=== PATIENT | female | born 1960 | race Caucasian/White ===

== ENCOUNTER 2020-10-07 08:57 | Inpatient (IN) | payer MEDICARE, MEDICAID, SELFPAY ==
[2020-10-07 09:15] VITALS: BP 133/86; PULSE 90; RESP 19; TEMP 36.2; O2SAT 96
[2020-10-07 09:20] VITALS: BP 133/84; PULSE 90; RESP 18; TEMP 36.2; O2SAT 96; BMI 28.3
--- NOTE | 2020-10-07 09:36 | XR_ITS ---
EXAMINATION: CT BRAIN WITHOUT CONTRAST. CHEST. CLINICAL INFORMATION: Hit head, and headache with dizziness. COMPARISON: None TECHNIQUE: 5 mm thin axial and reformatted 2 mm thin sagittal and coronal images of brain were obtained. DLP 675. Chest 2 views. FINDINGS: BRAIN: There is no acute intra-axial, extra-axial bleed, masses, collection or midline shift. There is no acute infarction in evolution. The lara to white matter differentiation is maintained. The lateral ventricles are symmetrical in size and configuration without enlargement. There is no abnormality in the posterior fossa. Bone windows reveal no calvarial abnormality. There is no scalp soft tissue abnormality. Bilateral paranasal sinuses and mastoid air cells are well-aerated. CHEST: The lungs are well-expanded and clear. The heart size and pulmonary vascularity is normal. There is mild dextroscoliosis mid dorsal spine. No lytic process. XR/XR chest 2V IMPRESSION: No acute intracranial process seen. Unremarkable chest exam.
--- NOTE | 2020-10-07 09:36 | ECG_ITS ---
Test Reason : MEDICAL CLEARANCE Blood Pressure : / mmHG Vent. Rate : 066 BPM Atrial Rate : 066 BPM P-R Int : 158 ms QRS Dur : 094 ms QT Int : 426 ms P-R-T Axes : 043 007 019 degrees QTc Int : 446 ms Normal sinus rhythm RSR' or QR pattern in V1 suggests right ventricular conduction delay Borderline ECG When compared with ECG of 16-JUN-2019 19:24, No significant change was found Referred By: Gail Graf Electronically Signed By:TONI CHAPARRO
--- NOTE | 2020-10-07 09:49 | ED.PSYCH ---
HPI - Psych General Chief Complaint: Psychiatric Symptoms Stated Complaint: CRISIS Time Seen by Provider: 10/07/20 09:07 Source: patient Mode of arrival: ambulatory Limitations: no limitations History of Present Illness HPI Narrative: 60-year-old female previously healthy here with suicidal thoughts with no plan. Patient told me that she recently relapsed on cocaine and has been using this for the last few weeks. She tells me she smokes daily. Unknown amount. No additional substance use. No alcohol use. She tells me this is made her feel very depressed so she is hiding it from her family. She denies any HI hallucinations. She does tell me that this morning approximately 4 hours prior to arrival she noticed some left-sided chest discomfort with dizziness and nausea. The pain radiates down her left arm. No shortness of breath, cough, fevers, chills, diaphoresis. She also tells me she fell several times this week and she may have hit her head once. But she does not remember the details. No neck or back pain. MD complaint: suicidal ideation Onset (ago): day(s) Duration: intermittent History of same: Yes Relieving factors: none Exacerbating factors: none Context: recent drug abuse Associated psychiatric symptoms: none Treatments prior to arrival: none If self harm: admits thoughts of self harm Related Data Home Medications Medication Instructions Recorded Confirmed clonazepam 1 tab PO TID 10/07/20 10/07/20 gabapentin 300 mg PO TID 10/07/20 10/07/20 lurasidone [Latuda] 1 tab PO DAILY 10/07/20 10/07/20 mirtazapine 1 tab PO BEDTIME 10/07/20 10/07/20 oxcarbazepine 1 tab PO BID 10/07/20 10/07/20 trazodone 1 - 2 tab PO BEDTIME 10/07/20 10/07/20 Allergies Allergy/AdvReac Type Severity Reaction Status Date / Time sulfamethoxazole Allergy Unknown ANAPHYLAXIS Unverified 06/06/20 15:14 [From BACTRIM] trimethoprim [From BACTRIM] Allergy Unknown ANAPHYLAXIS Unverified 06/06/20 15:14 Review of Systems Review of Systems: Yes all other systems are reviewed and are negative Constitutional: Constitutional: Reports no additional constitutional complaints, Denies body ache(s), Denies chills, Denies fever(s), Reports headache(s) and Denies weakness Eyes: Eyes: Reports no additional eye complaints and Denies change in vision ENT: Reports system reviewed and no additional complaints, except as documented, Denies dizziness, Reports headache(s), Denies nasal congestion, Denies nasal discharge and Denies neck pain Cardiovascular: Cardiovascular: Reports no additional cardiovascular complaints, Reports chest pain, Denies leg edema and Denies dyspnea Respiratory: Respiratory: Reports no additional respiratory complaints, Denies cough and Denies dyspnea Gastrointestinal: Gastrointestinal: Reports no additional gastrointestinal complaints, Denies abdominal pain, Denies diarrhea, Denies nausea and Denies vomiting Genitourinary: Genitourinary: Reports no additional female genitourinary complaints and Denies urinary incontinence Musculoskeletal: Musculoskeletal: Reports no additional musculoskeletal complaints, Denies back pain, Denies arthralgias, Denies joint swelling, Denies neck pain, Denies numbness and Denies tingling Integumentary/Breasts: Skin/Breast: Reports system reviewed and no additional complaints, except as docu and Denies rash Neurologic: Reports system reviewed and no additional complaints, except as documented, Denies Abnormal speech present, Denies dizziness, Reports headache(s), Denies numbness, Denies tingling and Denies weakness Psychiatric: Psychiatric: Denies anxiety, Reports depression, Denies visual hallucinations, Denies hallucinations, Denies homicidal ideation and Reports suicidal ideation [facility] Past Medical History Attestation statement: The following information was validated with the patient. Source: old records reviewed and nursing notes reviewed Social History Social History Alcohol intake: former Smoking Status: Current every day smoker Smoked in Last 30 Days: No Use of substances other than those prescribed or required for medical reasons: Yes Substance Use Type: Crack/Cocaine and Marijuana Substance Use Frequency: Daily Last Used Substance: Hours (ago) Advance Directives: No Advance Directives Information Provided: No Physical Exam Vital Signs: Vital Signs: Last Vital Signs Temp 97.1 F 10/07/20 09:20 Pulse 90 10/07/20 09:20 Resp 18 10/07/20 09:20 BP 133/84 10/07/20 09:20 Pulse Ox 96 10/07/20 09:20 Body Mass Index 28.3 Const: General: cooperative, healthy appearing, comfortable and no acute distress Orientation/consciousness: patient oriented x3 Limitations: no limitations HENMT: Head: Yes normal to inspection Ears: hearing grossly normal bilaterally General nose exam: Normal external nose present Face and sinus: Yes normal facial exam Mouth: Normal oral and palatal mucosa present Throat: Yes posterior oropharynx normal Eyes: General: appearance normal, both eyes and all related structures Pupils: Equal, round and reactive pupils present Neck: Neck: Yes normal visual inspection Chest: Chest palpation & inspection: normal inspection of the chest Resp: Effort & Inspection: normal respiratory effort Auscultation: clear to auscultation bilaterally Cardio: Rate: regular rate Rhythm: regular rhythm Peripheral pulses: Peripheral pulses 2+ throughout GI: Inspection: Yes normal to inspection Palpation (GI): Soft to palpation and nontender Auscultation: normal bowel sounds Back/Spine/Pelvis: Thoracic/Lumbar Spine: thoracic and lumbar spine normal to inspection Skin: General skin exam: no rashes or lesions noted Neuro: General: patient oriented x3, no focal motor deficits and normal sensation to monofilament Cranial nerves: Yes Equal, round and reactive pupils present Cognition (Neuro): normal cognition Speech: No Abnormal speech present Gait exam (Neuro): Normal gait present Motor exam (neuro): 5/5 motor strength present throughout Extrem: General: Yes normal to inspection Course Course Course Narrative: 60-year-old female here with complaints of SI with no plan and no additional complaints. She does not she had some chest discomfort for the last 5-6 hours with associated dizziness and nausea and left arm pain. She does also have frequent falls in the last few weeks and may have hit her head. Normal neurological exam. Will need CT head, chest x-ray, EKG, labs, drug screen. Once medically cleared will need a crisis evaluation. 1300-imaging unremarkable. Labs unremarkable. Will plan for repeat troponin. No concern for acute ingestion or trauma. Will plan for BHN evaluation 1415-Repeat troponin negative. BHN pending. 1505-Seen by crisis. Plan for voluntary bed search. MDM - Psych Restraints Face to Face Assessment: Face to Face Assessment: Current Situation: After assessment of the patient, a review of the pertinent medical record and a discussion with nursing staff, I feel the patient requires a restrain intervention. Reaction To: [] Medical Condition: [] Behavioral State: [] Continued Need: [] Medical Records Attestation: I reviewed the patient's medical records. Lab Data Attestation: I reviewed the patient's lab results. Result diagrams: 10/07/20 10:01 10/07/20 10:01 Labs: Lab Results 10/07/20 10/07/20 10/07/20 Range/Units 10:00 10:01 10:01 WBC 9.6 (4.8-10.8) X10*3/uL RBC 4.10 L (4.20-5.50) X10*6/uL Hgb 13.0 (12.0-16.0) g/dl Hct 38.6 (37-47) % MCV 94.1 (80-98) fL MCH 31.7 (27.0-33.0) pg MCHC 33.7 (31.0-35.0) g/dl RDW 11.9 (11.0-16.0) % Plt Count 310 (160-400) X10*3/uL MPV 9.4 (9.4-12.3) fL Immature Gran % (Auto) 0.3 (0.0-0.4) % Neut % (Auto) 67.3 (45-73) % Lymph % (Auto) 25.4 (20-40) % Creek % (Auto) 6.3 (2-11) % Eos % (Auto) 0.4 (0-4) % Baso % (Auto) 0.3 (0-2) % Lymph # (Auto) 2.5 (1.2-4.9) X10*3/uL Creek # (Auto) 0.6 (0.1-1.2) X10*3/uL Eos # (Auto) 0.0 (0.0-0.4) X10*3/uL Baso # (Auto) 0.0 (0.0-0.2) X10*3/uL Abs Immat Gran (auto) 0.03 (0.00-0.03) X10*3/uL Absolute Neuts (auto) 6.5 (2.0-8.3) X10*3/uL Absolute Nucleated RBC 0.000 (0.0-0.012) X10*3/uL Nucleated RBC % (auto) 0.0 (0.0-0.2) /100WBC PT 13.4 H (10.8-13.0) SEC INR 1.1 (0.9-1.1) Sodium (135-145) mmol/L Potassium (3.3-5.1) mmol/l Chloride (96-108) mmol/L Carbon Dioxide (22-29) mmol/L Anion Gap (12-20) BUN (9-16) mg/dL Creatinine (0.5-1.4) mg/dL Estim Creat Clear Calc Estimated GFR Random Glucose (60-115) mg/dL Calcium (8.4-10.2) mg/dL Magnesium (1.6-2.6) mg/dL Total Bilirubin (0.0-1.0) mg/dL Direct Bilirubin (0.0-0.5) mg/dL AST (5-31) U/L ALT (0-31) U/L Alkaline Phosphatase (39-117) U/L Troponin I High Sens (<3.5-17.0) ng/L Total Protein (6.5-8.0) g/dL Albumin (3.5-5.0) g/dL Urine Opiates Screen Not Detected (Not Detect) Ur Barbiturates Screen Not Detected (Not Detect) Ur Phencyclidine Scrn Not Detected (Not Detect) Ur Amphetamines Screen Not Detected (Not Detect) U Benzodiazepines Scrn Not Detected (Not Detect) Urine Cocaine Screen POSITIVE H (Not Detect) U Marijuana (THC) Screen Not Detected (Not Detect) COVID-19 (JENNIFER) (Negative) COVID-19 Clin Com 10/07/20 10/07/20 10/07/20 Range/Units 10:01 10:01 13:31 WBC (4.8-10.8) X10*3/uL RBC (4.20-5.50) X10*6/uL Hgb (12.0-16.0) g/dl Hct (37-47) % MCV (80-98) fL MCH (27.0-33.0) pg MCHC (31.0-35.0) g/dl RDW (11.0-16.0) % Plt Count (160-400) X10*3/uL MPV (9.4-12.3) fL Immature Gran % (Auto) (0.0-0.4) % Neut % (Auto) (45-73) % Lymph % (Auto) (20-40) % Creek % (Auto) (2-11) % Eos % (Auto) (0-4) % Baso % (Auto) (0-2) % Lymph # (Auto) (1.2-4.9) X10*3/uL Creek # (Auto) (0.1-1.2) X10*3/uL Eos # (Auto) (0.0-0.4) X10*3/uL Baso # (Auto) (0.0-0.2) X10*3/uL Abs Immat Gran (auto) (0.00-0.03) X10*3/uL Absolute Neuts (auto) (2.0-8.3) X10*3/uL Absolute Nucleated RBC (0.0-0.012) X10*3/uL Nucleated RBC % (auto) (0.0-0.2) /100WBC PT (10.8-13.0) SEC INR (0.9-1.1) Sodium 140 (135-145) mmol/L Potassium 4.1 (3.3-5.1) mmol/l Chloride 105 (96-108) mmol/L Carbon Dioxide 25 (22-29) mmol/L Anion Gap 14 (12-20) BUN 16 (9-16) mg/dL Creatinine 1.09 (0.5-1.4) mg/dL Estim Creat Clear Calc 55.7 Estimated GFR 52 Random Glucose 90 (60-115) mg/dL Calcium 10.3 H (8.4-10.2) mg/dL Magnesium 2.2 (1.6-2.6) mg/dL Total Bilirubin 0.5 (0.0-1.0) mg/dL Direct Bilirubin 0.2 (0.0-0.5) mg/dL AST 15 (5-31) U/L ALT 11 (0-31) U/L Alkaline Phosphatase 88 (39-117) U/L Troponin I High Sens < 3.5 < 3.5 (<3.5-17.0) ng/L Total Protein 7.2 (6.5-8.0) g/dL Albumin 4.6 (3.5-5.0) g/dL Urine Opiates Screen (Not Detect) Ur Barbiturates Screen (Not Detect) Ur Phencyclidine Scrn (Not Detect) Ur Amphetamines Screen (Not Detect) U Benzodiazepines Scrn (Not Detect) Urine Cocaine Screen (Not Detect) U Marijuana (THC) Screen (Not Detect) COVID-19 (JENNIFER) (Negative) COVID-19 Clin Com 10/07/20 Range/Units 15:30 WBC (4.8-10.8) X10*3/uL RBC (4.20-5.50) X10*6/uL Hgb (12.0-16.0) g/dl Hct (37-47) % MCV (80-98) fL MCH (27.0-33.0) pg MCHC (31.0-35.0) g/dl RDW (11.0-16.0) % Plt Count (160-400) X10*3/uL MPV (9.4-12.3) fL Immature Gran % (Auto) (0.0-0.4) % Neut % (Auto) (45-73) % Lymph % (Auto) (20-40) % Creek % (Auto) (2-11) % Eos % (Auto) (0-4) % Baso % (Auto) (0-2) % Lymph # (Auto) (1.2-4.9) X10*3/uL Creek # (Auto) (0.1-1.2) X10*3/uL Eos # (Auto) (0.0-0.4) X10*3/uL Baso # (Auto) (0.0-0.2) X10*3/uL Abs Immat Gran (auto) (0.00-0.03) X10*3/uL Absolute Neuts (auto) (2.0-8.3) X10*3/uL Absolute Nucleated RBC (0.0-0.012) X10*3/uL Nucleated RBC % (auto) (0.0-0.2) /100WBC PT (10.8-13.0) SEC INR (0.9-1.1) Sodium (135-145) mmol/L Potassium (3.3-5.1) mmol/l Chloride (96-108) mmol/L Carbon Dioxide (22-29) mmol/L Anion Gap (12-20) BUN (9-16) mg/dL Creatinine (0.5-1.4) mg/dL Estim Creat Clear Calc Estimated GFR Random Glucose (60-115) mg/dL Calcium (8.4-10.2) mg/dL Magnesium (1.6-2.6) mg/dL Total Bilirubin (0.0-1.0) mg/dL Direct Bilirubin (0.0-0.5) mg/dL AST (5-31) U/L ALT (0-31) U/L Alkaline Phosphatase (39-117) U/L Troponin I High Sens (<3.5-17.0) ng/L Total Protein (6.5-8.0) g/dL Albumin (3.5-5.0) g/dL Urine Opiates Screen (Not Detect) Ur Barbiturates Screen (Not Detect) Ur Phencyclidine Scrn (Not Detect) Ur Amphetamines Screen (Not Detect) U Benzodiazepines Scrn (Not Detect) Urine Cocaine Screen (Not Detect) U Marijuana (THC) Screen (Not Detect) COVID-19 (JENNIFER) Negative (Negative) COVID-19 Clin Com See Note Imaging Data CT scan - head: Attestation: I personally reviewed and interpreted this imaging study as follows: Radiologist's impression: FINDINGS: BRAIN: There is no acute intra-axial, extra-axial bleed, masses, collection or midline shift. There is no acute infarction in evolution. The lara to white matter differentiation is maintained. The lateral ventricles are symmetrical in size and configuration without enlargement. There is no abnormality in the posterior fossa. Bone windows reveal no calvarial abnormality. There is no scalp soft tissue abnormality. Bilateral paranasal sinuses and mastoid air cells are well-aerated. Chest x-ray: Attestation: I personally reviewed and interpreted this imaging study as follows: Radiologist's impression: CHEST: The lungs are well-expanded and clear. The heart size and pulmonary vascularity is normal. There is mild dextroscoliosis mid dorsal spine. No lytic process. ECG Data Attestation: I personally reviewed and interpreted this ECG as follows: ECG interpretation date: 10/07/20 ECG interpretation time: 10:09 Interpretation: Normal sinus rhythm with a rate of 65, normal NH, normal QRS, normal QT Discharge Plan Discharge Clinical Impression: Suicidal ideation, Cocaine use Prescriptions: No Action clonazepam 1 mg tablet 1 tab PO TID RF: 0 oxcarbazepine 300 mg tablet 1 tab PO BID RF: 0 trazodone 100 mg tablet 1 - 2 tab PO BEDTIME RF: 0 gabapentin 300 mg capsule 300 mg PO TID RF: 0 mirtazapine 7.5 mg tablet 1 tab PO BEDTIME RF: 0 Latuda 40 mg tablet 1 tab PO DAILY RF: 0
--- NOTE | 2020-10-07 09:50 | PC.NURSE ---
Pt reporting that she is dizzy and it feels like her face is tingling. PT previously stated that she hit her head twice yesterday, is now saying she does not remember. Provider notified.
--- NOTE | 2020-10-07 09:56 | CT_ITS ---
EXAMINATION: CT BRAIN WITHOUT CONTRAST. CHEST. CLINICAL INFORMATION: Hit head, and headache with dizziness. COMPARISON: None TECHNIQUE: 5 mm thin axial and reformatted 2 mm thin sagittal and coronal images of brain were obtained. DLP 675. Chest 2 views. FINDINGS: BRAIN: There is no acute intra-axial, extra-axial bleed, masses, collection or midline shift. There is no acute infarction in evolution. The lara to white matter differentiation is maintained. The lateral ventricles are symmetrical in size and configuration without enlargement. There is no abnormality in the posterior fossa. Bone windows reveal no calvarial abnormality. There is no scalp soft tissue abnormality. Bilateral paranasal sinuses and mastoid air cells are well-aerated. CHEST: The lungs are well-expanded and clear. The heart size and pulmonary vascularity is normal. There is mild dextroscoliosis mid dorsal spine. No lytic process. CT/CT head/brain wo con IMPRESSION: No acute intracranial process seen. Unremarkable chest exam.
[2020-10-07 10:47] LABS: MANUAL DIFF FLAG NO
[2020-10-07 10:52] LABS: Basophils Percent Auto 0.3 % (0-2); Eosinophils Percent Auto 0.4 % (0-4); Hematocrit 38.6 % (37-47); Imm Gran Abs Auto 0.03 X10*3/uL (0.00-0.03); Imm Gran Pct Auto 0.3 % (0.0-0.4); Lymphocytes Absolute Auto 2.5 X10*3/uL (1.2-4.9); Lymphocytes Percent Auto 25.4 % (20-40); Mean Corpuscular HGB Conc 33.7 g/dl (31.0-35.0); Mean Corpuscular Hemoglobin 31.7 pg (27.0-33.0); Mean Corpuscular Volume 94.1 fL (80-98); Mean Platelet Volume 9.4 fL (9.4-12.3); Monocytes Absolute Auto 0.6 X10*3/uL (0.1-1.2); Monocytes Percent Auto 6.3 % (2-11); Neutrophils Absolute Auto 6.5 X10*3/uL (2.0-8.3); Neutrophils Percent Auto 67.3 % (45-73); Platelet Count 310 X10*3/uL (160-400); Red Cell Distribution Width 11.9 % (11.0-16.0); White Blood Count 9.6 X10*3/uL (4.8-10.8)
[2020-10-07 10:55] LABS: INTERNATIONAL NORM RATIO 1.1 (0.9-1.1); Prothrombin Time 13.4 SEC (10.8-13.0)
[2020-10-07 11:20] LABS: Alanine Aminotransferase 11 U/L (0-31); Albumin Level 4.6 g/dL (3.5-5.0); Alkaline Phosphatase 88 U/L (39-117); Anion Gap 14 (12-20); Aspartate Amino Transferase 15 U/L (5-31); Bilirubin Direct 0.2 mg/dL (0.0-0.5); Bilirubin Total 0.5 mg/dL (0.0-1.0); Blood Urea Nitrogen 16 mg/dL (9-16); Calcium 10.3 mg/dL (8.4-10.2); Carbon Dioxide 25 mmol/L (22-29); Chloride 105 mmol/L (96-108); Creatinine Clr Calc Pharmacy 55.7; Estimated Glomerular Filt Rate 52; Glucose Random 90 mg/dL (60-115); Magnesium 2.2 mg/dL (1.6-2.6); Potassium 4.1 mmol/l (3.3-5.1); Sodium 140 mmol/L (135-145); Total Protein 7.2 g/dL (6.5-8.0)
[2020-10-07 11:22] LABS: Amphetamine Screen Urine Not Detected (Not Detect); Barbiturates, Urine Not Detected (Not Detect); Benzodiazepines Screen Urine Not Detected (Not Detect); Cannabinoid Screen Urine Not Detected (Not Detect); Cocaine Screen Urine POSITIVE (Not Detect); Opiate Screen Urine Not Detected (Not Detect); Phencyclidine Screen Urine Not Detected (Not Detect)
[2020-10-07 11:27] LABS: Troponin-I High Sensitivity < 3.5 ng/L (<3.5-17.0)
--- NOTE | 2020-10-07 12:30 | PC.NURSE ---
[facility] faxed and called, confirmed with Karlene
[2020-10-07 14:18] LABS: Troponin-I High Sensitivity < 3.5 ng/L (<3.5-17.0)
--- NOTE | 2020-10-07 14:30 | PC.NURSE ---
BHN at bedside for eval.
[2020-10-07] MEDS: Ibuprofen 400 MG TABLET PO (15:59)
[2020-10-07 16:03] LABS: COVID-19 Test Negative (Negative); IDNOW Serial# 9DD0AD1C
[2020-10-07] MEDS: Gabapentin 300 MG CAPSULE PO ×2 (16:52→20:38)
[2020-10-07] MEDS: clonazePAM 1 MG TABLET PO ×2 (16:52→20:38)
[2020-10-07] MEDS: Lurasidone HCl 40 MG TABLET PO (18:41)
--- NOTE | 2020-10-07 19:11 | PC.NURSE ---
Report received. PT is sleeping in his room. Breathing is even and unlabored. PT is inpatient bed search.
[2020-10-07 20:34] VITALS: BP 116/67; PULSE 68; RESP 20; TEMP 36.8; O2SAT 95
[2020-10-07] MEDS: OXcarbazepine 300 MG TABLET PO (20:38)
[2020-10-07] MEDS: traZODone HCL 100 MG TABLET PO (20:38)
[2020-10-07] MEDS: Mirtazapine 7.5 MG TABLET PO (20:38)
[2020-10-07 23:54] VITALS: BP 102/54; PULSE 61; RESP 16; TEMP 36.6; O2SAT 92
--- NOTE | 2020-10-08 07:02 | PC.NURSE ---
Report received. Pt currently eating breakfast, calm and cooperative, denies complaints. Pt is inpatient bedsearch.
[2020-10-08 07:38] VITALS: BP 122/77; PULSE 72; RESP 14; TEMP 36.2; O2SAT 96
[2020-10-08] MEDS: clonazePAM 1 MG TABLET PO ×3 (09:33→20:53)
[2020-10-08] MEDS: OXcarbazepine 300 MG TABLET PO ×2 (09:33→20:53)
[2020-10-08] MEDS: Lurasidone HCl 40 MG TABLET PO (09:33)
[2020-10-08] MEDS: Gabapentin 300 MG CAPSULE PO ×3 (09:33→20:53)
[2020-10-08 16:03] VITALS: BP 109/52; PULSE 76; RESP 16; TEMP 36.8; O2SAT 96
--- NOTE | 2020-10-08 19:08 | PC.NURSE ---
Report received. PT out of bed to use the bathroom. Calm and cooperative. PT is inpatient bed search.
--- NOTE | 2020-10-08 19:44 | PC.NURSE ---
PT came to the nurse's station and stated that she believes she needs drug rehabilitation treatment in addition to inpatient psych treatment. PT stated that she has dealt with drug addiction for a long time and that is the root of her SI. PT asked if she could speak with [facility] again to find out about additional resources.
[2020-10-08] MEDS: traZODone HCL 100 MG TABLET PO (20:53)
[2020-10-08] MEDS: Mirtazapine 7.5 MG TABLET PO (20:53)
[2020-10-08 20:56] VITALS: BP 130/76; PULSE 74; RESP 16; TEMP 36.7; O2SAT 96
[2020-10-09] MEDS: LORazepam 1 MG TABLET PO (01:23)
[2020-10-09 06:00] VITALS: BP 97/60; PULSE 78; RESP 18; TEMP 35.9; O2SAT 98
--- NOTE | 2020-10-09 07:09 | PC.NURSE ---
report taken from dianelys younger pt here for si attempt, is voluntary. pt expressing desire for eats bed, per previous shift rnmarck to reeval pt today and assess need for that level of care. pt using telephone to speak w mother this morning, appears calm and cooperative.
[2020-10-09 09:03] VITALS: BP 116/61; PULSE 65; TEMP 36.6; O2SAT 97
[2020-10-09] MEDS: OXcarbazepine 300 MG TABLET PO ×2 (09:04→20:59)
[2020-10-09] MEDS: Gabapentin 300 MG CAPSULE PO ×3 (09:04→20:58)
[2020-10-09] MEDS: clonazePAM 1 MG TABLET PO ×3 (09:04→20:59)
--- NOTE | 2020-10-09 09:08 | PC.NURSE ---
pt given morning meds, schedule switched for latuda per pt request.
--- NOTE | 2020-10-09 13:12 | PC.NURSE ---
bhn speaking w pt at bedside.
--- NOTE | 2020-10-09 15:13 | PC.NURSE ---
Report received. Pt watching TV in common area at current. Calm and cooperative at this time.
--- NOTE | 2020-10-09 16:51 | PC.NURSE ---
Nurse to nurse given to RAYMOND Lzaaro on M5
--- NOTE | 2020-10-09 17:01 | PC.NURSE ---
Pt watching TV in common room at current. Calm and cooperative. No complaints at this time. Awaiting transfer to .
[2020-10-09] MEDS: Lurasidone HCl 40 MG TABLET PO (17:43)
[2020-10-09 17:45] VITALS: BP 119/77; PULSE 72; RESP 18; TEMP 36.1; O2SAT 98
[2020-10-09 18:00] VITALS: BP 130/74; PULSE 71; TEMP 36.3
[2020-10-09] MEDS: Mirtazapine 7.5 MG TABLET PO (20:58)
[2020-10-09] MEDS: traZODone HCL 100 MG TABLET PO (21:03)
--- NOTE | 2020-10-09 21:17 | PC.ADMIT ---
Pt arrived on the unit at 1840. Pt reported that she had been here 6 years ago and will not come back because we do not have private rooms or too many men are on unit. Pt reports she lives by herself in [place] and her 83 year old Mother lives down the street. Pt is a 60 year old Occitan speaking caucasion female who self presented to [facility] ED and reported depression, relapse on cocaine with suicidal ideation, would not disclose her plan. During the assessment Pt reports her mood as, not good and depressed with a congruent affect. Pt reports sleep and appetite disturbances. Pt continued to endorse SI but would not disclose a plan. Pt denies HI/AH/VH. Precipitant is reported that she promised her children she would not use drugs as the primary cause of her distress. Pt has history of [facility] admissions. Pt has current providers through [facility]. Pt reported how unhappy she was on the unit and was given the option of a 3-day notice, she said not I need to much help . Pt shown unit and room. Pt denies SI at current time and denies HI. Pt reports no AH/VH.
--- NOTE | 2020-10-09 21:49 | PC.NURSE ---
Pt scored on [place] Suicide scale but, patient is on a behavioral health unit and bi
[2020-10-10 06:00] VITALS: BP 124/65; PULSE 65; RESP 16; TEMP 36.4; O2SAT 96
[2020-10-10 08:49] LABS: Estimated Average Glucose 91 mg/dL; Hemoglobin A1c % 4.8 %
[2020-10-10] MEDS: clonazePAM 1 MG TABLET PO ×3 (08:59→20:07)
[2020-10-10] MEDS: Gabapentin 300 MG CAPSULE PO ×3 (09:00→20:07)
[2020-10-10] MEDS: OXcarbazepine 300 MG TABLET PO ×2 (09:00→20:07)
[2020-10-10 09:04] LABS: Cholesterol 222 mg/dL; HDL Cholesterol 64 mg/dL; LDL Cholesterol Calculated 142 mg/dl; Triglycerides 84 mg/dL
[2020-10-10 09:28] LABS: Free T4 (Free Thyroxine) 1.05 ng/dL (0.71-1.85); Thyroid Stimulating Hormone 0.77 uIU/mL (0.32-4.0)
[2020-10-10 10:31] LABS: Folate > 20.0 ng/mL (> or = 4.0); Vitamin B12 335 pg/mL (200-900)
[2020-10-10] MEDS: Lurasidone HCl 20 MG TABLET 60 MG PO (17:06)
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
[2020-10-10 18:00] VITALS: BP 135/83; PULSE 72; TEMP 36.6
[2020-10-10] MEDS: Mirtazapine 7.5 MG TABLET PO (20:06)
[2020-10-10] MEDS: traZODone HCL 100 MG TABLET PO (20:07)
[2020-10-11 05:45] VITALS: BP 117/68; PULSE 63; RESP 16; TEMP 36.6; O2SAT 95
[2020-10-11 05:50] VITALS: BP 92/55; PULSE 73; RESP 14; TEMP 36.4; O2SAT 97
[2020-10-11] MEDS: clonazePAM 1 MG TABLET PO ×3 (08:47→20:05)
[2020-10-11] MEDS: OXcarbazepine 300 MG TABLET PO ×2 (08:47→20:06)
[2020-10-11] MEDS: Gabapentin 300 MG CAPSULE PO ×3 (08:47→20:06)
--- NOTE | 2020-10-11 15:25 | HO.PSYCHPN ---
Subjective Subjective Date of Service: 10/11/20 Reason For Visit: SI/ Cocaine use Subjective Notes: Conditional Voluntary Interim History: Pt continues to endorse depressed mood, anhedonia, poor sleep, shame/guilt related to ongoing substance use. She also continues to report intermittent suicidal ideation without a plan. She states no one believes me that I'm suicidal because they listed cocaine abuse in the treatment plan. Pt informed all active diagnosis including in treatment, including bipolar depression and substance use. Pt has been visible in the unit. She attends some groups Medication Compliance: Yes Side effects from medications: Yes Attending Groups: Yes Review of Systems Review of Systems Yes all other systems are reviewed and are negative Constitutional: Reports no additional constitutional complaints, Denies body ache(s), Denies chills, Denies fever(s), Reports headache(s) and Denies weakness Eyes: Reports no additional eye complaints and Denies change in vision Reports system reviewed and no additional complaints, except as documented, Denies dizziness, Reports headache(s), Denies nasal congestion, Denies nasal discharge and Denies neck pain Cardiovascular: Reports no additional cardiovascular complaints, Reports chest pain, Denies leg edema and Denies dyspnea Respiratory: Reports no additional respiratory complaints, Denies cough and Denies dyspnea Gastrointestinal: Reports no additional gastrointestinal complaints, Denies abdominal pain, Denies diarrhea, Denies nausea and Denies vomiting Musculoskeletal: Reports no additional musculoskeletal complaints, Denies back pain, Denies arthralgias, Denies joint swelling, Denies neck pain, Denies numbness and Denies tingling Skin/Breast: Reports system reviewed and no additional complaints, except as docu and Denies rash Reports system reviewed and no additional complaints, except as documented, Denies Abnormal speech present, Denies dizziness, Reports headache(s), Denies numbness, Denies tingling and Denies weakness Psychiatric: Denies anxiety, Reports depression, Denies visual hallucinations, Denies hallucinations, Denies homicidal ideation and Reports suicidal ideation Mental Status Exam Mental Status Exam Narrative: Appearance: casually groomed, thin woman, fair hygiene, in NAD Behavior: calm, cooperative Psychomotor: no agitation or retardation noted. No tremors. Speech: clear, normal rate/rhythm, volume, spontaneous TP: linear TC: no signs of psychosis, hopeless/helpless, guilt/shame Mood: depressed Affect: blunted, congruent with reported mood AH/VH: none Delusions: none Insight/judgment: poor x 2. memory/cog: alert, oriented x 3. grossly intact to conversational testing. Diagnostics Vital Signs (24Hr): Vital Signs - 24 hr 10/10/20 18:00 10/11/20 05:45 10/11/20 05:50 Temperature 97.8 F 97.9 F 97.6 F Pulse Rate 72 63 73 Respiratory Rate 16 14 Blood Pressure 135/83 117/68 92/55 L Pulse Oximetry 95 97 Body Mass Index 28.3 Labs Results: 10/07/20 10:01 10/07/20 10:01 Labs: Laboratory Results - last 48 hr 10/10/20 10/10/20 10/10/20 08:00 08:00 08:00 Estimat Average Glucose 91 Hemoglobin A1c % 4.8 Triglycerides 84 Cholesterol 222 LDL Cholesterol, Calc 142 HDL Cholesterol 64 Vitamin B12 335 Folate > 20.0 TSH 0.77 Free T4 1.05 Imaging Radiology Impressions: ITS Impressions Chest X-Ray 10/07/20 09:36 IMPRESSION: No acute intracranial process seen. Unremarkable chest exam. Head CT 10/07/20 09:56 IMPRESSION: No acute intracranial process seen. Unremarkable chest exam. Medications Medications Current Medications Generic Name Dose Route Start Last Admin Trade Name Freq PRN Reason Stop Dose Admin Acetaminophen 650 mg 10/09/20 17:22 Acetaminophen 325 Mg Tablet PO Q6H PRN Headache/Pain Mild Scale (1-3) Al Hydroxide/Mg Hydroxide 30 ml 10/09/20 17:22 Magnesium Hydrox/Alum Hydrox 30 Ml Oral.Susp PO Q6H PRN Heartburn/Nausea Clonazepam 1 mg 10/10/20 15:00 10/11/20 14:05 Clonazepam 1 Mg Tablet PO 1 mg TID [facility] Administration Gabapentin 300 mg 10/07/20 16:30 10/11/20 14:05 Gabapentin 300 Mg Capsule PO 300 mg TID [facility] Administration Hydroxyzine HCl 50 mg 10/09/20 17:38 Hydroxyzine Hcl 50 Mg Tablet PO Q4H PRN anxiety, sleep, allergic reaction Lurasidone HCl 60 mg 10/10/20 17:30 10/10/20 17:06 Lurasidone Hcl 20 Mg Tablet PO 60 mg DAILY@1730 [facility] Administration Mirtazapine 7.5 mg 10/07/20 21:00 10/10/20 20:06 Mirtazapine 7.5 Mg Tablet PO 7.5 mg BEDTIME [facility] Administration Oxcarbazepine 300 mg 10/07/20 21:00 10/11/20 08:47 Oxcarbazepine 300 Mg Tablet PO 300 mg BID [facility] Administration Trazodone HCl 100 - 200 mg 10/07/20 21:00 10/10/20 20:07 Trazodone Hcl 100 Mg Tablet PO 200 mg BEDTIME [facility] Administration Allergies Allergies Allergy/AdvReac Type Severity Reaction Status Date / Time sulfamethoxazole Allergy Unknown ANAPHYLAXIS Verified 10/09/20 15:21 [From BACTRIM] trimethoprim [From BACTRIM] Allergy Unknown ANAPHYLAXIS Verified 10/09/20 15:21 Assessment & Plan Assessment & Plan (1) Bipolar 1 disorder, depressed, severe: Status: Acute Code(s): F31.4 - Bipolar disorder, current episode depressed, severe, without psychotic features Assessment and Plan: 1. discussed risks/benefits of high dose clonazepam, risk of misuse/abuse. Pt understands dose will be continues but pt has to follow up with OP providers. 2. continue Latuda to 60mg po dinner time. 3. Continue Gabapentin 4. Continue trileptal 300mg po BID (2) Cocaine use: Status: Acute Code(s): F14.90 - Cocaine use, unspecified, uncomplicated Greater than 50% of the session was spent on counseling and/or coordination of care
[2020-10-11 18:00] VITALS: BP 125/70; PULSE 71; TEMP 36.1
[2020-10-11] MEDS: Lurasidone HCl 20 MG TABLET 60 MG PO (20:05)
[2020-10-11] MEDS: Mirtazapine 15 MG TABLET PO (20:06)
[2020-10-11] MEDS: traZODone HCL 100 MG TABLET PO (20:07)
[2020-10-12 06:10] VITALS: BP 100/63; PULSE 60; RESP 16; TEMP 36.1; O2SAT 97
[2020-10-12] MEDS: OXcarbazepine 300 MG TABLET PO ×2 (08:30→20:51)
[2020-10-12] MEDS: clonazePAM 1 MG TABLET PO ×3 (08:30→20:51)
[2020-10-12] MEDS: Gabapentin 300 MG CAPSULE PO ×3 (08:30→20:49)
--- NOTE | 2020-10-12 14:32 | P.PNPSI_ITS ---
Subjective Subjective Date of Service: 10/12/20 Reason For Visit: SI/ Cocaine use Interim History: Pt reports nausea and suicidal thoughts this morning. Nausea possibly due to latuda. She continues to endorse depressed mood, anhedonia, poor sleep, shame/guilt related to ongoing substance use. She also continues to report intermittent suicidal ideation without a plan. She states no one b elieves me that I'm suicidal because they listed cocaine abuse in the treatment plan. Pt informed all active diagnosis including in treatment, including bipolar depression and substance use. Pt has been visible in the unit. She attends some groups Review of Systems Review of Systems Yes all other systems are reviewed and are negative Constitutional: Reports no additional constitutional complaints, Denies body ache(s), Denies chills, Denies fever(s), Reports headache(s) and Denies weakness Eyes: Reports no additional eye complaints and Denies change in vision Reports system reviewed and no additional complaints, except as documented, Denies dizziness, Reports headache(s), Denies nasal congestion, Denies nasal discharge and Denies neck pain Cardiovascular: Reports no additional cardiovascular complaints, Reports chest pain, Denies leg edema and Denies dyspnea Respiratory: Reports no additional respiratory complaints, Denies cough and Denies dyspnea Gastrointestinal: Reports no additional gastrointestinal complaints, Denies abd ominal pain, Denies diarrhea, Denies nausea and Denies vomiting Musculoskeletal: Reports no additional musculoskeletal complaints, Denies back pain, Denies arthralgias, Denies joint swelling, Denies neck pain, Denies numbness and Denies tingling Skin/Breast: Reports system reviewed and no additional complaints, except as docu and Denies rash Reports system reviewed and no additional complaints, except as documented, Denies Abnormal speech present, Denies dizziness, Reports headache(s), Denies numbness, Denies tingling and Denies weakness Psychiatric: Denies anxiety, Reports depression, Denies visual hallucinations, Denies hallucinations, Denies homicidal ideation and Reports suicidal ideation Mental Status Exam Mental Status Exam Narrative: Appearance: casually groomed, thin woman, fair hygiene, in NAD Behavior: calm, cooperative Psychomotor: no agitation or retardation noted. No tremors. Speech: clear, normal rate/rhythm, volume, spontaneous TP: linear TC: no signs of psychosis, hopeless/helpless, guilt/shame Mood: depressed Affect: blunted, congruent with reported mood AH/VH: none Delusions: none Insight/judgment: poor x 2. memory/cog: alert, oriented x 3. grossly intact to conversational testing. Diagnostics Vital Signs (24Hr): Vital Signs - 24 hr 10/11/20 18:00 10/12/20 06:10 Temperature 96.9 F 96.9 F Pulse Rate 71 60 Respiratory Rate 16 Blood Pressure 125/70 100/63 Pulse Oximetry 97 Body Mass Index 28.3 Labs Results: 10/07/20 10:01 10/07/20 10:01 Imaging Radiology Impressions: ITS Impressions Chest X-Ray 10/07/20 09:36 IMPRESSION: No acute intracranial process seen. Unremarkable chest exam. Head CT 10/07/20 09:56 IMPRESSION: No acute intracranial process seen. Unremarkable chest exam. Medications Medications Current Medications Generic Name Dose Route Start Last Admin Trade Name Freq PRN Reason Stop Dose Admin Acetaminophen 650 mg 10/09/20 17:22 Acetaminophen 325 Mg Tablet PO Q6H PRN Headache/Pain Mild Scale (1-3) Al Hydroxide/Mg Hydroxide 30 ml 10/09/20 17:22 Magnesium Hydrox/Alum Hydrox 30 Ml Oral.Susp PO Q6H PRN Heartburn/Nausea Clonazepam 1 mg 10/10/20 15:00 10/12/20 14:09 Clonazepam 1 Mg Tablet PO 1 mg TID [facility] Administration Gabapentin 300 mg 10/07/20 16:30 10/12/20 14:09 Gabapentin 300 Mg Capsule PO 300 mg TID [facility] Administration Hydroxyzine HCl 50 mg 10/09/20 17:38 Hydroxyzine Hcl 50 Mg Tablet PO Q4H PRN anxiety, sleep, allergic reaction Lurasidone HCl 60 mg 10/11/20 21:00 10/11/20 20:05 Lurasidone Hcl 20 Mg Tablet PO 60 mg BEDTIME [facility] Administration Mirtazapine 15 mg 10/11/20 21:00 10/11/20 20:06 Mirtazapine 15 Mg Tablet PO 15 mg BEDTIME [facility] Administration Oxcarbazepine 300 mg 10/07/20 21:00 10/12/20 08:30 Oxcarbazepine 300 Mg Tablet PO 300 mg BID [facility] Administration Trazodone HCl 100 - 200 mg 10/07/20 21:00 10/11/20 20:07 Trazodone Hcl 100 Mg Tablet PO 100 mg BEDTIME [facility] Administration Allergies Allergies Allergy/AdvReac Type Severity Reaction Status Date / Time sulfamethoxazole Allergy Unknown ANAPHYLAXIS Verified 10/09/20 15:21 [From BACTRIM] trimethoprim [From BACTRIM] Allergy Unknown ANAPHYLAXIS Verified 10/09/20 15:21 Assessment & Plan Assessment & Plan (1) Bipolar 1 disorder, depressed, severe: Status: Acute Code(s): F31.4 - Bipolar disorder, current episode depressed, severe, without psychotic features Assessment and Plan: 1. discussed risks/benefits of high dose clonazepam, risk of misuse/abuse. Pt understands dose will be continues but pt has to follow up with OP providers. 2. continue Latuda to 60mg po dinner time. 3. Continue Gabapentin 4. Continue trileptal 300mg po BID (2) Cocaine use: Status: Acute Code(s): F14.90 - Cocaine use, unspecified, uncomplicated Greater than 50% of the session was spent on counseling and/or coordination of care
[2020-10-12 17:07] VITALS: BP 124/72; PULSE 77; TEMP 36.2
[2020-10-12] MEDS: Mirtazapine 15 MG TABLET PO (20:49)
[2020-10-12] MEDS: Lurasidone HCl 20 MG TABLET 60 MG PO (20:50)
[2020-10-12] MEDS: traZODone HCL 100 MG TABLET PO (20:50)
[2020-10-13 06:10] VITALS: BP 101/54; PULSE 64; RESP 18; TEMP 36.7; O2SAT 99
[2020-10-13] MEDS: clonazePAM 1 MG TABLET PO ×3 (08:56→20:03)
[2020-10-13] MEDS: OXcarbazepine 300 MG TABLET PO ×2 (08:56→20:06)
[2020-10-13] MEDS: Gabapentin 300 MG CAPSULE PO ×3 (08:56→20:04)
--- NOTE | 2020-10-13 14:12 | HO.PSYCHPN ---
Subjective Subjective Date of Service: 10/13/20 Reason For Visit: SI/ Cocaine use Interim History: Pt reports less nausea, less SI. She continues to endorse depressed mood, anhedonia, poor sleep, shame/guilt related to ongoing substance use. She also continues to report intermittent suicidal ideation without a plan. She states no one believes me that I'm suicidal because they listed cocaine abuse in the treatment plan. Pt informed all active diagnosis including in treatment, including bipolar depression and substance use. Pt has been visible in the unit. She attends some groups. Pt interested in naltrexon for cocaine cravings. Review of Systems Review of Systems Yes all other systems are reviewed and are negative Constitutional: Reports no additional constitutional complaints, Denies body ache(s), Denies chills, Denies fever(s), Reports headache(s) and Denies weakness Eyes: Reports no additional eye complaints and Denies change in vision Reports system reviewed and no additional complaints, except as documented, Denies dizziness, Reports headache(s), Denies nasal congestion, Denies nasal discharge and Denies neck pain Cardiovascular: Reports no additional cardiovascular complaints, Reports chest pain, Denies leg edema and Denies dyspnea Respiratory: Reports no additional respiratory complaints, Denies cough and Denies dyspnea Gastrointestinal: Reports no additional gastrointestinal complaints, Denies abdominal pain, Denies diarrhea, Denies nausea and Denies vomiting Musculoskeletal: Reports no additional musculoskeletal complaints, Denies back pain, Denies arthralgias, Denies joint swelling, Denies neck pain, Denies numbness and Denies tingling Skin/Breast: Reports system reviewed and no additional complaints, except as docu and Denies rash Reports system reviewed and no additional complaints, except as documented, Denies Abnormal speech present, Denies dizziness, Reports headache(s), Denies numbness, Denies tingling and Denies weakness Psychiatric: Denies anxiety, Reports depression, Denies visual hallucinations, Denies hallucinations, Denies homicidal ideation and Reports suicidal ideation Mental Status Exam Mental Status Exam Narrative: Appearance: casually groomed, thin woman, fair hygiene, in NAD Behavior: calm, cooperative Psychomotor: no agitation or retardation noted. No tremors. Speech: clear, normal rate/rhythm, volume, spontaneous TP: linear TC: no signs of psychosis, hopeless/helpless, guilt/shame Mood: depressed Affect: blunted, congruent with reported mood AH/VH: none Delusions: none Insight/judgment: poor x 2. memory/cog: alert, oriented x 3. grossly intact to conversational testing. Diagnostics Vital Signs (24Hr): Vital Signs - 24 hr 10/12/20 17:07 10/13/20 06:10 Temperature 97.1 F 98.1 F Pulse Rate 77 64 Respiratory Rate 18 Blood Pressure 124/72 101/54 L Pulse Oximetry 99 Body Mass Index 28.3 Labs Results: 10/07/20 10:01 10/07/20 10:01 Imaging Radiology Impressions: ITS Impressions Chest X-Ray 10/07/20 09:36 IMPRESSION: No acute intracranial process seen. Unremarkable chest exam. Head CT 10/07/20 09:56 IMPRESSION: No acute intracranial process seen. Unremarkable chest exam. Medications Medications Current Medications Generic Name Dose Route Start Last Admin Trade Name Freq PRN Reason Stop Dose Admin Acetaminophen 650 mg 10/09/20 17:22 Acetaminophen 325 Mg Tablet PO Q6H PRN Headache/Pain Mild Scale (1-3) Al Hydroxide/Mg Hydroxide 30 ml 10/09/20 17:22 Magnesium Hydrox/Alum Hydrox 30 Ml Oral.Susp PO Q6H PRN Heartburn/Nausea Clonazepam 1 mg 10/10/20 15:00 10/13/20 14:07 Clonazepam 1 Mg Tablet PO 1 mg TID [facility]ARD Administration Gabapentin 300 mg 10/07/20 16:30 10/13/20 14:07 Gabapentin 300 Mg Capsule PO 300 mg TID [facility] Administration Hydroxyzine HCl 50 mg 10/09/20 17:38 Hydroxyzine Hcl 50 Mg Tablet PO Q4H PRN anxiety, sleep, allergic reaction Lurasidone HCl 60 mg 10/11/20 21:00 10/12/20 20:50 Lurasidone Hcl 20 Mg Tablet PO 60 mg BEDTIME [facility] Administration Mirtazapine 15 mg 10/11/20 21:00 10/12/20 20:49 Mirtazapine 15 Mg Tablet PO 15 mg BEDTIME [facility] Administration Oxcarbazepine 300 mg 10/07/20 21:00 10/13/20 08:56 Oxcarbazepine 300 Mg Tablet PO 300 mg BID R[facility]ARD Administration Trazodone HCl 100 - 200 mg 10/07/20 21:00 10/12/20 20:50 Trazodone Hcl 100 Mg Tablet PO 200 mg BEDTIME [facility] Administration Allergies Allergies Allergy/AdvReac Type Severity Reaction Status Date / Time sulfamethoxazole Allergy Unknown ANAPHYLAXIS Verified 10/09/20 15:21 [From BACTRIM] trimethoprim [From BACTRIM] Allergy Unknown ANAPHYLAXIS Verified 10/09/20 15:21 Assessment & Plan Assessment & Plan (1) Bipolar 1 disorder, depressed, severe: Status: Acute Code(s): F31.4 - Bipolar disorder, current episode depressed, severe, without psychotic features Assessment and Plan: 1. discussed risks/benefits of high dose clonazepam, risk of misuse/abuse. Pt understands dose will be continues but pt has to follow up with OP providers. 2. continue Latuda to 60mg po dinner time. 3. Continue Gabapentin 4. Continue trileptal 300mg po BID (2) Cocaine use: Status: Acute Code(s): F14.90 - Cocaine use, unspecified, uncomplicated Greater than 50% of the session was spent on counseling and/or coordination of care
--- NOTE | 2020-10-13 14:52 | PC.NURSE ---
pt placed on 5 minute checks locked br as she reported being upset that she is not able to get the vivitrol shot today. stated she will be suicidal if she cant get it. currently talking with staff how to process this. she is engaging about how she is feeling.
[2020-10-13 19:20] VITALS: BP 131/72; PULSE 80; TEMP 36.5
[2020-10-13] MEDS: Famotidine 20 MG TABLET PO (20:04)
[2020-10-13] MEDS: Naltrexone HCl 50 MG TABLET PO (20:05)
[2020-10-13] MEDS: Mirtazapine 15 MG TABLET PO (20:06)
[2020-10-13] MEDS: traZODone HCL 100 MG TABLET PO (20:06)
[2020-10-13] MEDS: Lurasidone HCl 20 MG TABLET 60 MG PO (20:07)
[2020-10-14 05:30] VITALS: BP 122/55; PULSE 55; RESP 18; TEMP 36.2; O2SAT 97
[2020-10-14] MEDS: OXcarbazepine 300 MG TABLET PO ×2 (08:49→21:11)
[2020-10-14] MEDS: Famotidine 20 MG TABLET PO ×2 (08:49→21:11)
[2020-10-14] MEDS: clonazePAM 1 MG TABLET PO ×3 (08:50→21:10)
[2020-10-14] MEDS: Gabapentin 300 MG CAPSULE PO ×3 (08:50→21:12)
[2020-10-14 12:08] LABS: Calcium, Ionized 5.9 mg/dL (4.8-5.6)
--- NOTE | 2020-10-14 14:39 | HO.PSYCHPN ---
Subjective Subjective Date of Service: 10/14/20 Reason For Visit: SI/ Cocaine use Interim History: Pt reports feeling less depressed. However, she continues to report anxious mood, intermittent suicidal ideation without a plan. She reports sleep is fair. She declined referrals for substance use treatment programs. She has been visible in the unit. Her affect appears much brighter than reported mood. No behavioral concerns. Review of Systems Review of Systems Yes all other systems are reviewed and are negative Constitutional: Reports no additional constitutional complaints, Denies body ache(s), Denies chills, Denies fever(s), Reports headache(s) and Denies weakness Eyes: Reports no additional eye complaints and Denies change in vision Reports system reviewed and no additional complaints, except as documented, Denies dizziness, Reports headache(s), Denies nasal congestion, Denies nasal discharge and Denies neck pain Cardiovascular: Reports no additional cardiovascular complaints, Reports chest pain, Denies leg edema and Denies dyspnea Respiratory: Reports no additional respiratory complaints, Denies cough and Denies dyspnea Gastrointestinal: Reports no additional gastrointestinal complaints, Denies abdominal pain, Denies diarrhea, Denies nausea and Denies vomiting Musculoskeletal: Reports no additional musculoskeletal complaints, Denies back pain, Denies arthralgias, Denies joint swelling, Denies neck pain, Denies numbness and Denies tingling Skin/Breast: Reports system reviewed and no additional complaints, except as docu and Denies rash Reports system reviewed and no additional complaints, except as documented, Denies Abnormal speech present, Denies dizziness, Reports headache(s), Denies numbness, Denies tingling and Denies weakness Psychiatric: Denies anxiety, Reports depression, Denies visual hallucinations, Denies hallucinations, Denies homicidal ideation and Reports suicidal ideation Mental Status Exam Mental Status Exam Narrative: Appearance: casually groomed, thin woman, fair hygiene, in NAD Behavior: calm, cooperative Psychomotor: no agitation or retardation noted. No tremors. Speech: clear, normal rate/rhythm, volume, spontaneous TP: linear TC: no signs of psychosis, hopeless/helpless, guilt/shame Mood: depressed Affect: blunted, congruent with reported mood AH/VH: none Delusions: none Insight/judgment: poor x 2. memory/cog: alert, oriented x 3. grossly intact to conversational testing. Diagnostics Vital Signs (24Hr): Vital Signs - 24 hr 10/13/20 19:20 10/14/20 05:30 Temperature 97.7 F 97.1 F Pulse Rate 80 55 Respiratory Rate 18 Blood Pressure 131/72 122/55 L Pulse Oximetry 97 Body Mass Index 28.3 Labs Results: 10/07/20 10:01 10/07/20 10:01 Labs: Laboratory Results - last 48 hr 10/10/20 08:00 Ionized Calcium 5.9 H Imaging Radiology Impressions: ITS Impressions Chest X-Ray 10/07/20 09:36 IMPRESSION: No acute intracranial process seen. Unremarkable chest exam. Head CT 10/07/20 09:56 IMPRESSION: No acute intracranial process seen. Unremarkable chest exam. Medications Medications Current Medications Generic Name Dose Route Start Last Admin Trade Name Freq PRN Reason Stop Dose Admin Acetaminophen 650 mg 10/09/20 17:22 Acetaminophen 325 Mg Tablet PO Q6H PRN Headache/Pain Mild Scale (1-3) Al Hydroxide/Mg Hydroxide 30 ml 10/09/20 17:22 Magnesium Hydrox/Alum Hydrox 30 Ml Oral.Susp PO Q6H PRN Heartburn/Nausea Clonazepam 1 mg 10/10/20 15:00 10/14/20 14:17 Clonazepam 1 Mg Tablet PO 1 mg TID RICHARD Administration Famotidine 20 mg 10/13/20 21:00 10/14/20 08:49 Famotidine 20 Mg Tablet PO 20 mg BID RICHARD Administration Gabapentin 300 mg 10/07/20 16:30 10/14/20 14:17 Gabapentin 300 Mg Capsule PO 300 mg TID RICHARD Administration Hydroxyzine HCl 50 mg 10/09/20 17:38 Hydroxyzine Hcl 50 Mg Tablet PO Q4H PRN anxiety, sleep, allergic reaction Lurasidone HCl 60 mg 10/11/20 21:00 10/13/20 20:07 Lurasidone Hcl 20 Mg Tablet PO 60 mg BEDTIME RICHARD Administration Mirtazapine 15 mg 10/11/20 21:00 10/13/20 20:06 Mirtazapine 15 Mg Tablet PO 15 mg BEDTIME RICHARD Administration Naltrexone HCl 50 mg 10/13/20 21:00 10/13/20 20:05 Naltrexone Hcl 50 Mg Tablet PO 50 mg BEDTIME RICHARD Administration Oxcarbazepine 300 mg 10/07/20 21:00 10/14/20 08:49 Oxcarbazepine 300 Mg Tablet PO 300 mg BID RICHARD Administration Trazodone HCl 100 - 200 mg 10/07/20 21:00 10/13/20 20:06 Trazodone Hcl 100 Mg Tablet PO 200 mg BEDTIME RICHARD Administration Allergies Allergies Allergy/AdvReac Type Severity Reaction Status Date / Time sulfamethoxazole Allergy Unknown ANAPHYLAXIS Verified 10/09/20 15:21 [From BACTRIM] trimethoprim [From BACTRIM] Allergy Unknown ANAPHYLAXIS Verified 10/09/20 15:21 Assessment & Plan Assessment & Plan (1) Bipolar 1 disorder, depressed, severe: Status: Acute Code(s): F31.4 - Bipolar disorder, current episode depressed, severe, without psychotic features Assessment and Plan: 1. discussed risks/benefits of high dose clonazepam, risk of misuse/abuse. Pt understands dose will be continues but pt has to follow up with OP providers. 2. continue Latuda to 60mg po dinner time. 3. Continue Gabapentin 4. Continue trileptal 300mg po BID (2) Cocaine use: Status: Acute Code(s): F14.90 - Cocaine use, unspecified, uncomplicated Greater than 50% of the session was spent on counseling and/or coordination of care
[2020-10-14] MEDS: Mirtazapine 15 MG TABLET PO (21:11)
[2020-10-14] MEDS: Naltrexone HCl 50 MG TABLET PO (21:11)
[2020-10-14] MEDS: Lurasidone HCl 20 MG TABLET 60 MG PO (21:12)
[2020-10-14] MEDS: traZODone HCL 100 MG TABLET PO (21:13)
[2020-10-14 21:20] VITALS: BP 131/82; PULSE 67; TEMP 36.2
[2020-10-15 06:00] VITALS: BP 130/62; PULSE 61; RESP 18; TEMP 36.5; O2SAT 96
[2020-10-15] MEDS: Gabapentin 300 MG CAPSULE PO ×3 (08:43→20:52)
[2020-10-15] MEDS: OXcarbazepine 300 MG TABLET PO ×2 (08:43→20:53)
[2020-10-15] MEDS: Famotidine 20 MG TABLET PO (08:44)
[2020-10-15] MEDS: clonazePAM 1 MG TABLET PO ×3 (08:44→20:52)
--- NOTE | 2020-10-15 16:40 | HO.PSYCHPN ---
Subjective Subjective Date of Service: 10/17/20 Reason For Visit: SI/ Cocaine use Interim History: Pt continues to reports feeling less depressed. However, she continues to report anxious mood, intermittent suicidal ideation without a plan. She reports sleep is fair. She declined referrals for substance use treatment programs. She has been visible in the unit. Her affect appears much brighter than reported mood. No behavioral concerns. Review of Systems Review of Systems Yes all other systems are reviewed and are negative Constitutional: Reports no additional constitutional complaints, Denies body ache(s), Denies chills, Denies fever(s), Reports headache(s) and Denies weakness Eyes: Reports no additional eye complaints and Denies change in vision Reports system reviewed and no additional complaints, except as documented, Denies dizziness, Reports headache(s), Denies nasal congestion, Denies nasal discharge and Denies neck pain Cardiovascular: Reports no additional cardiovascular complaints, Reports chest pain, Denies leg edema and Denies dyspnea Respiratory: Reports no additional respiratory complaints, Denies cough and Denies dyspnea Gastrointestinal: Reports no additional gastrointestinal complaints, Denies abdominal pain, Denies diarrhea, Denies nausea and Denies vomiting Musculoskeletal: Reports no additional musculoskeletal complaints, Denies back pain, Denies arthralgias, Denies joint swelling, Denies neck pain, Denies numbness and Denies tingling Skin/Breast: Reports system reviewed and no additional complaints, except as docu and Denies rash Reports system reviewed and no additional complaints, except as documented, Denies Abnormal speech present, Denies dizziness, Reports headache(s), Denies numbness, Denies tingling and Denies weakness Psychiatric: Denies anxiety, Reports depression, Denies visual hallucinations, Denies hallucinations, Denies homicidal ideation and Reports suicidal ideation Mental Status Exam Mental Status Exam Narrative: Appearance: casually groomed, thin woman, fair hygiene, in NAD Behavior: calm, cooperative Psychomotor: no agitation or retardation noted. No tremors. Speech: clear, normal rate/rhythm, volume, spontaneous TP: linear TC: no signs of psychosis, hopeless/helpless, guilt/shame Mood: depressed Affect: blunted, congruent with reported mood AH/VH: none Delusions: none Insight/judgment: poor x 2. memory/cog: alert, oriented x 3. grossly intact to conversational testing. Diagnostics Vital Signs (24Hr): Vital Signs - 24 hr 10/14/20 21:20 10/15/20 06:00 Temperature 97.2 F 97.7 F Pulse Rate 67 61 Respiratory Rate 18 Blood Pressure 131/82 130/62 Pulse Oximetry 96 Body Mass Index 28.3 Labs Results: 10/07/20 10:01 10/07/20 10:01 Labs: Laboratory Results - last 48 hr 10/10/20 08:00 Ionized Calcium 5.9 H Imaging Radiology Impressions: ITS Impressions Chest X-Ray 10/07/20 09:36 IMPRESSION: No acute intracranial process seen. Unremarkable chest exam. Head CT 10/07/20 09:56 IMPRESSION: No acute intracranial process seen. Unremarkable chest exam. Medications Medications Current Medications Generic Name Dose Route Start Last Admin Trade Name Freq PRN Reason Stop Dose Admin Acetaminophen 650 mg 10/09/20 17:22 Acetaminophen 325 Mg Tablet PO Q6H PRN Headache/Pain Mild Scale (1-3) Al Hydroxide/Mg Hydroxide 30 ml 10/09/20 17:22 Magnesium Hydrox/Alum Hydrox 30 Ml Oral.Susp PO Q6H PRN Heartburn/Nausea Clonazepam 1 mg 10/10/20 15:00 10/15/20 14:29 Clonazepam 1 Mg Tablet PO 1 mg TID RICHARD Administration Famotidine 20 mg 10/13/20 21:00 10/15/20 08:44 Famotidine 20 Mg Tablet PO 20 mg BID RICHARD Administration Gabapentin 300 mg 10/07/20 16:30 10/15/20 14:29 Gabapentin 300 Mg Capsule PO 300 mg TID RICHARD Administration Hydroxyzine HCl 50 mg 10/09/20 17:38 Hydroxyzine Hcl 50 Mg Tablet PO Q4H PRN anxiety, sleep, allergic reaction Lurasidone HCl 60 mg 10/11/20 21:00 10/14/20 21:12 Lurasidone Hcl 20 Mg Tablet PO 60 mg BEDTIME RICHARD Administration Mirtazapine 15 mg 10/11/20 21:00 10/14/20 21:11 Mirtazapine 15 Mg Tablet PO 15 mg BEDTIME RICHARD Administration Multivitamins/Vitamin C 1 tab 10/16/20 09:00 Multivitamin Tablet PO DAILY RICHARD Naltrexone HCl 50 mg 10/13/20 21:00 10/14/20 21:11 Naltrexone Hcl 50 Mg Tablet PO 50 mg BEDTIME RICHARD Administration Ondansetron HCl 4 mg 10/15/20 16:38 Ondansetron Odt 4 Mg Tab.Rapdis TRANSLINGU Q6H PRN nausea/vomiting Oxcarbazepine 300 mg 10/07/20 21:00 10/15/20 08:43 Oxcarbazepine 300 Mg Tablet PO 300 mg BID RICHARD Administration Trazodone HCl 100 - 200 mg 10/07/20 21:00 10/14/20 21:13 Trazodone Hcl 100 Mg Tablet PO 200 mg BEDTIME RICHARD Administration Allergies Allergies Allergy/AdvReac Type Severity Reaction Status Date / Time sulfamethoxazole Allergy Unknown ANAPHYLAXIS Verified 10/09/20 15:21 [From BACTRIM] trimethoprim [From BACTRIM] Allergy Unknown ANAPHYLAXIS Verified 10/09/20 15:21 Assessment & Plan Assessment & Plan (1) Bipolar 1 disorder, depressed, severe: Status: Acute Code(s): F31.4 - Bipolar disorder, current episode depressed, severe, without psychotic features Assessment and Plan: 1. discussed risks/benefits of high dose clonazepam, risk of misuse/abuse. Pt understands dose will be continues but pt has to follow up with OP providers. 2. continue Latuda to 60mg po dinner time. 3. Continue Gabapentin 4. Continue trileptal 300mg po BID (2) Cocaine use: Status: Acute Code(s): F14.90 - Cocaine use, unspecified, uncomplicated Greater than 50% of the session was spent on counseling and/or coordination of care
[2020-10-15 18:00] VITALS: BP 124/88; PULSE 73; TEMP 36.8
[2020-10-15] MEDS: Mirtazapine 15 MG TABLET PO (20:52)
[2020-10-15] MEDS: Lurasidone HCl 20 MG TABLET 60 MG PO (20:52)
[2020-10-15] MEDS: traZODone HCL 100 MG TABLET PO (20:52)
[2020-10-15] MEDS: Naltrexone HCl 50 MG TABLET PO (20:53)
[2020-10-16 06:20] VITALS: BP 100/56; PULSE 62; RESP 16; TEMP 36.6; O2SAT 96
[2020-10-16] MEDS: Multivitamin TABLET 1 TAB PO (08:55)
[2020-10-16] MEDS: clonazePAM 1 MG TABLET PO ×3 (08:55→20:58)
[2020-10-16] MEDS: Gabapentin 300 MG CAPSULE PO ×3 (08:55→20:59)
[2020-10-16] MEDS: OXcarbazepine 300 MG TABLET PO ×2 (08:55→20:58)
[2020-10-16 18:00] VITALS: BP 109/56; PULSE 74; TEMP 36.5
[2020-10-16] MEDS: traZODone HCL 100 MG TABLET PO (20:58)
[2020-10-16] MEDS: Lurasidone HCl 20 MG TABLET 60 MG PO (20:58)
[2020-10-16] MEDS: Naltrexone HCl 50 MG TABLET PO (20:59)
[2020-10-16] MEDS: Mirtazapine 15 MG TABLET PO (20:59)
[2020-10-17 06:25] VITALS: BP 102/57; PULSE 55; RESP 16; TEMP 36.5; O2SAT 96
[2020-10-17] MEDS: clonazePAM 1 MG TABLET PO ×3 (08:50→19:57)
[2020-10-17] MEDS: OXcarbazepine 300 MG TABLET PO ×2 (08:50→19:58)
[2020-10-17] MEDS: Multivitamin TABLET 1 TAB PO (08:50)
[2020-10-17] MEDS: Gabapentin 300 MG CAPSULE PO ×3 (08:50→19:58)
--- NOTE | 2020-10-17 10:08 | P.PNPSI_ITS ---
Subjective Subjective Date of Service: 10/16/20 Reason For Visit: SI/ Cocaine use Subjective Notes: Conditional Voluntary Interim History: Pt reports feeling less anxious. She reports suicidal ideation but denies any plan or intent. She reports feeling anxious about returning home and relapsing. She states she hopes her son can stay with her. She reports some nausea in morning, taking zofran- reported pepcid not helpful. She has been visible in the unit, social with selected peers. She attends groups, her affect appears much brighter than reported mood. Medication Compliance: Yes Side effects from medications: No Attending Groups: Yes Review of Systems Review of Systems Yes all other systems are reviewed and are negative Constitutional: Reports no additional constitutional complaints, Denies body ache(s), Denies chills, Denies fever(s), Reports headache(s) and Denies weakness Eyes: Reports no additional eye complaints and Denies change in vision Reports system reviewed and no additional complaints, except as documented, Denies dizziness, Reports headache(s), Denies nasal congestion, Denies nasal discharge and Denies neck pain Cardiovascular: Reports no additional cardiovascular complaints, Reports chest pain, Denies leg edema and Denies dyspnea Respiratory: Reports no additional respiratory complaints, Denies cough and Denies dyspnea Gastrointestinal: Reports no additional gastrointestinal complaints, Denies ab dominal pain, Denies diarrhea, Denies nausea and Denies vomiting Musculoskeletal: Reports no additional musculoskeletal complaints, Denies back pain, Denies arthralgias, Denies joint swelling, Denies neck pain, Denies numbness and Denies tingling Skin/Breast: Reports system reviewed and no additional complaints, except as docu and Denies rash Reports system reviewed and no additional complaints, except as documented, Denies Abnormal speech present, Denies dizziness, Reports headache(s), Denies numbness, Denies tingling and Denies weakness Psychiatric: Denies anxiety, Reports depression, Denies visual hallucinations, Denies hallucinations, Denies homicidal ideation and Reports suicidal ideation Mental Status Exam Mental Status Exam Narrative: Appearance: casually groomed, thin woman, fair hygiene, in NAD Behavior: calm, cooperative Psychomotor: no agitation or retardation noted. No tremors. Speech: clear, normal rate/rhythm, volume, spontaneous TP: linear TC: no signs of psychosis, hopeless/helpless, guilt/shame Mood: depressed Affect: blunted, congruent with reported mood AH/VH: none Delusions: none Insight/judgment: poor x 2. memory/cog: alert, oriented x 3. grossly intact to conversational testing. Diagnostics Vital Signs (24Hr): Vital Signs - 24 hr 10/16/20 18:00 10/17/20 06:25 Temperature 97.7 F 97.7 F Pulse Rate 74 55 Respiratory Rate 16 Blood Pressure 109/56 L 102/57 L Pulse Oximetry 96 Body Mass Index 28.3 Labs Results: 10/07/20 10:01 10/07/20 10:01 Imaging Radiology Impressions: ITS Impressions Chest X-Ray 10/07/20 09:36 IMPRESSION: No acute intracranial process seen. Unremarkable chest exam. Head CT 10/07/20 09:56 IMPRESSION: No acute intracranial process seen. Unremarkable chest exam. Medications Medications Current Medications Generic Name Dose Route Start Last Admin Trade Name Freq PRN Reason Stop Dose Admin Acetaminophen 650 mg 10/09/20 17:22 Acetaminophen 325 Mg Tablet PO Q6H PRN Headache/Pain Mild Scale (1-3) Al Hydroxide/Mg Hydroxide 30 ml 10/09/20 17:22 Magnesium Hydrox/Alum Hydrox 30 Ml Oral.Susp PO Q6H PRN Heartburn/Nausea Clonazepam 1 mg 10/10/20 15:00 10/17/20 08:50 Clonazepam 1 Mg Tablet PO 1 mg TID RICHARD Administration Gabapentin 300 mg 10/07/20 16:30 10/17/20 08:50 Gabapentin 300 Mg Capsule PO 300 mg TID RICHARD Administration Hydroxyzine HCl 50 mg 10/09/20 17:38 Hydroxyzine Hcl 50 Mg Tablet PO Q4H PRN anxiety, sleep, allergic reaction Lurasidone HCl 60 mg 10/11/20 21:00 10/16/20 20:58 Lurasidone Hcl 20 Mg Tablet PO 60 mg BEDTIME RICHARD Administration Mirtazapine 15 mg 10/11/20 21:00 10/16/20 20:59 Mirtazapine 15 Mg Tablet PO 15 mg BEDTIME RICHARD Administration Multivitamins/Vitamin C 1 tab 10/16/20 09:00 10/17/20 08:50 Multivitamin Tablet PO 1 tab DAILY RICHARD Administration Naltrexone HCl 50 mg 10/13/20 21:00 10/16/20 20:59 Naltrexone Hcl 50 Mg Tablet PO 50 mg BEDTIME RICHARD Administration Ondansetron HCl 4 mg 10/15/20 16:38 10/16/20 09:21 Ondansetron Odt 4 Mg Tab.Rapdis TRANSLINGU 4 mg Q6H PRN Administration nausea/vomiting Oxcarbazepine 300 mg 10/07/20 21:00 10/17/20 08:50 Oxcarbazepine 300 Mg Tablet PO 300 mg BID RICHARD Administration Trazodone HCl 100 - 200 mg 10/07/20 21:00 10/16/20 20:58 Trazodone Hcl 100 Mg Tablet PO 200 mg BEDTIME RICHARD Administration Allergies Allergies Allergy/AdvReac Type Severity Reaction Status Date / Time sulfamethoxazole Allergy Unknown ANAPHYLAXIS Verified 10/09/20 15:21 [From BACTRIM] trimethoprim [From BACTRIM] Allergy Unknown ANAPHYLAXIS Verified 10/09/20 15:21 Assessment & Plan Assessment & Plan (1) Bipolar 1 disorder, depressed, severe: Status: Acute Code(s): F31.4 - Bipolar disorder, current episode depressed, severe, without psychotic features Assessment and Plan: 1. discussed risks/benefits of high dose clonazepam, risk of misuse/abuse. Pt understands dose will be continues but pt has to follow up with OP providers. 2. continue Latuda to 60mg po dinner time. 3. Continue Gabapentin 4. Continue trileptal 300mg po BID (2) Cocaine use: Status: Acute Code(s): F14.90 - Cocaine use, unspecified, uncomplicated Greater than 50% of the session was spent on counseling and/or coordination of care
--- NOTE | 2020-10-17 16:08 | HO.PSYCHPN ---
Subjective Subjective Date of Service: 10/17/20 Reason For Visit: SI/ Cocaine use Interim History: Pt reports looking forward for discharge tomorrow. She reports less symptoms of depression, less anxious mood. She is hopeful vivitrol will help cocaine cravings. She denies SI/HI. She reports some nausea in the morning, most likely secondary to latuda and or naltrexone. She has been visible in the unit. She attends assigned groups. No behavioral concern. Review of Systems Review of Systems Yes all other systems are reviewed and are negative Constitutional: Reports no additional constitutional complaints, Denies body ache(s), Denies chills, Denies fever(s), Reports headache(s) and Denies weakness Eyes: Reports no additional eye complaints and Denies change in vision Reports system reviewed and no additional complaints, except as documented, Denies dizziness, Reports headache(s), Denies nasal congestion, Denies nasal discharge and Denies neck pain Cardiovascular: Reports no additional cardiovascular complaints, Reports chest pain, Denies leg edema and Denies dyspnea Respiratory: Reports no additional respiratory complaints, Denies cough and Denies dyspnea Gastrointestinal: Reports no additional gastrointestinal complaints, Denies abdominal pain, Denies diarrhea, Denies nausea and Denies vomiting Musculoskeletal: Reports no additional musculoskeletal complaints, Denies back pain, Denies arthralgias, Denies joint swelling, Denies neck pain, Denies numbness and Denies tingling Skin/Breast: Reports system reviewed and no additional complaints, except as docu and Denies rash Reports system reviewed and no additional complaints, except as documented, Denies Abnormal speech present, Denies dizziness, Reports headache(s), Denies numbness, Denies tingling and Denies weakness Psychiatric: Denies anxiety, Reports depression, Denies visual hallucinations, Denies hallucinations, Denies homicidal ideation and Reports suicidal ideation Mental Status Exam Mental Status Exam Narrative: Appearance: casually groomed, thin woman, fair hygiene, in NAD Behavior: calm, cooperative Psychomotor: no agitation or retardation noted. No tremors. Speech: clear, normal rate/rhythm, volume, spontaneous TP: linear TC: no signs of psychosis, hopeless/helpless, guilt/shame Mood: depressed Affect: blunted, congruent with reported mood AH/VH: none Delusions: none Insight/judgment: poor x 2. memory/cog: alert, oriented x 3. grossly intact to conversational testing. Diagnostics Vital Signs (24Hr): Vital Signs - 24 hr 10/16/20 18:00 10/17/20 06:25 Temperature 97.7 F 97.7 F Pulse Rate 74 55 Respiratory Rate 16 Blood Pressure 109/56 L 102/57 L Pulse Oximetry 96 Body Mass Index 28.3 Labs Results: 10/07/20 10:01 10/07/20 10:01 Imaging Radiology Impressions: ITS Impressions Chest X-Ray 10/07/20 09:36 IMPRESSION: No acute intracranial process seen. Unremarkable chest exam. Head CT 10/07/20 09:56 IMPRESSION: No acute intracranial process seen. Unremarkable chest exam. Medications Medications Current Medications Generic Name Dose Route Start Last Admin Trade Name Freq PRN Reason Stop Dose Admin Acetaminophen 650 mg 10/09/20 17:22 Acetaminophen 325 Mg Tablet PO Q6H PRN Headache/Pain Mild Scale (1-3) Al Hydroxide/Mg Hydroxide 30 ml 10/09/20 17:22 Magnesium Hydrox/Alum Hydrox 30 Ml Oral.Susp PO Q6H PRN Heartburn/Nausea Clonazepam 1 mg 10/10/20 15:00 10/17/20 14:35 Clonazepam 1 Mg Tablet PO 1 mg TID RICHARD Administration Gabapentin 300 mg 10/07/20 16:30 10/17/20 14:35 Gabapentin 300 Mg Capsule PO 300 mg TID RICHARD Administration Hydroxyzine HCl 50 mg 10/09/20 17:38 Hydroxyzine Hcl 50 Mg Tablet PO Q4H PRN anxiety, sleep, allergic reaction Lurasidone HCl 60 mg 10/11/20 21:00 10/16/20 20:58 Lurasidone Hcl 20 Mg Tablet PO 60 mg BEDTIME RICHARD Administration Mirtazapine 15 mg 10/11/20 21:00 10/16/20 20:59 Mirtazapine 15 Mg Tablet PO 15 mg BEDTIME RICHARD Administration Multivitamins/Vitamin C 1 tab 10/16/20 09:00 10/17/20 08:50 Multivitamin Tablet PO 1 tab DAILY RICHARD Administration Naltrexone HCl 50 mg 10/13/20 21:00 10/16/20 20:59 Naltrexone Hcl 50 Mg Tablet PO 50 mg BEDTIME RICHARD Administration Ondansetron HCl 4 mg 10/15/20 16:38 10/17/20 12:27 Ondansetron Odt 4 Mg Tab.Rapdis TRANSLINGU 4 mg Q6H PRN Administration nausea/vomiting Oxcarbazepine 300 mg 10/07/20 21:00 10/17/20 08:50 Oxcarbazepine 300 Mg Tablet PO 300 mg BID RICHARD Administration Trazodone HCl 100 - 200 mg 10/07/20 21:00 10/16/20 20:58 Trazodone Hcl 100 Mg Tablet PO 200 mg BEDTIME RICHARD Administration Allergies Allergies Allergy/AdvReac Type Severity Reaction Status Date / Time sulfamethoxazole Allergy Unknown ANAPHYLAXIS Verified 10/09/20 15:21 [From BACTRIM] trimethoprim [From BACTRIM] Allergy Unknown ANAPHYLAXIS Verified 10/09/20 15:21 Assessment & Plan Assessment & Plan (1) Bipolar 1 disorder, depressed, severe: Status: Acute Code(s): F31.4 - Bipolar disorder, current episode depressed, severe, without psychotic features Assessment and Plan: 1. discussed risks/benefits of high dose clonazepam, risk of misuse/abuse. Pt understands dose will be continues but pt has to follow up with OP providers. 2. continue Latuda to 60mg po dinner time. 3. Continue Gabapentin 4. Continue trileptal 300mg po BID (2) Cocaine use: Status: Acute Code(s): F14.90 - Cocaine use, unspecified, uncomplicated Greater than 50% of the session was spent on counseling and/or coordination of care
[2020-10-17 16:20] VITALS: BP 103/67; PULSE 77; TEMP 36.3
[2020-10-17] MEDS: Lurasidone HCl 20 MG TABLET 60 MG PO (19:57)
[2020-10-17] MEDS: traZODone HCL 100 MG TABLET PO (19:58)
[2020-10-17] MEDS: Naltrexone HCl 50 MG TABLET PO (19:58)
[2020-10-17] MEDS: Mirtazapine 15 MG TABLET PO (19:59)
[2020-10-18] MEDS: hydrOXYzine HCL 50 MG TABLET PO (04:42)
[2020-10-18 06:05] VITALS: BP 117/66; PULSE 72; RESP 18; TEMP 36.5; O2SAT 96
[2020-10-18] MEDS: OXcarbazepine 300 MG TABLET PO (08:56)
[2020-10-18] MEDS: Multivitamin TABLET 1 TAB PO (08:56)
[2020-10-18] MEDS: Gabapentin 300 MG CAPSULE PO (08:56)
[2020-10-18] MEDS: clonazePAM 1 MG TABLET PO (08:56)
--- NOTE | 2020-10-18 11:40 | P.DS_ITS ---
DS: Providers Provider Date of Service: 10/28/20 Date of admission: 10/09/20 17:22 Primary care physician: Maday Physician Attending physician on admission: Karen Lamb Discharging clinician: Karen Lamb DS: Diagnosis Discharge Diagnosis (1) Bipolar 1 disorder, depressed, severe: Status: Acute (2) Cocaine use: Status: Acute DS: Medications Discharge Medications Home Medications: Home Medications Medication Instructions Recorded Confirmed clonazepam 1 tab PO TID 10/07/20 10/07/20 gabapentin 300 mg PO TID 10/07/20 10/07/20 oxcarbazepine 300 mg PO BID 10/07/20 10/09/20 trazodone 1 - 2 tab PO BEDTIME 10/07/20 10/07/20 Previous Rx's Medication Instructions Recorded naltrexone microspheres [Vivitrol] 380 mg IM Q28D 30 Days #1 ea 10/15/20 naltrexone microspheres [Vivitrol] 380 mg IM QMONTH 30 Days #1 ea 10/15/20 lurasidone [Latuda] 60 mg PO BEDTIME 30 Days #90 tab 10/18/20 mirtazapine 15 mg PO BEDTIME 30 Days #30 tab 10/18/20 multivitamin with folic acid 1 tab PO DAILY 30 Days #30 tab 10/18/20 [Tab-A-Elias] naltrexone 50 mg PO BEDTIME 30 Days #30 tab 10/18/20 ondansetron 4 mg TRANSLINGUAL Q6H PRN 10 Days 10/18/20 #20 tab Discharge Plan Discharge Patient Disposition: Home, Self-Care Referrals: Diana Chapman MD ([facility]) [Other] - 10/21/20 1:15 pm (Intake for Vivitrol ) PCP: Ariela Serrano CNP ([facility]) [Other] - 01/17/21 10:00 am Therapist: Demetrice Holguin ([facility]) [Other] - 10/24/20 12:00 pm [facility] [Other] (Walk in if needed.) Discharge Medications: New naltrexone 50 mg Tablet 50 mg PO BEDTIME 30 Days Qty: 30 RF: 0 mirtazapine 15 mg Tablet 15 mg PO BEDTIME 30 Days Qty: 30 RF: 0 ondansetron 4 mg Tablet,Disintegrating 4 mg translingual Q6H PRN (Reason: nausea/vomiting) 10 Days Qty: 20 RF: 0 Latuda 20 mg Tablet 60 mg PO BEDTIME 30 Days Qty: 90 RF: 0 multivitamin with folic acid [Tab-A-Elias] 400 mcg Tablet 1 tab PO DAILY 30 Days Qty: 30 RF: 0 Continued clonazepam 1 mg tablet 1 tab PO TID RF: 0 oxcarbazepine 300 mg tablet 300 mg PO BID RF: 0 trazodone 100 mg tablet 1 - 2 tab PO BEDTIME RF: 0 gabapentin 300 mg capsule 300 mg PO TID RF: 0 Discontinued mirtazapine 7.5 mg tablet 7.5 mg PO BEDTIME RF: 0 Latuda 40 mg tablet 40 mg PO DAILY RF: 0 No Action Vivitrol 380 mg suspension,extended rel recon 380 mg IM Q4W Qty: 1 RF: 5 Discharge Orders: Discharge Order (Routine); Ordered 10/18/20 Ordered By: Karen Lamb Diet: regular diet Activity on Discharge: As tolerated Stand Alone Forms: Patient Portal Discharge page, Community Support Visit Report Forms: Patient Portal Discharge page Care Plan Goals: 1. Follow with referrals 2. Take medications as prescribed. Health Concerns: 1. Follow up with PCP Plan of Treatment: 1. Follow with referrals 2. Take medications as prescribed. Discharge Date/Time: 10/18/20 13:31 Mental Status Exam Mental Status Exam Narrative: Appearance: casually groomed, thin woman, fair hygiene, in NAD Behavior: calm, cooperative Psychomotor: no agitation or retardation noted. No tremors. Speech: clear, normal rate/rhythm, volume, spontaneous TP: linear TC: no signs of psychosis, hopeless/helpless, guilt/shame Mood: better Affect: brighter, non labile AH/VH: none Delusions: none Insight/judgment: poor x 2. memory/cog: alert, oriented x 3. grossly intact to conversational testing. Data Data Completed and Pending Completed studies during hospitalization [Text1]: 10/10/20 08:00 Ionized Calcium 5.9 H Imaging Diagnostic Imaging Impressions Chest X-Ray 10/07/20 09:36 IMPRESSION: No acute intracranial process seen. Unremarkable chest exam. Head CT 10/07/20 09:56 IMPRESSION: No acute intracranial process seen. Unremarkable chest exam. DS: Summary Hospital Course Hospital Course: Ms. Bedoya is a 60 year-old woman with hx of Bipolar Disorder and Cocaine use who self-presented to [facility] ED reporting suicidal ideation without a plan in context of relapsing on cocaine recently. Ms. Bedoya has hx of at least 4 previous inpatient admission, most recent one back in 05/2020 due to suicidal ideation. Ms. Bedoya reports recurrent suicidal thoughts. She denies any actual attempt but states last May she had plan to jump out of moving car but a friend stopped her. Most recently, Ms. Bedoya reports that she has been increasingly more hopeless/helpless, feeling of guilt/shame related to ongoing cocaine use despite intents to stop on her own. She also reports using cannabis, which she reports her daughter is very upset of. On the unit, Ms. Bedoya presents with blunted affects, tearful at times when talking her grandchildren. She continues to endorse depressed mood, anhedonia, low energy, intermittent suicidal ideation but denies any plan or intent to hurt herself. She does admit she needs help with substance use but same time continues to think she may be able to do it on her own. She denies hx of VH/AH. She does report symptoms consistent with feroz including increased energy, pressured speech, flight of ideas, decreased need for sleep, often during end of Spring and Summer. She reports fair sleep having nightmares at time of something terrible having to her oldest grandson. She endorses anxious mood during the day. Of note, patient has been on clonazepam 1mg po TID for at least one year. 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 Pt not in agreement to lower dose or taper off. Pt also understands that she has to follow up wit OP providers to continue this medication as she will not be given rx on discharge, pt states she has enough at home and pending refills. Past Psychiatric History: Inpatient admissions: 05/2020: [facility] 10/01/2015 & 02/1995: M5 1986: [facility] OP psych providers: [employer] Suicide attempts: none, 05/2020 plan to jump out of car Past medication trials: seroquel (recently discontinued due to weight gain), latuda, trileptal, gabapetin, remeron, clonazepam HOSPITAL COURSE: On the unit, Ms. Bedoya presented with blunted affect. She reported depressed mood, feeling of guilt/shame related to ongoing cocaine and cannabis use. She reports suicidal ideation without a plan. She reported fair sleep/appetite. After discussing risks, benefits and alternative treatment options, pt agreed to increase Latuda from 40mg po daily to 60mg po daily. She did experience some nausea with increase dose of latuda, but reported that it was tolerable. She was continued on all other medications including trileptal 300mg po BID. We discussed risks of misuse of controlled substance prescribed by her OP provider including clonazepam, which is at a high dose of 3mg po daily. Her affect gradually brighten. She was seen socializing with peers and attending groups. She denied suicidal ideation although continued to report depressed mood. Her affect did appear much brighter than reported mood, especially as she was being observed socializing with peers. Pt asked to be started on naltrexone for cocaine use, which was explained to her that it is usually not used for this. However, she reported anecdotal cases and wanted to try it for herself. She was started on oral naltrexone which she tolerated. In terms of her substance use, pt declined referrals to [facility], residential programming. She return home with her son who agreed to stay with pt at home. Son denied any safety concerns at time of discharge. There were no incidences of disruptive behaviors nor use of restraints. Time spent discussing smoking cessation with patient: 3 to 10 minutes Status at Discharge Cognitive/behavioral status at discharge: Pt affect appears much brighter. She is future oriented in that she is looking forward to see her children. She denies SI/HI. she has limited insight into substance use and is declining all referrals for further treatment. Functional status at discharge: independent ambulation Overall status at discharge: patient is back to baseline Time Spent with Patient Time attestation: Total time spent providing and/or coordinating discharge services: Time spent: Less than 30 minutes
== END 2020-10-18 13:31 | disposition home or self-care (01) | DRG 885 ==
LOC: HO.ED 10-09 17:25 → HO.PM5 10-09 17:47
PROVIDERS: Nurse Practitioner Family; Admitting Provider Social Worker; Emergency Provider Emergency Medicine; Visit Provider Social Worker
DX: F31.4 Bipolar disorder, current episode depressed, severe, without psychotic features (principal); R45.851 Suicidal ideations; Z20.822 Contact with and (suspected) exposure to COVID-19; F14.90 Cocaine use, unspecified, uncomplicated; Z88.2 Allergy status to sulfonamides; Z79.899 Other long term (current) drug therapy
CPT/HCPCS: 36415; 70450; 71046; 80048; 80061; 80076; 80307; 82330; 82607; 82746; 83036; 83735; 84439; 84443; 84484; 85025; 85610; 87635; 93005; 99222; 99232; 99285

== ENCOUNTER → 2020-10-23 14:18 | Outpatient (BNVA) | payer MEDICARE, MEDICAID, SELFPAY | PROVIDERS: Visit Provider Internal Medicine | DX: F11.10 Opioid abuse, uncomplicated (principal) | CPT/HCPCS: 80305; 96372; 99202 ==

== ENCOUNTER 2020-10-24 21:14 | Inpatient (IN) | payer MEDICARE, MEDICAID, SELFPAY ==
--- NOTE | 2020-10-24 | ECG_ITS ---
Test Reason : CHEST DISC Blood Pressure : / mmHG Vent. Rate : 070 BPM Atrial Rate : 070 BPM P-R Int : 156 ms QRS Dur : 096 ms QT Int : 414 ms P-R-T Axes : 045 001 006 degrees QTc Int : 447 ms Normal sinus rhythm RSR' or QR pattern in V1 suggests right ventricular conduction delay Borderline ECG When compared with ECG of 07-OCT-2020 10:07, No significant change was found Referred By: Generic ED Physician Electronically Signed By:TONI CHAPARRO
--- NOTE | ~2020-10-24 | XR_ITS ---
EXAMINATION: CHEST 1 VIEW CLINICAL INFORMATION: Leukocytosis. COMPARISON: 10/07/2020. TECHNIQUE: An AP view of the chest is provided. FINDINGS: The cardiac silhouette is stable. The mediastinal and hilar contours are unremarkable. There are neither pleural effusions nor pneumothoraces. There are no consolidations. The osseous structures are stable. XR/XR chest 1V IMPRESSION: No evidence for acute disease.
--- NOTE | ~2020-10-24 | CT_ITS ---
EXAMINATION: CT HEAD WITHOUT CONTRAST CLINICAL INFORMATION: Headache. COMPARISON: None TECHNIQUE: Contiguous axial imaging was performed from the skull base to vertex without intravenous administration of contrast. This CT examination was performed using dose optimization techniques as appropriate, variously including the following: *Automated exposure control *Adjustment of mA and/or kV according to patient size (this includes techniques or standardized protocols for targeted exams where dose is matched to indication/reason for exam; i.e. extremities or head) *Use of iterative reconstruction technique DLP: 646 mGy-cm FINDINGS: There is no evidence of acute intracranial hemorrhage or territorial infarction. No abnormal mass effect or midline shift is seen. Fernandez to white matter differentiation is well preserved. No extra-axial fluid collections are identified. The ventricles are normal in size. There is no abnormal attenuation within the brain parenchyma. Bone windows reveal no calvarial abnormality. There is a right frontal scalp hematoma axial image 27/4. The paranasal sinuses and mastoid air cells are well aerated. . CT/CT head/brain wo con IMPRESSION: No acute intracranial process seen. There is a right frontal scalp hematoma without calvarial fracture.
[2020-10-24 21:37] VITALS: BP 130/72; BP 153/88; PULSE 88; PULSE 90; RESP 18; TEMP 36.7; O2SAT 95; O2SAT 96; BMI 28.3
--- NOTE | 2020-10-25 01:51 | ED.PSYCH ---
HPI - Psych General Chief Complaint: Extremity Problem Stated Complaint: drug used nausea Time Seen by Provider: 10/25/20 01:39 Source: patient Mode of arrival: ambulatory Limitations: no limitations History of Present Illness HPI Narrative: Patient comes to emergency room complaining of feeling suicidal. Patient states she was discharged on October 18 from . Patient states she went home, thinks that she is not doing well alone. Patient started becoming depressed and states that she is suicidal. Patient has no plan. Initially when patient came to the emergency room, in triage she stated that she had a plethora of complaints, however when I spoke to the patient, patient denied any of those symptoms except bilateral like cramping. Her main concern is the depression and a suicidal ideation. Patient does not want to be left alone. Patient admits to using cocaine, denies using other drugs or alcohol. Patient states that she is very depressed that she used cocaine again. Patient was started on Vivitrol, states it is not working with the cravings. Patient denies suicidal or homicidal ideation MD complaint: suicidal ideation Related Data Home Medications Medication Instructions Recorded Confirmed clonazepam 1 tab PO TID 10/07/20 10/23/20 gabapentin 300 mg PO TID 10/07/20 10/23/20 oxcarbazepine 300 mg PO BID 10/07/20 10/23/20 trazodone 1 - 2 tab PO BEDTIME 10/07/20 10/23/20 Previous Rx's Medication Instructions Recorded lurasidone [Latuda] 60 mg PO BEDTIME 30 Days #90 tab 10/18/20 mirtazapine 15 mg PO BEDTIME 30 Days #30 tab 10/18/20 multivitamin with folic acid 1 tab PO DAILY 30 Days #30 tab 10/18/20 [Tab-A-Elias] naltrexone 50 mg PO BEDTIME 30 Days #30 tab 10/18/20 ondansetron 4 mg TRANSLINGUAL Q6H PRN 10 Days 10/18/20 #20 tab naltrexone microspheres 380 mg 380 mg IM Q4W #1 ea 10/23/20 intramuscular suspension,extended release Allergies Allergy/AdvReac Type Severity Reaction Status Date / Time sulfamethoxazole Allergy Unknown ANAPHYLAXIS Verified 10/24/20 21:43 [From BACTRIM] trimethoprim [From BACTRIM] Allergy Unknown ANAPHYLAXIS Verified 10/24/20 21:43 Review of Systems Review of Systems: Constitutional : No Weight loss, No Fever, No Chills, No Night Sweats, No Fatigue, No Malaise ENT/Mouth : No Hearing loss, No Ear Pain, No Nasal Congestion, No Sinus Pain, No Hoarseness, No sore throat, No Rhinorrhea, No Swallowing Difficulty Eyes: No Eye Pain, No Swelling, No Redness, No Foreign Body, No Discharge, No Vision Changes Cardiovascular : No Chest Pain, No SOB, No Dyspnea on Exertion, No Orthopnea, No Edema, No Palpitations Respiratory : No Cough, No Sputum, No Wheezing, No Smoke Exposure, No Dyspnea Gastrointestinal : No Nausea, No Vomiting, No Diarrhea, No Constipation, No abdominal Pain, No Hematochezia, No Melena Genitourinary : no irregular bleeding, No Dysuria, No Urinary Frequency, No Hematuria, No Urinary Incontinence, No Urgency, No Flank Pain, No Urinary Flow Changes, No Hesitancy Musculoskeletal : No joint pain, No Myalgias, No Joint Swelling, complaining of bilateral leg cramping occasional. Not at this time. Skin : No Skin Lesions, No rash Neuro : No Weakness, No Numbness, No Paresthesias, No Loss of Consciousness, No Dizziness, No Headache Psych : complaining depression, anxiety No SI/HI/AH/VH, No Social Issues, Heme/Lymph: No Bruising, No Bleeding,No Lymphadenopathy Endocrine : No Polyuria, No Polydipsia, No Temperature Intolerance [facility] Past Medical History Medical History Opioid abuse Social History Social History Household Members: None Housing: Apartment Alcohol intake: former Smoking Status: Never smoker Second Hand Smoke Exposure: No Substance Use Type: Marijuana Advance Directives: No Advance Directives Information Provided: No service: No Sexual orientation: Straight/Heterosexual Physical Exam Vital Signs: Vital Signs: Last Vital Signs Temp 98.0 F 10/24/20 21:37 Pulse 88 10/24/20 21:37 Resp 18 10/24/20 21:37 BP 130/72 10/24/20 21:37 Pulse Ox 95 10/24/20 21:37 Body Mass Index 28.3 Appearance: Alert. Oriented X3. No acute distress. Eyes: Pupils equal, round and reactive to light. ENT: Pharynx normal. Neck: Normal inspection. Neck supple. No lymph nodes noted. No crepitus CVS: Normal heart rate and rhythm. Pulses normal. Normal S1 and S2 Respiratory: No respiratory distress. Breath sounds normal. No Wheezing. No rales Abdomen: Soft and nontender. No rigidity. No distention. good BS x4 Skin: Skin warm and dry. Patient has of 3 mm flap in the right middle finger. Accidental injury today Extremities: No lower extremity edema. No lower extremity edema. No Lacerations. No Rash Neuro: Oriented X 3. No motor deficit. No sensory deficit. Moving all extermities. No slurred speech. Course Course Course Narrative: On physical exam, it was noted that the patient has a small cut in the right middle finger. Patient states that she was trying to open a container of cookies, she was trying to use a knife to open it, accidentally slipped and cut her finger. Patient denies suicidal or homicidal ideation Patient's white blood cell count likely secondary to reactive leukocytosis. Patient has no UTI, no pulmonary pathology, no URI or abdominal symptoms. Patient is medically cleared to be seen by [facility] Discharge Plan Discharge Clinical Impression: Cocaine use, Bipolar 1 disorder, depressed, severe Prescriptions: No Action Vivitrol 380 mg suspension,extended rel recon 380 mg IM Q4W Qty: 1 RF: 5 clonazepam 1 mg tablet 1 tab PO TID RF: 0 oxcarbazepine 300 mg tablet 300 mg PO BID RF: 0 trazodone 100 mg tablet 1 - 2 tab PO BEDTIME RF: 0 gabapentin 300 mg capsule 300 mg PO TID RF: 0 naltrexone 50 mg Tablet 50 mg PO BEDTIME 30 Days Qty: 30 RF: 0 mirtazapine 15 mg Tablet 15 mg PO BEDTIME 30 Days Qty: 30 RF: 0 ondansetron 4 mg Tablet,Disintegrating 4 mg translingual Q6H PRN (Reason: nausea/vomiting) 10 Days Qty: 20 RF: 0 Latuda 20 mg Tablet 60 mg PO BEDTIME 30 Days Qty: 90 RF: 0 multivitamin with folic acid [Tab-A-Elias] 400 mcg Tablet 1 tab PO DAILY 30 Days Qty: 30 RF: 0
[2020-10-25 03:19] LABS: MANUAL DIFF FLAG NO
[2020-10-25 03:20] LABS: Basophils Percent Auto 0.1 % (0-2); Eosinophils Percent Auto 0.1 % (0-4); Hematocrit 35.6 % (37-47); Hemoglobin 11.9 g/dl (12.0-16.0); Imm Gran Abs Auto 0.04 X10*3/uL (0.00-0.03); Imm Gran Pct Auto 0.3 % (0.0-0.4); Lymphocytes Absolute Auto 2.1 X10*3/uL (1.2-4.9); Lymphocytes Percent Auto 14.9 % (20-40); Mean Corpuscular HGB Conc 33.4 g/dl (31.0-35.0); Mean Corpuscular Hemoglobin 32.1 pg (27.0-33.0); Mean Platelet Volume 9.1 fL (9.4-12.3); Monocytes Absolute Auto 0.6 X10*3/uL (0.1-1.2); Monocytes Percent Auto 4.5 % (2-11); Neutrophils Absolute Auto 11.3 X10*3/uL (2.0-8.3); Neutrophils Percent Auto 80.1 % (45-73); Platelet Count 241 X10*3/uL (160-400); Red Blood Count 3.71 X10*6/uL (4.20-5.50); Red Cell Distribution Width 12.4 % (11.0-16.0); White Blood Count 14.1 X10*3/uL (4.8-10.8)
[2020-10-25 03:27] LABS: Glucose Urine UA NEG (NEG); Leukocyte Esterase Urine NEG (NEG); Nitrite Urine NEG (NEG); PH 7.5 (5.0-8.0); Specific Gravity - Urine 1.015 (1.005-1.025); Urine Blood TRACE (NEG); Urine Ketones NEG (NEG); Urine Protein NEG (NEG-TRACE)
[2020-10-25 03:34] LABS: Appearance Urine CLEAR; Color Urine YELLOW
[2020-10-25 03:40] LABS: WBC Urine 0-2 /HPF (0-4)
[2020-10-25 03:41] LABS: Bacteria Urine TRACE /LPF; Squamous Epithelial Cell Urine TRACE /LPF
[2020-10-25 03:44] LABS: Anion Gap 11 (12-20); Blood Urea Nitrogen 13 mg/dL (9-16); Carbon Dioxide 27 mmol/L (22-29); Chloride 104 mmol/L (96-108); Creatinine Clr Calc Pharmacy 64.2; Estimated Glomerular Filt Rate 58; Glucose Random 128 mg/dL (60-115); Potassium 4.3 mmol/L (3.3-5.1); Sodium 138 mmol/L (135-145)
[2020-10-25 04:07] LABS: Amphetamine Screen Urine Not Detected (Not Detect); Barbiturates, Urine Not Detected (Not Detect); Benzodiazepines Screen Urine Not Detected (Not Detect); Cannabinoid Screen Urine Not Detected (Not Detect); Cocaine Screen Urine POSITIVE (Not Detect); Opiate Screen Urine Not Detected (Not Detect); Phencyclidine Screen Urine Not Detected (Not Detect)
[2020-10-25] MEDS: Acetaminophen 325 MG TABLET 650 MG PO (05:51)
--- NOTE | 2020-10-25 05:54 | PC.NURSE ---
Patient got transferred from main ED, med rec completed/provider notified/pending nov update. [facility] faxed/called/spoke with Nicole/confirmed receipt of the referral. Patient complained of PAZ/Tylenol 650 mg administered as ordered/pending effect. Patient currently in her bed resting, will continue to monitor.
--- NOTE | 2020-10-25 07:46 | PC.NURSE ---
pt asking for zofran will follow up with provider
--- NOTE | 2020-10-25 08:59 | PC.NURSE ---
PHARMACY CALLED FOR MEDICATION REC
[2020-10-25 11:23] VITALS: BP 115/78; PULSE 80; TEMP 36.2; O2SAT 96
--- NOTE | 2020-10-25 14:11 | PC.NURSE ---
[facility] HERE TO SEE PATIENT
--- NOTE | 2020-10-25 14:47 | PC.NURSE ---
SEEN BY [facility] SECTION 12 BED SEARCH
[2020-10-25] MEDS: Gabapentin 300 MG CAPSULE PO ×2 (15:40→20:35)
[2020-10-25] MEDS: clonazePAM 1 MG TABLET PO ×2 (15:40→20:34)
--- NOTE | 2020-10-25 15:57 | PC.NURSE ---
Report received. Pt resting in bed at current, no complaints at this time.
[2020-10-25] MEDS: Ibuprofen 600 MG TABLET PO (16:25)
[2020-10-25 19:38] LABS: COVID-19 Test Negative (Negative)
[2020-10-25] MEDS: traZODone HCL 100 MG TABLET PO (20:34)
[2020-10-25] MEDS: Naltrexone HCl 50 MG TABLET PO (20:35)
[2020-10-25] MEDS: Mirtazapine 15 MG TABLET PO (20:35)
[2020-10-25] MEDS: OXcarbazepine 300 MG TABLET PO (20:35)
[2020-10-25] MEDS: Lurasidone HCl 20 MG TABLET 60 MG PO (20:35)
[2020-10-25 22:43] VITALS: BP 101/61; PULSE 79; TEMP 36.2
--- NOTE | 2020-10-25 23:34 | PC.ADMIT ---
this is the second admission for this 60 year old female. legal cv. dx unspecified bipolar d/o, brief relapse on cocaine. was referred to by n. pt reports feeling shame after brief relapse on a $40.oo bag of crack cocaine. ''i got my vivitrol shot then used the next day'' ''i don't want them to be mad at me'' reports that she was ''not totally truthful about my feelings the last time I was here'' pt presents as more depressed than previous admission. no new medical issues. has been compliant with medications since dc and has had follow up appointments since discharge. cooperative to admission process. received hs meds in er prior to admission.
[2020-10-26] MEDS: Acetaminophen 325 MG TABLET 650 MG PO (03:20)
[2020-10-26] MEDS: hydrOXYzine HCL 25 MG TABLET PO ×2 (03:20→13:49)
[2020-10-26 03:31] VITALS: BP 126/72; PULSE 83; RESP 16; TEMP 36.1; O2SAT 95
[2020-10-26] MEDS: Multivitamin TABLET 1 TAB PO (08:31)
[2020-10-26] MEDS: Gabapentin 300 MG CAPSULE PO ×3 (08:31→20:55)
[2020-10-26] MEDS: clonazePAM 1 MG TABLET PO ×3 (08:31→20:56)
[2020-10-26] MEDS: OXcarbazepine 300 MG TABLET PO ×2 (08:31→20:55)
[2020-10-26] MEDS: Milk of Magnesia 30 ML ORAL.SUSP PO (10:29)
[2020-10-26 16:50] VITALS: BP 111/58; PULSE 78; TEMP 36.2
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
[2020-10-26] MEDS: Lidocaine 4 % Patch ADH..PATCH 1 PATCH TRANSDERMA (20:51)
[2020-10-26] MEDS: Lurasidone HCl 20 MG TABLET 60 MG PO (20:54)
[2020-10-26] MEDS: traZODone HCL 100 MG TABLET PO (20:55)
[2020-10-26] MEDS: Naltrexone HCl 50 MG TABLET PO (20:56)
[2020-10-26] MEDS: Mirtazapine 15 MG TABLET PO (20:56)
[2020-10-27] MEDS: Acetaminophen 325 MG TABLET 650 MG PO (02:05)
[2020-10-27] MEDS: hydrOXYzine HCL 25 MG TABLET 50 MG PO (02:05)
[2020-10-27 06:10] VITALS: BP 110/55; PULSE 78; RESP 18; TEMP 36.3; O2SAT 95
[2020-10-27] MEDS: hydrOXYzine HCL 25 MG TABLET PO (06:18)
[2020-10-27] MEDS: clonazePAM 1 MG TABLET PO ×3 (08:17→21:38)
[2020-10-27] MEDS: Gabapentin 300 MG CAPSULE PO ×3 (08:18→21:38)
[2020-10-27] MEDS: OXcarbazepine 300 MG TABLET PO ×2 (08:18→21:38)
[2020-10-27] MEDS: Multivitamin TABLET 1 TAB PO (08:18)
[2020-10-27] MEDS: Magnesium Citrate 300 ML SOLUTION PO (12:17)
[2020-10-27 17:05] VITALS: BP 111/70; PULSE 79; TEMP 36.2
--- NOTE | 2020-10-27 17:06 | P.PNPSI_ITS ---
Subjective Subjective Date of Service: 10/27/20 Reason For Visit: Bipolar do, suicidal ideation, relapse on cocaine Subjective Notes: Conditional Voluntary Interim History: pt irritable, anxious, somatically focused at times when her anxiety is higher. reports constipation; feeling self loathing and guilt for relapse; depressed; intermittent SI with no plan or intent Medication Compliance: Yes Side effects from medications: No Attending Groups: No Review of Systems Review of Systems Constitutional : No Weight loss, No Fever, No Chills, No Night Sweats, + Fatigue ENT/Mouth : No Hearing loss, No Ear Pain, No Nasal Congestion, No Sinus Pain, No Hoarseness, No sore throat, No Rhinorrhea, No Swallowing Difficulty Eyes: No Eye Pain, No Vision Changes Cardiovascular : No Chest Pain, No SOB, No Edema, No Palpitations Respiratory : No Cough, No Sputum, No Wheezing Gastrointestinal : No Nausea, No Vomiting, No Diarrhea, + Constipation Genitourinary : no irregular bleeding, No Dysuria, No Urinary Frequency, No Hem aturia, No Urinary Incontinence, No Urgency, No Flank Pain, No Urinary Flow Changes, No Hesitancy Musculoskeletal : + back oain and reports sciatica, complaining of bilateral leg cramping occasiona-not currently. Skin : No Skin Lesions, No rash Neuro : No Weakness, No Numbness, No Paresthesias, No Dizziness, No Headache Psych : complaining depression, anxiety passive SI, no HI/AH/VH, Heme/Lymph: No Bruising, No Bleeding Endocrine : No Polyuria, No Polydipsia, No Temperature Intolerance Mental Status Exam Mental Status Exam Patient Appearance: Appropriate Patient Orientation: Person, Place, Time and Situation Level of Consciousness: Drowsy Patient Behavior: Cooperative and Good Eye Contact Mood Description: Depressed and Anxious Affect Description: Sad Ability to Follow Directions: Good Speech Pattern: Appropriate Memory Description: Episodic Impaired Thought Process: Rumination Thought Content: positive for Preoccupation and positive for Suicidal Ideation (passive SI with no plan and no intent) Depressive Symptoms: Increased Anxiety, Insomnia, Diff. Making Decisions, Muscle Tension, Increased Irritability, Difficulty Sleeping, Muscle Pain, Crying Spells, Sleeping More Than Usual, Loss of Int. in Activity, Feelings of Worthlessness, Hopelessness, Isolating-Friends/Family, Feelings of Guilt, Low Self Esteem and Difficulty Concentrating Judgement: Fair Diagnostics Vital Signs (24Hr): Vital Signs - 24 hr 10/27/20 06:10 Temperature 97.4 F Pulse Rate 78 Respiratory Rate 18 Blood Pressure 110/55 L Pulse Oximetry 95 Body Mass Index 28.3 Labs Results: 10/25/20 03:09 10/25/20 03:09 Labs: Laboratory Results - last 48 hr 10/25/20 18:56 COVID-19 (JENNIFER) Negative COVID-19 Clin Com See Note Imaging Radiology Impressions: ITS Impressions Chest X-Ray 10/25/20 03:29 IMPRESSION: No evidence for acute disease. Head CT 10/25/20 14:52 IMPRESSION: No acute intracranial process seen. There is a right frontal scalp hematoma without calvarial fracture. Medications Medications Current Medications Generic Name Dose Route Start Last Admin Trade Name Freq PRN Reason Stop Dose Admin Acetaminophen 650 mg 10/25/20 22:04 10/27/20 02:05 Acetaminophen 325 Mg Tablet PO 650 mg Q6H PRN Administration Headache/Pain Mild Scale (1-3) Al Hydroxide/Mg Hydroxide 30 ml 10/25/20 22:04 Magnesium Hydrox/Alum Hydrox 30 Ml Oral.Susp PO Q6H PRN Heartburn/Nausea Clonazepam 1 mg 10/25/20 15:00 10/27/20 14:18 Clonazepam 1 Mg Tablet PO 1 mg TID RICHARD Administration Gabapentin 300 mg 10/25/20 15:00 10/27/20 14:18 Gabapentin 300 Mg Capsule PO 300 mg TID RICHARD Administration Hydroxyzine HCl 50 mg 10/26/20 12:54 10/27/20 02:05 Hydroxyzine Hcl 25 Mg Tablet PO 50 mg BEDTIME PRN Administration Anxiety Hydroxyzine HCl 25 mg 10/26/20 12:53 10/27/20 06:18 Hydroxyzine Hcl 25 Mg Tablet PO 25 mg Q6H PRN Administration anxiety/restlessness Lidocaine 1 patch 10/26/20 21:00 10/26/20 20:51 Lidocaine 4 % Patch Adh..Patch TRANSDERMA 1 patch BEDTIME RICHARD Administration Protocol Lurasidone HCl 60 mg 10/25/20 21:00 10/26/20 20:54 Lurasidone Hcl 20 Mg Tablet PO 60 mg BEDTIME RICHARD Administration Magnesium Hydroxide 30 ml 10/25/20 22:04 10/26/20 10:29 Milk Of Magnesia 30 Ml Oral.Susp PO 30 ml DAILY PRN Administration Constipation Mirtazapine 15 mg 10/25/20 21:00 10/26/20 20:56 Mirtazapine 15 Mg Tablet PO 15 mg BEDTIME RICHARD Administration Multivitamins/Vitamin C 1 tab 10/26/20 09:00 10/27/20 08:18 Multivitamin Tablet PO 1 tab DAILY RICHARD Administration Naltrexone HCl 50 mg 10/25/20 21:00 10/26/20 20:56 Naltrexone Hcl 50 Mg Tablet PO 50 mg BEDTIME RICHARD Administration Oxcarbazepine 300 mg 10/25/20 21:00 10/27/20 08:18 Oxcarbazepine 300 Mg Tablet PO 300 mg BID RICHARD Administration Trazodone HCl 100 - 200 mg 10/25/20 21:00 10/26/20 20:55 Trazodone Hcl 100 Mg Tablet PO 200 mg BEDTIME RICHARD Administration Allergies Allergies Allergy/AdvReac Type Severity Reaction Status Date / Time sulfamethoxazole Allergy Unknown ANAPHYLAXIS Verified 10/24/20 21:43 [From BACTRIM] trimethoprim [From BACTRIM] Allergy Unknown ANAPHYLAXIS Verified 10/24/20 21:43 Assessment & Plan Assessment & Plan (1) Bipolar 1 disorder, depressed, severe: Status: Acute Code(s): F31.4 - Bipolar disorder, current episode depressed, severe, without psychotic features (2) Cocaine use disorder: Status: Acute Code(s): F14.10 - Cocaine abuse, uncomplicated (3) Back pain: Status: Acute Code(s): M54.9 - Dorsalgia, unspecified (4) Opioid abuse: Status: Acute Code(s): F11.10 - Opioid abuse, uncomplicated (5) Constipation: Status: Acute Code(s): K59.00 - Constipation, unspecified Assessment and Plan: 60 yo woman with Bipolar Disorder with depression and SI in context of relapse on cocaine restart medications add mag citrate x 1 for constipation pt to work on plan for relapse prevention consider vraylar in place of latuda in future if needed as literature indicates may be helpful for addiction Greater than 50% of the session was spent on counseling and/or coordination of care Patient educated on: diagnosis, medication risk/benefits, substance abuse, therapeutic strategies and medical condition Informed Consent: understands and further education needed Reason for contiued inpatient stay Substantial Risk for: harm to self, inability to function, rapid decompensation and med/psych decompensation
[2020-10-27] MEDS: Lidocaine 4 % Patch ADH..PATCH 1 PATCH TRANSDERMA (21:33)
[2020-10-27] MEDS: Lurasidone HCl 20 MG TABLET 60 MG PO (21:37)
[2020-10-27] MEDS: Naltrexone HCl 50 MG TABLET PO (21:37)
[2020-10-27] MEDS: traZODone HCL 100 MG TABLET PO (21:38)
[2020-10-27] MEDS: Mirtazapine 15 MG TABLET PO (21:38)
[2020-10-28] MEDS: hydrOXYzine HCL 25 MG TABLET PO (03:18)
[2020-10-28 06:30] VITALS: BP 122/78; PULSE 69; RESP 16; TEMP 36.5; O2SAT 95
[2020-10-28] MEDS: Gabapentin 300 MG CAPSULE PO ×3 (08:34→20:10)
[2020-10-28] MEDS: clonazePAM 1 MG TABLET PO ×3 (08:34→20:11)
[2020-10-28] MEDS: Multivitamin TABLET 1 TAB PO (08:34)
[2020-10-28] MEDS: OXcarbazepine 300 MG TABLET PO ×2 (08:34→20:10)
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
[2020-10-28 19:15] VITALS: BP 118/61; PULSE 73; TEMP 36.2
[2020-10-28] MEDS: Lurasidone HCl 20 MG TABLET 60 MG PO (20:09)
[2020-10-28] MEDS: traZODone HCL 100 MG TABLET PO (20:10)
[2020-10-28] MEDS: Mirtazapine 15 MG TABLET PO (20:10)
[2020-10-28] MEDS: Lidocaine 4 % Patch ADH..PATCH 1 PATCH TRANSDERMA (20:12)
[2020-10-29] MEDS: hydrOXYzine HCL 25 MG TABLET 50 MG PO (00:05)
[2020-10-29] MEDS: hydrOXYzine HCL 25 MG TABLET PO (03:09)
[2020-10-29 06:30] VITALS: BP 103/56; PULSE 66; RESP 16; TEMP 36.5; O2SAT 95
[2020-10-29] MEDS: clonazePAM 1 MG TABLET PO ×3 (08:37→20:03)
[2020-10-29] MEDS: OXcarbazepine 300 MG TABLET PO ×2 (08:37→20:04)
[2020-10-29] MEDS: Multivitamin TABLET 1 TAB PO (08:37)
[2020-10-29] MEDS: Gabapentin 300 MG CAPSULE PO ×3 (08:37→20:03)
--- NOTE | 2020-10-29 16:31 | HO.PSYCHPN ---
Subjective Subjective Date of Service: 10/29/20 Reason For Visit: Bipolar do, suicidal ideation, relapse on cocaine Interim History: Pt reports feeling more optimistic about her recovery. She reports less symptoms of depression. She denies SI/HI. She does admit to feeling very anxious, especially about relapsing. She expresses guilt/shame related to ongoing substance use. She has been visible in the unit, attends groups. No behavioral concerns. She does report poor sleep. We discussed increasing trazodone 250mg po qhs. d/c remeron due to lack of efficacy. Review of Systems Review of Systems Constitutional : No Weight loss, No Fever, No Chills, No Night Sweats, + Fatigue ENT/Mouth : No Hearing loss, No Ear Pain, No Nasal Congestion, No Sinus Pain, No Hoarseness, No sore throat, No Rhinorrhea, No Swallowing Difficulty Eyes: No Eye Pain, No Vision Changes Cardiovascular : No Chest Pain, No SOB, No Edema, No Palpitations Respiratory : No Cough, No Sputum, No Wheezing Gastrointestinal : No Nausea, No Vomiting, No Diarrhea, + Constipation Genitourinary : no irregular bleeding, No Dysuria, No Urinary Frequency, No Hematuria, No Urinary Incontinence, No Urgency, No Flank Pain, No Urinary Flow Changes, No Hesitancy Musculoskeletal : + back oain and reports sciatica, complaining of bilateral leg cramping occasiona-not currently. Skin : No Skin Lesions, No rash Neuro : No Weakness, No Numbness, No Paresthesias, No Dizziness, No Headache Psych : complaining depression, anxiety passive SI, no HI/AH/VH, Heme/Lymph: No Bruising, No Bleeding Endocrine : No Polyuria, No Polydipsia, No Temperature Intolerance Mental Status Exam Mental Status Exam Patient Appearance: Appropriate Patient Orientation: Person, Place, Time and Situation Level of Consciousness: Drowsy Patient Behavior: Cooperative and Good Eye Contact Mood Description: Depressed and Anxious Affect Description: Sad Ability to Follow Directions: Good Speech Pattern: Appropriate Memory Description: Episodic Impaired Diagnostics Vital Signs (24Hr): Vital Signs - 24 hr 10/28/20 19:15 10/29/20 06:30 Temperature 97.2 F 97.7 F Pulse Rate 73 66 Respiratory Rate 16 Blood Pressure 118/61 103/56 L Pulse Oximetry 95 Body Mass Index 28.3 Labs Results: 10/25/20 03:09 10/25/20 03:09 Imaging Radiology Impressions: ITS Impressions Chest X-Ray 10/25/20 03:29 IMPRESSION: No evidence for acute disease. Head CT 10/25/20 14:52 IMPRESSION: No acute intracranial process seen. There is a right frontal scalp hematoma without calvarial fracture. Medications Medications Current Medications Generic Name Dose Route Start Last Admin Trade Name Freq PRN Reason Stop Dose Admin Acetaminophen 650 mg 10/25/20 22:04 10/27/20 02:05 Acetaminophen 325 Mg Tablet PO 650 mg Q6H PRN Administration Headache/Pain Mild Scale (1-3) Al Hydroxide/Mg Hydroxide 30 ml 10/25/20 22:04 Magnesium Hydrox/Alum Hydrox 30 Ml Oral.Susp PO Q6H PRN Heartburn/Nausea Clonazepam 1 mg 10/25/20 15:00 10/29/20 14:45 Clonazepam 1 Mg Tablet PO 1 mg TID RICHARD Administration Gabapentin 300 mg 10/25/20 15:00 10/29/20 14:45 Gabapentin 300 Mg Capsule PO 300 mg TID RICHARD Administration Hydroxyzine HCl 50 mg 10/26/20 12:54 10/29/20 00:05 Hydroxyzine Hcl 25 Mg Tablet PO 50 mg BEDTIME PRN Administration Anxiety Hydroxyzine HCl 25 mg 10/26/20 12:53 10/29/20 03:09 Hydroxyzine Hcl 25 Mg Tablet PO 25 mg Q6H PRN Administration anxiety/restlessness Lidocaine 1 patch 10/26/20 21:00 10/28/20 20:12 Lidocaine 4 % Patch Adh..Patch TRANSDERMA 1 patch BEDTIME RICHARD Administration Protocol Lurasidone HCl 60 mg 10/25/20 21:00 10/28/20 20:09 Lurasidone Hcl 20 Mg Tablet PO 60 mg BEDTIME RICHARD Administration Magnesium Hydroxide 30 ml 10/25/20 22:04 10/26/20 10:29 Milk Of Magnesia 30 Ml Oral.Susp PO 30 ml DAILY PRN Administration Constipation Multivitamins/Vitamin C 1 tab 10/26/20 09:00 10/29/20 08:37 Multivitamin Tablet PO 1 tab DAILY RICAHRD Administration Oxcarbazepine 300 mg 10/25/20 21:00 10/29/20 08:37 Oxcarbazepine 300 Mg Tablet PO 300 mg BID RICHARD Administration Trazodone HCl 250 mg 10/29/20 21:00 Trazodone Hcl 50 Mg Tablet PO BEDTIME RICHARD Allergies Allergies Allergy/AdvReac Type Severity Reaction Status Date / Time sulfamethoxazole Allergy Unknown ANAPHYLAXIS Verified 10/24/20 21:43 [From BACTRIM] trimethoprim [From BACTRIM] Allergy Unknown ANAPHYLAXIS Verified 10/24/20 21:43 Assessment & Plan Assessment & Plan (1) Bipolar 1 disorder, depressed, severe: Status: Acute Code(s): F31.4 - Bipolar disorder, current episode depressed, severe, without psychotic features (2) Cocaine use disorder: Status: Acute Code(s): F14.10 - Cocaine abuse, uncomplicated (3) Back pain: Status: Acute Code(s): M54.9 - Dorsalgia, unspecified (4) Opioid abuse: Status: Acute Code(s): F11.10 - Opioid abuse, uncomplicated (5) Constipation: Status: Acute Code(s): K59.00 - Constipation, unspecified Assessment and Plan: 60 yo woman with Bipolar Disorder with depression and SI in context of relapse on cocaine restart medications 1. d/c remeron due efficacy 2. continue latuda 60mg po qhs 3. increase trazodone 250mg po qhs Greater than 50% of the session was spent on counseling and/or coordination of care Reason for contiued inpatient stay Substantial Risk for: harm to self
[2020-10-29 17:32] VITALS: BP 119/75; PULSE 68; TEMP 36
[2020-10-29] MEDS: traZODone HCL 50 MG TABLET 250 MG PO (20:03)
[2020-10-29] MEDS: Lurasidone HCl 20 MG TABLET 60 MG PO (20:03)
[2020-10-29] MEDS: Lidocaine 4 % Patch ADH..PATCH 1 PATCH TRANSDERMA (20:04)
[2020-10-30] MEDS: hydrOXYzine HCL 25 MG TABLET 50 MG PO (03:00)
[2020-10-30 06:10] VITALS: BP 116/77; PULSE 65; RESP 16; TEMP 36.9; O2SAT 95
[2020-10-30] MEDS: OXcarbazepine 300 MG TABLET PO ×2 (09:07→20:11)
[2020-10-30] MEDS: Multivitamin TABLET 1 TAB PO (09:07)
[2020-10-30] MEDS: Gabapentin 300 MG CAPSULE PO ×3 (09:08→20:11)
[2020-10-30] MEDS: clonazePAM 1 MG TABLET PO ×3 (09:08→20:11)
[2020-10-30 15:45] LABS: Influenza A PCR NEGATIVE (Negative); Influenza B PCR NEGATIVE (Negative); Resp Syncy Virus RNA Qual PCR NEGATIVE (Negative); SARS COV2 PCR INHOUSE NEGATIVE (Negative)
--- NOTE | 2020-10-30 16:38 | HO.PSYCHPN ---
Subjective Subjective Date of Service: 10/30/20 Reason For Visit: Bipolar do, suicidal ideation, relapse on cocaine Interim History: Pt reports not sleeping well last night. She reports previous night was better with remeron and trazodone. She is ambivalent at times in terms of committing to residential substance use treatment program, but has agreed to be referred. She has been visible in the unit. She reports left middle back pain, she denies any injury. She also reports seeing floaties that come and goes at times, for the past 3-4 weeks. She had scheduled appointment with strategy specialist but had to cancel due to coming to the hospital. She denies suicidal ideation although this is conditional to relapsing on cocaine. Review of Systems Review of Systems Constitutional : No Weight loss, No Fever, No Chills, No Night Sweats, + Fatigue ENT/Mouth : No Hearing loss, No Ear Pain, No Nasal Congestion, No Sinus Pain, No Hoarseness, No sore throat, No Rhinorrhea, No Swallowing Difficulty Eyes: No Eye Pain, No Vision Changes Cardiovascular : No Chest Pain, No SOB, No Edema, No Palpitations Respiratory : No Cough, No Sputum, No Wheezing Gastrointestinal : No Nausea, No Vomiting, No Diarrhea, + Constipation Genitourinary : no irregular bleeding, No Dysuria, No Urinary Frequency, No Hematuria, No Urinary Incontinence, No Urgency, No Flank Pain, No Urinary Flow Changes, No Hesitancy Musculoskeletal : + back oain and reports sciatica, complaining of bilateral leg cramping occasiona-not currently. Skin : No Skin Lesions, No rash Neuro : No Weakness, No Numbness, No Paresthesias, No Dizziness, No Headache Psych : complaining depression, anxiety passive SI, no HI/AH/VH, Heme/Lymph: No Bruising, No Bleeding Endocrine : No Polyuria, No Polydipsia, No Temperature Intolerance Mental Status Exam Mental Status Exam Narrative: TP: linear TC: no signs of psychosis, looking forward to go to program, see family, somatic concerns. VH/AH: none SI: denies HI: denies Insight/judgment: poor x 2. Memory/cog: alert, grossly intact to conversational testing. Patient Appearance: Well Grooomed and Appropriate Patient Orientation: Person, Place, Time and Situation Level of Consciousness: Awake Patient Behavior: Cooperative and Good Eye Contact Mood Description: Depressed and Anxious Affect Description: Sad Ability to Follow Directions: Good Speech Pattern: Appropriate Memory Description: Episodic Impaired Diagnostics Vital Signs (24Hr): Vital Signs - 24 hr 10/29/20 17:32 10/30/20 06:10 Temperature 96.8 F 98.4 F Pulse Rate 68 65 Respiratory Rate 16 Blood Pressure 119/75 116/77 Pulse Oximetry 95 Body Mass Index 28.3 Labs Results: 10/25/20 03:09 10/25/20 03:09 Labs: Laboratory Results - last 48 hr 10/30/20 14:56 Coronavirus (PCR) NEGATIVE Influenza Type A (PCR) NEGATIVE Influenza Type B (PCR) NEGATIVE RSV RNA Qual (PCR) NEGATIVE Imaging Radiology Impressions: ITS Impressions Chest X-Ray 10/25/20 03:29 IMPRESSION: No evidence for acute disease. Head CT 10/25/20 14:52 IMPRESSION: No acute intracranial process seen. There is a right frontal scalp hematoma without calvarial fracture. Medications Medications Current Medications Generic Name Dose Route Start Last Admin Trade Name Freq PRN Reason Stop Dose Admin Acetaminophen 650 mg 10/25/20 22:04 10/27/20 02:05 Acetaminophen 325 Mg Tablet PO 650 mg Q6H PRN Administration Headache/Pain Mild Scale (1-3) Al Hydroxide/Mg Hydroxide 30 ml 10/25/20 22:04 Magnesium Hydrox/Alum Hydrox 30 Ml Oral.Susp PO Q6H PRN Heartburn/Nausea Clonazepam 1 mg 10/25/20 15:00 10/30/20 15:13 Clonazepam 1 Mg Tablet PO 1 mg TID RICHARD Administration Gabapentin 300 mg 10/25/20 15:00 10/30/20 15:13 Gabapentin 300 Mg Capsule PO 300 mg TID RICHARD Administration Hydroxyzine HCl 50 mg 10/26/20 12:54 10/30/20 03:00 Hydroxyzine Hcl 25 Mg Tablet PO 50 mg BEDTIME PRN Administration Anxiety Hydroxyzine HCl 25 mg 10/26/20 12:53 10/29/20 03:09 Hydroxyzine Hcl 25 Mg Tablet PO 25 mg Q6H PRN Administration anxiety/restlessness Lidocaine 1 patch 10/26/20 21:00 10/29/20 20:04 Lidocaine 4 % Patch Adh..Patch TRANSDERMA 1 patch BEDTIME RICHARD Administration Protocol Lurasidone HCl 60 mg 10/25/20 21:00 10/29/20 20:03 Lurasidone Hcl 20 Mg Tablet PO 60 mg BEDTIME RICHARD Administration Magnesium Hydroxide 30 ml 10/25/20 22:04 10/26/20 10:29 Milk Of Magnesia 30 Ml Oral.Susp PO 30 ml DAILY PRN Administration Constipation Mirtazapine 15 mg 10/30/20 21:00 Mirtazapine 15 Mg Tablet PO BEDTIME RICHARD Multivitamins/Vitamin C 1 tab 10/26/20 09:00 10/30/20 09:07 Multivitamin Tablet PO 1 tab DAILY RICHARD Administration Oxcarbazepine 300 mg 10/25/20 21:00 10/30/20 09:07 Oxcarbazepine 300 Mg Tablet PO 300 mg BID RICHARD Administration Trazodone HCl 200 mg 10/30/20 21:00 Trazodone Hcl 100 Mg Tablet PO BEDTIME RICHARD Allergies Allergies Allergy/AdvReac Type Severity Reaction Status Date / Time sulfamethoxazole Allergy Unknown ANAPHYLAXIS Verified 10/24/20 21:43 [From BACTRIM] trimethoprim [From BACTRIM] Allergy Unknown ANAPHYLAXIS Verified 10/24/20 21:43 Assessment & Plan Assessment & Plan (1) Bipolar 1 disorder, depressed, severe: Status: Acute Code(s): F31.4 - Bipolar disorder, current episode depressed, severe, without psychotic features (2) Cocaine use disorder: Status: Acute Code(s): F14.10 - Cocaine abuse, uncomplicated (3) Back pain: Status: Acute Code(s): M54.9 - Dorsalgia, unspecified (4) Opioid abuse: Status: Acute Code(s): F11.10 - Opioid abuse, uncomplicated (5) Constipation: Status: Acute Code(s): K59.00 - Constipation, unspecified Assessment and Plan: 60 yo woman with Bipolar Disorder with depression and SI in context of relapse on cocaine restart medications 1. d/c remeron due efficacy 2. continue latuda 60mg po qhs 3. increase trazodone 250mg po qhs Greater than 50% of the session was spent on counseling and/or coordination of care Reason for contiued inpatient stay Substantial Risk for: harm to self
[2020-10-30 16:40] VITALS: BP 141/65; PULSE 105; TEMP 36.3
[2020-10-30] MEDS: Acetaminophen 325 MG TABLET 650 MG PO (18:52)
[2020-10-30] MEDS: Mirtazapine 15 MG TABLET PO (20:11)
[2020-10-30] MEDS: Lidocaine 4 % Patch ADH..PATCH 1 PATCH TRANSDERMA (20:11)
[2020-10-30] MEDS: Lurasidone HCl 20 MG TABLET 60 MG PO (20:11)
[2020-10-30] MEDS: traZODone HCL 100 MG TABLET 200 MG PO (20:11)
[2020-10-31] MEDS: hydrOXYzine HCL 25 MG TABLET 50 MG PO (01:58)
[2020-10-31 06:25] VITALS: BP 120/59; PULSE 70; RESP 16; TEMP 36.9; O2SAT 96
[2020-10-31 07:00] VITALS: BMI 29.9
[2020-10-31] MEDS: OXcarbazepine 300 MG TABLET PO ×2 (09:05→20:13)
[2020-10-31] MEDS: Gabapentin 300 MG CAPSULE PO ×3 (09:05→20:14)
[2020-10-31] MEDS: clonazePAM 1 MG TABLET PO ×3 (09:05→20:14)
[2020-10-31] MEDS: Multivitamin TABLET 1 TAB PO (09:05)
--- NOTE | 2020-10-31 15:26 | P.PNPSI_ITS ---
Subjective Subjective Date of Service: 10/31/20 Reason For Visit: Bipolar do, suicidal ideation, relapse on cocaine Interim History: Pt reports sleeping better last night. She reports feeling more optimistic about her recovery but questions whether [facility] programs are appropriate for her. She reports eating better. She denies any plan or intent to hurt herself. She has been visible in the unit and attends assigned groups. No behavioral concerns. Review of Systems Review of Systems Constitutional : No Weight loss, No Fever, No Chills, No Night Sweats, + Fatigue ENT/Mouth : No Hearing loss, No Ear Pain, No Nasal Congestion, No Sinus Pain, No Hoarseness, No sore throat, No Rhinorrhea, No Swallowing Difficulty Eyes: No Eye Pain, No Vision Changes Cardiovascular : No Chest Pain, No SOB, No Edema, No Palpitations Respiratory : No Cough, No Sputum, No Wheezing Gastrointestinal : No Nausea, No Vomiting, No Diarrhea, + Constipation Genitourinary : no irregular bleeding, No Dysuria, No Urinary Frequency, No He maturia, No Urinary Incontinence, No Urgency, No Flank Pain, No Urinary Flow Changes, No Hesitancy Musculoskeletal : + back oain and reports sciatica, complaining of bilateral leg cramping occasiona-not currently. Skin : No Skin Lesions, No rash Neuro : No Weakness, No Numbness, No Paresthesias, No Dizziness, No Headache Psych : complaining depression, anxiety passive SI, no HI/AH/VH, Heme/Lymph: No Bruising, No Bleeding Endocrine : No Polyuria, No Polydipsia, No Temperature Intolerance Mental Status Exam Mental Status Exam Narrative: TP: linear TC: no signs of psychosis, looking forward to go to program, see family, somatic concerns. VH/AH: none SI: denies HI: denies Insight/judgment: poor x 2. Memory/cog: alert, grossly intact to conversational testing. Patient Appearance: Well Grooomed and Appropriate Patient Orientation: Person, Place, Time and Situation Level of Consciousness: Awake Patient Behavior: Cooperative and Good Eye Contact Mood Description: Depressed and Anxious Affect Description: Sad Ability to Follow Directions: Good Speech Pattern: Appropriate Memory Description: Episodic Impaired Diagnostics Vital Signs (24Hr): Vital Signs - 24 hr 10/30/20 16:40 10/31/20 06:25 Temperature 97.4 F 98.5 F Pulse Rate 105 H 70 Respiratory Rate 16 Blood Pressure 141/65 H 120/59 L Pulse Oximetry 96 Body Mass Index 28.3 Labs Results: 10/25/20 03:09 10/25/20 03:09 Labs: Laboratory Results - last 48 hr 10/30/20 14:56 Coronavirus (PCR) NEGATIVE Influenza Type A (PCR) NEGATIVE Influenza Type B (PCR) NEGATIVE RSV RNA Qual (PCR) NEGATIVE Imaging Radiology Impressions: ITS Impressions Chest X-Ray 10/25/20 03:29 IMPRESSION: No evidence for acute disease. Head CT 10/25/20 14:52 IMPRESSION: No acute intracranial process seen. There is a right frontal scalp hematoma without calvarial fracture. Medications Medications Current Medications Generic Name Dose Route Start Last Admin Trade Name Freq PRN Reason Stop Dose Admin Acetaminophen 650 mg 10/25/20 22:04 10/30/20 18:52 Acetaminophen 325 Mg Tablet PO 650 mg Q6H PRN Administration Headache/Pain Mild Scale (1-3) Al Hydroxide/Mg Hydroxide 30 ml 10/25/20 22:04 Magnesium Hydrox/Alum Hydrox 30 Ml Oral.Susp PO Q6H PRN Heartburn/Nausea Clonazepam 1 mg 10/25/20 15:00 10/31/20 14:48 Clonazepam 1 Mg Tablet PO 1 mg TID RICHARD Administration Gabapentin 300 mg 10/25/20 15:00 10/31/20 14:48 Gabapentin 300 Mg Capsule PO 300 mg TID RICHARD Administration Hydroxyzine HCl 50 mg 10/26/20 12:54 10/31/20 01:58 Hydroxyzine Hcl 25 Mg Tablet PO 50 mg BEDTIME PRN Administration Anxiety Hydroxyzine HCl 25 mg 10/26/20 12:53 10/29/20 03:09 Hydroxyzine Hcl 25 Mg Tablet PO 25 mg Q6H PRN Administration anxiety/restlessness Lidocaine 1 patch 10/26/20 21:00 10/30/20 20:11 Lidocaine 4 % Patch Adh..Patch TRANSDERMA 1 patch BEDTIME RICHARD Administration Protocol Lurasidone HCl 60 mg 10/25/20 21:00 10/30/20 20:11 Lurasidone Hcl 20 Mg Tablet PO 60 mg BEDTIME RICHARD Administration Magnesium Hydroxide 30 ml 10/25/20 22:04 10/26/20 10:29 Milk Of Magnesia 30 Ml Oral.Susp PO 30 ml DAILY PRN Administration Constipation Mirtazapine 15 mg 10/30/20 21:00 10/30/20 20:11 Mirtazapine 15 Mg Tablet PO 15 mg BEDTIME RICHARD Administration Multivitamins/Vitamin C 1 tab 10/26/20 09:00 10/31/20 09:05 Multivitamin Tablet PO 1 tab DAILY RICHARD Administration Oxcarbazepine 300 mg 10/25/20 21:00 10/31/20 09:05 Oxcarbazepine 300 Mg Tablet PO 300 mg BID RICHARD Administration Trazodone HCl 200 mg 10/30/20 21:00 10/30/20 20:11 Trazodone Hcl 100 Mg Tablet PO 200 mg BEDTIME RICHARD Administration Allergies Allergies Allergy/AdvReac Type Severity Reaction Status Date / Time sulfamethoxazole Allergy Unknown ANAPHYLAXIS Verified 10/24/20 21:43 [From BACTRIM] trimethoprim [From BACTRIM] Allergy Unknown ANAPHYLAXIS Verified 10/24/20 21:43 Assessment & Plan Assessment & Plan (1) Bipolar 1 disorder, depressed, severe: Status: Acute Code(s): F31.4 - Bipolar disorder, current episode depressed, severe, without psychotic features (2) Cocaine use disorder: Status: Acute Code(s): F14.10 - Cocaine abuse, uncomplicated (3) Back pain: Status: Acute Code(s): M54.9 - Dorsalgia, unspecified (4) Opioid abuse: Status: Acute Code(s): F11.10 - Opioid abuse, uncomplicated (5) Constipation: Status: Acute Code(s): K59.00 - Constipation, unspecified Assessment and Plan: 60 yo woman with Bipolar Disorder with depression and SI in context of relapse on cocaine restart medications 1. d/c remeron due efficacy 2. continue latuda 60mg po qhs 3. increase trazodone 250mg po qhs Greater than 50% of the session was spent on counseling and/or coordination of care Reason for contiued inpatient stay Substantial Risk for: harm to self and rapid decompensation
[2020-10-31 16:05] VITALS: BP 139/76; PULSE 69; TEMP 36.6
[2020-10-31] MEDS: Acetaminophen 325 MG TABLET 650 MG PO (18:34)
[2020-10-31] MEDS: traZODone HCL 100 MG TABLET 200 MG PO (20:12)
[2020-10-31] MEDS: Lurasidone HCl 20 MG TABLET 60 MG PO (20:12)
[2020-10-31] MEDS: Mirtazapine 15 MG TABLET PO (20:13)
[2020-10-31] MEDS: Lidocaine 4 % Patch ADH..PATCH 1 PATCH TRANSDERMA (20:14)
[2020-11-01] MEDS: hydrOXYzine HCL 25 MG TABLET 50 MG PO ×2 (02:42→20:16)
[2020-11-01 06:20] VITALS: BP 114/65; PULSE 59; RESP 18; TEMP 36.7; O2SAT 97
[2020-11-01] MEDS: Multivitamin TABLET 1 TAB PO (09:50)
[2020-11-01] MEDS: clonazePAM 1 MG TABLET PO ×3 (09:50→20:16)
[2020-11-01] MEDS: Gabapentin 300 MG CAPSULE PO ×3 (09:50→20:15)
[2020-11-01] MEDS: OXcarbazepine 300 MG TABLET PO ×2 (09:50→20:15)
--- NOTE | 2020-11-01 13:34 | HO.PSYCHPN ---
Subjective Subjective Date of Service: 11/01/20 Reason For Visit: Bipolar do, suicidal ideation, relapse on cocaine Interim History: Pt reports difficulty sleeping. She reports seroquel helped in the past. we discussed discontinuing remeron, continue trazodone and adding seroquel. She has limited insight into her addiction, and hesitant at times about [facility] but today states she wants to go to [facility]. She denies SI/HI. She presents with number of somatic concerns that apparently have been going on for sometime but she has not reported. However, she later denies those concerns. Review of Systems Review of Systems Constitutional : No Weight loss, No Fever, No Chills, No Night Sweats, + Fatigue ENT/Mouth : No Hearing loss, No Ear Pain, No Nasal Congestion, No Sinus Pain, No Hoarseness, No sore throat, No Rhinorrhea, No Swallowing Difficulty Eyes: No Eye Pain, No Vision Changes Cardiovascular : No Chest Pain, No SOB, No Edema, No Palpitations Respiratory : No Cough, No Sputum, No Wheezing Gastrointestinal : No Nausea, No Vomiting, No Diarrhea, + Constipation Genitourinary : no irregular bleeding, No Dysuria, No Urinary Frequency, No Hematuria, No Urinary Incontinence, No Urgency, No Flank Pain, No Urinary Flow Changes, No Hesitancy Musculoskeletal : + back oain and reports sciatica, complaining of bilateral leg cramping occasiona-not currently. Skin : No Skin Lesions, No rash Neuro : No Weakness, No Numbness, No Paresthesias, No Dizziness, No Headache Psych : complaining depression, anxiety passive SI, no HI/AH/VH, Heme/Lymph: No Bruising, No Bleeding Endocrine : No Polyuria, No Polydipsia, No Temperature Intolerance Mental Status Exam Mental Status Exam Narrative: TP: linear TC: no signs of psychosis, looking forward to go to program, see family, somatic concerns. VH/AH: none SI: denies HI: denies Insight/judgment: poor x 2. Memory/cog: alert, grossly intact to conversational testing. Patient Appearance: Well Grooomed and Appropriate Patient Orientation: Person, Place, Time and Situation Level of Consciousness: Awake Patient Behavior: Cooperative and Good Eye Contact Mood Description: Depressed and Anxious Affect Description: Sad Ability to Follow Directions: Good Speech Pattern: Appropriate Memory Description: Episodic Impaired Diagnostics Vital Signs (24Hr): Vital Signs - 24 hr 10/31/20 16:05 11/01/20 06:20 Temperature 97.9 F 98.1 F Pulse Rate 69 59 Respiratory Rate 18 Blood Pressure 139/76 114/65 Pulse Oximetry 97 Body Mass Index 29.9 Labs Results: 10/25/20 03:09 10/25/20 03:09 Labs: Laboratory Results - last 48 hr 10/30/20 14:56 Coronavirus (PCR) NEGATIVE Influenza Type A (PCR) NEGATIVE Influenza Type B (PCR) NEGATIVE RSV RNA Qual (PCR) NEGATIVE Imaging Radiology Impressions: ITS Impressions Chest X-Ray 10/25/20 03:29 IMPRESSION: No evidence for acute disease. Head CT 10/25/20 14:52 IMPRESSION: No acute intracranial process seen. There is a right frontal scalp hematoma without calvarial fracture. Medications Medications Current Medications Generic Name Dose Route Start Last Admin Trade Name Freq PRN Reason Stop Dose Admin Acetaminophen 650 mg 10/25/20 22:04 10/31/20 18:34 Acetaminophen 325 Mg Tablet PO 650 mg Q6H PRN Administration Headache/Pain Mild Scale (1-3) Al Hydroxide/Mg Hydroxide 30 ml 10/25/20 22:04 Magnesium Hydrox/Alum Hydrox 30 Ml Oral.Susp PO Q6H PRN Heartburn/Nausea Clonazepam 1 mg 10/25/20 15:00 11/01/20 09:50 Clonazepam 1 Mg Tablet PO 1 mg TID RICHARD Administration Gabapentin 300 mg 10/25/20 15:00 11/01/20 09:50 Gabapentin 300 Mg Capsule PO 300 mg TID RICHARD Administration Hydroxyzine HCl 50 mg 10/26/20 12:54 11/01/20 02:42 Hydroxyzine Hcl 25 Mg Tablet PO 50 mg BEDTIME PRN Administration Anxiety Hydroxyzine HCl 25 mg 10/26/20 12:53 10/29/20 03:09 Hydroxyzine Hcl 25 Mg Tablet PO 25 mg Q6H PRN Administration anxiety/restlessness Lidocaine 1 patch 10/26/20 21:00 10/31/20 20:14 Lidocaine 4 % Patch Adh..Patch TRANSDERMA 1 patch BEDTIME RICHARD Administration Protocol Lurasidone HCl 60 mg 10/25/20 21:00 10/31/20 20:12 Lurasidone Hcl 20 Mg Tablet PO 60 mg BEDTIME RICHARD Administration Magnesium Hydroxide 30 ml 10/25/20 22:04 10/26/20 10:29 Milk Of Magnesia 30 Ml Oral.Susp PO 30 ml DAILY PRN Administration Constipation Mirtazapine 15 mg 10/30/20 21:00 10/31/20 20:13 Mirtazapine 15 Mg Tablet PO 15 mg BEDTIME RICHARD Administration Multivitamins/Vitamin C 1 tab 10/26/20 09:00 11/01/20 09:50 Multivitamin Tablet PO 1 tab DAILY RICHARD Administration Oxcarbazepine 300 mg 10/25/20 21:00 11/01/20 09:50 Oxcarbazepine 300 Mg Tablet PO 300 mg BID RICHARD Administration Trazodone HCl 200 mg 10/30/20 21:00 10/31/20 20:12 Trazodone Hcl 100 Mg Tablet PO 200 mg BEDTIME RICHARD Administration Allergies Allergies Allergy/AdvReac Type Severity Reaction Status Date / Time sulfamethoxazole Allergy Unknown ANAPHYLAXIS Verified 10/24/20 21:43 [From BACTRIM] trimethoprim [From BACTRIM] Allergy Unknown ANAPHYLAXIS Verified 10/24/20 21:43 Assessment & Plan Assessment & Plan (1) Bipolar 1 disorder, depressed, severe: Status: Acute Code(s): F31.4 - Bipolar disorder, current episode depressed, severe, without psychotic features (2) Cocaine use disorder: Status: Acute Code(s): F14.10 - Cocaine abuse, uncomplicated (3) Back pain: Status: Acute Code(s): M54.9 - Dorsalgia, unspecified (4) Opioid abuse: Status: Acute Code(s): F11.10 - Opioid abuse, uncomplicated (5) Constipation: Status: Acute Code(s): K59.00 - Constipation, unspecified Assessment and Plan: 60 yo woman with Bipolar Disorder with depression and SI in context of relapse on cocaine restart medications 1. d/c remeron due efficacy 2. continue latuda 60mg po qhs 3. increase trazodone 250mg po qhs 1. D/C remeron due to lack of efficacy. 2. Continue Trazodone 3. Start seroquel 100mg po qhs for mood and sleep Greater than 50% of the session was spent on counseling and/or coordination of care Reason for contiued inpatient stay Substantial Risk for: harm to self
[2020-11-01 16:03] VITALS: BP 153/68; PULSE 77; TEMP 36.6
[2020-11-01] MEDS: Lurasidone HCl 20 MG TABLET 60 MG PO (20:14)
[2020-11-01] MEDS: traZODone HCL 100 MG TABLET 200 MG PO (20:15)
[2020-11-01] MEDS: Lidocaine 4 % Patch ADH..PATCH 1 PATCH TRANSDERMA (20:16)
[2020-11-02] MEDS: hydrOXYzine HCL 25 MG TABLET PO (02:08)
[2020-11-02] MEDS: QUEtiapine Fumarate 100 MG TABLET PO (02:58)
[2020-11-02 06:00] VITALS: BP 148/71; PULSE 82; RESP 16; TEMP 36.9; O2SAT 97
[2020-11-02 07:58] LABS: MANUAL DIFF FLAG NO
[2020-11-02 08:07] LABS: Basophils Percent Auto 0.3 % (0-2); Eosinophils Absolute Auto 0.2 X10*3/uL (0.0-0.4); Eosinophils Percent Auto 2.7 % (0-4); Hemoglobin 12.5 g/dl (12.0-16.0); Imm Gran Abs Auto 0.02 X10*3/uL (0.00-0.03); Imm Gran Pct Auto 0.3 % (0.0-0.4); Lymphocytes Absolute Auto 3.3 X10*3/uL (1.2-4.9); Lymphocytes Percent Auto 48.7 % (20-40); Mean Corpuscular HGB Conc 32.9 g/dl (31.0-35.0); Mean Corpuscular Hemoglobin 31.4 pg (27.0-33.0); Mean Corpuscular Volume 95.5 fL (80-98); Monocytes Absolute Auto 0.6 X10*3/uL (0.1-1.2); Monocytes Percent Auto 9.4 % (2-11); Neutrophils Absolute Auto 2.6 X10*3/uL (2.0-8.3); Neutrophils Percent Auto 38.6 % (45-73); Platelet Count 276 X10*3/uL (160-400); Red Blood Count 3.98 X10*6/uL (4.20-5.50); Red Cell Distribution Width 12.3 % (11.0-16.0); White Blood Count 6.7 X10*3/uL (4.8-10.8)
[2020-11-02] MEDS: clonazePAM 1 MG TABLET PO ×3 (08:21→20:00)
[2020-11-02] MEDS: OXcarbazepine 300 MG TABLET PO ×2 (08:21→20:00)
[2020-11-02] MEDS: Gabapentin 300 MG CAPSULE PO ×3 (08:21→20:00)
[2020-11-02] MEDS: Multivitamin TABLET 1 TAB PO (08:21)
[2020-11-02 08:26] LABS: Estimated Average Glucose 94 mg/dL; Hemoglobin A1c % 4.9 %
[2020-11-02 08:43] LABS: Cholesterol 210 mg/dL; HDL Cholesterol 59 mg/dL; LDL Cholesterol Calculated 133 mg/dl; Triglycerides 92 mg/dL
[2020-11-02] MEDS: Acetaminophen 325 MG TABLET 650 MG PO (08:49)
[2020-11-02 17:10] VITALS: BP 112/62; PULSE 67; TEMP 35.9
[2020-11-02] MEDS: Lidocaine 4 % Patch ADH..PATCH 1 PATCH TRANSDERMA (20:00)
[2020-11-02] MEDS: traZODone HCL 100 MG TABLET 200 MG PO (20:00)
[2020-11-02] MEDS: Lurasidone HCl 20 MG TABLET 60 MG PO (20:00)
[2020-11-02] MEDS: Mirtazapine 7.5 MG TABLET PO (20:01)
--- NOTE | 2020-11-02 22:19 | P.PNPSI_ITS ---
Subjective Subjective Date of Service: 11/02/20 Reason For Visit: Bipolar do, suicidal ideation, relapse on cocaine Interim History: Pt seen, chart reviewed, case discussed vitals reviewed labs reviewed: WBC wnl on 11/02 pt reports she's still depressed but overall better than on admission; she denies any SI; she reports sleeping well and optimistic about continued recovery. 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 Pt compliant with Covid restrictions Medication Compliance: Yes Attending Groups: Yes Mental Status Exam Mental Status Exam Patient Appearance: Appropriate Patient Orientation: Person, Place, Time and Situation Level of Consciousness: Awake and Appropriate Patient Behavior: Appropriate and Cooperative Mood Description: Depressed Affect Description: Calm and Appropriate Ability to Follow Directions: Good Speech Pattern: Clear and Appropriate Hallucinations: None Delusions: Not Present Thought Process: Intact and Goal Oriented Thought Content: positive for Intact Judgement: Fair Diagnostics Vital Signs (24Hr): Vital Signs - 24 hr 11/02/20 06:00 11/02/20 17:10 Temperature 98.4 F 96.6 F L Pulse Rate 82 67 Respiratory Rate 16 Blood Pressure 148/71 H 112/62 Pulse Oximetry 97 Body Mass Index 29.9 Labs Results: 11/02/20 07:20 10/25/20 03:09 Labs: Laboratory Results - last 48 hr 11/02/20 11/02/20 11/02/20 07:20 07:20 07:20 WBC 6.7 RBC 3.98 L Hgb 12.5 Hct 38.0 MCV 95.5 MCH 31.4 MCHC 32.9 RDW 12.3 Plt Count 276 MPV 9.0 L Immature Gran % (Auto) 0.3 Neut % (Auto) 38.6 L Lymph % (Auto) 48.7 H [place] % (Auto) 9.4 Eos % (Auto) 2.7 Baso % (Auto) 0.3 Lymph # (Auto) 3.3 [place] # (Auto) 0.6 Eos # (Auto) 0.2 Baso # (Auto) 0.0 Abs Immat Gran (auto) 0.02 Absolute Neuts (auto) 2.6 Absolute Nucleated RBC 0.000 Nucleated RBC % (auto) 0.0 Estimat Average Glucose 94 Hemoglobin A1c % 4.9 Triglycerides 92 Cholesterol 210 LDL Cholesterol, Calc 133 HDL Cholesterol 59 Imaging Radiology Impressions: ITS Impressions Chest X-Ray 10/25/20 03:29 IMPRESSION: No evidence for acute disease. Head CT 10/25/20 14:52 IMPRESSION: No acute intracranial process seen. There is a right frontal scalp hematoma without calvarial fracture. Medications Medications Current Medications Generic Name Dose Route Start Last Admin Trade Name Freq PRN Reason Stop Dose Admin Acetaminophen 650 mg 10/25/20 22:04 11/02/20 08:49 Acetaminophen 325 Mg Tablet PO 650 mg Q6H PRN Administration Headache/Pain Mild Scale (1-3) Al Hydroxide/Mg Hydroxide 30 ml 10/25/20 22:04 Magnesium Hydrox/Alum Hydrox 30 Ml Oral.Susp PO Q6H PRN Heartburn/Nausea Clonazepam 1 mg 10/25/20 15:00 11/02/20 20:00 Clonazepam 1 Mg Tablet PO 1 mg TID RICHARD Administration Gabapentin 300 mg 10/25/20 15:00 11/02/20 20:00 Gabapentin 300 Mg Capsule PO 300 mg TID RICHARD Administration Hydroxyzine HCl 50 mg 10/26/20 12:54 11/01/20 20:16 Hydroxyzine Hcl 25 Mg Tablet PO 50 mg BEDTIME PRN Administration Anxiety Hydroxyzine HCl 25 mg 10/26/20 12:53 11/02/20 02:08 Hydroxyzine Hcl 25 Mg Tablet PO 25 mg Q6H PRN Administration anxiety/restlessness Lidocaine 1 patch 10/26/20 21:00 11/02/20 20:00 Lidocaine 4 % Patch Adh..Patch TRANSDERMA 1 patch BEDTIME RICHARD Administration Protocol Lurasidone HCl 60 mg 10/25/20 21:00 11/02/20 20:00 Lurasidone Hcl 20 Mg Tablet PO 60 mg BEDTIME RICHARD Administration Magnesium Hydroxide 30 ml 10/25/20 22:04 10/26/20 10:29 Milk Of Magnesia 30 Ml Oral.Susp PO 30 ml DAILY PRN Administration Constipation Mirtazapine 7.5 mg 11/02/20 21:00 11/02/20 20:01 Mirtazapine 7.5 Mg Tablet PO 7.5 mg BEDTIME RICHARD Administration Multivitamins/Vitamin C 1 tab 10/26/20 09:00 11/02/20 08:21 Multivitamin Tablet PO 1 tab DAILY RICHARD Administration Oxcarbazepine 300 mg 10/25/20 21:00 11/02/20 20:00 Oxcarbazepine 300 Mg Tablet PO 300 mg BID RICHARD Administration Trazodone HCl 200 mg 10/30/20 21:00 11/02/20 20:00 Trazodone Hcl 100 Mg Tablet PO 200 mg BEDTIME RICHARD Administration Allergies Allergies Allergy/AdvReac Type Severity Reaction Status Date / Time sulfamethoxazole Allergy Unknown ANAPHYLAXIS Verified 10/24/20 21:43 [From BACTRIM] trimethoprim [From BACTRIM] Allergy Unknown ANAPHYLAXIS Verified 10/24/20 21:43 Assessment & Plan Impression: reports depressed, but mood improving; denies SI; stable dx bipolar disorder, severe depressed in partial remission cocaine use disorder plan: dc seroqeul: pt does not want restart remeron at 7.5mg qhs for anxiety/depression/insomnia otherwise continue with current tx plan Covid test 11/04/20 Greater than 50% of the session was spent on counseling and/or coordination of care Reason for contiued inpatient stay Substantial Risk for: med/psych decompensation
[2020-11-03] MEDS: hydrOXYzine HCL 25 MG TABLET 50 MG PO (02:03)
[2020-11-03] MEDS: Acetaminophen 325 MG TABLET 650 MG PO (05:17)
[2020-11-03 06:45] VITALS: BP 106/72; PULSE 59; RESP 16; TEMP 36.4; O2SAT 95
[2020-11-03] MEDS: Multivitamin TABLET 1 TAB PO (09:06)
[2020-11-03] MEDS: OXcarbazepine 300 MG TABLET PO ×2 (09:06→21:22)
[2020-11-03] MEDS: Gabapentin 300 MG CAPSULE PO ×3 (09:07→20:18)
[2020-11-03] MEDS: clonazePAM 1 MG TABLET PO ×3 (09:07→20:18)
--- NOTE | 2020-11-03 10:32 | HO.PSYCHPN ---
Subjective Subjective Date of Service: 11/03/20 Reason For Visit: Bipolar do, suicidal ideation, relapse on cocaine Interim History: Pt seen, chart reviewed, case discussed vitals reviewed Pt reports she's ok She says she slept well last night and appreciates the remeron. She says her home dose was higher but agrees to remain at this dose for another day or so and discuss with primary team. No complaints. Medication Compliance: Yes Side effects from medications: No Attending Groups: Yes Mental Status Exam Mental Status Exam Narrative: Patient Appearance: Appropriate Patient Orientation: Person, Place, Time and Situation Level of Consciousness: Awake and Appropriate Patient Behavior: Appropriate and Cooperative Mood Description: Depressed Affect Description: Calm and Appropriate Ability to Follow Directions: Good Speech Pattern: Clear and Appropriate Hallucinations: None Delusions: Not Present Thought Process: Intact and Goal Oriented Thought Content: positive for Intact Judgement: Fair Diagnostics Vital Signs (24Hr): Vital Signs - 24 hr 11/02/20 17:10 11/03/20 06:45 Temperature 96.6 F L 97.6 F Pulse Rate 67 59 Respiratory Rate 16 Blood Pressure 112/62 106/72 Pulse Oximetry 95 Body Mass Index 29.9 Labs Results: 11/02/20 07:20 10/25/20 03:09 Labs: Laboratory Results - last 48 hr 11/02/20 11/02/20 11/02/20 07:20 07:20 07:20 WBC 6.7 RBC 3.98 L Hgb 12.5 Hct 38.0 MCV 95.5 MCH 31.4 MCHC 32.9 RDW 12.3 Plt Count 276 MPV 9.0 L Immature Gran % (Auto) 0.3 Neut % (Auto) 38.6 L Lymph % (Auto) 48.7 H [place] % (Auto) 9.4 Eos % (Auto) 2.7 Baso % (Auto) 0.3 Lymph # (Auto) 3.3 [place] # (Auto) 0.6 Eos # (Auto) 0.2 Baso # (Auto) 0.0 Abs Immat Gran (auto) 0.02 Absolute Neuts (auto) 2.6 Absolute Nucleated RBC 0.000 Nucleated RBC % (auto) 0.0 Estimat Average Glucose 94 Hemoglobin A1c % 4.9 Triglycerides 92 Cholesterol 210 LDL Cholesterol, Calc 133 HDL Cholesterol 59 Imaging Radiology Impressions: ITS Impressions Chest X-Ray 10/25/20 03:29 IMPRESSION: No evidence for acute disease. Head CT 10/25/20 14:52 IMPRESSION: No acute intracranial process seen. There is a right frontal scalp hematoma without calvarial fracture. Medications Medications Current Medications Generic Name Dose Route Start Last Admin Trade Name Freq PRN Reason Stop Dose Admin Acetaminophen 650 mg 10/25/20 22:04 11/03/20 05:17 Acetaminophen 325 Mg Tablet PO 650 mg Q6H PRN Administration Headache/Pain Mild Scale (1-3) Al Hydroxide/Mg Hydroxide 30 ml 10/25/20 22:04 Magnesium Hydrox/Alum Hydrox 30 Ml Oral.Susp PO Q6H PRN Heartburn/Nausea Clonazepam 1 mg 10/25/20 15:00 11/03/20 09:07 Clonazepam 1 Mg Tablet PO 1 mg TID RICHARD Administration Gabapentin 300 mg 10/25/20 15:00 11/03/20 09:07 Gabapentin 300 Mg Capsule PO 300 mg TID RICHARD Administration Hydroxyzine HCl 50 mg 10/26/20 12:54 11/03/20 02:03 Hydroxyzine Hcl 25 Mg Tablet PO 50 mg BEDTIME PRN Administration Anxiety Hydroxyzine HCl 25 mg 10/26/20 12:53 11/02/20 02:08 Hydroxyzine Hcl 25 Mg Tablet PO 25 mg Q6H PRN Administration anxiety/restlessness Lidocaine 1 patch 10/26/20 21:00 11/02/20 20:00 Lidocaine 4 % Patch Adh..Patch TRANSDERMA 1 patch BEDTIME RICHARD Administration Protocol Lurasidone HCl 60 mg 10/25/20 21:00 11/02/20 20:00 Lurasidone Hcl 20 Mg Tablet PO 60 mg BEDTIME RICHARD Administration Magnesium Hydroxide 30 ml 10/25/20 22:04 10/26/20 10:29 Milk Of Magnesia 30 Ml Oral.Susp PO 30 ml DAILY PRN Administration Constipation Mirtazapine 7.5 mg 11/02/20 21:00 11/02/20 20:01 Mirtazapine 7.5 Mg Tablet PO 7.5 mg BEDTIME RICHARD Administration Multivitamins/Vitamin C 1 tab 10/26/20 09:00 11/03/20 09:06 Multivitamin Tablet PO 1 tab DAILY RICHARD Administration Oxcarbazepine 300 mg 10/25/20 21:00 11/03/20 09:06 Oxcarbazepine 300 Mg Tablet PO 300 mg BID RICHARD Administration Trazodone HCl 200 mg 10/30/20 21:00 11/02/20 20:00 Trazodone Hcl 100 Mg Tablet PO 200 mg BEDTIME RICHARD Administration Allergies Allergies Allergy/AdvReac Type Severity Reaction Status Date / Time sulfamethoxazole Allergy Unknown ANAPHYLAXIS Verified 10/24/20 21:43 [From BACTRIM] trimethoprim [From BACTRIM] Allergy Unknown ANAPHYLAXIS Verified 10/24/20 21:43 Assessment & Plan Impression: reports still depressed, but mood improving; denies SI; stable dx bipolar disorder, severe depressed in partial remission cocaine use disorder plan: continue remeron at 7.5mg qhs for anxiety/depression/insomnia; primary team to discuss further titration otherwise continue with current tx plan Covid test 11/04/20 Greater than 50% of the session was spent on counseling and/or coordination of care Reason for contiued inpatient stay Substantial Risk for: med/psych decompensation
[2020-11-03 16:54] VITALS: BP 140/75; PULSE 75; TEMP 36.2
[2020-11-03] MEDS: Lurasidone HCl 20 MG TABLET 60 MG PO (20:18)
[2020-11-03] MEDS: Mirtazapine 7.5 MG TABLET PO (20:18)
[2020-11-03] MEDS: Lidocaine 4 % Patch ADH..PATCH 1 PATCH TRANSDERMA (20:18)
[2020-11-03] MEDS: traZODone HCL 100 MG TABLET 200 MG PO (20:19)
[2020-11-04] MEDS: hydrOXYzine HCL 25 MG TABLET 50 MG PO (01:23)
[2020-11-04] MEDS: Acetaminophen 325 MG TABLET 650 MG PO ×2 (05:21→17:45)
[2020-11-04 05:35] VITALS: BP 132/59; PULSE 64; RESP 18; TEMP 36.6; O2SAT 97
[2020-11-04 06:30] LABS: COVID-19 Test Negative (Negative)
[2020-11-04] MEDS: clonazePAM 1 MG TABLET PO ×3 (09:00→21:11)
[2020-11-04] MEDS: Gabapentin 300 MG CAPSULE PO ×3 (09:00→21:09)
[2020-11-04] MEDS: Multivitamin TABLET 1 TAB PO (09:01)
[2020-11-04] MEDS: OXcarbazepine 300 MG TABLET PO ×2 (09:01→21:10)
--- NOTE | 2020-11-04 15:48 | HO.PSYCHPN ---
Subjective Subjective Date of Service: 11/04/20 Reason For Visit: Bipolar do, suicidal ideation, relapse on cocaine Interim History: Pt seen, chart reviewed, case discussed vitals reviewed: Wnl pt reports she's good. Of note, pt's affect brighter and she smiles appropriately during conversation covid test returned and is negative. Pt says she's relieved with result and happy to be off restrictions. Pt mentioned remeron working well but wonders if should be increased. She again agrees to discuss with primary team. Medication Compliance: Yes Side effects from medications: No Attending Groups: Yes Mental Status Exam Mental Status Exam Narrative: Appearance: Appropriate Patient Orientation: Person, Place, Time and Situation Level of Consciousness: Awake and Appropriate Patient Behavior: Appropriate and Cooperative, calm, friendly Mood Description: good Affect Description: Calm and Appropriate Ability to Follow Directions: Good Speech Pattern: Clear and Appropriate Hallucinations: None Delusions: Not Present Thought Process: Intact and Goal Oriented Thought Content: positive for Intact Judgement: Fair Diagnostics Vital Signs (24Hr): Vital Signs - 24 hr 11/03/20 16:54 11/04/20 05:35 Temperature 97.2 F 97.9 F Pulse Rate 75 64 Respiratory Rate 18 Blood Pressure 140/75 H 132/59 L Pulse Oximetry 97 Body Mass Index 29.9 Labs Results: 11/02/20 07:20 10/25/20 03:09 Labs: Laboratory Results - last 48 hr 11/04/20 05:50 COVID-19 (JENNIFER) Negative COVID-19 Clin Com See Note Imaging Radiology Impressions: ITS Impressions Chest X-Ray 10/25/20 03:29 IMPRESSION: No evidence for acute disease. Head CT 10/25/20 14:52 IMPRESSION: No acute intracranial process seen. There is a right frontal scalp hematoma without calvarial fracture. Medications Medications Current Medications Generic Name Dose Route Start Last Admin Trade Name Freq PRN Reason Stop Dose Admin Acetaminophen 650 mg 10/25/20 22:04 11/04/20 05:21 Acetaminophen 325 Mg Tablet PO 650 mg Q6H PRN Administration Headache/Pain Mild Scale (1-3) Al Hydroxide/Mg Hydroxide 30 ml 10/25/20 22:04 Magnesium Hydrox/Alum Hydrox 30 Ml Oral.Susp PO Q6H PRN Heartburn/Nausea Clonazepam 1 mg 11/04/20 15:00 11/04/20 15:27 Clonazepam 1 Mg Tablet PO 1 mg TID RICHARD Administration Gabapentin 300 mg 10/25/20 15:00 11/04/20 14:35 Gabapentin 300 Mg Capsule PO 300 mg TID RICHARD Administration Hydroxyzine HCl 50 mg 10/26/20 12:54 11/04/20 01:23 Hydroxyzine Hcl 25 Mg Tablet PO 50 mg BEDTIME PRN Administration Anxiety Hydroxyzine HCl 25 mg 10/26/20 12:53 11/02/20 02:08 Hydroxyzine Hcl 25 Mg Tablet PO 25 mg Q6H PRN Administration anxiety/restlessness Lidocaine 1 patch 10/26/20 21:00 11/03/20 20:18 Lidocaine 4 % Patch Adh..Patch TRANSDERMA 1 patch BEDTIME RICHARD Administration Protocol Lurasidone HCl 60 mg 10/25/20 21:00 11/03/20 20:18 Lurasidone Hcl 20 Mg Tablet PO 60 mg BEDTIME RICHARD Administration Magnesium Hydroxide 30 ml 10/25/20 22:04 10/26/20 10:29 Milk Of Magnesia 30 Ml Oral.Susp PO 30 ml DAILY PRN Administration Constipation Mirtazapine 7.5 mg 11/02/20 21:00 11/03/20 20:18 Mirtazapine 7.5 Mg Tablet PO 7.5 mg BEDTIME RICHARD Administration Multivitamins/Vitamin C 1 tab 10/26/20 09:00 11/04/20 09:01 Multivitamin Tablet PO 1 tab DAILY RICHARD Administration Oxcarbazepine 300 mg 10/25/20 21:00 11/04/20 09:01 Oxcarbazepine 300 Mg Tablet PO 300 mg BID RICHARD Administration Trazodone HCl 200 mg 10/30/20 21:00 11/03/20 20:19 Trazodone Hcl 100 Mg Tablet PO 200 mg BEDTIME RICHARD Administration Allergies Allergies Allergy/AdvReac Type Severity Reaction Status Date / Time sulfamethoxazole Allergy Unknown ANAPHYLAXIS Verified 10/24/20 21:43 [From BACTRIM] trimethoprim [From BACTRIM] Allergy Unknown ANAPHYLAXIS Verified 10/24/20 21:43 Assessment & Plan Impression: reports mood has improved; no SI; stable dx bipolar disorder, severe depressed in partial remission cocaine use disorder plan: continue remeron at 7.5mg qhs for anxiety/depression/insomnia; primary team to discuss further titration otherwise continue with current tx plan Covid test 11/04/20: Negative Greater than 50% of the session was spent on counseling and/or coordination of care Reason for contiued inpatient stay Substantial Risk for: med/psych decompensation
[2020-11-04 16:20] VITALS: BP 137/64; PULSE 73; TEMP 36.3
[2020-11-04] MEDS: hydrOXYzine HCL 25 MG TABLET PO (19:03)
[2020-11-04] MEDS: Lidocaine 4 % Patch ADH..PATCH 1 PATCH TRANSDERMA (20:31)
[2020-11-04] MEDS: Lurasidone HCl 20 MG TABLET 60 MG PO (21:09)
[2020-11-04] MEDS: Mirtazapine 7.5 MG TABLET PO (21:09)
[2020-11-04] MEDS: traZODone HCL 100 MG TABLET 200 MG PO (21:11)
[2020-11-05] MEDS: hydrOXYzine HCL 25 MG TABLET 50 MG PO ×2 (01:28→22:48)
[2020-11-05] MEDS: Acetaminophen 325 MG TABLET 650 MG PO ×2 (01:29→17:21)
[2020-11-05 04:35] VITALS: BP 110/58; PULSE 70; RESP 16; TEMP 35.9; O2SAT 96
[2020-11-05] MEDS: Multivitamin TABLET 1 TAB PO (08:32)
[2020-11-05] MEDS: clonazePAM 1 MG TABLET PO ×3 (08:32→20:29)
[2020-11-05] MEDS: Gabapentin 300 MG CAPSULE PO ×3 (08:32→20:29)
[2020-11-05] MEDS: OXcarbazepine 300 MG TABLET PO ×2 (08:32→20:29)
[2020-11-05] MEDS: hydrOXYzine HCL 25 MG TABLET PO (13:05)
[2020-11-05 16:19] VITALS: BP 136/78; PULSE 83; TEMP 36.3
[2020-11-05] MEDS: traZODone HCL 100 MG TABLET 200 MG PO (20:29)
[2020-11-05] MEDS: Lurasidone HCl 20 MG TABLET 60 MG PO (20:29)
[2020-11-05] MEDS: Lidocaine 4 % Patch ADH..PATCH 1 PATCH TRANSDERMA (20:29)
[2020-11-05] MEDS: Mirtazapine 7.5 MG TABLET PO (20:29)
[2020-11-06] MEDS: hydrOXYzine HCL 25 MG TABLET PO ×2 (02:21→09:03)
[2020-11-06 06:20] VITALS: BP 126/65; PULSE 72; RESP 18; TEMP 36.3; O2SAT 97
--- NOTE | 2020-11-06 09:01 | PM.PSYDC ---
DS: Providers Provider Date of Service: 11/06/20 Date of admission: 10/25/20 22:04 Date of discharge: 11/06/20 Primary care physician: Unknown Physician Attending physician on discharge: Karen Lamb DS: Diagnosis Discharge Diagnosis (1) Bipolar 1 disorder, depressed, severe: Status: Acute (2) Cocaine use disorder: Status: Acute Problem details: No real data on Vivitrol for cocaine use disorder (3) Back pain: Status: Acute (4) Opioid abuse: Status: Acute Problem details: She has opioid use disorder (5) Constipation: Status: Acute DS: Medications Discharge Medications Home Medications: Home Medications Medication Instructions Recorded Confirmed trazodone 1 - 2 tab PO BEDTIME 10/07/20 10/25/20 Previous Rx's Medication Instructions Recorded Latuda 60 mg PO BEDTIME 30 Days #90 tab 10/18/20 mirtazapine 15 mg PO BEDTIME 30 Days #30 tab 10/18/20 naltrexone microspheres 380 mg 380 mg IM Q4W #1 ea 10/23/20 intramuscular suspension,extended release clonazepam 1 tab PO TID 15 Days #45 tab 11/06/20 gabapentin 300 mg PO TID 15 Days #45 cap 11/06/20 lidocaine [Lidocaine Pain Relief] 1 patch TRANSDERMAL BEDTIME 5 Days 11/06/20 #5 ea oxcarbazepine 300 mg PO BID 30 Days #60 tab 11/06/20 Discharge Plan Discharge Patient Disposition: Home, Self-Care Referrals: Therapist: Demetrice Young (PRODUCTION PACKAGER) [Other] - 11/14/20 12:00 pm Physician,Unknown [Primary Care Provider] - Discharge Medications: New lidocaine [Lidocaine Pain Relief] 4 % Adhesive Patch,Medicated 1 patch transdermal BEDTIME 5 Days Qty: 5 RF: 0 Continued Vivitrol 380 mg suspension,extended rel recon 380 mg IM Q4W Qty: 1 RF: 5 clonazepam 1 mg tablet 1 tab PO TID 15 Days Qty: 45 RF: 0 oxcarbazepine 300 mg tablet 300 mg PO BID 30 Days Qty: 60 RF: 0 trazodone 100 mg tablet 1 - 2 tab PO BEDTIME 30 Days Qty: 60 RF: 0 gabapentin 300 mg capsule 300 mg PO TID 15 Days Qty: 45 RF: 0 mirtazapine 15 mg Tablet 15 mg PO BEDTIME 30 Days Qty: 30 RF: 0 Latuda 20 mg Tablet 60 mg PO BEDTIME 30 Days Qty: 90 RF: 0 Discontinued naltrexone 50 mg Tablet 50 mg PO BEDTIME 30 Days Qty: 30 RF: 0 ondansetron 4 mg Tablet,Disintegrating 4 mg translingual Q6H PRN (Reason: nausea/vomiting) 10 Days Qty: 20 RF: 0 multivitamin with folic acid [Tab-A-Elias] 400 mcg Tablet 1 tab PO DAILY 30 Days Qty: 30 RF: 0 Discharge Orders: Discharge Order (Routine); Ordered 11/06/20 Ordered By: Karen Lamb Diet: regular diet Activity on Discharge: As tolerated Stand Alone Forms: Patient Portal Discharge page Visit Report Forms: Patient Portal Discharge page Care Plan Goals: 1. Follow up with referrals 2. Take medications as prescribed. Health Concerns: 1. Follow up with PCP Plan of Treatment: 1. Follow up with referrals 2. Take medications as prescribed. Discharge Date/Time: 11/06/20 12:30 Mental Status Exam Mental Status Exam Narrative: Appearance: Appropriate Patient Orientation: Person, Place, Time and Situation Level of Consciousness: Awake and Appropriate Patient Behavior: Appropriate and Cooperative, calm, friendly Mood Description: good Affect Description: Calm and Appropriate Ability to Follow Directions: Good Speech Pattern: Clear and Appropriate Hallucinations: None Delusions: Not Present Thought Process: Intact and Goal Oriented Thought Content: positive for Intact Judgement: Fair Data Data Completed and Pending Completed studies during hospitalization [Text1]: 10/30/20 11/02/20 11/02/20 14:56 07:20 07:20 WBC RBC Hgb Hct MCV MCH MCHC RDW Plt Count MPV Immature Gran % (Auto) Neut % (Auto) Lymph % (Auto) [place] % (Auto) Eos % (Auto) Baso % (Auto) Lymph # (Auto) [place] # (Auto) Eos # (Auto) Baso # (Auto) Abs Immat Gran (auto) Absolute Neuts (auto) Absolute Nucleated RBC Nucleated RBC % (auto) Estimat Average Glucose 94 Hemoglobin A1c % 4.9 Triglycerides 92 Cholesterol 210 LDL Cholesterol, Calc 133 HDL Cholesterol 59 Coronavirus (PCR) NEGATIVE COVID-19 (JENN[facility]ER) COVID-19 Clin Com Influenza Type A (PCR) NEGATIVE Influenza Type B (PCR) NEGATIVE RSV RNA Qual (PCR) NEGATIVE 11/02/20 11/04/20 07:20 05:50 WBC 6.7 RBC 3.98 L Hgb 12.5 Hct 38.0 MCV 95.5 MCH 31.4 MCHC 32.9 RDW 12.3 Plt Count 276 MPV 9.0 L Immature Gran % (Auto) 0.3 Neut % (Auto) 38.6 L Lymph % (Auto) 48.7 H [place] % (Auto) 9.4 Eos % (Auto) 2.7 Baso % (Auto) 0.3 Lymph # (Auto) 3.3 [place] # (Auto) 0.6 Eos # (Auto) 0.2 Baso # (Auto) 0.0 Abs Immat Gran (auto) 0.02 Absolute Neuts (auto) 2.6 Absolute Nucleated RBC 0.000 Nucleated RBC % (auto) 0.0 Estimat Average Glucose Hemoglobin A1c % Triglycerides Cholesterol LDL Cholesterol, Calc HDL Cholesterol Coronavirus (PCR) COVID-19 (JENNIFER) Negative COVID-19 Clin Com See Note Influenza Type A (PCR) Influenza Type B (PCR) RSV RNA Qual (PCR) Imaging Diagnostic Imaging Impressions Chest X-Ray 10/25/20 03:29 IMPRESSION: No evidence for acute disease. Head CT 10/25/20 14:52 IMPRESSION: No acute intracranial process seen. There is a right frontal scalp hematoma without calvarial fracture. DS: Summary Hospital Course Hospital Course: Ms. Bedoya is a 60 year-old woman with hx of Bipolar Disorder and Cocaine use who self-presented to [facility] ED reporting suicidal ideation without a plan in context of relapsing on cocaine recently. Ms. Bedoya has hx of at least 4 previous inpatient admission, most recent one back in 05/2020 due to suicidal ideation. Ms. Bedoya reports recurrent suicidal thoughts. She denies any actual attempt but states last May she had plan to jump out of moving car but a friend stopped her. Most recently, Ms. Bedoya reports that she has been increasingly more hopeless/helpless, feeling of guilt/shame related to ongoing cocaine use despite intents to stop on her own. She also reports using cannabis, which she reports her daughter is very upset of. HOSPITAL COURSE On the unit, pt reported guilt/shame related to quickly relapsing on cocaine. She reported conditional suicidality related to substance use. She denied VH/AH. She reported difficulty falling and staying asleep. She denied any plan or intent to hurt herself. We discussed at length need to continue residential substance use treatment program that could provide more structure and support that outpatient programs. Pt initially in agreement and referrals were sent to [facility] and [facility]. However, once a bed became available at [facility], pt decline going there stating she would rather work with her outpatient psychiatric therapist twice weekly. After discussing risks, benefits and alternative treatment options, pt agreed to continue current medications including trileptal 300mg po BID, latuda 60mg po qhs, gabapentin 300mg po TID, trazodone 200mg po qhs and remeron. Pt was informed in terms of risks of ongoing prescriptions for controlled substances including clonazepam and gabapentin. Pt has been prescribed these medications by her OP providers at [facility], pt agrees to discuss with OP provider but was reluctant to taper them off while in the unit. Her affect gradually brighten. She was visible in the unit and attended assigned groups. She did have difficulty falling and astaying asleep. Pt may benefit from sleep study to determine other causes of sleep disturbances. There were no incidences of disruptive behaviors nor use of restraints. Her affect always appeared much brighter than reported mood. Time spent discussing smoking cessation with patient: more than 10 minutes Status at Discharge Cognitive/behavioral status at discharge: Pt reports decreaseds symptoms of depression. No SI/HI. Little insight into substance use. Functional status at discharge: independent ambulation Overall status at discharge: patient is back to baseline Time Spent with Patient Time attestation: Total time spent providing and/or coordinating discharge services: Time spent: Greater than 30 minutes
[2020-11-06] MEDS: clonazePAM 1 MG TABLET PO (09:03)
[2020-11-06] MEDS: OXcarbazepine 300 MG TABLET PO (09:03)
[2020-11-06] MEDS: Multivitamin TABLET 1 TAB PO (09:03)
[2020-11-06] MEDS: Gabapentin 300 MG CAPSULE PO (09:03)
[2020-11-06] MEDS: Acetaminophen 325 MG TABLET 650 MG PO (09:55)
--- NOTE | 2020-11-06 11:27 | PC.NURSE ---
pt is aware and ready for discharge. pt reports having a strong family support as her son will be staying with her for a while. pt reports a decrease in anxiety and depression. pt denies urges to use substances at this time. she declines feelings of hurting herself or others. pt is independently taking care of ADLs. pt is sleeping and eating sufficiently. pts paperwork will be faxed to pcp per protocol. pt is able to advocate for herself. she has been educated on medications and verbally understands teaching. pt is able to follow up with referrals.
== END 2020-11-06 12:30 | disposition home or self-care (01) | DRG 885 ==
LOC: HO.ED 10-25 21:58 → HO.PM5 10-25 22:10
PROVIDERS: Physician Assistant; Psychiatry & Neurology Psychiatry; Admitting Provider Psychiatry & Neurology Psychiatry; Emergency Provider Emergency Medicine; Visit Provider Social Worker
DX: F31.4 Bipolar disorder, current episode depressed, severe, without psychotic features (principal); R45.851 Suicidal ideations; K59.00 Constipation, unspecified; F14.10 Cocaine abuse, uncomplicated; F11.10 Opioid abuse, uncomplicated; M54.9 Dorsalgia, unspecified; Z20.822 Contact with and (suspected) exposure to COVID-19; Z88.2 Allergy status to sulfonamides; Z79.899 Other long term (current) drug therapy
CPT/HCPCS: 0241U; 36415; 70450; 71045; 80048; 80061; 80307; 81001; 83036; 85025; 87635; 93005; 99285

== ENCOUNTER 2021-07-15 20:15 | Inpatient (IN) | payer MEDICARE, MEDICAID, SELFPAY ==
--- NOTE | ~2021-07-15 | CT_ITS ---
EXAMINATION: CT HEAD WITHOUT CONTRAST (STROKE PROTOCOL) CLINICAL INFORMATION: Stroke protocol. Left-sided weakness. Altered mental status. COMPARISON: CT head October 25, 2020 TECHNIQUE: Contiguous axial imaging was performed from the skull base to vertex without intravenous administration of contrast. This CT examination was performed using dose optimization techniques as appropriate, variously including the following: *Automated exposure control *Adjustment of mA and/or kV according to patient size (this includes techniques or standardized protocols for targeted exams where dose is matched to indication/reason for exam; i.e. extremities or head) *Use of iterative reconstruction technique DLP: 665 mGy-cm FINDINGS: There is no intracranial hemorrhage, hematoma, or extra-axial fluid collection. The ventricles are normal in size. There is no hydrocephalus, edema, or mass effect. The lara-white matter differentiation appears symmetric. There is no acute infarct or mass lesion. The calvarium appears intact. There is no pneumocephalus or orbital emphysema. The visualized sinuses and middle ears and mastoid air cells show no significant mucosal thickening. There are no air-fluid levels. CT/CT head for stroke IMPRESSION: No acute intracranial pathology. This critical result was discussed with Dr. Olivares at 1808 hours on 07/17/2021. It was ascertained that the content and urgency of the report was understood at the time of direct communication.
[2021-07-15 20:40] VITALS: BP 119/78; PULSE 85; RESP 16; TEMP 36.6; O2SAT 95; BMI 25.0
[2021-07-15 21:37] LABS: COVID-19 Test Negative (Negative)
--- NOTE | 2021-07-15 21:45 | ED_ITS ---
HPI - Psych General Chief Complaint: Psychiatric Symptoms Stated Complaint: crisis Time Seen by Provider: 07/15/21 21:43 History of Present Illness HPI Narrative: Patient 60-year-old female with a history of alcohol and cocaine abuse in the past. History of bipolar disorder. Patient presented today with feeling not well week. Question suicidal ideation. Patient would not elaborate. Do not take an overdose. Patient from home. Related Data Home Medications Medication Instructions Recorded Confirmed gabapentin 300 mg capsule 300 mg PO TID 07/15/21 07/15/21 lurasidone 80 mg tablet (Latuda) 1 tab PO DAILY 07/15/21 07/15/21 mirtazapine 7.5 mg tablet 1 tab PO BEDTIME 07/15/21 07/15/21 oxcarbazepine 300 mg tablet 1 tab PO BID 07/15/21 07/15/21 trazodone 100 mg tablet 1 - 2 tab PO BEDTIME 07/15/21 07/15/21 Previous Rx's Medication Instructions Recorded clonazepam 1 mg tablet 1 tab PO TID 15 Days #45 tab 11/06/20 Allergies Allergy/AdvReac Type Severity Reaction Status Date / Time sulfamethoxazole Allergy Unknown ANAPHYLAXIS Verified 10/24/20 21:43 [From BACTRIM] trimethoprim [From BACTRIM] Allergy Unknown ANAPHYLAXIS Verified 10/24/20 21:43 Review of Systems Review of Systems: No fever no chills no cough Patient refused to answer specific review system questions Yes all other systems are reviewed and are negative [facility] Past Medical History Attestation statement: The following information was validated with the patient. Medical History Cocaine use disorder Opioid abuse Social History Social History Household Members: None Housing: Apartment Do you presently have visiting nurse or other home services: No Alcohol intake: former Second Hand Smoke Exposure: No Substance Use Type: Crack/Cocaine Advance Directives: No Advance Directives Information Provided: Yes Patient : No service: Yes Sexual orientation: Decline to Answer Physical Exam Vital Signs: Vital Signs: Last Vital Signs Temp 97.8 F 07/15/21 20:40 Pulse 85 07/15/21 20:40 Resp 16 07/15/21 20:40 BP 119/78 07/15/21 20:40 Pulse Ox 95 07/15/21 20:40 Body Mass Index 25.0 MDM - Psych MDM Narrative Medical decision making narrative: Well-appearing not acute distress. Awaiting psychiatric evaluation. Labs ordered. Lab Data Result diagrams: 07/15/21 22:17 07/15/21 22:17 Labs: Lab Results 07/15/21 07/15/21 07/15/21 Range/Units 21:09 22:14 22:14 WBC (4.8-10.8) X10*3/uL RBC (4.20-5.50) X10*6/uL Hgb (12.0-16.0) g/dl Hct (37-47) % MCV (80-98) fL MCH (27.0-33.0) pg MCHC (31.0-35.0) g/dl RDW (11.0-16.0) % Plt Count (160-400) X10*3/uL MPV (9.4-12.3) fL Immature Gran % (Auto) (0.0-0.4) % Neut % (Auto) (45-73) % Lymph % (Auto) (20-40) % Surry % (Auto) (2-11) % Eos % (Auto) (0-4) % Baso % (Auto) (0-2) % Lymph # (Auto) (1.2-4.9) X10*3/uL Surry # (Auto) (0.1-1.2) X10*3/uL Eos # (Auto) (0.0-0.4) X10*3/uL Baso # (Auto) (0.0-0.2) X10*3/uL Abs Immat Gran (auto) (0.00-0.03) X10*3/uL Absolute Neuts (auto) (2.0-8.3) X10*3/uL Absolute Nucleated RBC (0.0-0.012) X10*3/uL Nucleated RBC % (auto) (0.0-0.2) /100WBC PT (9.9-13.0) SEC INR (0.9-1.1) Sodium (135-145) mmol/L Potassium (3.3-5.1) mmol/L Chloride (96-108) mmol/L Carbon Dioxide (22-29) mmol/L Anion Gap (12-20) BUN (9-16) mg/dL Creatinine (0.5-1.4) mg/dL Estim Creat Clear Calc Estimated GFR Random Glucose (60-115) mg/dL Calcium (8.4-10.2) mg/dL Magnesium (1.6-2.6) mg/dL Total Bilirubin (0.0-1.0) mg/dL Direct Bilirubin (0.0-0.5) mg/dL AST (5-31) U/L ALT (0-31) U/L Alkaline Phosphatase (39-117) U/L Total Protein (6.5-8.0) g/dL Albumin (3.5-5.0) g/dL TSH (0.32-4.0) uIU/mL Urine Color YELLOW Urine Appearance HAZY Urine pH 6.0 (5.0-8.0) Ur Specific Oxford 1.025 (1.005-1.025) Urine Protein TRACE (NEG-TRACE) MG/DL Urine Glucose (UA) NEG (NEG) MG/DL Urine Ketones 5 (NEG) MG/DL Urine Blood NEG (NEG) Urine Nitrite NEG (NEG) Ur Leukocyte Esterase 2+ H (NEG) Urine RBC 0-2 (0) /HPF Urine WBC 5-9 H (0-4) /HPF Ur Squamous Epith Cells 1+ /LPF Calcium Oxalate Crystal 1+ /LPF Urine Bacteria 1+ /LPF Urine Opiates Screen Not Detected (Not Detect) Urine Fentanyl Screen Not Detected (Not Detect) Ur Barbiturates Screen Not Detected (Not Detect) Ur Phencyclidine Scrn Not Detected (Not Detect) Ur Amphetamines Screen Not Detected (Not Detect) U Benzodiazepines Scrn POSITIVE H (Not Detect) Urine Cocaine Screen Not Detected (Not Detect) U Marijuana (THC) Screen Not Detected (Not Detect) Ethyl Alcohol mg/dL COVID-19 (JENNIFER) Negative (Negative) COVID-19 Clin Com See Note 07/15/21 07/15/21 07/15/21 Range/Units 22:17 22:17 22:17 WBC 8.0 (4.8-10.8) X10*3/uL RBC 3.83 L (4.20-5.50) X10*6/uL Hgb 12.5 (12.0-16.0) g/dl Hct 36.9 L (37-47) % MCV 96.3 (80-98) fL MCH 32.6 (27.0-33.0) pg MCHC 33.9 (31.0-35.0) g/dl RDW 12.3 (11.0-16.0) % Plt Count 258 (160-400) X10*3/uL MPV 9.3 L (9.4-12.3) fL Immature Gran % (Auto) 0.2 (0.0-0.4) % Neut % (Auto) 53.9 (45-73) % Lymph % (Auto) 35.2 (20-40) % Surry % (Auto) 9.2 (2-11) % Eos % (Auto) 1.1 (0-4) % Baso % (Auto) 0.4 (0-2) % Lymph # (Auto) 2.8 (1.2-4.9) X10*3/uL Surry # (Auto) 0.7 (0.1-1.2) X10*3/uL Eos # (Auto) 0.1 (0.0-0.4) X10*3/uL Baso # (Auto) 0.0 (0.0-0.2) X10*3/uL Abs Immat Gran (auto) 0.02 (0.00-0.03) X10*3/uL Absolute Neuts (auto) 4.3 (2.0-8.3) X10*3/uL Absolute Nucleated RBC 0.000 (0.0-0.012) X10*3/uL Nucleated RBC % (auto) 0.0 (0.0-0.2) /100WBC PT (9.9-13.0) SEC INR (0.9-1.1) Sodium 142 (135-145) mmol/L Potassium 3.6 (3.3-5.1) mmol/L Chloride 109 H (96-108) mmol/L Carbon Dioxide 23 (22-29) mmol/L Anion Gap 14 (12-20) BUN 13 (9-16) mg/dL Creatinine 1.05 (0.5-1.4) mg/dL Estim Creat Clear Calc 52.5 Estimated GFR 54 Random Glucose 89 (60-115) mg/dL Calcium 10.5 H (8.4-10.2) mg/dL Magnesium 2.3 (1.6-2.6) mg/dL Total Bilirubin 1.0 (0.0-1.0) mg/dL Direct Bilirubin 0.3 (0.0-0.5) mg/dL AST 36 H D (5-31) U/L ALT 18 (0-31) U/L Alkaline Phosphatase 76 (39-117) U/L Total Protein 6.4 L (6.5-8.0) g/dL Albumin 4.1 (3.5-5.0) g/dL TSH 0.77 (0.32-4.0) uIU/mL Urine Color Urine Appearance Urine pH (5.0-8.0) Ur Specific Oxford (1.005-1.025) Urine Protein (NEG-TRACE) MG/DL Urine Glucose (UA) (NEG) MG/DL Urine Ketones (NEG) MG/DL Urine Blood (NEG) Urine Nitrite (NEG) Ur Leukocyte Esterase (NEG) Urine RBC (0) /HPF Urine WBC (0-4) /HPF Ur Squamous Epith Cells /LPF Calcium Oxalate Crystal /LPF Urine Bacteria /LPF Urine Opiates Screen (Not Detect) Urine Fentanyl Screen (Not Detect) Ur Barbiturates Screen (Not Detect) Ur Phencyclidine Scrn (Not Detect) Ur Amphetamines Screen (Not Detect) U Benzodiazepines Scrn (Not Detect) Urine Cocaine Screen (Not Detect) U Marijuana (THC) Screen (Not Detect) Ethyl Alcohol < 10 mg/dL COVID-19 (JENNIFER) (Negative) COVID-19 Clin Com 07/15/21 Range/Units 22:17 WBC (4.8-10.8) X10*3/uL RBC (4.20-5.50) X10*6/uL Hgb (12.0-16.0) g/dl Hct (37-47) % MCV (80-98) fL MCH (27.0-33.0) pg MCHC (31.0-35.0) g/dl RDW (11.0-16.0) % Plt Count (160-400) X10*3/uL MPV (9.4-12.3) fL Immature Gran % (Auto) (0.0-0.4) % Neut % (Auto) (45-73) % Lymph % (Auto) (20-40) % Surry % (Auto) (2-11) % Eos % (Auto) (0-4) % Baso % (Auto) (0-2) % Lymph # (Auto) (1.2-4.9) X10*3/uL Surry # (Auto) (0.1-1.2) X10*3/uL Eos # (Auto) (0.0-0.4) X10*3/uL Baso # (Auto) (0.0-0.2) X10*3/uL Abs Immat Gran (auto) (0.00-0.03) X10*3/uL Absolute Neuts (auto) (2.0-8.3) X10*3/uL Absolute Nucleated RBC (0.0-0.012) X10*3/uL Nucleated RBC % (auto) (0.0-0.2) /100WBC PT 12.8 (9.9-13.0) SEC INR 1.1 (0.9-1.1) Sodium (135-145) mmol/L Potassium (3.3-5.1) mmol/L Chloride (96-108) mmol/L Carbon Dioxide (22-29) mmol/L Anion Gap (12-20) BUN (9-16) mg/dL Creatinine (0.5-1.4) mg/dL Estim Creat Clear Calc Estimated GFR Random Glucose (60-115) mg/dL Calcium (8.4-10.2) mg/dL Magnesium (1.6-2.6) mg/dL Total Bilirubin (0.0-1.0) mg/dL Direct Bilirubin (0.0-0.5) mg/dL AST (5-31) U/L ALT (0-31) U/L Alkaline Phosphatase (39-117) U/L Total Protein (6.5-8.0) g/dL Albumin (3.5-5.0) g/dL TSH (0.32-4.0) uIU/mL Urine Color Urine Appearance Urine pH (5.0-8.0) Ur Specific Oxford (1.005-1.025) Urine Protein (NEG-TRACE) MG/DL Urine Glucose (UA) (NEG) MG/DL Urine Ketones (NEG) MG/DL Urine Blood (NEG) Urine Nitrite (NEG) Ur Leukocyte Esterase (NEG) Urine RBC (0) /HPF Urine WBC (0-4) /HPF Ur Squamous Epith Cells /LPF Calcium Oxalate Crystal /LPF Urine Bacteria /LPF Urine Opiates Screen (Not Detect) Urine Fentanyl Screen (Not Detect) Ur Barbiturates Screen (Not Detect) Ur Phencyclidine Scrn (Not Detect) Ur Amphetamines Screen (Not Detect) U Benzodiazepines Scrn (Not Detect) Urine Cocaine Screen (Not Detect) U Marijuana (THC) Screen (Not Detect) Ethyl Alcohol mg/dL COVID-19 (JENNIFER) (Negative) COVID-19 Clin Com Discharge Plan Discharge Clinical Impression: Depression Prescriptions: No Action clonazepam 1 mg tablet 1 tab PO TID 15 Days Qty: 45 RF: 0 gabapentin 300 mg capsule 300 mg PO TID RF: 0 Latuda 80 mg tablet 1 tab PO DAILY RF: 0 mirtazapine 7.5 mg tablet 1 tab PO BEDTIME RF: 0 oxcarbazepine 300 mg tablet 1 tab PO BID RF: 0 trazodone 100 mg tablet 1 - 2 tab PO BEDTIME RF: 0
[2021-07-15 22:22] LABS: MANUAL DIFF FLAG NO
[2021-07-15 22:24] LABS: Basophils Percent Auto 0.4 % (0-2); Eosinophils Absolute Auto 0.1 X10*3/uL (0.0-0.4); Eosinophils Percent Auto 1.1 % (0-4); Hematocrit 36.9 % (37-47); Hemoglobin 12.5 g/dl (12.0-16.0); Imm Gran Abs Auto 0.02 X10*3/uL (0.00-0.03); Imm Gran Pct Auto 0.2 % (0.0-0.4); Lymphocytes Absolute Auto 2.8 X10*3/uL (1.2-4.9); Lymphocytes Percent Auto 35.2 % (20-40); Mean Corpuscular HGB Conc 33.9 g/dl (31.0-35.0); Mean Corpuscular Hemoglobin 32.6 pg (27.0-33.0); Mean Corpuscular Volume 96.3 fL (80-98); Mean Platelet Volume 9.3 fL (9.4-12.3); Monocytes Absolute Auto 0.7 X10*3/uL (0.1-1.2); Monocytes Percent Auto 9.2 % (2-11); Neutrophils Absolute Auto 4.3 X10*3/uL (2.0-8.3); Neutrophils Percent Auto 53.9 % (45-73); Platelet Count 258 X10*3/uL (160-400); Red Blood Count 3.83 X10*6/uL (4.20-5.50); Red Cell Distribution Width 12.3 % (11.0-16.0)
[2021-07-15 22:26] LABS: Appearance Urine HAZY; Color Urine YELLOW; Glucose Urine UA NEG (NEG); Leukocyte Esterase Urine 2+ (NEG); Nitrite Urine NEG (NEG); Specific Gravity - Urine 1.025 (1.005-1.025); UACC Culture Trigger YES; Urine Blood NEG (NEG); Urine Ketones 5 MG/DL (NEG); Urine Protein TRACE MG/DL (NEG-TRACE)
[2021-07-15 22:34] LABS: Ethanol < 10 mg/dL
[2021-07-15 22:35] LABS: Bacteria Urine 1+ /LPF; RBC Urine 0-2 /HPF (0); Squamous Epithelial Cell Urine 1+ /LPF; UACC CULT YES
[2021-07-15 22:35] LABS: INTERNATIONAL NORM RATIO 1.1 (0.9-1.1); Prothrombin Time 12.8 SEC (9.9-13.0)
[2021-07-15 22:36] LABS: Amphetamine Screen Urine Not Detected (Not Detect); Barbiturates, Urine Not Detected (Not Detect); Benzodiazepines Screen Urine POSITIVE (Not Detect); Calcium Oxalate Crystals Urine 1+ /LPF; Cannabinoid Screen Urine Not Detected (Not Detect); Cocaine Screen Urine Not Detected (Not Detect); Fentanyl, urine Not Detected (Not Detect); Opiate Screen Urine Not Detected (Not Detect); Phencyclidine Screen Urine Not Detected (Not Detect)
[2021-07-15 22:40] LABS: Alanine Aminotransferase 18 U/L (0-31); Albumin Level 4.1 g/dL (3.5-5.0); Alkaline Phosphatase 76 U/L (39-117); Anion Gap 14 (12-20); Aspartate Amino Transferase 36 U/L (5-31); Bilirubin Direct 0.3 mg/dL (0.0-0.5); Blood Urea Nitrogen 13 mg/dL (9-16); Calcium 10.5 mg/dL (8.4-10.2); Carbon Dioxide 23 mmol/L (22-29); Chloride 109 mmol/L (96-108); Creatinine Clr Calc Pharmacy 52.5; Estimated Glomerular Filt Rate 54; Glucose Random 89 mg/dL (60-115); Magnesium 2.3 mg/dL (1.6-2.6); Potassium 3.6 mmol/L (3.3-5.1); Sodium 142 mmol/L (135-145); Total Protein 6.4 g/dL (6.5-8.0)
[2021-07-15 22:58] LABS: TSH reflex Free T4 0.77 uIU/mL (0.32-4.0)
--- NOTE | 2021-07-16 | ECG_ITS ---
Test Reason : qtc prolongnation Blood Pressure : / mmHG Vent. Rate : 072 BPM Atrial Rate : 072 BPM P-R Int : 156 ms QRS Dur : 086 ms QT Int : 410 ms P-R-T Axes : 049 003 006 degrees QTc Int : 448 ms Normal sinus rhythm RSR' or QR pattern in V1 suggests right ventricular conduction delay Nonspecific T wave abnormality Inferior leads Abnormal ECG When compared with ECG of 25-OCT-2020 03:24, RSR' pattern in V1 is no longer Present Referred By: Kendra Prieto Electronically Signed By:JAKE NOVAK MD
--- NOTE | 2021-07-16 05:25 | PC.NURSE ---
Patient slept through the night, no distress observed/reported, alert and oriented, mood depressed affect flat, gait unsteady requires one assist for ambulation, psych consult ordered for med review, med rec completed pending providers approval, behavior non concerning, BHN referral completed and confirmed by Simeon, patient will be assessed in the morning, VSS, will continue to monitor.
[2021-07-16 06:29] VITALS: BP 115/72; PULSE 71; RESP 17; TEMP 36.6; O2SAT 95
--- NOTE | 2021-07-16 07:07 | PC.NURSE ---
patient appears to remain asleep at present soon after t/w's arrival patient up to use bathroom, appears in no distress
[2021-07-16 09:03] VITALS: BP 124/87; PULSE 87; RESP 16; O2SAT 97
[2021-07-16] MEDS: LORazepam 1 MG TABLET PO (12:26)
[2021-07-16 13:06] VITALS: BP 145/70; PULSE 105; RESP 16; TEMP 36.8; O2SAT 96
[2021-07-16] MEDS: Gabapentin 300 MG CAPSULE PO ×2 (14:40→21:52)
[2021-07-16] MEDS: clonazePAM 1 MG TABLET PO ×2 (14:40→21:52)
--- NOTE | 2021-07-16 16:21 | PC.ADMIT ---
Nursing admission note: 60 year old female DX: BiPolar disorder unspecified. Referred for admission by CARE team. Patient A+O x2, place and name, unsure of date. Reports mood is depressed. Reports +SI prior to admission, denies at this time. Frequently states I am not feeling well , need help . Responses appropriate to topic although delayed. Speech is slow and limited. Appears preoccupied, confused. Good eye contact, dressed in hospital attire. Denies perceptual disturbances, no overt psychosis or expressed delusions. Frequently repeats self, perseverates. Reports sleeping well. States appetite is decreased, unknown if she has had any weight loss. . TOX screen positive for Benzo. Endorses history of crack cocaine use, states last use was weeks ago. COVID negative. In need of frequent reassurance and support, assisted with shower. Reports her mother helps her prepare food and with personal care. Endorses trauma history. History of previous hospitalizations most recent M5 in 2020. Medical history includes MRSA although non contributing at this time. Denies acute medical problems. Denies current legal involvement. See nursing assessment for further details, crisis eval for complete details. Place on 15 minte safety checks.
[2021-07-16 20:31] VITALS: BP 137/63; PULSE 72; RESP 18; TEMP 36.2; O2SAT 97
[2021-07-16] MEDS: Mirtazapine 7.5 MG TABLET PO (21:52)
[2021-07-16] MEDS: OXcarbazepine 300 MG TABLET PO (21:52)
[2021-07-16] MEDS: traZODone HCL 100 MG TABLET 200 MG PO (21:52)
[2021-07-17 06:00] VITALS: BP 123/72; PULSE 70; RESP 16; TEMP 36.3; O2SAT 96
--- NOTE | 2021-07-17 06:58 | PC.NURSE ---
sleep-on rising from bed and room patient reported that she ''did not sleep at all'' encouraged to alert staff this evening if not sleeping as she had appeared to have done so all night. verbalize process back.
[2021-07-17 07:58] LABS: Cholesterol 203 mg/dL; HDL Cholesterol 56 mg/dL; LDL Cholesterol Calculated 129 mg/dl; Triglycerides 94 mg/dL
[2021-07-17 08:19] LABS: Thyroid Stimulating Hormone 1.08 uIU/mL (0.32-4.0)
[2021-07-17] MEDS: clonazePAM 1 MG TABLET PO ×3 (08:52→21:52)
[2021-07-17] MEDS: Gabapentin 300 MG CAPSULE PO ×3 (08:52→21:52)
[2021-07-17] MEDS: OXcarbazepine 300 MG TABLET PO ×2 (08:52→21:52)
[2021-07-17] MEDS: Lurasidone HCl 80 MG TABLET PO (08:53)
[2021-07-17 09:00] LABS: Estimated Average Glucose 94 mg/dL; Hemoglobin A1c % 4.9 %
[2021-07-17 09:32] LABS: Folate 19.3 ng/mL (> or = 4.0); Vitamin B12 325 pg/mL (200-900)
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
--- NOTE | 2021-07-17 17:40 | HO.HSGERICON ---
History of Present Illness Data of Consult Service Date: 07/17/21 Requesting physician: Karen Lamb Primary Care Provider: Unknown Physician HPI Reason for consult: ?facial droop This is a 60-year-old female with history of bipolar disorder and substance abuse who was admitted to inpatient psychiatric floor for management of suicidal ideation. Patient presented to the emergency department for suicidal ideation. She was evalutated by crisis and admitted to the psychiatric floor for further management. The hospitalists were asked to see the patient for concern over facial drop and possible pronator drift. Patient denies any focal weakness and is primarily concerned with when she will be receiving her dinner. Review of Systems Review of Systems: Yes all other systems are reviewed and are negative Constitutional: Constitutional: Denies chills and Denies fever(s) Cardiovascular: Cardiovascular: Denies chest pain PMFSH Medical History Back pain Bipolar 1 disorder, depressed, severe Cocaine use disorder Opioid abuse Polysubstance abuse Pertinent family history: no history of colon cancer Social History Household Members: None Housing: Apartment Do you presently have visiting nurse or other home services: No Alcohol intake: former Patient Tobacco Use Status: Never used Tobacco Second Hand Smoke Exposure: No Use of substances other than those prescribed or required for medical reasons: Yes Substance Use Type: Crack/Cocaine Substance Use Type Other:: crack cocaine last use 6 weeks ago Substance Use Frequency: Occasionally Last Used Substance: Weeks (ago) Currently Displaying Signs/Symptoms of Drug Intoxication Withdrawal: No Any prior treatment program specific to substance use: No Have you been hit, kicked, punched, or otherwise hurt by someone within the past year? If so, by whom?: No Do you feel safe in your current relationship?: No Is there a partner from a previous relationship who is making you feel unsafe now?: No Are you made to feel afraid or neglected: No Spiritual Healthcare Practices: None Pent[employer]alism Healthcare Practices: None Cultural Healthcare Practices: None Advance Directives: No Advance Directives Information Provided: Yes Advance Directives on File: No Do you have thoughts of harming others: None Do you have a plan to hurt others: No Plan Recently lost weight without trying: Unsure How much weight loss: Unsure Eating poorly because of decreased appetite: Yes Nutrition screen score: 5 Patient : No : No service: No Sexual orientation: Did not discuss. Meds Allergies Allergy/AdvReac Type Severity Reaction Status Date / Time sulfamethoxazole Allergy Unknown ANAPHYLAXIS Verified 10/24/20 21:43 [From BACTRIM] trimethoprim [From BACTRIM] Allergy Unknown ANAPHYLAXIS Verified 10/24/20 21:43 Active Medications: Current Medications Acetaminophen (Acetaminophen 325 Mg Tablet) 650 mg PO Q6H PRN PRN Reason: Headache/Pain Mild Scale (1-3) Al Hydroxide/Mg Hydroxide (Magnesium Hydrox/Alum Hydrox 30 Ml Oral.Susp) 30 ml PO Q6H PRN PRN Reason: Heartburn/Nausea Clonazepam (Clonazepam 1 Mg Tablet) 1 mg PO TID [facility] Last Admin: 07/17/21 15:12 Dose: 1 mg Documented by: Gabapentin (Gabapentin 300 Mg Capsule) 300 mg PO TID [facility] Last Admin: 07/17/21 15:12 Dose: 300 mg Documented by: Hydroxyzine HCl (Hydroxyzine Hcl 25 Mg Tablet) 25 mg PO Q6H PRN PRN Reason: Anxiety Lurasidone HCl (Lurasidone Hcl 80 Mg Tablet) 80 mg PO DAILY [facility] Last Admin: 07/17/21 08:53 Dose: 80 mg Documented by: Magnesium Hydroxide (Milk Of Magnesia 30 Ml Oral.Susp) 30 ml PO DAILY PRN PRN Reason: Constipation Mirtazapine (Mirtazapine 7.5 Mg Tablet) 7.5 mg PO BEDTIME [facility] Last Admin: 07/16/21 21:52 Dose: 7.5 mg Documented by: Nicotine Polacrilex (Nicotine Polacrilex 2 Mg Gum) 2 mg BUCCAL Q2H PRN PRN Reason: Nicotine Cravings Oxcarbazepine (Oxcarbazepine 300 Mg Tablet) 300 mg PO BID [facility] Last Admin: 07/17/21 08:52 Dose: 300 mg Documented by: Trazodone HCl (Trazodone Hcl 100 Mg Tablet) 200 mg PO BEDTIME [facility] Last Admin: 07/16/21 21:52 Dose: 200 mg Documented by: Home Medications Medication Instructions Recorded Confirmed Last Taken Type gabapentin 300 mg capsule 300 mg PO TID 07/15/21 07/15/21 Unknown History lurasidone 80 mg tablet (Latuda) 1 tab PO DAILY 07/15/21 07/15/21 Unknown History mirtazapine 7.5 mg tablet 1 tab PO BEDTIME 07/15/21 07/15/21 Unknown History oxcarbazepine 300 mg tablet 1 tab PO BID 07/15/21 07/15/21 Unknown History trazodone 100 mg tablet 1 - 2 tab PO BEDTIME 07/15/21 07/15/21 Unknown History Results Labs CBC and Chem 7: 07/15/21 22:17 07/15/21 22:17 Labs: Laboratory Results - last 24 hr 07/17/21 07/17/21 07/17/21 07:16 07:16 07:16 Estimat Average Glucose 94 Hemoglobin A1c % 4.9 Triglycerides 94 Cholesterol 203 LDL Cholesterol, Calc 129 HDL Cholesterol 56 Vitamin B12 325 Folate 19.3 TSH 1.08 Assessment and Plan (1) Depression: Status: Acute This is a 60-year-old female with history of bipolar disorder, polysubstance abuse admitted to inpatient psychiatric unit due to suicidal ideation. Hospitalist to see the patient due to concern over facial droop and pronator drift ?facial droop Patient speech slow but clear. No focal neurological deficits noted on exam Risk factors of cocaine/tobacco use, HLD. Recommend low cholesterol diet/lifestyle modification. Avoid use of tobacco/cocaine Can proceed with ordered CT of the head Thank you for allowing us to participate in the care of this patient. Attending: Dr. Manriquez Physical Exam Vital Signs: Last Vital Signs Temp 97.3 F 07/17/21 06:00 Pulse 70 07/17/21 06:00 Resp 16 07/17/21 06:00 BP 123/72 07/17/21 06:00 Pulse Ox 96 07/17/21 06:00 Body Mass Index 25.0 Const General: no acute distress and alert Nutritional Appearance: well nourished [facility] Head: Yes normocephalic and Yes atraumatic Eyes Sclerae: sclerae normal Resp Effort & Inspection: normal respiratory effort and no respiratory distress Neuro Other: speech clear but slow to respond; follows commands; strength in upper and lower extremities equal bilaterally; gait slow but able to ambulate independently with no ataxia Cranial nerves: Yes CN's II-XII intact bilaterally, Yes Bilaterally intact EOM present, Yes Normal facial strength present, Yes Midline tongue present and Yes Ability to bilaterally elevate shoulders present Motor exam (neuro): Pronator motor function not present and no tremor noted Psych Appearance: grossly normal Speech and movement: Slowed speech present (Psych) and Slowed movement present (Neuro) Affect: Blunted affect present Attitude: cooperative
[2021-07-17 18:00] VITALS: BP 96/54; PULSE 71; RESP 18; TEMP 36.3; O2SAT 96
[2021-07-17] MEDS: traZODone HCL 100 MG TABLET 200 MG PO (21:52)
[2021-07-17] MEDS: Mirtazapine 7.5 MG TABLET PO (21:52)
--- NOTE | 2021-07-18 09:07 | P.PNPSI_ITS ---
Subjective Subjective Date of Service: 07/18/21 Reason For Visit: SI Subjective Notes: Conditional Voluntary Interim History: Pt continues to present as blank stare, does communicate, reports her brain feel foggy and can't think right. She is oriented to place, situation continues to report that she is worried about what is happening. She reports is hard for her to move, but can't tell this resume writer if it is because she feels weak or can initiate action. Pt evaluated by hospitalist yesterday- no focal weakness identify, head ct negative for acute stroke. No other abnormalities seen in head CT. Pt denies SI, no plan or intent but clearly unable to function as she used to. Given ativan 2 IM with some minimal benefit- may consider changing clonazepam to ativan. Medication Compliance: Yes Side effects from medications: No Review of Systems Review of Systems No fever no chills no cough Patient refused to answer specific review system questions Yes all other systems are reviewed and are negative Constitutional: Denies chills and Denies fever(s) Cardiovascular: Denies chest pain Musculoskeletal: Reports abnormal gait, Denies myalgias and Denies muscle cramps Reports abnormal gait, Denies focal weakness and Denies Other visual disturbances Mental Status Exam Mental Status Exam Narrative: Appearance: casually groomed, poor hygiene, anxious Behavior:mask-like face expression, cooperative psychomotor:retardation noted, some waxy flexibility Speech:diminished monosyllabic, soft tone, delayed respond, minimally spontaneous Thought process:single word answer repetitive Thought content:not feeling well, worried about what is going on with her Mood: okay Affect: mask-like expression, constricted SI:denies HI:denies VH/AH:denies Delusions:no overt delusional content Insight/judgment:fair in that knows something is wrong and needs help Memory/cog: alert, oriented x 3. Diagnostics Vital Signs (24Hr): Vital Signs - 24 hr 07/18/21 17:30 Temperature 98.8 F Pulse Rate 70 Blood Pressure 132/70 Body Mass Index 25.0 Labs Results: 07/15/21 22:17 07/15/21 22:17 Labs: Laboratory Results - last 48 hr 07/17/21 07:16 Vitamin B12 325 Folate 19.3 Imaging Radiology Impressions: ITS Impressions Head CT 07/17/21 17:37 IMPRESSION: No acute intracranial pathology. This critical result was discussed with Dr. Olivares at 1808 hours on 07/17/2021. It was ascertained that the content and urgency of the report was understood at the time of direct communication. Medications Medications Current Medications Acetaminophen (Acetaminophen 325 Mg Tablet) 650 mg PO Q6H PRN PRN Reason: Headache/Pain Mild Scale (1-3) Al Hydroxide/Mg Hydroxide (Magnesium Hydrox/Alum Hydrox 30 Ml Oral.Susp) 30 ml PO Q6H PRN PRN Reason: Heartburn/Nausea Clonazepam (Clonazepam 1 Mg Tablet) 1 mg PO TID [facility] Last Admin: 07/18/21 22:41 Dose: 1 mg Documented by: Gabapentin (Gabapentin 300 Mg Capsule) 300 mg PO TID [facility] Last Admin: 07/18/21 22:41 Dose: 300 mg Documented by: Hydroxyzine HCl (Hydroxyzine Hcl 25 Mg Tablet) 25 mg PO Q6H PRN PRN Reason: Anxiety Lurasidone HCl (Lurasidone Hcl 80 Mg Tablet) 80 mg PO DAILY [facility] Last Admin: 07/18/21 10:57 Dose: 80 mg Documented by: Magnesium Hydroxide (Milk Of Magnesia 30 Ml Oral.Susp) 30 ml PO DAILY PRN PRN Reason: Constipation Mirtazapine (Mirtazapine 7.5 Mg Tablet) 7.5 mg PO BEDTIME [facility] Last Admin: 07/18/21 22:40 Dose: 7.5 mg Documented by: Nicotine Polacrilex (Nicotine Polacrilex 2 Mg Gum) 2 mg BUCCAL Q2H PRN PRN Reason: Nicotine Cravings Oxcarbazepine (Oxcarbazepine 300 Mg Tablet) 300 mg PO BID [facility] Last Admin: 07/18/21 22:41 Dose: 300 mg Documented by: Trazodone HCl (Trazodone Hcl 100 Mg Tablet) 200 mg PO BEDTIME [facility] Last Admin: 07/18/21 22:40 Dose: 200 mg Documented by: Allergies Allergies Allergy/AdvReac Type Severity Reaction Status Date / Time sulfamethoxazole Allergy Unknown ANAPHYLAXIS Verified 10/24/20 21:43 [From BACTRIM] trimethoprim [From BACTRIM] Allergy Unknown ANAPHYLAXIS Verified 10/24/20 21:43 Assessment & Plan Assessment & Plan (1) Psychoactive substance-induced catatonia: Status: Acute Code(s): F19.988 - Other psychoactive substance use, unspecified with other psychoactive substance-induced disorder; F20.2 - Catatonic schizophrenia (2) Cocaine use disorder: Status: Acute Code(s): F14.10 - Cocaine abuse, uncomplicated (3) Bipolar II disorder with atypical features: Status: Acute Code(s): F31.81 - Bipolar II disorder Assessment and Plan: Ms. Bedoya is a 61 year-old woman with hx of Bipolar type 2 disorder and cocaine use disorder who was brought to [facility] by family as pt progressively and acutely presented as not able to walk, move, talk as much, blank stare, some absent minded. Pt is known to this resume writer and this is an unusual presentation for her. I suspect it could be related to catatonic state related to cocaine use. PLAN 1. Admit M3 2. Head CT done on 07/17- negative for stroke, no abnormal findings 3. Ativan challenge- some brief improvement, will switch to ativan for now treating pt as catatonia most likely induced by cocaine use. 4. Consider neurology consult. 5. Obtain collateral information 6. aftercare planning I spent minutes with the patient and/or on the patient floor today, greater than?50% of which was spent counseling/coordinating care. Reason for contiued inpatient stay Substantial Risk for: inability to function
[2021-07-18] MEDS: OXcarbazepine 300 MG TABLET PO ×2 (10:57→22:41)
[2021-07-18] MEDS: clonazePAM 1 MG TABLET PO ×2 (10:57→22:41)
[2021-07-18] MEDS: Lurasidone HCl 80 MG TABLET PO (10:57)
[2021-07-18] MEDS: Gabapentin 300 MG CAPSULE PO ×3 (10:57→22:41)
[2021-07-18] MEDS: LORazepam 2 MG/ML VIAL IM (16:33)
[2021-07-18 17:30] VITALS: BP 132/70; PULSE 70; TEMP 37.1
[2021-07-18] MEDS: traZODone HCL 100 MG TABLET 200 MG PO (22:40)
[2021-07-18] MEDS: Mirtazapine 7.5 MG TABLET PO (22:40)
[2021-07-19 09:00] VITALS: BP 137/69; PULSE 71; RESP 18; TEMP 36.4; O2SAT 95
[2021-07-19] MEDS: OXcarbazepine 300 MG TABLET PO ×2 (09:30→20:58)
[2021-07-19] MEDS: Gabapentin 300 MG CAPSULE PO ×3 (09:30→20:58)
[2021-07-19] MEDS: LORazepam 1 MG TABLET 2 MG PO ×4 (09:30→20:58)
--- NOTE | 2021-07-19 16:17 | HO.PSYCHPN ---
Subjective Subjective Date of Service: 07/19/21 Reason For Visit: SI Interim History: pt seen in her room. she appears anxious. she c/o having trouble moving and attending to her ADLs - she states she would like to take a shower but will need help. she states she needs help and is feeling confused. suggests she have some more ativan now and asks whether she would prefer IM or PO. after a long pause she responds, i can't think. orders ativan 2 mg now and informs RN of pt's shower request. per staff, appeared catatonic yesterday and improved mildly with ativan 2 mg IM. spent most of the day in bed. in bed/room all carline. slept through the night. needing assistance with ADLs currently. Mental Status Exam Mental Status Exam Narrative: Appearance: casually groomed, poor hygiene, anxious Behavior:mask-like face expression, cooperative psychomotor:retardation noted Speech:diminished monosyllabic, soft tone, delayed respond, minimally spontaneous Thought process: linear, spare Thought content:not feeling well, worried about what is going on with her Affect: mask-like expression, constricted Insight/judgment:fair in that knows something is wrong and needs help Diagnostics Vital Signs (24Hr): Vital Signs - 24 hr 07/18/21 17:30 07/19/21 09:00 Temperature 98.8 F 97.5 F Pulse Rate 70 71 Respiratory Rate 18 Blood Pressure 132/70 137/69 Pulse Oximetry 95 Body Mass Index 25.0 Labs Results: 07/15/21 22:17 07/15/21 22:17 Imaging Radiology Impressions: ITS Impressions Head CT 07/17/21 17:37 IMPRESSION: No acute intracranial pathology. This critical result was discussed with Dr. Olivares at 1808 hours on 07/17/2021. It was ascertained that the content and urgency of the report was understood at the time of direct communication. Medications Medications Current Medications Acetaminophen (Acetaminophen 325 Mg Tablet) 650 mg PO Q6H PRN PRN Reason: Headache/Pain Mild Scale (1-3) Al Hydroxide/Mg Hydroxide (Magnesium Hydrox/Alum Hydrox 30 Ml Oral.Susp) 30 ml PO Q6H PRN PRN Reason: Heartburn/Nausea Gabapentin (Gabapentin 300 Mg Capsule) 300 mg PO TID [facility] Last Admin: 07/19/21 16:15 Dose: 300 mg Documented by: Hydroxyzine HCl (Hydroxyzine Hcl 25 Mg Tablet) 25 mg PO Q6H PRN PRN Reason: Anxiety Lorazepam (Lorazepam 1 Mg Tablet) 2 mg PO TID [facility] BEDS AT [facility] Last Admin: 07/19/21 16:15 Dose: 2 mg Documented by: Magnesium Hydroxide (Milk Of Magnesia 30 Ml Oral.Susp) 30 ml PO DAILY PRN PRN Reason: Constipation Mirtazapine (Mirtazapine 7.5 Mg Tablet) 7.5 mg PO BEDTIME [facility]S [facility]CLUDE 234 BEDS AT THE [facility] Last Admin: 07/18/21 22:40 Dose: 7.5 mg Documented by: Nicotine Polacrilex (Nicotine Polacrilex 2 Mg Gum) 2 mg BUCCAL Q2H PRN PRN Reason: Nicotine Cravings Oxcarbazepine (Oxcarbazepine 300 Mg Tablet) 300 mg PO BID [facility]S [facility]CLUDE 234 BEDS AT THE [facility] Last Admin: 07/19/21 09:30 Dose: 300 mg Documented by: Trazodone HCl (Trazodone Hcl 100 Mg Tablet) 200 mg PO BEDTIME [facility]S [facility]CLUDE 234 BEDS AT [facility] Last Admin: 07/18/21 22:40 Dose: 200 mg Documented by: Allergies Allergies Allergy/AdvReac Type Severity Reaction Status Date / Time sulfamethoxazole Allergy Unknown ANAPHYLAXIS Verified 10/24/20 21:43 [From BACTRIM] trimethoprim [From BACTRIM] Allergy Unknown ANAPHYLAXIS Verified 10/24/20 21:43 Assessment & Plan Assessment & Plan (1) Psychoactive substance-induced catatonia: Status: Acute Code(s): F19.988 - Other psychoactive substance use, unspecified with other psychoactive substance-induced disorder; F20.2 - Catatonic schizophrenia (2) Cocaine use disorder: Status: Acute Code(s): F14.10 - Cocaine abuse, uncomplicated (3) Bipolar II disorder with atypical features: Status: Acute Code(s): F31.81 - Bipolar II disorder Assessment and Plan: Ms. Bedoya is a 61 year-old woman with hx of Bipolar type 2 disorder and cocaine use disorder who was brought to [facility] by family as pt progressively and acutely presented as not able to walk, move, talk as much, blank stare, some absent minded. Pt is known to this continuity writer and this is an unusual presentation for her. I suspect it could be related to catatonic state related to cocaine use. PLAN 1. Admit M3 2. Head CT done on 07/17- negative for stroke, no abnormal findings 3. Ativan challenge- some brief improvement, will switch to ativan for now treating pt as catatonia most likely induced by cocaine use. 4. Consider neurology consult. 5. Obtain collateral information 6. aftercare planning I spent minutes with the patient and/or on the patient floor today, greater than?50% of which was spent counseling/coordinating care. Reason for contiued inpatient stay Substantial Risk for: inability to function
[2021-07-19 18:00] VITALS: BP 126/77; PULSE 68; RESP 18; TEMP 36.8; O2SAT 97
[2021-07-19] MEDS: traZODone HCL 100 MG TABLET 200 MG PO (20:58)
[2021-07-19] MEDS: Mirtazapine 7.5 MG TABLET PO (20:58)
[2021-07-20 06:00] VITALS: BP 135/82; PULSE 82; RESP 18; TEMP 36.6; O2SAT 96
[2021-07-20] MEDS: OXcarbazepine 300 MG TABLET PO ×2 (09:57→22:15)
[2021-07-20] MEDS: LORazepam 1 MG TABLET 2 MG PO ×3 (09:57→22:15)
[2021-07-20] MEDS: Gabapentin 300 MG CAPSULE PO ×3 (09:57→22:15)
--- NOTE | 2021-07-20 18:14 | P.PNPSI_ITS ---
Subjective Subjective Date of Service: 07/20/21 Reason For Visit: SI Interim History: pt apprehensive, tentative, clearly distressed. concerned she cannot do her usual daily tasks, also fearful if she misses groups she may be punished. asking for permission to nap. attempts to reassure her that she is not expected to take care of herself completely right now and she has a treatable illness which is being properly addressed. per staff, mostly in her room. slowed. showered with full staff assist. watching TV eves. had a hard time getting through the procedure of getting in bed last night - claiming she couldn't do it. claims to have fallen out of bed, but no indication she actually did. slept from 1130 pm to 0900. minimal PO intake. Mental Status Exam Mental Status Exam Narrative: Appearance: casually groomed, poor hygiene, anxious Behavior:mask-like face expression, cooperative psychomotor:retardation noted Speech:diminished monosyllabic, soft tone, delayed respond, minimally spontaneous Thought process: linear, spare Thought content:not feeling well, worried about what is going on with her Affect: mask-like expression, constricted Insight/judgment:fair in that knows something is wrong and needs help Diagnostics Vital Signs (24Hr): Vital Signs - 24 hr 07/20/21 06:00 Temperature 97.9 F Pulse Rate 82 Respiratory Rate 18 Blood Pressure 135/82 Pulse Oximetry 96 Body Mass Index 25.0 Labs Results: 07/15/21 22:17 07/15/21 22:17 Imaging Radiology Impressions: ITS Impressions Head CT 07/17/21 17:37 IMPRESSION: No acute intracranial pathology. This critical result was discussed with Dr. Olivares at 1808 hours on 07/17/2021. It was ascertained that the content and urgency of the report was understood at the time of direct communication. Medications Medications Current Medications Acetaminophen (Acetaminophen 325 Mg Tablet) 650 mg PO Q6H PRN PRN Reason: Headache/Pain Mild Scale (1-3) Al Hydroxide/Mg Hydroxide (Magnesium Hydrox/Alum Hydrox 30 Ml Oral.Susp) 30 ml PO Q6H PRN PRN Reason: Heartburn/Nausea Gabapentin (Gabapentin 300 Mg Capsule) 300 mg PO TID [facility] Last Admin: 07/20/21 15:43 Dose: 300 mg Documented by: Hydroxyzine HCl (Hydroxyzine Hcl 25 Mg Tablet) 25 mg PO Q6H PRN PRN Reason: Anxiety Lorazepam (Lorazepam 1 Mg Tablet) 2 mg PO TID [facility] Last Admin: 07/20/21 15:43 Dose: 2 mg Documented by: Magnesium Hydroxide (Milk Of Magnesia 30 Ml Oral.Susp) 30 ml PO DAILY PRN PRN Reason: Constipation Mirtazapine (Mirtazapine 7.5 Mg Tablet) 7.5 mg PO BEDTIME [facility] Last Admin: 07/19/21 20:58 Dose: 7.5 mg Documented by: Nicotine Polacrilex (Nicotine Polacrilex 2 Mg Gum) 2 mg BUCCAL Q2H PRN PRN Reason: Nicotine Cravings Oxcarbazepine (Oxcarbazepine 300 Mg Tablet) 300 mg PO BID [facility] Last Admin: 07/20/21 09:57 Dose: 300 mg Documented by: Trazodone HCl (Trazodone Hcl 100 Mg Tablet) 200 mg PO BEDTIME [facility] Last Admin: 07/19/21 20:58 Dose: 200 mg Documented by: Allergies Allergies Allergy/AdvReac Type Severity Reaction Status Date / Time sulfamethoxazole Allergy Unknown ANAPHYLAXIS Verified 10/24/20 21:43 [From BACTRIM] trimethoprim [From BACTRIM] Allergy Unknown ANAPHYLAXIS Verified 10/24/20 21:43 Assessment & Plan Assessment & Plan (1) Psychoactive substance-induced catatonia: Status: Acute Code(s): F19.988 - Other psychoactive substance use, unspecified with other psychoactive substance-induced disorder; F20.2 - Catatonic schizophrenia (2) Cocaine use disorder: Status: Acute Code(s): F14.10 - Cocaine abuse, uncomplicated (3) Bipolar II disorder with atypical features: Status: Acute Code(s): F31.81 - Bipolar II disorder Assessment and Plan: Ms. Bedoya is a 61 year-old woman with hx of Bipolar type 2 disorder and cocaine use disorder who was brought to [facility] ED by family as pt progressively and acutely presented as not able to walk, move, talk as much, blank stare, some absent minded. Pt is known to this sign writer letterer or painter and this is an unusual presentation for her. I suspect it could be related to catatonic state related to cocaine use. PLAN 1. Admit M3 2. Head CT done on 07/17- negative for stroke, no abnormal findings 3. Ativan challenge- some brief improvement, will switch to ativan for now treating pt as catatonia most likely induced by cocaine use. 4. Consider neurology consult. 5. Obtain collateral information 6. aftercare planning I spent minutes with the patient and/or on the patient floor today, greater than?50% of which was spent counseling/coordinating care. Reason for contiued inpatient stay Substantial Risk for: harm to self and inability to function
[2021-07-20] MEDS: traZODone HCL 100 MG TABLET 200 MG PO (22:15)
[2021-07-20] MEDS: Mirtazapine 7.5 MG TABLET PO (22:15)
[2021-07-20 22:22] VITALS: BP 128/70; PULSE 90; RESP 18; TEMP 36.3; O2SAT 95
[2021-07-21 09:52] VITALS: BP 127/65; PULSE 94; RESP 16; TEMP 36.5; O2SAT 96
[2021-07-21] MEDS: LORazepam 1 MG TABLET 2 MG PO (09:56)
[2021-07-21] MEDS: Gabapentin 300 MG CAPSULE PO ×3 (09:56→21:49)
[2021-07-21] MEDS: OXcarbazepine 300 MG TABLET PO ×2 (09:56→21:50)
--- NOTE | 2021-07-21 13:19 | HO.PSYCHPN ---
Subjective Subjective Date of Service: 07/21/21 Reason For Visit: SI Subjective Notes: Conditional Voluntary Interim History: Pt moving more, eating slightly more and slightly more talkative. Pt reports unsteady gait. Pt reports feeling anxious. Pt expressed anxiety and worry about how she is currently presenting- not able to move as much, talk as much, mental fogginess. Pt reports passive suicidal ideation but denies any plan or intent hurt self. Medication Compliance: Yes Side effects from medications: No Attending Groups: Yes Review of Systems Acute medical concerns: No Review of Systems Review of Systems No fever no chills no cough Patient refused to answer specific review system questions Yes all other systems are reviewed and are negative Constitutional: Denies chills and Denies fever(s) Cardiovascular: Denies chest pain Musculoskeletal: Reports abnormal gait, Denies myalgias and Denies muscle cramps Reports abnormal gait, Denies focal weakness and Denies Other visual disturbances Mental Status Exam Mental Status Exam Narrative: Appearance: casually groomed, improving hygiene, anxious Behavior:mask-like face expression, cooperative psychomotor: less retardation noted Speech:diminished monosyllabic, soft tone, delayed respond, minimally spontaneous Thought process: linear, spare Thought content:not feeling well, worried about what is going on with her Affect: mask-like expression, constricted Insight/judgment:fair in that knows something is wrong and needs help Diagnostics Vital Signs (24Hr): Vital Signs - 24 hr 07/20/21 22:22 07/21/21 09:52 Temperature 97.3 F 97.7 F Pulse Rate 90 94 Respiratory Rate 18 16 Blood Pressure 128/70 127/65 Pulse Oximetry 95 96 Body Mass Index 25.0 Labs Results: 07/15/21 22:17 07/15/21 22:17 Imaging Radiology Impressions: ITS Impressions Head CT 07/17/21 17:37 IMPRESSION: No acute intracranial pathology. This critical result was discussed with Dr. Olivares at 1808 hours on 07/17/2021. It was ascertained that the content and urgency of the report was understood at the time of direct communication. Medications Medications Current Medications Acetaminophen (Acetaminophen 325 Mg Tablet) 650 mg PO Q6H PRN PRN Reason: Headache/Pain Mild Scale (1-3) Al Hydroxide/Mg Hydroxide (Magnesium Hydrox/Alum Hydrox 30 Ml Oral.Susp) 30 ml PO Q6H PRN PRN Reason: Heartburn/Nausea Gabapentin (Gabapentin 300 Mg Capsule) 300 mg PO TID [facility] Last Admin: 07/21/21 14:58 Dose: 300 mg Documented by: Hydroxyzine HCl (Hydroxyzine Hcl 25 Mg Tablet) 25 mg PO Q6H PRN PRN Reason: Anxiety Lorazepam (Lorazepam 1 Mg Tablet) 1 mg PO TID [facility] Last Admin: 07/21/21 14:58 Dose: 1 mg Documented by: Magnesium Hydroxide (Milk Of Magnesia 30 Ml Oral.Susp) 30 ml PO DAILY PRN PRN Reason: Constipation Mirtazapine (Mirtazapine 7.5 Mg Tablet) 7.5 mg PO BEDTIME [facility] Last Admin: 07/20/21 22:15 Dose: 7.5 mg Documented by: Nicotine Polacrilex (Nicotine Polacrilex 2 Mg Gum) 2 mg BUCCAL Q2H PRN PRN Reason: Nicotine Cravings Oxcarbazepine (Oxcarbazepine 300 Mg Tablet) 300 mg PO BID [facility] Last Admin: 07/21/21 09:56 Dose: 300 mg Documented by: Trazodone HCl (Trazodone Hcl 100 Mg Tablet) 200 mg PO BEDTIME [facility] Last Admin: 07/20/21 22:15 Dose: 200 mg Documented by: Allergies Allergies Allergy/AdvReac Type Severity Reaction Status Date / Time sulfamethoxazole Allergy Unknown ANAPHYLAXIS Verified 10/24/20 21:43 [From BACTRIM] trimethoprim [From BACTRIM] Allergy Unknown ANAPHYLAXIS Verified 10/24/20 21:43 Assessment & Plan Assessment & Plan (1) Psychoactive substance-induced catatonia: Status: Acute Code(s): F19.988 - Other psychoactive substance use, unspecified with other psychoactive substance-induced disorder; F20.2 - Catatonic schizophrenia (2) Cocaine use disorder: Status: Acute Code(s): F14.10 - Cocaine abuse, uncomplicated (3) Bipolar II disorder with atypical features: Status: Acute Code(s): F31.81 - Bipolar II disorder Assessment and Plan: Ms. Bedoya is a 61 year-old woman with hx of Bipolar type 2 disorder and cocaine use disorder who was brought to [facility] ED by family as pt progressively and acutely presented as not able to walk, move, talk as much, blank stare, some absent minded. Pt is known to this development writer and this is an unusual presentation for her. I suspect it could be related to catatonic state related to cocaine use. PLAN 1. Admit M3 2. Head CT done on 07/17- negative for stroke, no abnormal findings 3. Ativan challenge- some brief improvement, will switch to ativan for now treating pt as catatonia most likely induced by cocaine use. 4. Consider neurology consult. 5. Obtain collateral information 6. aftercare planning I spent ___30___ minutes with the patient and/or on the patient floor today, greater than?50% of which was spent counseling/coordinating care. Patient educated on: diagnosis and medication risk/benefits Reason for contiued inpatient stay Substantial Risk for: inability to function
[2021-07-21] MEDS: LORazepam 1 MG TABLET PO ×2 (14:58→21:49)
[2021-07-21 18:00] VITALS: BP 128/66; PULSE 70; RESP 18; TEMP 36.2; O2SAT 97
[2021-07-21] MEDS: Mirtazapine 7.5 MG TABLET PO (21:49)
[2021-07-21] MEDS: traZODone HCL 100 MG TABLET 200 MG PO (21:50)
[2021-07-22 06:00] VITALS: BP 118/81; PULSE 78; RESP 18; TEMP 36.5; O2SAT 97
[2021-07-22] MEDS: OXcarbazepine 300 MG TABLET PO ×2 (09:11→22:20)
[2021-07-22] MEDS: Gabapentin 300 MG CAPSULE PO ×3 (09:11→22:20)
[2021-07-22] MEDS: LORazepam 1 MG TABLET PO ×2 (09:11→13:06)
--- NOTE | 2021-07-22 11:34 | P.PNPSI_ITS ---
Subjective Subjective Date of Service: 07/22/21 Reason For Visit: SI Subjective Notes: Conditional Voluntary Interim History: Pt moving more spontaneously and talking more but continues to present as ruminating about her phone, feeling anxious, worried that her son may not be able to pay her bills, despite reassurance of son that he will take care of it. Pt reports feeling very anxious, sense of impending doom. Pt denies SI/HI. Medication Compliance: Yes Side effects from medications: No Review of Systems Review of Systems No fever no chills no cough Patient refused to answer specific review system questions Yes all other systems are reviewed and are negative Constitutional: Denies chills and Denies fever(s) Cardiovascular: Denies chest pain Musculoskeletal: Reports abnormal gait, Denies myalgias and Denies muscle cramps Reports abnormal gait, Denies focal weakness and Denies Other visual disturbances Mental Status Exam Mental Status Exam Narrative: Appearance: casually groomed, improving hygiene, anxious Behavior:mask-like face expression, cooperative psychomotor: less retardation noted Speech:diminished monosyllabic, soft tone, delayed respond, minimally spontaneous Thought process: linear, spare Thought content:not feeling well, worried about what is going on with her Affect: mask-like expression, constricted Insight/judgment:fair in that knows something is wrong and needs help Diagnostics Vital Signs (24Hr): Vital Signs - 24 hr 07/21/21 18:00 07/22/21 06:00 Temperature 97.2 F 97.7 F Pulse Rate 70 78 Respiratory Rate 18 18 Blood Pressure 128/66 118/81 Pulse Oximetry 97 97 Body Mass Index 25.0 Labs Results: 07/15/21 22:17 07/15/21 22:17 Imaging Radiology Impressions: ITS Impressions Head CT 07/17/21 17:37 IMPRESSION: No acute intracranial pathology. This critical result was discussed with Dr. Olivares at 1808 hours on 07/17/2021. It was ascertained that the content and urgency of the report was understood at the time of direct communication. Medications Medications Current Medications Acetaminophen (Acetaminophen 325 Mg Tablet) 650 mg PO Q6H PRN PRN Reason: Headache/Pain Mild Scale (1-3) Al Hydroxide/Mg Hydroxide (Magnesium Hydrox/Alum Hydrox 30 Ml Oral.Susp) 30 ml PO Q6H PRN PRN Reason: Heartburn/Nausea Gabapentin (Gabapentin 300 Mg Capsule) 300 mg PO TID [facility] Last Admin: 07/22/21 09:11 Dose: 300 mg Documented by: Hydroxyzine HCl (Hydroxyzine Hcl 25 Mg Tablet) 25 mg PO Q6H PRN PRN Reason: Anxiety Lorazepam (Lorazepam 1 Mg Tablet) 2 mg PO TID [facility] Magnesium Hydroxide (Milk Of Magnesia 30 Ml Oral.Susp) 30 ml PO DAILY PRN PRN Reason: Constipation Mirtazapine (Mirtazapine 7.5 Mg Tablet) 7.5 mg PO BEDTIME [facility] Last Admin: 07/21/21 21:49 Dose: 7.5 mg Documented by: Nicotine Polacrilex (Nicotine Polacrilex 2 Mg Gum) 2 mg BUCCAL Q2H PRN PRN Reason: Nicotine Cravings Oxcarbazepine (Oxcarbazepine 300 Mg Tablet) 300 mg PO BID [facility] Last Admin: 07/22/21 09:11 Dose: 300 mg Documented by: Trazodone HCl (Trazodone Hcl 100 Mg Tablet) 200 mg PO BEDTIME [facility] Last Admin: 07/21/21 21:50 Dose: 200 mg Documented by: Venlafaxine HCl (Venlafaxine Hcl Er 37.5 Mg Cap.Er.24h) 37.5 mg PO DAILY [facility] Allergies Allergies Allergy/AdvReac Type Severity Reaction Status Date / Time sulfamethoxazole Allergy Unknown ANAPHYLAXIS Verified 10/24/20 21:43 [From BACTRIM] trimethoprim [From BACTRIM] Allergy Unknown ANAPHYLAXIS Verified 10/24/20 21:43 Assessment & Plan Assessment & Plan (1) Psychoactive substance-induced catatonia: Status: Acute Code(s): F19.988 - Other psychoactive substance use, unspecified with other psychoactive substance-induced disorder; F20.2 - Catatonic schizophrenia (2) Cocaine use disorder: Status: Acute Code(s): F14.10 - Cocaine abuse, uncomplicated (3) Bipolar II disorder with atypical features: Status: Acute Code(s): F31.81 - Bipolar II disorder Assessment and Plan: Ms. Bedoya is a 61 year-old woman with hx of Bipolar type 2 disorder and cocaine use disorder who was brought to [facility] ED by family as pt progressively and acutely presented as not able to walk, move, talk as much, blank stare, some absent minded. Pt is known to this movie writer and this is an unusual presentation for her. I suspect it could be related to catatonic state related to cocaine use and/or underlying mood disorder. PLAN 1. Admit M3 2. Head CT done on 07/17- negative for stroke, no abnormal findings 3. Catatonia- continue ativan 2mg po TID 4. Depressed mood with ruminative, anxious feature- will start Effexor 37.5mg po daily. on 07/22/21 5. Obtain collateral information 6. aftercare planning I spent minutes with the patient and/or on the patient floor today, greater than?50% of which was spent counseling/coordinating care. Reason for contiued inpatient stay Substantial Risk for: inability to function
[2021-07-22 15:10] VITALS: BP 128/81; PULSE 80
[2021-07-22] MEDS: LORazepam 1 MG TABLET 2 MG PO ×2 (15:18→22:20)
[2021-07-22 21:18] VITALS: BP 122/58; PULSE 67; RESP 17; TEMP 36.2; O2SAT 95
[2021-07-22] MEDS: Mirtazapine 7.5 MG TABLET PO (22:21)
[2021-07-22] MEDS: traZODone HCL 100 MG TABLET 200 MG PO (22:21)
[2021-07-23] MEDS: OXcarbazepine 300 MG TABLET PO ×2 (09:12→21:17)
[2021-07-23] MEDS: LORazepam 1 MG TABLET 2 MG PO ×3 (09:12→21:17)
[2021-07-23] MEDS: Venlafaxine HCl ER 37.5 MG CAP.ER.24H PO (09:13)
[2021-07-23] MEDS: Gabapentin 300 MG CAPSULE PO ×3 (09:13→21:17)
[2021-07-23 11:15] VITALS: BP 106/52; PULSE 80; RESP 16; TEMP 36.7; O2SAT 96
--- NOTE | 2021-07-23 11:54 | HO.PSYCHPN ---
Subjective Subjective Date of Service: 07/23/21 Reason For Visit: SI Subjective Notes: Conditional Voluntary Interim History: Pt reports she feels like I'm a mess. Pt continues to ruminate about bills, not having phone despite son assisting with this. Pt reports mental fogginess. She notes she is very anxious, not like I was. But unable to articulate in more detail what is going on. She denies SI/HI. Affect is constricted. Medication Compliance: Yes Side effects from medications: No Review of Systems Review of Systems Yes all other systems are reviewed and are negative Constitutional: Denies chills and Denies fever(s) Cardiovascular: Denies chest pain Musculoskeletal: Reports abnormal gait, Denies myalgias and Denies muscle cramps Reports abnormal gait, Denies focal weakness and Denies Other visual disturbances Diagnostics Vital Signs (24Hr): Vital Signs - 24 hr 07/22/21 15:10 07/22/21 21:18 07/23/21 11:15 Temperature 97.2 F 98.1 F Pulse Rate 80 67 80 Respiratory Rate 17 16 Blood Pressure 128/81 122/58 L 106/52 L Pulse Oximetry 95 96 Body Mass Index 25.0 Labs Results: 07/15/21 22:17 07/15/21 22:17 Imaging Radiology Impressions: ITS Impressions Head CT 07/17/21 17:37 IMPRESSION: No acute intracranial pathology. This critical result was discussed with Dr. Olivares at 1808 hours on 07/17/2021. It was ascertained that the content and urgency of the report was understood at the time of direct communication. Medications Medications Current Medications Acetaminophen (Acetaminophen 325 Mg Tablet) 650 mg PO Q6H PRN PRN Reason: Headache/Pain Mild Scale (1-3) Al Hydroxide/Mg Hydroxide (Magnesium Hydrox/Alum Hydrox 30 Ml Oral.Susp) 30 ml PO Q6H PRN PRN Reason: Heartburn/Nausea Gabapentin (Gabapentin 300 Mg Capsule) 300 mg PO TID [facility] Last Admin: 07/23/21 09:13 Dose: 300 mg Documented by: Hydroxyzine HCl (Hydroxyzine Hcl 25 Mg Tablet) 25 mg PO Q6H PRN PRN Reason: Anxiety Lorazepam (Lorazepam 1 Mg Tablet) 2 mg PO TID [facility] Last Admin: 07/23/21 09:12 Dose: 2 mg Documented by: Magnesium Hydroxide (Milk Of Magnesia 30 Ml Oral.Susp) 30 ml PO DAILY PRN PRN Reason: Constipation Mirtazapine (Mirtazapine 7.5 Mg Tablet) 7.5 mg PO BEDTIME [facility] Last Admin: 07/22/21 22:21 Dose: 7.5 mg Documented by: Nicotine Polacrilex (Nicotine Polacrilex 2 Mg Gum) 2 mg BUCCAL Q2H PRN PRN Reason: Nicotine Cravings Oxcarbazepine (Oxcarbazepine 300 Mg Tablet) 300 mg PO BID [facility] Last Admin: 07/23/21 09:12 Dose: 300 mg Documented by: Trazodone HCl (Trazodone Hcl 100 Mg Tablet) 200 mg PO BEDTIME [facility] Last Admin: 07/22/21 22:21 Dose: 200 mg Documented by: Venlafaxine HCl (Venlafaxine Hcl Er 37.5 Mg Cap.Er.24h) 37.5 mg PO DAILY [facility] Last Admin: 07/23/21 09:13 Dose: 37.5 mg Documented by: Allergies Allergies Allergy/AdvReac Type Severity Reaction Status Date / Time sulfamethoxazole Allergy Unknown ANAPHYLAXIS Verified 10/24/20 21:43 [From BACTRIM] trimethoprim [From BACTRIM] Allergy Unknown ANAPHYLAXIS Verified 10/24/20 21:43 Assessment & Plan Assessment & Plan (1) Psychoactive substance-induced catatonia: Status: Acute Code(s): F19.988 - Other psychoactive substance use, unspecified with other psychoactive substance-induced disorder; F20.2 - Catatonic schizophrenia (2) Cocaine use disorder: Status: Acute Code(s): F14.10 - Cocaine abuse, uncomplicated (3) Bipolar II disorder with atypical features: Status: Acute Code(s): F31.81 - Bipolar II disorder Assessment and Plan: Ms. Bedoya is a 61 year-old woman with hx of Bipolar type 2 disorder and cocaine use disorder who was brought to [facility] by family as pt progressively and acutely presented as not able to walk, move, talk as much, blank stare, some absent minded. Pt is known to this narrative writer and this is an unusual presentation for her. I suspect it could be related to catatonic state related to cocaine use and/or underlying mood disorder. PLAN 1. Admit M3 2. Head CT done on 07/17- negative for stroke, no abnormal findings 3. Catatonia- continue ativan 2mg po TID 4. Depressed mood with ruminative, anxious feature- will start Effexor 37.5mg po daily. on 07/22/21 5. Obtain collateral information 6. aftercare planning I spent minutes with the patient and/or on the patient floor today, greater than?50% of which was spent counseling/coordinating care. Reason for contiued inpatient stay Substantial Risk for: inability to function
[2021-07-23 20:20] VITALS: BP 142/75; PULSE 74; TEMP 36.4; O2SAT 97
[2021-07-23] MEDS: traZODone HCL 100 MG TABLET 200 MG PO (21:17)
[2021-07-23] MEDS: Mirtazapine 7.5 MG TABLET PO (21:17)
[2021-07-24 06:00] VITALS: BP 169/80; PULSE 73; RESP 16; TEMP 36.2; O2SAT 97
[2021-07-24 07:00] VITALS: BMI 27.8
[2021-07-24] MEDS: LORazepam 1 MG TABLET 2 MG PO ×3 (08:20→22:19)
[2021-07-24] MEDS: OXcarbazepine 300 MG TABLET PO ×2 (08:20→22:19)
[2021-07-24] MEDS: Venlafaxine HCl ER 37.5 MG CAP.ER.24H PO (08:20)
[2021-07-24] MEDS: Gabapentin 300 MG CAPSULE PO ×3 (08:21→22:19)
--- NOTE | 2021-07-24 14:02 | P.PNPSI_ITS ---
Subjective Subjective Date of Service: 07/24/21 Reason For Visit: SI Subjective Notes: Conditional Voluntary Interim History: Pt presents with slightly brighter affect. She reports anxious mood but not feeling as foggy or stuck as she was feeling before. She does have at time slowed response rate. She reports sleeping better. She also reports not feeling as weak and unsteady when walking. She reports less depressed mood as well. She denies VH/AH. She denies SI/HI. Medication Compliance: Yes Side effects from medications: No Attending Groups: Intermittent Review of Systems Review of Systems Yes all other systems are reviewed and are negative Constitutional: Denies chills and Denies fever(s) Cardiovascular: Denies chest pain Musculoskeletal: Reports abnormal gait, Denies myalgias and Denies muscle cramps Reports abnormal gait, Denies focal weakness and Denies Other visual disturbances Mental Status Exam Mental Status Exam Narrative: Appearance: casually groomed, improving hygiene, anxious Behavior:cooperative psychomotor: less retardation noted Speech: clear, less delayed response, more fluent, soft tone,increasingly spontaneous Thought process: linear, spare Thought content:no over psychosis, less ruminations, less anxious Affect:slightly brighter, non labile Insight/judgment:fair in that knows something is wrong and needs help memory/cog: alert, oriented x 3. Diagnostics Vital Signs (24Hr): Vital Signs - 24 hr 07/23/21 20:20 07/24/21 06:00 Temperature 97.6 F 97.1 F Pulse Rate 74 73 Respiratory Rate 16 Blood Pressure 142/75 H 169/80 H Pulse Oximetry 97 97 Body Mass Index 27.8 Labs Results: 07/15/21 22:17 07/15/21 22:17 Imaging Radiology Impressions: ITS Impressions Head CT 07/17/21 17:37 IMPRESSION: No acute intracranial pathology. This critical result was discussed with Dr. Olivares at 1808 hours on 07/17/2021. It was ascertained that the content and urgency of the report was understood at the time of direct communication. Medications Medications Current Medications Acetaminophen (Acetaminophen 325 Mg Tablet) 650 mg PO Q6H PRN PRN Reason: Headache/Pain Mild Scale (1-3) Al Hydroxide/Mg Hydroxide (Magnesium Hydrox/Alum Hydrox 30 Ml Oral.Susp) 30 ml PO Q6H PRN PRN Reason: Heartburn/Nausea Gabapentin (Gabapentin 300 Mg Capsule) 300 mg PO TID [facility] Last Admin: 07/24/21 15:42 Dose: 300 mg Documented by: Hydroxyzine HCl (Hydroxyzine Hcl 25 Mg Tablet) 25 mg PO Q6H PRN PRN Reason: Anxiety Lorazepam (Lorazepam 1 Mg Tablet) 2 mg PO TID [facility] Last Admin: 07/24/21 15:42 Dose: 2 mg Documented by: Magnesium Hydroxide (Milk Of Magnesia 30 Ml Oral.Susp) 30 ml PO DAILY PRN PRN Reason: Constipation Mirtazapine (Mirtazapine 7.5 Mg Tablet) 7.5 mg PO BEDTIME [facility] Last Admin: 07/23/21 21:17 Dose: 7.5 mg Documented by: Nicotine Polacrilex (Nicotine Polacrilex 2 Mg Gum) 2 mg BUCCAL Q2H PRN PRN Reason: Nicotine Cravings Oxcarbazepine (Oxcarbazepine 300 Mg Tablet) 300 mg PO BID [facility] Last Admin: 07/24/21 08:20 Dose: 300 mg Documented by: Trazodone HCl (Trazodone Hcl 100 Mg Tablet) 200 mg PO BEDTIME [facility] Last Admin: 07/23/21 21:17 Dose: 200 mg Documented by: Venlafaxine HCl (Venlafaxine Hcl Er 37.5 Mg Cap.Er.24h) 37.5 mg PO DAILY [facility] Last Admin: 07/24/21 08:20 Dose: 37.5 mg Documented by: Allergies Allergies Allergy/AdvReac Type Severity Reaction Status Date / Time sulfamethoxazole Allergy Unknown ANAPHYLAXIS Verified 10/24/20 21:43 [From BACTRIM] trimethoprim [From BACTRIM] Allergy Unknown ANAPHYLAXIS Verified 10/24/20 21:43 Assessment & Plan Assessment & Plan (1) Psychoactive substance-induced catatonia: Status: Acute Code(s): F19.988 - Other psychoactive substance use, unspecified with other psychoactive substance-induced disorder; F20.2 - Catatonic schizophrenia (2) Cocaine use disorder: Status: Acute Code(s): F14.10 - Cocaine abuse, uncomplicated (3) Bipolar II disorder with atypical features: Status: Acute Code(s): F31.81 - Bipolar II disorder Assessment and Plan: Ms. Bedoya is a 61 year-old woman with hx of Bipolar type 2 disorder and cocaine use disorder who was brought to [facility] by family as pt progressively and acutely presented as not able to walk, move, talk as much, blank stare, some absent minded. Pt is known to this engineering writer and this is an unusual presentation for her. I suspect it could be related to catatonic state related to cocaine use and/or underlying mood disorder. PLAN 1. Admit M3 2. Head CT done on 07/17- negative for stroke, no abnormal findings 3. Catatonia- continue ativan 2mg po TID 4. Depressed mood with ruminative, anxious feature- will start Effexor 37.5mg po daily. on 07/22/21 5. Obtain collateral information 6. aftercare planning I spent minutes with the patient and/or on the patient floor today, greater than?50% of which was spent counseling/coordinating care. Reason for contiued inpatient stay Substantial Risk for: inability to function
[2021-07-24 20:00] VITALS: BP 134/81; PULSE 63; TEMP 36.5; O2SAT 98
[2021-07-24] MEDS: Mirtazapine 7.5 MG TABLET PO (22:19)
[2021-07-24] MEDS: traZODone HCL 100 MG TABLET 200 MG PO (22:19)
[2021-07-25 10:39] VITALS: BP 128/80; PULSE 82; RESP 17; TEMP 36.2; O2SAT 96
[2021-07-25] MEDS: Venlafaxine HCl ER 75 MG CAP.ER.24H PO (10:40)
[2021-07-25] MEDS: Gabapentin 300 MG CAPSULE PO ×3 (10:40→20:29)
[2021-07-25] MEDS: OXcarbazepine 300 MG TABLET PO ×2 (10:40→20:29)
[2021-07-25] MEDS: LORazepam 1 MG TABLET 2 MG PO ×2 (10:40→14:52)
--- NOTE | 2021-07-25 11:44 | P.PNPSI_ITS ---
Subjective Subjective Date of Service: 07/25/21 Reason For Visit: SI Subjective Notes: Conditional Voluntary Interim History: Pt seen with clinician Debi. Pt reports feeling less anxious but still worrying about her ability to function as she used to. She reports s leep varies and last night she woke up few times. She reports less suicidal ideation and denies a plan or intent. She has been more visible in the unit. She reports gait more steady. She has been eating more as well. Per nursing, pt has been visible in the unit, social with peers. No behavioral concerns. Medication Compliance: Yes Side effects from medications: No Review of Systems Review of Systems Yes all other systems are reviewed and are negative Constitutional: Denies chills and Denies fever(s) Cardiovascular: Denies chest pain Musculoskeletal: Reports abnormal gait, Denies myalgias and Denies muscle cramps Reports abnormal gait, Denies focal weakness and Denies Other visual disturbances Mental Status Exam Mental Status Exam Narrative: Appearance: casually groomed, improving hygiene, anxious Behavior:cooperative psychomotor: less retardation noted Speech: clear, less delayed response, more fluent, soft tone,increasingly spontaneous Thought process: linear, spare Thought content:no over psychosis, less ruminations, less anxious Affect:slightly brighter, non labile Insight/judgment:fair in that knows something is wrong and needs help memory/cog: alert, oriented x 3. Diagnostics Vital Signs (24Hr): Vital Signs - 24 hr 07/24/21 20:00 07/25/21 10:39 Temperature 97.7 F 97.2 F Pulse Rate 63 82 Respiratory Rate 17 Blood Pressure 134/81 128/80 Pulse Oximetry 98 96 Body Mass Index 27.8 Labs Results: 07/15/21 22:17 07/15/21 22:17 Imaging Radiology Impressions: ITS Impressions Head CT 07/17/21 17:37 IMPRESSION: No acute intracranial pathology. This critical result was discussed with Dr. Olivares at 1808 hours on 07/17/2021. It was ascertained that the content and urgency of the report was understood at the time of direct communication. Medications Medications Current Medications Acetaminophen (Acetaminophen 325 Mg Tablet) 650 mg PO Q6H PRN PRN Reason: Headache/Pain Mild Scale (1-3) Al Hydroxide/Mg Hydroxide (Magnesium Hydrox/Alum Hydrox 30 Ml Oral.Susp) 30 ml PO Q6H PRN PRN Reason: Heartburn/Nausea Gabapentin (Gabapentin 300 Mg Capsule) 300 mg PO TID [facility] Last Admin: 07/25/21 10:40 Dose: 300 mg Documented by: Hydroxyzine HCl (Hydroxyzine Hcl 25 Mg Tablet) 25 mg PO Q6H PRN PRN Reason: Anxiety Lorazepam (Lorazepam 1 Mg Tablet) 2 mg PO TID [facility] Last Admin: 07/25/21 10:40 Dose: 2 mg Documented by: Magnesium Hydroxide (Milk Of Magnesia 30 Ml Oral.Susp) 30 ml PO DAILY PRN PRN Reason: Constipation Mirtazapine (Mirtazapine 7.5 Mg Tablet) 7.5 mg PO BEDTIME [facility] Last Admin: 07/24/21 22:19 Dose: 7.5 mg Documented by: Nicotine Polacrilex (Nicotine Polacrilex 2 Mg Gum) 2 mg BUCCAL Q2H PRN PRN Reason: Nicotine Cravings Oxcarbazepine (Oxcarbazepine 300 Mg Tablet) 300 mg PO BID [facility] Last Admin: 07/25/21 10:40 Dose: 300 mg Documented by: Trazodone HCl (Trazodone Hcl 100 Mg Tablet) 200 mg PO BEDTIME [facility] Last Admin: 07/24/21 22:19 Dose: 200 mg Documented by: Venlafaxine HCl (Venlafaxine Hcl Er 75 Mg Cap.Er.24h) 75 mg PO DAILY [facility] Last Admin: 07/25/21 10:40 Dose: 75 mg Documented by: Allergies Allergies Allergy/AdvReac Type Severity Reaction Status Date / Time sulfamethoxazole Allergy Unknown ANAPHYLAXIS Verified 10/24/20 21:43 [From BACTRIM] trimethoprim [From BACTRIM] Allergy Unknown ANAPHYLAXIS Verified 10/24/20 21:43 Assessment & Plan Assessment & Plan (1) Psychoactive substance-induced catatonia: Status: Acute Code(s): F19.988 - Other psychoactive substance use, unspecified with other psychoactive substance-induced disorder; F20.2 - Catatonic schizophrenia (2) Cocaine use disorder: Status: Acute Code(s): F14.10 - Cocaine abuse, uncomplicated (3) Bipolar II disorder with atypical features: Status: Acute Code(s): F31.81 - Bipolar II disorder Assessment and Plan: Ms. Bedoya is a 61 year-old woman with hx of Bipolar type 2 disorder and cocaine use disorder who was brought to [facility] ED by family as pt progressively and acutely presented as not able to walk, move, talk as much, blank stare, some absent minded. Pt is known to this development writer and this is an unusual presentation for her. I suspect it could be related to catatonic state related to cocaine use and/or underlying mood disorder. PLAN 1. Admit M3 2. Head CT done on 07/17- negative for stroke, no abnormal findings 3. Catatonia- continue ativan 2mg po TID 4. Depressed mood with ruminative, anxious feature- will start Effexor 37.5mg po daily. on 07/22/21 5. Obtain collateral information 6. aftercare planning I spent minutes with the patient and/or on the patient floor today, greater than?50% of which was spent counseling/coordinating care. Reason for contiued inpatient stay Substantial Risk for: inability to function
[2021-07-25] MEDS: Multivitamin TABLET 1 TAB PO (17:30)
[2021-07-25 18:00] VITALS: BP 146/72; PULSE 66; RESP 18; TEMP 36.7; O2SAT 97
[2021-07-25] MEDS: LORazepam 1 MG TABLET PO (20:12)
[2021-07-25] MEDS: traZODone HCL 100 MG TABLET 200 MG PO (20:29)
[2021-07-25] MEDS: Mirtazapine 7.5 MG TABLET PO (20:29)
[2021-07-25] MEDS: hydrOXYzine HCL 25 MG TABLET PO (20:32)
[2021-07-26] MEDS: LORazepam 1 MG TABLET PO ×3 (10:03→21:58)
[2021-07-26] MEDS: Gabapentin 300 MG CAPSULE PO ×3 (10:03→21:59)
[2021-07-26] MEDS: OXcarbazepine 300 MG TABLET PO ×2 (10:03→21:57)
[2021-07-26] MEDS: Multivitamin TABLET 1 TAB PO (10:03)
[2021-07-26] MEDS: Venlafaxine HCl ER 75 MG CAP.ER.24H PO (10:03)
--- NOTE | 2021-07-26 12:53 | P.PNPSI_ITS ---
Subjective Subjective Date of Service: 07/26/21 Reason For Visit: SI Subjective Notes: Conditional Voluntary Interim History: The nursing staff reported that she has been appropriated and looks dysphoric. She has eaten well and she is on a tapering of Ativan. On interview, she reported feeling miserable since her Ativan was lowered to 3 mg/day. Mental Status Exam Mental Status Exam Patient Appearance: Well Grooomed Patient Orientation: Person Level of Consciousness: Awake and Appropriate Patient Behavior: Cooperative Mood Description: Constricted Affect Description: Constricted Patient Cognition Impaired: No Ability to Follow Directions: Good Speech Pattern: Clear Hallucinations: None Delusions: Not Present Thought Process: Linear Thought Content: positive for Poverty of Content and positive for Loose Associations Judgement: Fair Diagnostics Vital Signs (24Hr): Vital Signs - 24 hr 07/25/21 18:00 Temperature 98.1 F Pulse Rate 66 Respiratory Rate 18 Blood Pressure 146/72 H Pulse Oximetry 97 Body Mass Index 27.8 Labs Results: 07/15/21 22:17 07/15/21 22:17 Imaging Radiology Impressions: ITS Impressions Head CT 07/17/21 17:37 IMPRESSION: No acute intracranial pathology. This critical result was discussed with Dr. Olivares at 1808 hours on 07/17/2021. It was ascertained that the content and urgency of the report was understood at the time of direct communication. Medications Medications Current Medications Acetaminophen (Acetaminophen 325 Mg Tablet) 650 mg PO Q6H PRN PRN Reason: Headache/Pain Mild Scale (1-3) Al Hydroxide/Mg Hydroxide (Magnesium Hydrox/Alum Hydrox 30 Ml Oral.Susp) 30 ml PO Q6H PRN PRN Reason: Heartburn/Nausea Gabapentin (Gabapentin 300 Mg Capsule) 300 mg PO TID [facility] Last Admin: 07/26/21 10:03 Dose: 300 mg Documented by: Hydroxyzine HCl (Hydroxyzine Hcl 25 Mg Tablet) 25 mg PO Q6H PRN PRN Reason: Anxiety Last Admin: 07/25/21 20:32 Dose: 25 mg Documented by: Lorazepam (Lorazepam 1 Mg Tablet) 1 mg PO TID [facility] Last Admin: 07/26/21 10:03 Dose: 1 mg Documented by: Magnesium Hydroxide (Milk Of Magnesia 30 Ml Oral.Susp) 30 ml PO DAILY PRN PRN Reason: Constipation Mirtazapine (Mirtazapine 7.5 Mg Tablet) 7.5 mg PO BEDTIME [facility] Last Admin: 07/25/21 20:29 Dose: 7.5 mg Documented by: Multivitamins/Vitamin C (Multivitamin Tablet) 1 tab PO DAILY [facility] Last Admin: 07/26/21 10:03 Dose: 1 tab Documented by: Nicotine Polacrilex (Nicotine Polacrilex 2 Mg Gum) 2 mg BUCCAL Q2H PRN PRN Reason: Nicotine Cravings Oxcarbazepine (Oxcarbazepine 300 Mg Tablet) 300 mg PO BID [facility] Last Admin: 07/26/21 10:03 Dose: 300 mg Documented by: Trazodone HCl (Trazodone Hcl 100 Mg Tablet) 200 mg PO BEDTIME [facility] Last Admin: 07/25/21 20:29 Dose: 200 mg Documented by: Venlafaxine HCl (Venlafaxine Hcl Er 75 Mg Cap.Er.24h) 75 mg PO DAILY [facility] Last Admin: 07/26/21 10:03 Dose: 75 mg Documented by: Allergies Allergies Allergy/AdvReac Type Severity Reaction Status Date / Time sulfamethoxazole Allergy Unknown ANAPHYLAXIS Verified 10/24/20 21:43 [From BACTRIM] trimethoprim [From BACTRIM] Allergy Unknown ANAPHYLAXIS Verified 10/24/20 21:43 Assessment & Plan Assessment & Plan (1) Psychoactive substance-induced catatonia: Status: Acute Code(s): F19.988 - Other psychoactive substance use, unspecified with other psychoactive substance-induced disorder; F20.2 - Catatonic schizophrenia (2) Cocaine use disorder: Status: Acute Code(s): F14.10 - Cocaine abuse, uncomplicated (3) Bipolar II disorder with atypical features: Status: Acute Code(s): F31.81 - Bipolar II disorder Assessment and Plan: Ms. Bedoya is a 61 year-old woman with hx of Bipolar type 2 disorder and cocaine use disorder who was brought to [facility] by family as pt progressively and acutely presented as not able to walk, move, talk as much, blank stare, some absent minded. Pt is known to this aligner typewriter and this is an unusual presentation for her. I suspect it could be related to catatonic state related to cocaine use and/or underlying mood disorder. PLAN 1. Continue same treatment. NO evidence of catatonia at this moment. I spent minutes with the patient and/or on the patient floor today, greater than?50% of which was spent counseling/coordinating care. Reason for contiued inpatient stay Substantial Risk for: inability to function, rapid decompensation and med/psych decompensation
[2021-07-26] MEDS: Magnesium Hydrox/Alum Hydrox 30 ML ORAL.SUSP PO (16:50)
[2021-07-26 21:52] VITALS: BP 143/60; PULSE 73; TEMP 36.9; O2SAT 96
[2021-07-26] MEDS: traZODone HCL 100 MG TABLET 200 MG PO (21:59)
[2021-07-26] MEDS: Mirtazapine 7.5 MG TABLET PO (22:00)
[2021-07-27 08:00] VITALS: BP 122/67; PULSE 80; TEMP 36.4; O2SAT 96
[2021-07-27] MEDS: Multivitamin TABLET 1 TAB PO (09:18)
[2021-07-27] MEDS: Gabapentin 300 MG CAPSULE PO ×3 (09:18→20:42)
[2021-07-27] MEDS: Venlafaxine HCl ER 75 MG CAP.ER.24H PO (09:18)
[2021-07-27] MEDS: OXcarbazepine 300 MG TABLET PO ×2 (09:18→20:42)
[2021-07-27] MEDS: LORazepam 1 MG TABLET PO ×3 (09:18→20:42)
--- NOTE | 2021-07-27 14:59 | P.PNPSI_ITS ---
Subjective Subjective Date of Service: 07/27/21 Reason For Visit: SI Interim History: The nursing staff reported that she was anxious and depressed but she was seen with more spontaneous speech and she was social with some peers. She slept well last night. On interview, she denied new symptoms, states to be normal . Mental Status Exam Mental Status Exam Patient Appearance: Well Grooomed Patient Orientation: Person, Place and Situation Level of Consciousness: Awake Patient Behavior: Passive Mood Description: Calm Affect Description: Constricted Patient Cognition Impaired: No Ability to Follow Directions: Good Speech Pattern: Clear Hallucinations: None Delusions: Not Present Thought Process: Linear Thought Content: positive for Poverty of Content and positive for Incoherent Judgement: Fair Diagnostics Vital Signs (24Hr): Vital Signs - 24 hr 07/26/21 21:52 07/27/21 08:00 Temperature 98.5 F 97.6 F Pulse Rate 73 80 Blood Pressure 143/60 H 122/67 Pulse Oximetry 96 96 Body Mass Index 27.8 Labs Results: 07/15/21 22:17 07/15/21 22:17 Imaging Radiology Impressions: ITS Impressions Head CT 07/17/21 17:37 IMPRESSION: No acute intracranial pathology. This critical result was discussed with Dr. Olivares at 1808 hours on 07/17/2021. It was ascertained that the content and urgency of the report was understood at the time of direct communication. Medications Medications Current Medications Acetaminophen (Acetaminophen 325 Mg Tablet) 650 mg PO Q6H PRN PRN Reason: Headache/Pain Mild Scale (1-3) Al Hydroxide/Mg Hydroxide (Magnesium Hydrox/Alum Hydrox 30 Ml Oral.Susp) 30 ml PO Q6H PRN PRN Reason: Heartburn/Nausea Last Admin: 07/26/21 16:50 Dose: 30 ml Documented by: Gabapentin (Gabapentin 300 Mg Capsule) 300 mg PO TID [facility] Last Admin: 07/27/21 14:54 Dose: 300 mg Documented by: Hydroxyzine HCl (Hydroxyzine Hcl 25 Mg Tablet) 25 mg PO Q6H PRN PRN Reason: Anxiety Last Admin: 07/25/21 20:32 Dose: 25 mg Documented by: Lorazepam (Lorazepam 1 Mg Tablet) 1 mg PO TID [facility] Last Admin: 07/27/21 14:54 Dose: 1 mg Documented by: Magnesium Hydroxide (Milk Of Magnesia 30 Ml Oral.Susp) 30 ml PO DAILY PRN PRN Reason: Constipation Mirtazapine (Mirtazapine 7.5 Mg Tablet) 7.5 mg PO BEDTIME [facility] Last Admin: 07/26/21 22:00 Dose: 7.5 mg Documented by: Multivitamins/Vitamin C (Multivitamin Tablet) 1 tab PO DAILY [facility] Last Admin: 07/27/21 09:18 Dose: 1 tab Documented by: Nicotine Polacrilex (Nicotine Polacrilex 2 Mg Gum) 2 mg BUCCAL Q2H PRN PRN Reason: Nicotine Cravings Oxcarbazepine (Oxcarbazepine 300 Mg Tablet) 300 mg PO BID [facility] Last Admin: 07/27/21 09:18 Dose: 300 mg Documented by: Trazodone HCl (Trazodone Hcl 100 Mg Tablet) 200 mg PO BEDTIME [facility] Last Admin: 07/26/21 21:59 Dose: 200 mg Documented by: Venlafaxine HCl (Venlafaxine Hcl Er 75 Mg Cap.Er.24h) 75 mg PO DAILY [facility] Last Admin: 07/27/21 09:18 Dose: 75 mg Documented by: Allergies Allergies Allergy/AdvReac Type Severity Reaction Status Date / Time sulfamethoxazole Allergy Unknown ANAPHYLAXIS Verified 10/24/20 21:43 [From BACTRIM] trimethoprim [From BACTRIM] Allergy Unknown ANAPHYLAXIS Verified 10/24/20 21:43 Assessment & Plan Assessment & Plan (1) Psychoactive substance-induced catatonia: Status: Acute Code(s): F19.988 - Other psychoactive substance use, unspecified with other psychoactive substance-induced disorder; F20.2 - Catatonic schizophrenia (2) Cocaine use disorder: Status: Acute Code(s): F14.10 - Cocaine abuse, uncomplicated (3) Bipolar II disorder with atypical features: Status: Acute Code(s): F31.81 - Bipolar II disorder Assessment and Plan: Ms. Bedoya is a 61 year-old woman with hx of Bipolar type 2 disorder and cocaine use disorder who was brought [place] [facility] by family as pt progressively and acutely presented as not able to walk, move, talk as much, blank stare, some absent minded. Pt is known to this jingle writer and this is an unusual presentation for her. I suspect it could be related to catatonic state related to cocaine use and/or underlying mood disorder. PLAN 1. Continue same treatment. NO evidence of catatonia at this moment. I spent minutes with the patient and/or on the patient floor today, greater than?50% of which was spent counseling/coordinating care. Reason for contiued inpatient stay Substantial Risk for: inability to function, rapid decompensation and med/psych decompensation
[2021-07-27 20:35] VITALS: BP 130/83; PULSE 77; TEMP 36.3; O2SAT 95
[2021-07-27] MEDS: Mirtazapine 7.5 MG TABLET PO (20:42)
[2021-07-27] MEDS: traZODone HCL 100 MG TABLET 200 MG PO (20:42)
[2021-07-28 08:55] VITALS: BP 140/88; PULSE 69; RESP 18; TEMP 36.4; O2SAT 95
[2021-07-28] MEDS: OXcarbazepine 300 MG TABLET PO ×2 (08:55→21:33)
[2021-07-28] MEDS: Gabapentin 300 MG CAPSULE PO ×3 (08:55→21:33)
[2021-07-28] MEDS: Multivitamin TABLET 1 TAB PO (08:55)
[2021-07-28] MEDS: LORazepam 1 MG TABLET PO ×3 (08:55→21:33)
[2021-07-28] MEDS: Venlafaxine HCl ER 75 MG CAP.ER.24H PO (08:55)
--- NOTE | 2021-07-28 11:42 | P.PNPSI_ITS ---
Subjective Subjective Date of Service: 07/28/21 Reason For Visit: SI Subjective Notes: Conditional Voluntary Interim History: Pt in terms of s/s of catatonia have improved in that her speech is much more spontaneous, she is talking, walking more. Much less blank stares. However, pt reports feeling very depressed. Pt reports yesterday when asked about suicidal thoughts she states she denied but states that she feels very hopeless, very depressed. She reports 3 weeks prior to coming to unit she drove to place with river contemplating to drown self. She reports feeling same degree of depression now although she does note improvement in ability to talk, walk, move. She denies any intent to hurt herself in the unit but if discharge with this severity of depressed mood, pt reports not feeling safe. We discussed possibility of ECT- currently pt declines as grandmother had it and was not different after that. We discussed utilizing combination of antidepressant and antipsychotic for tx of bipolar depression. Pt had double vision with higher dose of ativan, now resolved as dose went down. Medication Compliance: Yes Side effects from medications: No Attending Groups: Intermittent Review of Systems Review of Systems Yes all other systems are reviewed and are negative Constitutional: Denies chills and Denies fever(s) Cardiovascular: Denies chest pain Musculoskeletal: Reports abnormal gait, Denies myalgias and Denies muscle cramps Reports abnormal gait, Denies focal weakness and Denies Other visual disturbances Mental Status Exam Mental Status Exam Narrative: Appearance: casually groomed, improving hygiene, anxious Behavior:cooperative psychomotor: less retardation noted Speech: clear, less delayed response, more fluent, soft tone,increasingly spo ntaneous Thought process: linear, spare Thought content:no over psychosis, less ruminations, less anxious Mood: depressed Affect:blunted AH/VH: none Delusions: none SI: passive, denies plan or intent in unit HI: none Insight/judgment:fair x 2. memory/cog: alert, oriented x 3. Diagnostics Vital Signs (24Hr): Vital Signs - 24 hr 07/27/21 20:35 07/28/21 08:55 Temperature 97.3 F 97.6 F Pulse Rate 77 69 Respiratory Rate 18 Blood Pressure 130/83 140/88 H Pulse Oximetry 95 95 Body Mass Index 27.8 Labs Results: 07/15/21 22:17 10/26/21 22:17 Imaging Radiology Impressions: ITS Impressions Head CT 07/17/21 17:37 IMPRESSION: No acute intracranial pathology. This critical result was discussed with Dr. Olivares at 1808 hours on 07/17/2021. It was ascertained that the content and urgency of the report was understood at the time of direct communication. Medications Medications Current Medications Acetaminophen (Acetaminophen 325 Mg Tablet) 650 mg PO Q6H PRN PRN Reason: Headache/Pain Mild Scale (1-3) Al Hydroxide/Mg Hydroxide (Magnesium Hydrox/Alum Hydrox 30 Ml Oral.Susp) 30 ml PO Q6H PRN PRN Reason: Heartburn/Nausea Last Admin: 07/26/21 16:50 Dose: 30 ml Documented by: Gabapentin (Gabapentin 300 Mg Capsule) 300 mg PO TID [facility] Last Admin: 07/28/21 08:55 Dose: 300 mg Documented by: Hydroxyzine HCl (Hydroxyzine Hcl 25 Mg Tablet) 25 mg PO Q6H PRN PRN Reason: Anxiety Last Admin: 07/25/21 20:32 Dose: 25 mg Documented by: Lorazepam (Lorazepam 1 Mg Tablet) 1 mg PO TID [facility] Last Admin: 07/28/21 08:55 Dose: 1 mg Documented by: Lurasidone HCl (Lurasidone Hcl 40 Mg Tablet) 40 mg PO DAILY@1700 [facility] Magnesium Hydroxide (Milk Of Magnesia 30 Ml Oral.Susp) 30 ml PO DAILY PRN PRN Reason: Constipation Mirtazapine (Mirtazapine 15 Mg Tablet) 15 mg PO BEDTIME [facility] Multivitamins/Vitamin C (Multivitamin Tablet) 1 tab PO DAILY [facility] Last Admin: 07/28/21 08:55 Dose: 1 tab Documented by: Nicotine Polacrilex (Nicotine Polacrilex 2 Mg Gum) 2 mg BUCCAL Q2H PRN PRN Reason: Nicotine Cravings Oxcarbazepine (Oxcarbazepine 300 Mg Tablet) 300 mg PO BID [facility] Last Admin: 07/28/21 08:55 Dose: 300 mg Documented by: Trazodone HCl (Trazodone Hcl 100 Mg Tablet) 200 mg PO BEDTIME [facility]PL[facility] Last Admin: 07/27/21 20:42 Dose: 200 mg Documented by: Venlafaxine HCl (Venlafaxine Hcl Er 37.5 Mg Cap.Er.24h) 112.5 mg PO DAILY [facility]PL[facility] Allergies Allergies Allergy/AdvReac Type Severity Reaction Status Date / Time sulfamethoxazole Allergy Unknown ANAPHYLAXIS Verified 10/24/20 21:43 [From BACTRIM] trimethoprim [From BACTRIM] Allergy Unknown ANAPHYLAXIS Verified 10/24/20 21:43 Assessment & Plan Assessment & Plan (1) Cocaine use disorder: Status: Acute Code(s): F14.10 - Cocaine abuse, uncomplicated (2) Bipolar II disorder with atypical features: Status: Acute Code(s): F31.81 - Bipolar II disorder Assessment and Plan: Ms. Bedoya is a 61 year-old woman with hx of Bipolar type 2 disorder and cocaine use disorder who was brought to [facility] by family as pt progressively and acutely presented as not able to walk, move, talk as much, blank stare, some absent minded. Pt is known to this technical document writer and this is an unusual presentation for her. PLAN 1. Catatonia: has much improved with ativan, however, pt continues to present as severely depressed, hopeless, passive suicidal ideation as of 07/28/2021. 1. Continue ativan 1mg po TID 2. Restart Latuda 40mg po dinner time 3. Increase Effexor ER to 112.5mg po daily- monitor for activation, s/s of hypomania/feroz. 4. Continue trazodone for sleep I spent minutes with the patient and/or on the patient floor today, greater than?50% of which was spent counseling/coordinating care. Reason for contiued inpatient stay Substantial Risk for: harm to self and inability to function
[2021-07-28] MEDS: Lurasidone HCl 40 MG TABLET PO (16:49)
[2021-07-28 20:31] VITALS: BP 128/76; PULSE 81; TEMP 36.2; O2SAT 95
[2021-07-28] MEDS: Mirtazapine 15 MG TABLET PO (21:33)
[2021-07-28] MEDS: traZODone HCL 100 MG TABLET 200 MG PO (21:34)
[2021-07-29 08:16] VITALS: BP 124/67; PULSE 73; RESP 16; TEMP 36.4; O2SAT 96
[2021-07-29] MEDS: Venlafaxine HCl ER 37.5 MG CAP.ER.24H 112.5 MG PO (08:18)
[2021-07-29] MEDS: LORazepam 1 MG TABLET PO ×3 (08:18→21:17)
[2021-07-29] MEDS: OXcarbazepine 300 MG TABLET PO ×2 (08:18→21:18)
[2021-07-29] MEDS: Multivitamin TABLET 1 TAB PO (08:18)
[2021-07-29] MEDS: Gabapentin 300 MG CAPSULE PO ×3 (08:18→21:18)
--- NOTE | 2021-07-29 08:45 | PC.NURSE ---
PT reported that her urine smells weird and appeared dark. Provider notified, awaiting orders
--- NOTE | 2021-07-29 11:23 | HO.PSYCHPN ---
Subjective Subjective Date of Service: 07/29/21 Reason For Visit: SI Subjective Notes: Conditional Voluntary Interim History: Pt reports she slept better last night. She continues to endorse depressed mood, anhedonia, feeling hopeless, intermittent suicidal thoughts. She denies plan or intent to hurt herself in unit. She reports appetite has improved. She has been more visible and has attended some groups. We discussed possibility of ECT- currently pt declines as grandmother had it and was not different after that. We discussed utilizing combination of antidepressant and antipsychotic for tx of bipolar depression. Pt had double vision with higher dose of ativan, now resolved as dose went down. Medication Compliance: Yes Side effects from medications: No Attending Groups: Intermittent Review of Systems Review of Systems Yes all other systems are reviewed and are negative Constitutional: Denies chills and Denies fever(s) Cardiovascular: Denies chest pain Musculoskeletal: Reports abnormal gait, Denies myalgias and Denies muscle cramps Reports abnormal gait, Denies focal weakness and Denies Other visual disturbances Mental Status Exam Mental Status Exam Narrative: Appearance: casually groomed, improving hygiene, anxious Behavior:cooperative psychomotor: less retardation noted Speech: clear, less delayed response, more fluent, soft tone,increasingly spontaneous Thought process: linear, spare Thought content:no over psychosis, less ruminations, less anxious Mood: depressed Affect:blunted AH/VH: none Delusions: none SI: passive, denies plan or intent in unit HI: none Insight/judgment:fair x 2. memory/cog: alert, oriented x 3. Diagnostics Vital Signs (24Hr): Vital Signs - 24 hr 07/28/21 20:31 07/29/21 08:16 Temperature 97.1 F 97.6 F Pulse Rate 81 73 Respiratory Rate 16 Blood Pressure 128/76 124/67 Pulse Oximetry 95 96 Body Mass Index 27.8 Labs Results: 07/15/21 22:17 07/15/21 22:17 Imaging Radiology Impressions: ITS Impressions Head CT 07/17/21 17:37 IMPRESSION: No acute intracranial pathology. This critical result was discussed with Dr. Olivares at 1808 hours on 07/17/2021. It was ascertained that the content and urgency of the report was understood at the time of direct communication. Medications Medications Current Medications Acetaminophen (Acetaminophen 325 Mg Tablet) 650 mg PO Q6H PRN PRN Reason: Headache/Pain Mild Scale (1-3) Al Hydroxide/Mg Hydroxide (Magnesium Hydrox/Alum Hydrox 30 Ml Oral.Susp) 30 ml PO Q6H PRN PRN Reason: Heartburn/Nausea Last Admin: 07/26/21 16:50 Dose: 30 ml Documented by: Gabapentin (Gabapentin 300 Mg Capsule) 300 mg PO TID [facility] Last Admin: 07/29/21 08:18 Dose: 300 mg Documented by: Hydroxyzine HCl (Hydroxyzine Hcl 25 Mg Tablet) 25 mg PO Q6H PRN PRN Reason: Anxiety Last Admin: 07/25/21 20:32 Dose: 25 mg Documented by: Lorazepam (Lorazepam 1 Mg Tablet) 1 mg PO TID [facility] Last Admin: 07/29/21 08:18 Dose: 1 mg Documented by: Lurasidone HCl (Lurasidone Hcl 40 Mg Tablet) 40 mg PO DAILY@1700 [facility] Last Admin: 07/28/21 16:49 Dose: 40 mg Documented by: Magnesium Hydroxide (Milk Of Magnesia 30 Ml Oral.Susp) 30 ml PO DAILY PRN PRN Reason: Constipation Mirtazapine (Mirtazapine 15 Mg Tablet) 15 mg PO BEDTIME [facility] Last Admin: 07/28/21 21:33 Dose: 15 mg Documented by: Multivitamins/Vitamin C (Multivitamin Tablet) 1 tab PO DAILY [facility] Last Admin: 07/29/21 08:18 Dose: 1 tab Documented by: Nicotine Polacrilex (Nicotine Polacrilex 2 Mg Gum) 2 mg BUCCAL Q2H PRN PRN Reason: Nicotine Cravings Oxcarbazepine (Oxcarbazepine 300 Mg Tablet) 300 mg PO BID [facility] Last Admin: 07/29/21 08:18 Dose: 300 mg Documented by: Trazodone HCl (Trazodone Hcl 100 Mg Tablet) 200 mg PO BEDTIME [facility] Last Admin: 07/28/21 21:34 Dose: 200 mg Documented by: Venlafaxine HCl (Venlafaxine Hcl Er 37.5 Mg Cap.Er.24h) 112.5 mg PO DAILY [facility] Last Admin: 07/29/21 08:18 Dose: 112.5 mg Documented by: Allergies Allergies Allergy/AdvReac Type Severity Reaction Status Date / Time sulfamethoxazole Allergy Unknown ANAPHYLAXIS Verified 10/24/20 21:43 [From BACTRIM] trimethoprim [From BACTRIM] Allergy Unknown ANAPHYLAXIS Verified 10/24/20 21:43 Assessment & Plan Assessment & Plan (1) Cocaine use disorder: Status: Acute Code(s): F14.10 - Cocaine abuse, uncomplicated (2) Bipolar II disorder with atypical features: Status: Acute Code(s): F31.81 - Bipolar II disorder Assessment and Plan: Ms. Bedoya is a 61 year-old woman with hx of Bipolar type 2 disorder and cocaine use disorder who was brought [place] [facility] [place] family as pt progressively and acutely presented as not able to walk, move, talk as much, blank stare, some absent minded. Pt is known to this mortgage underwriter and this is an unusual presentation for her. PLAN 1. Catatonia: has much improved with ativan, however, pt continues to present as severely depressed, hopeless, passive suicidal ideation as of 07/28/2021. 1. Continue ativan 1mg po TID 2. CONTINUE Latuda 40mg po dinner time 3. Continue Effexor ER to 112.5mg po daily- monitor for activation, s/s of hypomania/feroz. 4. Continue trazodone for sleep I spent minutes with the patient and/or on the patient floor today, greater than?50% of which was spent counseling/coordinating care. Reason for contiued inpatient stay Substantial Risk for: harm to self and inability to function
[2021-07-29] MEDS: Lurasidone HCl 40 MG TABLET PO (18:33)
[2021-07-29] MEDS: traZODone HCL 100 MG TABLET 200 MG PO (21:17)
[2021-07-29] MEDS: Mirtazapine 15 MG TABLET PO (21:17)
[2021-07-29 21:20] VITALS: BP 138/70; PULSE 74; TEMP 36.2
[2021-07-30 08:10] VITALS: BP 116/57; PULSE 70; RESP 16; TEMP 36.4; O2SAT 95
[2021-07-30] MEDS: LORazepam 1 MG TABLET PO ×3 (09:31→20:43)
[2021-07-30] MEDS: OXcarbazepine 300 MG TABLET PO ×2 (09:31→20:43)
[2021-07-30] MEDS: Venlafaxine HCl ER 37.5 MG CAP.ER.24H 112.5 MG PO (09:31)
[2021-07-30] MEDS: Gabapentin 300 MG CAPSULE PO ×3 (09:31→20:43)
[2021-07-30] MEDS: Multivitamin TABLET 1 TAB PO (09:31)
--- NOTE | 2021-07-30 13:45 | P.PNPSI_ITS ---
Subjective Subjective Date of Service: 07/30/21 Reason For Visit: SI Subjective Notes: Conditional Voluntary Interim History: Pt continues to report feeling depressed, anxious, hopeless, helpless, intermittent suicidal ideation. She denies any plan or intent. She re ports feeling woozy and off. She reports she can't explain exactly how she feels but is not like herself. She has been visible, social with select peers. No overt signs of catatonia. She reports her appetite improved. Medication Compliance: Yes Side effects from medications: No Attending Groups: Intermittent Mental Status Exam Mental Status Exam Narrative: Appearance: casually groomed, improving hygiene, anxious Behavior:cooperative psychomotor: less retardation noted Speech: clear, less delayed response, more fluent, soft tone,increasingly spontaneous Thought process: linear, spare Thought content:no over psychosis, less ruminations, less anxious Mood: depressed Affect:blunted AH/VH: none Delusions: none SI: passive, denies plan or intent in unit HI: none Insight/judgment:fair x 2. memory/cog: alert, oriented x 3. Diagnostics Vital Signs (24Hr): Vital Signs - 24 hr 07/29/21 21:20 07/30/21 08:10 Temperature 97.1 F 97.6 F Pulse Rate 74 70 Respiratory Rate 16 Blood Pressure 138/70 116/57 L Pulse Oximetry 95 Body Mass Index 27.8 Labs Results: 07/15/21 22:17 07/15/21 22:17 Imaging Radiology Impressions: [facility] Impressions Head CT 07/17/21 17:37 IMPRESSION: No acute intracranial pathology. This critical result was discussed with Dr. Olivares at 1808 hours on 07/17/2021. It was ascertained that the content and urgency of the report was understood at the time of direct communication. Medications Medications Current Medications Acetaminophen (Acetaminophen 325 Mg Tablet) 650 mg PO Q6H PRN PRN Reason: Headache/Pain Mild Scale (1-3) Al Hydroxide/Mg Hydroxide (Magnesium Hydrox/Alum Hydrox 30 Ml Oral.Susp) 30 ml PO Q6H PRN PRN Reason: Heartburn/Nausea Last Admin: 07/26/21 16:50 Dose: 30 ml Documented by: Gabapentin (Gabapentin 300 Mg Capsule) 300 mg PO TID [facility] Last Admin: 07/30/21 15:07 Dose: 300 mg Documented by: Hydroxyzine HCl (Hydroxyzine Hcl 25 Mg Tablet) 25 mg PO Q6H PRN PRN Reason: Anxiety Last Admin: 07/25/21 20:32 Dose: 25 mg Documented by: Lorazepam (Lorazepam 1 Mg Tablet) 1 mg PO TID [facility] Last Admin: 07/30/21 15:07 Dose: 1 mg Documented by: Lurasidone HCl (Lurasidone Hcl 40 Mg Tablet) 40 mg PO DAILY@1700 [facility] Last Admin: 07/29/21 18:33 Dose: 40 mg Documented by: Magnesium Hydroxide (Milk Of Magnesia 30 Ml Oral.Susp) 30 ml PO DAILY PRN PRN Reason: Constipation Mirtazapine (Mirtazapine 15 Mg Tablet) 15 mg PO BEDTIME [facility] Last Admin: 07/29/21 21:17 Dose: 15 mg Documented by: Multivitamins/Vitamin C (Multivitamin Tablet) 1 tab PO DAILY [facility] Last Admin: 07/30/21 09:31 Dose: 1 tab Documented by: Nicotine Polacrilex (Nicotine Polacrilex 2 Mg Gum) 2 mg BUCCAL Q2H PRN PRN Reason: Nicotine Cravings Oxcarbazepine (Oxcarbazepine 300 Mg Tablet) 300 mg PO BID [facility] Last Admin: 07/30/21 09:31 Dose: 300 mg Documented by: Trazodone HCl (Trazodone Hcl 100 Mg Tablet) 200 mg PO BEDTIME [facility] Last Admin: 07/29/21 21:17 Dose: 200 mg Documented by: Venlafaxine HCl (Venlafaxine Hcl Er 37.5 Mg Cap.Er.24h) 112.5 mg PO DAILY [facility] Last Admin: 07/30/21 09:31 Dose: 112.5 mg Documented by: Allergies Allergies Allergy/AdvReac Type Severity Reaction Status Date / Time sulfamethoxazole Allergy Unknown ANAPHYLAXIS Verified 10/24/20 21:43 [From BACTRIM] trimethoprim [From BACTRIM] Allergy Unknown ANAPHYLAXIS Verified 10/24/20 21:43 Assessment & Plan Assessment & Plan (1) Cocaine use disorder: Status: Acute Code(s): F14.10 - Cocaine abuse, uncomplicated (2) Bipolar II disorder with atypical features: Status: Acute Code(s): F31.81 - Bipolar II disorder Assessment and Plan: Ms. Bedoya is a 61 year-old woman with hx of Bipolar type 2 disorder and cocaine use disorder who was brought to [facility] ED by family as pt progressively and acutely presented as not able to walk, move, talk as much, blank stare, some absent minded. Pt is known to this appeals writer and this is an unusual presentation for her. PLAN 1. Catatonia: has much improved with ativan, however, pt continues to present as severely depressed, hopeless, passive suicidal ideation as of 07/30/2021. 1. Switch ativan to clonazepam 2. Continue Latuda 40mg po dinner time 3. Continue Effexor ER to 112.5mg po daily- monitor for activation, s/s of hypomania/feroz. 4. Continue trazodone/remeron for sleep I spent minutes with the patient and/or on the patient floor today, greater than?50% of which was spent counseling/coordinating care. Reason for contiued inpatient stay Substantial Risk for: harm to self and inability to function
[2021-07-30] MEDS: Lurasidone HCl 40 MG TABLET PO (18:01)
[2021-07-30 20:16] VITALS: BP 126/72; PULSE 79; RESP 18; TEMP 36.4; O2SAT 96
[2021-07-30] MEDS: Mirtazapine 15 MG TABLET PO (20:42)
[2021-07-30] MEDS: traZODone HCL 100 MG TABLET 200 MG PO (20:43)
[2021-07-31 06:00] VITALS: BP 113/75; PULSE 65; RESP 16; TEMP 36.4; O2SAT 96
[2021-07-31] MEDS: Venlafaxine HCl ER 37.5 MG CAP.ER.24H 112.5 MG PO (08:54)
[2021-07-31] MEDS: Multivitamin TABLET 1 TAB PO (08:54)
[2021-07-31] MEDS: OXcarbazepine 300 MG TABLET PO ×2 (08:54→21:40)
[2021-07-31] MEDS: Gabapentin 300 MG CAPSULE PO ×3 (08:54→21:40)
[2021-07-31] MEDS: hydrOXYzine HCL 25 MG TABLET PO (09:00)
[2021-07-31 10:00] LABS: Appearance Urine CLEAR; Color Urine YELLOW; Glucose Urine UA NEG (NEG); Leukocyte Esterase Urine TRACE (NEG); Nitrite Urine NEG (NEG); PH 6.5 (5.0-8.0); UACC Culture Trigger YES; Urine Blood 1+ (NEG); Urine Ketones NEG (NEG); Urine Protein NEG (NEG-TRACE)
[2021-07-31 10:13] LABS: Amorphous Sediment Urine 2+ /LPF; Squamous Epithelial Cell Urine TRACE /LPF; WBC Urine 0-2 /HPF (0-4)
[2021-07-31] MEDS: clonazePAM 1 MG TABLET PO ×3 (10:20→21:41)
--- NOTE | 2021-07-31 12:32 | HO.PSYCHPN ---
Subjective Subjective Date of Service: 07/31/21 Reason For Visit: SI Subjective Notes: Conditional Voluntary Interim History: Pt affect appears slightly brighter. She has been increasingly more visible and her hygiene has significantly improved. She attends some groups and is social with select peers. Pt continues to report feeling off not able to describe in what way, initially suspected addition of effexor. She started clonazepam, and ativan d/c She reports her sleep is better. She reports feeling anxious at times. She reports passive suicidal ideation but no plan or intent. Review of Systems Review of Systems Yes all other systems are reviewed and are negative Constitutional: Denies chills and Denies fever(s) Cardiovascular: Denies chest pain Musculoskeletal: Reports abnormal gait, Denies myalgias and Denies muscle cramps Reports abnormal gait, Denies focal weakness and Denies Other visual disturbances Mental Status Exam Mental Status Exam Narrative: Appearance: casually groomed, improving hygiene, anxious Behavior:cooperative psychomotor: no retardation noted Speech: clear, less delayed response, more fluent, soft tone,increasingly spontaneous Thought process: linear, spare Thought content:no over psychosis, less ruminations, less anxious Mood: depressed Affect:constricted AH/VH: none Delusions: none SI: passive, denies plan or intent in unit HI: none Insight/judgment:fair x 2. memory/cog: alert, oriented x 3. Diagnostics Vital Signs (24Hr): Vital Signs - 24 hr 07/30/21 20:16 07/31/21 06:00 Temperature 97.5 F 97.5 F Pulse Rate 79 65 Respiratory Rate 18 16 Blood Pressure 126/72 113/75 Pulse Oximetry 96 96 Body Mass Index 27.8 Labs Results: 07/15/21 22:17 07/15/21 22:17 Labs: Laboratory Results - last 48 hr 07/31/21 09:50 Urine Color YELLOW Urine Appearance CLEAR Urine pH 6.5 Ur Specific [place] 1.010 Urine Protein NEG Urine Glucose (UA) NEG Urine Ketones NEG Urine Blood 1+ H Urine Nitrite NEG Ur Leukocyte Esterase TRACE H Urine RBC 10-14 H Urine WBC 0-2 Ur Squamous Epith Cells TRACE Amorphous Sediment 2+ Urine Bacteria NONE Imaging Radiology Impressions: ITS Impressions Head CT 07/17/21 17:37 IMPRESSION: No acute intracranial pathology. This critical result was discussed with Dr. Olivares at 1808 hours on 07/17/2021. It was ascertained that the content and urgency of the report was understood at the time of direct communication. Medications Medications Current Medications Acetaminophen (Acetaminophen 325 Mg Tablet) 650 mg PO Q6H PRN PRN Reason: Headache/Pain Mild Scale (1-3) Al Hydroxide/Mg Hydroxide (Magnesium Hydrox/Alum Hydrox 30 Ml Oral.Susp) 30 ml PO Q6H PRN PRN Reason: Heartburn/Nausea Last Admin: 07/26/21 16:50 Dose: 30 ml Documented by: Clonazepam (Clonazepam 1 Mg Tablet) 1 mg PO TID [facility] Last Admin: 07/31/21 10:20 Dose: 1 mg Documented by: Gabapentin (Gabapentin 300 Mg Capsule) 300 mg PO TID [facility] Last Admin: 07/31/21 08:54 Dose: 300 mg Documented by: Hydroxyzine HCl (Hydroxyzine Hcl 25 Mg Tablet) 25 mg PO Q6H PRN PRN Reason: Anxiety Last Admin: 07/31/21 09:00 Dose: 25 mg Documented by: Lurasidone HCl (Lurasidone Hcl 40 Mg Tablet) 40 mg PO DAILY@1700 [facility] Last Admin: 07/30/21 18:01 Dose: 40 mg Documented by: Magnesium Hydroxide (Milk Of Magnesia 30 Ml Oral.Susp) 30 ml PO DAILY PRN PRN Reason: Constipation Mirtazapine (Mirtazapine 15 Mg Tablet) 15 mg PO BEDTIME [facility] Last Admin: 07/30/21 20:42 Dose: 15 mg Documented by: Multivitamins/Vitamin C (Multivitamin Tablet) 1 tab PO DAILY [facility] Last Admin: 07/31/21 08:54 Dose: 1 tab Documented by: Nicotine Polacrilex (Nicotine Polacrilex 2 Mg Gum) 2 mg BUCCAL Q2H PRN PRN Reason: Nicotine Cravings Oxcarbazepine (Oxcarbazepine 300 Mg Tablet) 300 mg PO BID [facility] Last Admin: 07/31/21 08:54 Dose: 300 mg Documented by: Trazodone HCl (Trazodone Hcl 100 Mg Tablet) 200 mg PO BEDTIME [facility] Last Admin: 07/30/21 20:43 Dose: 200 mg Documented by: Venlafaxine HCl (Venlafaxine Hcl Er 37.5 Mg Cap.Er.24h) 112.5 mg PO DAILY [facility] Last Admin: 07/31/21 08:54 Dose: 112.5 mg Documented by: Allergies Allergies Allergy/AdvReac Type Severity Reaction Status Date / Time sulfamethoxazole Allergy Unknown ANAPHYLAXIS Verified 10/24/20 21:43 [From BACTRIM] trimethoprim [From BACTRIM] Allergy Unknown ANAPHYLAXIS Verified 10/24/20 21:43 Assessment & Plan Assessment & Plan (1) Cocaine use disorder: Status: Acute Code(s): F14.10 - Cocaine abuse, uncomplicated (2) Bipolar II disorder with atypical features: Status: Acute Code(s): F31.81 - Bipolar II disorder Assessment and Plan: Ms. Bedoya is a 61 year-old woman with hx of Bipolar type 2 disorder and cocaine use disorder who was brought to [facility] by family as pt progressively and acutely presented as not able to walk, move, talk as much, blank stare, some absent minded. Pt is known to this marine underwriter and this is an unusual presentation for her. PLAN 1. Catatonia: has much improved with ativan, however, pt continues to present as severely depressed, hopeless, passive suicidal ideation as of 07/30/2021. 1. Continue clonazepam 2. Continue Latuda 40mg po dinner time 3. Continue Effexor ER to 112.5mg po daily- monitor for activation, s/s of hypomania/feroz. 4. Continue trazodone/remeron for sleep I spent minutes with the patient and/or on the patient floor today, greater than?50% of which was spent counseling/coordinating care. Reason for contiued inpatient stay Substantial Risk for: inability to function
[2021-07-31 15:45] VITALS: BMI 28.0
[2021-07-31] MEDS: Lurasidone HCl 40 MG TABLET PO (18:22)
[2021-07-31 20:39] VITALS: BP 118/71; PULSE 75; RESP 18; TEMP 36.6; O2SAT 96
[2021-07-31] MEDS: Mirtazapine 15 MG TABLET PO (21:40)
[2021-07-31] MEDS: traZODone HCL 100 MG TABLET 200 MG PO (21:40)
[2021-08-01 09:26] VITALS: BP 120/66; PULSE 74; RESP 18; TEMP 36.4; O2SAT 96
[2021-08-01] MEDS: Gabapentin 300 MG CAPSULE PO ×3 (09:28→21:15)
[2021-08-01] MEDS: clonazePAM 1 MG TABLET PO ×3 (09:28→21:15)
[2021-08-01] MEDS: OXcarbazepine 300 MG TABLET PO ×2 (09:28→21:15)
[2021-08-01] MEDS: Multivitamin TABLET 1 TAB PO (09:28)
[2021-08-01] MEDS: Venlafaxine HCl ER 37.5 MG CAP.ER.24H 112.5 MG PO (09:28)
--- NOTE | 2021-08-01 12:56 | P.PNPSI_ITS ---
Subjective Subjective Date of Service: 08/01/21 Reason For Visit: SI Subjective Notes: Conditional Voluntary Interim History: Pt reports feeling less anxious but continues to report depressed mood, anhedonia, hopeless, helpless. She reports very little she looks forward in life. She also reports feeling off can't explained if related to medication or overall symptoms of depression. She reports passive suicidal ideation. She denies any plan or intent. She does note her appetite is better. She also reports sleep slightly better. She has been visible in the unit. No behavioral concerns. She is social with select peers. We discussed increasing latuda. Medication Compliance: Yes Side effects from medications: No Attending Groups: Intermittent Review of Systems Review of Systems Yes all other systems are reviewed and are negative Constitutional: Denies chills and Denies fever(s) Cardiovascular: Denies chest pain Musculoskeletal: Reports abnormal gait, Denies myalgias and Denies muscle cramps Reports abnormal gait, Denies focal weakness and Denies Other visual disturbances Mental Status Exam Mental Status Exam Narrative: Appearance: casually groomed, improving hygiene, anxious Behavior:cooperative psychomotor: no retardation noted Speech: clear, regular response rate, more fluent, soft tone,increasingly spontaneous Thought process: linear, spare Thought content:no over psychosis, less ruminations, less anxious Mood: depressed Affect:constricted AH/VH: none Delusions: none SI: passive, denies plan or intent in unit HI: none Insight/judgment:fair x 2. memory/cog: alert, oriented x 3. Diagnostics Vital Signs (24Hr): Vital Signs - 24 hr 07/31/21 20:39 08/01/21 09:26 Temperature 97.9 F 97.6 F Pulse Rate 75 74 Respiratory Rate 18 18 Blood Pressure 118/71 120/66 Pulse Oximetry 96 96 Body Mass Index 28.0 Labs Results: 07/15/21 22:17 07/15/21 22:17 Labs: Laboratory Results - last 48 hr 07/31/21 09:50 Urine Color YELLOW Urine Appearance CLEAR Urine pH 6.5 Ur Specific [place] 1.010 Urine Protein NEG Urine Glucose (UA) NEG Urine Ketones NEG Urine Blood 1+ H Urine Nitrite NEG Ur Leukocyte Esterase TRACE H Urine RBC 10-14 H Urine WBC 0-2 Ur Squamous Epith Cells TRACE Amorphous Sediment 2+ Urine Bacteria NONE Imaging Radiology Impressions: ITS Impressions Head CT 07/17/21 17:37 IMPRESSION: No acute intracranial pathology. This critical result was discussed with Dr. Olivares at 1808 hours on 07/17/2021. It was ascertained that the content and urgency of the report was understood at the time of direct communication. Medications Medications Current Medications Acetaminophen (Acetaminophen 325 Mg Tablet) 650 mg PO Q6H PRN PRN Reason: Headache/Pain Mild Scale (1-3) Al Hydroxide/Mg Hydroxide (Magnesium Hydrox/Alum Hydrox 30 Ml Oral.Susp) 30 ml PO Q6H PRN PRN Reason: Heartburn/Nausea Last Admin: 07/26/21 16:50 Dose: 30 ml Documented by: Clonazepam (Clonazepam 1 Mg Tablet) 1 mg PO TID [facility] Last Admin: 08/01/21 09:28 Dose: 1 mg Documented by: Gabapentin (Gabapentin 300 Mg Capsule) 300 mg PO TID [facility] Last Admin: 08/01/21 09:28 Dose: 300 mg Documented by: Hydroxyzine HCl (Hydroxyzine Hcl 25 Mg Tablet) 25 mg PO Q6H PRN PRN Reason: Anxiety Last Admin: 07/31/21 09:00 Dose: 25 mg Documented by: Magnesium Hydroxide (Milk Of Magnesia 30 Ml Oral.Susp) 30 ml PO DAILY PRN PRN Reason: Constipation Mirtazapine (Mirtazapine 15 Mg Tablet) 15 mg PO BEDTIME [facility] Last Admin: 07/31/21 21:40 Dose: 15 mg Documented by: Multivitamins/Vitamin C (Multivitamin Tablet) 1 tab PO DAILY [facility] Last Admin: 08/01/21 09:28 Dose: 1 tab Documented by: Nicotine Polacrilex (Nicotine Polacrilex 2 Mg Gum) 2 mg BUCCAL Q2H PRN PRN Reason: Nicotine Cravings Oxcarbazepine (Oxcarbazepine 300 Mg Tablet) 300 mg PO BID [facility] Last Admin: 08/01/21 09:28 Dose: 300 mg Documented by: Trazodone HCl (Trazodone Hcl 100 Mg Tablet) 200 mg PO BEDTIME [facility] Last Admin: 07/31/21 21:40 Dose: 200 mg Documented by: Venlafaxine HCl (Venlafaxine Hcl Er 37.5 Mg Cap.Er.24h) 112.5 mg PO DAILY [facility] Last Admin: 08/01/21 09:28 Dose: 112.5 mg Documented by: Allergies Allergies Allergy/AdvReac Type Severity Reaction Status Date / Time sulfamethoxazole Allergy Unknown ANAPHYLAXIS Verified 10/24/20 21:43 [From BACTRIM] trimethoprim [From BACTRIM] Allergy Unknown ANAPHYLAXIS Verified 10/24/20 21:43 Assessment & Plan Assessment & Plan (1) Cocaine use disorder: Status: Acute Code(s): F14.10 - Cocaine abuse, uncomplicated (2) Bipolar II disorder with atypical features: Status: Acute Code(s): F31.81 - Bipolar II disorder Assessment and Plan: Ms. Bedoya is a 61 year-old woman with hx of Bipolar type 2 disorder and cocaine use disorder who was brought [place] [facility] by family as pt progressively and acutely presented as not able to walk, move, talk as much, blank stare, some absent minded. Pt is known to this financial underwriter and this is an unusual presentation for her. PLAN 1. Catatonia: has much improved with ativan, however, pt continues to present as severely depressed, hopeless, passive suicidal ideation as of 07/30/2021. 1. Continue clonazepam 2. Increase Latuda 60mg po dinner time 3. Continue Effexor ER to 112.5mg po daily- monitor for activation, s/s of hypomania/feroz. 4. Continue trazodone/remeron for sleep I spent minutes with the patient and/or on the patient floor today, greater than?50% of which was spent counseling/coordinating care. Reason for contiued inpatient stay Substantial Risk for: harm to self and inability to function
[2021-08-01] MEDS: Lurasidone HCl 20 MG TABLET 60 MG PO (16:38)
[2021-08-01 21:10] VITALS: BP 107/72; PULSE 76; RESP 19; TEMP 36.4; O2SAT 95
[2021-08-01] MEDS: Mirtazapine 15 MG TABLET PO (21:15)
[2021-08-01] MEDS: traZODone HCL 100 MG TABLET 200 MG PO (21:15)
--- NOTE | 2021-08-02 07:53 | P.PNPSI_ITS ---
Subjective Subjective Date of Service: 08/02/21 Reason For Visit: SI Interim History: Pt continues to reports feeling less anxious but continues to report depressed mood, anhedonia, hopeless, helpless. She reports very little she looks forward in life. She also reports feeling off can't explained if related to medication or overall symptoms of depression. She reports passive suicidal ideation. She denies any plan or intent. She does note her appetite is better. She also reports sleep slightly better. She has been visible in the unit. No behavioral concerns. She is social with select peers. We discussed increasing latuda. Review of Systems Review of Systems Yes all other systems are reviewed and are negative Constitutional: Denies chills and Denies fever(s) Cardiovascular: Denies chest pain Musculoskeletal: Reports abnormal gait, Denies myalgias and Denies muscle cramps Reports abnormal gait, Denies focal weakness and Denies Other visual disturbances Mental Status Exam Mental Status Exam Narrative: Appearance: casually groomed, improving hygiene, anxious Behavior:cooperative psychomotor: no retardation noted Speech: clear, regular response rate, more fluent, soft tone,increasingly spontaneous Thought process: linear, spare Thought content:no over psychosis, less ruminations, less anxious Mood: depressed Affect:constricted AH/VH: none Delusions: none SI: passive, denies plan or intent in unit HI: none Insight/judgment:fair x 2. memory/cog: alert, oriented x 3. Diagnostics Vital Signs (24Hr): Vital Signs - 24 hr 08/02/21 08:30 08/02/21 20:58 Temperature 98.4 F 97.6 F Pulse Rate 68 76 Respiratory Rate 16 17 Blood Pressure 123/64 114/60 Pulse Oximetry 95 95 Body Mass Index 28.0 Labs Results: 07/15/21 22:17 07/15/21 22:17 Imaging Radiology Impressions: ITS Impressions Head CT 07/17/21 17:37 IMPRESSION: No acute intracranial pathology. This critical result was discussed with Dr. Olivares at 1808 hours on 07/17/2021. It was ascertained that the content and urgency of the report was understood at the time of direct communication. Medications Medications Current Medications Acetaminophen (Acetaminophen 325 Mg Tablet) 650 mg PO Q6H PRN PRN Reason: Headache/Pain Mild Scale (1-3) Last Admin: 08/02/21 21:04 Dose: 650 mg Documented by: Al Hydroxide/Mg Hydroxide (Magnesium Hydrox/Alum Hydrox 30 Ml Oral.Susp) 30 ml PO Q6H PRN PRN Reason: Heartburn/Nausea Last Admin: 07/26/21 16:50 Dose: 30 ml Documented by: Clonazepam (Clonazepam 1 Mg Tablet) 1 mg PO TID [facility] Last Admin: 08/02/21 21:02 Dose: 1 mg Documented by: Gabapentin (Gabapentin 300 Mg Capsule) 300 mg PO TID [facility] Last Admin: 08/02/21 21:02 Dose: 300 mg Documented by: Hydroxyzine HCl (Hydroxyzine Hcl 25 Mg Tablet) 25 mg PO Q6H PRN PRN Reason: Anxiety Last Admin: 07/31/21 09:00 Dose: 25 mg Documented by: Lurasidone HCl (Lurasidone Hcl 20 Mg Tablet) 60 mg PO DAILY@1700 [facility] Last Admin: 08/02/21 17:49 Dose: 60 mg Documented by: Magnesium Hydroxide (Milk Of Magnesia 30 Ml Oral.Susp) 30 ml PO DAILY PRN PRN Reason: Constipation Mirtazapine (Mirtazapine 15 Mg Tablet) 15 mg PO BEDTIME [facility] Last Admin: 08/02/21 21:02 Dose: 15 mg Documented by: Multivitamins/Vitamin C (Multivitamin Tablet) 1 tab PO DAILY [facility] Last Admin: 08/02/21 09:11 Dose: 1 tab Documented by: Nicotine Polacrilex (Nicotine Polacrilex 2 Mg Gum) 2 mg BUCCAL Q2H PRN PRN Reason: Nicotine Cravings Oxcarbazepine (Oxcarbazepine 300 Mg Tablet) 300 mg PO BID [facility] Last Admin: 08/02/21 21:02 Dose: 300 mg Documented by: Trazodone HCl (Trazodone Hcl 100 Mg Tablet) 200 mg PO BEDTIME [facility] Last Admin: 08/02/21 21:04 Dose: 200 mg Documented by: Venlafaxine HCl (Venlafaxine Hcl Er 37.5 Mg Cap.Er.24h) 112.5 mg PO DAILY [facility] Last Admin: 08/02/21 09:11 Dose: 112.5 mg Documented by: Allergies Allergies Allergy/AdvReac Type Severity Reaction Status Date / Time sulfamethoxazole Allergy Unknown ANAPHYLAXIS Verified 10/24/20 21:43 [From BACTRIM] trimethoprim [From BACTRIM] Allergy Unknown ANAPHYLAXIS Verified 10/24/20 21:43 Assessment & Plan Assessment & Plan (1) Cocaine use disorder: Status: Acute Code(s): F14.10 - Cocaine abuse, uncomplicated (2) Bipolar II disorder with atypical features: Status: Acute Code(s): F31.81 - Bipolar II disorder Assessment and Plan: Ms. Bedoya is a 61 year-old woman with hx of Bipolar type 2 disorder and cocaine use disorder who was brought to [facility] by family as pt progressively and acutely presented as not able to walk, move, talk as much, blank stare, some absent minded. Pt is known to this engineering writer and this is an unusual presentation for her. PLAN 1. Catatonia: has much improved with ativan, however, pt continues to present as severely depressed, hopeless, passive suicidal ideation as of 07/30/2021. 1. Continue clonazepam 2. Increase Latuda 60mg po dinner time 3. Continue Effexor ER to 112.5mg po daily- monitor for activation, s/s of hypomania/feroz. 4. Continue trazodone/remeron for sleep I spent minutes with the patient and/or on the patient floor today, greater than?50% of which was spent counseling/coordinating care. Reason for contiued inpatient stay Substantial Risk for: harm to self and inability to function
[2021-08-02 08:30] VITALS: BP 123/64; PULSE 68; RESP 16; TEMP 36.9; O2SAT 95
[2021-08-02] MEDS: OXcarbazepine 300 MG TABLET PO ×2 (09:10→21:02)
[2021-08-02] MEDS: clonazePAM 1 MG TABLET PO ×3 (09:11→21:02)
[2021-08-02] MEDS: Gabapentin 300 MG CAPSULE PO ×3 (09:11→21:02)
[2021-08-02] MEDS: Venlafaxine HCl ER 37.5 MG CAP.ER.24H 112.5 MG PO (09:11)
[2021-08-02] MEDS: Multivitamin TABLET 1 TAB PO (09:11)
[2021-08-02] MEDS: Acetaminophen 325 MG TABLET 650 MG PO ×2 (09:14→21:04)
[2021-08-02] MEDS: Lurasidone HCl 20 MG TABLET 60 MG PO (17:49)
[2021-08-02 20:58] VITALS: BP 114/60; PULSE 76; RESP 17; TEMP 36.4; O2SAT 95
[2021-08-02] MEDS: Mirtazapine 15 MG TABLET PO (21:02)
[2021-08-02] MEDS: traZODone HCL 100 MG TABLET 200 MG PO (21:04)
[2021-08-03 06:00] VITALS: BP 118/64; PULSE 75; RESP 16; TEMP 36.4; O2SAT 96
[2021-08-03] MEDS: OXcarbazepine 300 MG TABLET PO ×2 (08:54→20:43)
[2021-08-03] MEDS: Multivitamin TABLET 1 TAB PO (08:54)
[2021-08-03] MEDS: Venlafaxine HCl ER 37.5 MG CAP.ER.24H 112.5 MG PO (08:54)
[2021-08-03] MEDS: Gabapentin 300 MG CAPSULE PO ×3 (08:54→20:43)
[2021-08-03] MEDS: clonazePAM 1 MG TABLET PO ×3 (08:54→20:42)
[2021-08-03 18:00] VITALS: BP 116/68; PULSE 70; RESP 18; TEMP 36.3; O2SAT 96
[2021-08-03] MEDS: Lurasidone HCl 20 MG TABLET 60 MG PO (18:08)
--- NOTE | 2021-08-03 18:25 | P.PNPSI_ITS ---
Subjective Subjective Date of Service: 08/03/21 Reason For Visit: SI Interim History: pt reports she is feeling pretty OK and denies any questions or concerns. per staff, appears to be doing well. brighter affect, more interactive. denies improvements however. reporting 8/10 depression and anxiety. reported right great toe pain yesterday which appears to have spontaneously subsided by today. Mental Status Exam Mental Status Exam Narrative: Appearance: casually groomed, improving hygiene, anxious Behavior:cooperative psychomotor: no retardation noted Speech: clear, regular response rate, more fluent, soft tone,increasingly spontaneous Thought process: linear, spare Thought content:no overt psychosis, less rumination, less anxious Mood: i'm pretty OK Affect:constricted AH/VH: none Delusions: none SI: none expressed HI: none Insight/judgment:fair x 2. memory/cog: alert, oriented x 3. Diagnostics Vital Signs (24Hr): Vital Signs - 24 hr 08/02/21 20:58 08/03/21 06:00 Temperature 97.6 F 97.5 F Pulse Rate 76 75 Respiratory Rate 17 16 Blood Pressure 114/60 118/64 Pulse Oximetry 95 96 Body Mass Index 28.0 Labs Results: 07/15/21 22:17 07/15/21 22:17 Imaging Radiology Impressions: ITS Impressions Head CT 07/17/21 17:37 IMPRESSION: No acute intracranial pathology. This critical result was discussed with Dr. Olivares at 1808 hours on 07/17/2021. It was ascertained that the content and urgency of the report was understood at the time of direct communication. Medications Medications Current Medications Acetaminophen (Acetaminophen 325 Mg Tablet) 650 mg PO Q6H PRN PRN Reason: Headache/Pain Mild Scale (1-3) Last Admin: 08/02/21 21:04 Dose: 650 mg Documented by: Al Hydroxide/Mg Hydroxide (Magnesium Hydrox/Alum Hydrox 30 Ml Oral.Susp) 30 ml PO Q6H PRN PRN Reason: Heartburn/Nausea Last Admin: 07/26/21 16:50 Dose: 30 ml Documented by: Clonazepam (Clonazepam 1 Mg Tablet) 1 mg PO TID [facility] Last Admin: 08/03/21 14:33 Dose: 1 mg Documented by: Gabapentin (Gabapentin 300 Mg Capsule) 300 mg PO TID [facility] Last Admin: 08/03/21 14:33 Dose: 300 mg Documented by: Hydroxyzine HCl (Hydroxyzine Hcl 25 Mg Tablet) 25 mg PO Q6H PRN PRN Reason: Anxiety Last Admin: 07/31/21 09:00 Dose: 25 mg Documented by: Lurasidone HCl (Lurasidone Hcl 20 Mg Tablet) 60 mg PO DAILY@1700 [facility] Last Admin: 08/03/21 18:08 Dose: 60 mg Documented by: Magnesium Hydroxide (Milk Of Magnesia 30 Ml Oral.Susp) 30 ml PO DAILY PRN PRN Reason: Constipation Mirtazapine (Mirtazapine 15 Mg Tablet) 15 mg PO BEDTIME [facility] Last Admin: 08/02/21 21:02 Dose: 15 mg Documented by: Multivitamins/Vitamin C (Multivitamin Tablet) 1 tab PO DAILY [facility] Last Admin: 08/03/21 08:54 Dose: 1 tab Documented by: Nicotine Polacrilex (Nicotine Polacrilex 2 Mg Gum) 2 mg BUCCAL Q2H PRN PRN Reason: Nicotine Cravings Oxcarbazepine (Oxcarbazepine 300 Mg Tablet) 300 mg PO BID [facility] Last Admin: 08/03/21 08:54 Dose: 300 mg Documented by: Trazodone HCl (Trazodone Hcl 100 Mg Tablet) 200 mg PO BEDTIME [facility] Last Admin: 08/02/21 21:04 Dose: 200 mg Documented by: Venlafaxine HCl (Venlafaxine Hcl Er 37.5 Mg Cap.Er.24h) 112.5 mg PO DAILY [facility] Last Admin: 08/03/21 08:54 Dose: 112.5 mg Documented by: Allergies Allergies Allergy/AdvReac Type Severity Reaction Status Date / Time sulfamethoxazole Allergy Unknown ANAPHYLAXIS Verified 10/24/20 21:43 [From BACTRIM] trimethoprim [From BACTRIM] Allergy Unknown ANAPHYLAXIS Verified 10/24/20 21:43 Assessment & Plan Assessment & Plan (1) Cocaine use disorder: Status: Acute Code(s): F14.10 - Cocaine abuse, uncomplicated (2) Bipolar II disorder with atypical features: Status: Acute Code(s): F31.81 - Bipolar II disorder Assessment and Plan: Ms. Bedoya is a 61 year-old woman with hx of Bipolar type 2 disorder and cocaine use disorder who was brought [place] [facility] [place] family as pt progressively and acutely presented as not able to walk, move, talk as much, blank stare, some absent minded. Pt is known to this auto service writer and this is an unusual presentation for her. PLAN 1. Catatonia: has much improved with ativan, however, pt continues to present as severely depressed, hopeless, passive suicidal ideation as of 07/30/2021. 1. Continue clonazepam 2. Increase Latuda 60mg po dinner time 3. Continue Effexor ER to 112.5mg po daily- monitor for activation, s/s of hypomania/feroz. 4. Continue trazodone/remeron for sleep I spent minutes with the patient and/or on the patient floor today, greater than?50% of which was spent counseling/coordinating care. Reason for contiued inpatient stay Substantial Risk for: inability to function and rapid decompensation
[2021-08-03] MEDS: Mirtazapine 15 MG TABLET PO (20:43)
[2021-08-03] MEDS: traZODone HCL 100 MG TABLET 200 MG PO (20:43)
[2021-08-04] MEDS: Venlafaxine HCl ER 37.5 MG CAP.ER.24H 112.5 MG PO (10:17)
[2021-08-04] MEDS: Multivitamin TABLET 1 TAB PO (10:18)
[2021-08-04] MEDS: clonazePAM 1 MG TABLET PO ×3 (10:18→20:40)
[2021-08-04] MEDS: OXcarbazepine 300 MG TABLET PO ×2 (10:18→20:40)
[2021-08-04] MEDS: Gabapentin 300 MG CAPSULE PO ×3 (10:20→20:40)
--- NOTE | 2021-08-04 12:29 | HO.PSYCHPN ---
Subjective Subjective Date of Service: 08/04/21 Reason For Visit: SI Subjective Notes: Conditional Voluntary Interim History: Pt continues to report depressed mood 04/29, pt reports anxious mood at times. She reports eating and sleeping better. She denies suicidal or homicidal ideation. Pt has been more visible in the unit, social with select peers, does go to some groups. We discussed stepping down to respite when ready and to consider PHP as well but pt declined. We had discussed ECT for more retractable depression but pt also declined. We discussed increasing latuda to 80mg po dinner time. Review of Systems Review of Systems Yes all other systems are reviewed and are negative Constitutional: Denies chills and Denies fever(s) Cardiovascular: Denies chest pain Musculoskeletal: Reports abnormal gait, Denies myalgias and Denies muscle cramps Reports abnormal gait, Denies focal weakness and Denies Other visual disturbances Mental Status Exam Mental Status Exam Narrative: Appearance: casually groomed, improving hygiene, anxious Behavior:cooperative psychomotor: no retardation noted Speech: clear, regular response rate, more fluent, soft tone,increasingly spontaneous Thought process: linear, spare Thought content:no overt psychosis, less rumination, less anxious although not feeling like herself Mood: same Affect:constricted AH/VH: none Delusions: none SI: none expressed HI: none Insight/judgment:fair x 2. memory/cog: alert, oriented x 3. MOCA on 07/26/21- , most difficulties with visuospatial/executive, attention, language repetition and fluency (5 words in 1 min), abstraction, recall and orientation. Diagnostics Vital Signs (24Hr): Vital Signs - 24 hr 08/03/21 18:00 Temperature 97.4 F Pulse Rate 70 Respiratory Rate 18 Blood Pressure 116/68 Pulse Oximetry 96 Body Mass Index 28.0 Labs Results: 07/15/21 22:17 07/15/21 22:17 Imaging Radiology Impressions: ITS Impressions Head CT 07/17/21 17:37 IMPRESSION: No acute intracranial pathology. This critical result was discussed with Dr. Olivares at 1808 hours on 07/17/2021. It was ascertained that the content and urgency of the report was understood at the time of direct communication. Medications Medications Current Medications Acetaminophen (Acetaminophen 325 Mg Tablet) 650 mg PO Q6H PRN PRN Reason: Headache/Pain Mild Scale (1-3) Last Admin: 11/13/21 21:04 Dose: 650 mg Documented by: Al Hydroxide/Mg Hydroxide (Magnesium Hydrox/Alum Hydrox 30 Ml Oral.Susp) 30 ml PO Q6H PRN PRN Reason: Heartburn/Nausea Last Admin: 07/26/21 16:50 Dose: 30 ml Documented by: Clonazepam (Clonazepam 1 Mg Tablet) 1 mg PO TID [facility] Last Admin: 08/04/21 10:18 Dose: 1 mg Documented by: Gabapentin (Gabapentin 300 Mg Capsule) 300 mg PO TID [facility] Last Admin: 08/04/21 10:20 Dose: 300 mg Documented by: Hydroxyzine HCl (Hydroxyzine Hcl 25 Mg Tablet) 25 mg PO Q6H PRN PRN Reason: Anxiety Last Admin: 07/31/21 09:00 Dose: 25 mg Documented by: Lurasidone HCl (Lurasidone Hcl 80 Mg Tablet) 80 mg PO DAILY@1700 [facility] Magnesium Hydroxide (Milk Of Magnesia 30 Ml Oral.Susp) 30 ml PO DAILY PRN PRN Reason: Constipation Mirtazapine (Mirtazapine 15 Mg Tablet) 15 mg PO BEDTIME [facility] Last Admin: 08/03/21 20:43 Dose: 15 mg Documented by: Multivitamins/Vitamin C (Multivitamin Tablet) 1 tab PO DAILY [facility] Last Admin: 08/04/21 10:18 Dose: 1 tab Documented by: Nicotine Polacrilex (Nicotine Polacrilex 2 Mg Gum) 2 mg BUCCAL Q2H PRN PRN Reason: Nicotine Cravings Oxcarbazepine (Oxcarbazepine 300 Mg Tablet) 300 mg PO BID [facility] Last Admin: 08/04/21 10:18 Dose: 300 mg Documented by: Trazodone HCl (Trazodone Hcl 100 Mg Tablet) 200 mg PO BEDTIME [facility] Last Admin: 08/03/21 20:43 Dose: 200 mg Documented by: Venlafaxine HCl (Venlafaxine Hcl Er 37.5 Mg Cap.Er.24h) 112.5 mg PO DAILY [facility] Last Admin: 08/04/21 10:17 Dose: 112.5 mg Documented by: Allergies Allergies Allergy/AdvReac Type Severity Reaction Status Date / Time sulfamethoxazole Allergy Unknown ANAPHYLAXIS Verified 10/24/20 21:43 [From BACTRIM] trimethoprim [From BACTRIM] Allergy Unknown ANAPHYLAXIS Verified 10/24/20 21:43 Assessment & Plan Assessment & Plan (1) Cocaine use disorder: Status: Acute Code(s): F14.10 - Cocaine abuse, uncomplicated (2) Bipolar II disorder with atypical features: Status: Acute Code(s): F31.81 - Bipolar II disorder Assessment and Plan: Ms. Bedoya is a 61 year-old woman with hx of Bipolar type 2 disorder and cocaine use disorder who was brought to [facility] by family as pt progressively and acutely presented as not able to walk, move, talk as much, blank stare, some absent minded. Pt is known to this news writer and this is an unusual presentation for her. PLAN 1. Catatonia: has much improved with ativan, however, pt continues to report depressed mood, although brighter affect, improved hygiene. 1. Continue clonazepam 2. Increase Latuda 80mg po dinner time 3. Continue Effexor ER to 112.5mg po daily- monitor for activation, s/s of hypomania/feroz. 4. Continue trazodone/remeron for sleep I spent minutes with the patient and/or on the patient floor today, greater than?50% of which was spent counseling/coordinating care. Patient educated on: diagnosis, medication risk/benefits and substance abuse Informed Consent: understands Reason for contiued inpatient stay Substantial Risk for: harm to self and inability to function
[2021-08-04] MEDS: Lurasidone HCl 80 MG TABLET PO (17:39)
[2021-08-04 18:00] VITALS: BP 106/69; PULSE 82; RESP 18; TEMP 36.3; O2SAT 95
[2021-08-04] MEDS: Mirtazapine 15 MG TABLET PO (20:40)
[2021-08-04] MEDS: Acetaminophen 325 MG TABLET 650 MG PO (20:40)
[2021-08-04] MEDS: traZODone HCL 100 MG TABLET 200 MG PO (20:40)
[2021-08-05 09:09] VITALS: BP 122/69; PULSE 63; RESP 14; TEMP 36.2; O2SAT 96
[2021-08-05] MEDS: Venlafaxine HCl ER 37.5 MG CAP.ER.24H 112.5 MG PO (09:11)
[2021-08-05] MEDS: Gabapentin 300 MG CAPSULE PO ×3 (09:11→21:52)
[2021-08-05] MEDS: clonazePAM 1 MG TABLET PO ×3 (09:11→21:53)
[2021-08-05] MEDS: OXcarbazepine 300 MG TABLET PO ×2 (09:12→21:52)
[2021-08-05] MEDS: Multivitamin TABLET 1 TAB PO (09:12)
--- NOTE | 2021-08-05 10:27 | P.PNPSI_ITS ---
Subjective Subjective Date of Service: 08/05/21 Reason For Visit: SI Subjective Notes: Conditional Voluntary Interim History: Pt continues to report depressed mood 04/29, pt reports anxious mood at times, affect constricted although brightens when she is milieu and s ocializes with peers. She reports eating and sleeping better. She denies suicidal or homicidal ideation. Pt has been more visible in the unit, social with select peers, does go to some groups. We discussed stepping down to respite when ready and to consider PHP as well but pt declined. We had discussed ECT for more retractable depression but pt also declined. We discussed increasing latuda to 80mg po dinner time. Medication Compliance: Yes Side effects from medications: No Attending Groups: Yes Review of Systems Review of Systems Yes all other systems are reviewed and are negative Constitutional: Denies chills and Denies fever(s) Cardiovascular: Denies chest pain Musculoskeletal: Reports abnormal gait, Denies myalgias and Denies muscle cramps Reports abnormal gait, Denies focal weakness and Denies Other visual disturbances Mental Status Exam Mental Status Exam Narrative: Appearance: casually groomed, improving hygiene, anxious Behavior:cooperative psychomotor: no retardation noted Speech: clear, regular response rate, more fluent, soft tone,increasingly spontaneous Thought process: linear, spare Thought content:no overt psychosis, less rumination, less anxious although not feeling like herself Mood: same Affect:constricted AH/VH: none Delusions: none SI: none expressed HI: none Insight/judgment:fair x 2. memory/cog: alert, oriented x 3. MOCA on 07/26/21- , most difficulties with visuospatial/executive, attention, language repetition and fluency (5 words in 1 min), abstraction, recall and orientation. Diagnostics Vital Signs (24Hr): Vital Signs - 24 hr 08/04/21 18:00 08/05/21 09:09 Temperature 97.4 F 97.2 F Pulse Rate 82 63 Respiratory Rate 18 14 Blood Pressure 106/69 122/69 Pulse Oximetry 95 96 Body Mass Index 28.0 Labs Results: 07/15/21 22:17 07/15/21 22:17 Imaging Radiology Impressions: ITS Impressions Head CT 07/17/21 17:37 IMPRESSION: No acute intracranial pathology. This critical result was discussed with Dr. Olivares at 1808 hours on 07/17/2021. It was ascertained that the content and urgency of the report was understood at the time of direct communication. Medications Medications Current Medications Acetaminophen (Acetaminophen 325 Mg Tablet) 650 mg PO Q6H PRN PRN Reason: Headache/Pain Mild Scale (1-3) Last Admin: 08/04/21 20:40 Dose: 650 mg Documented by: Al Hydroxide/Mg Hydroxide (Magnesium Hydrox/Alum Hydrox 30 Ml Oral.Susp) 30 ml PO Q6H PRN PRN Reason: Heartburn/Nausea Last Admin: 07/26/21 16:50 Dose: 30 ml Documented by: Clonazepam (Clonazepam 1 Mg Tablet) 1 mg PO TID [facility] Last Admin: 08/05/21 09:11 Dose: 1 mg Documented by: Gabapentin (Gabapentin 300 Mg Capsule) 300 mg PO TID [facility] Last Admin: 08/05/21 09:11 Dose: 300 mg Documented by: Hydroxyzine HCl (Hydroxyzine Hcl 25 Mg Tablet) 25 mg PO Q6H PRN PRN Reason: Anxiety Last Admin: 07/31/21 09:00 Dose: 25 mg Documented by: Lurasidone HCl (Lurasidone Hcl 80 Mg Tablet) 80 mg PO DAILY@1700 [facility] Last Admin: 08/04/21 17:39 Dose: 80 mg Documented by: Magnesium Hydroxide (Milk Of Magnesia 30 Ml Oral.Susp) 30 ml PO DAILY PRN PRN Reason: Constipation Mirtazapine (Mirtazapine 15 Mg Tablet) 15 mg PO BEDTIME [facility] Last Admin: 08/04/21 20:40 Dose: 15 mg Documented by: Multivitamins/Vitamin C (Multivitamin Tablet) 1 tab PO DAILY [facility] Last Admin: 08/05/21 09:12 Dose: 1 tab Documented by: Nicotine Polacrilex (Nicotine Polacrilex 2 Mg Gum) 2 mg BUCCAL Q2H PRN PRN Reason: Nicotine Cravings Oxcarbazepine (Oxcarbazepine 300 Mg Tablet) 300 mg PO BID [facility] Last Admin: 08/05/21 09:12 Dose: 300 mg Documented by: Trazodone HCl (Trazodone Hcl 100 Mg Tablet) 200 mg PO BEDTIME [facility] Last Admin: 08/04/21 20:40 Dose: 200 mg Documented by: Venlafaxine HCl (Venlafaxine Hcl Er 37.5 Mg Cap.Er.24h) 112.5 mg PO DAILY [facility] Last Admin: 08/05/21 09:11 Dose: 112.5 mg Documented by: Allergies Allergies Allergy/AdvReac Type Severity Reaction Status Date / Time sulfamethoxazole Allergy Unknown ANAPHYLAXIS Verified 10/24/20 21:43 [From BACTRIM] trimethoprim [From BACTRIM] Allergy Unknown ANAPHYLAXIS Verified 10/24/20 21:43 Assessment & Plan Assessment & Plan (1) Cocaine use disorder: Status: Acute Code(s): F14.10 - Cocaine abuse, uncomplicated (2) Bipolar II disorder with atypical features: Status: Acute Code(s): F31.81 - Bipolar II disorder Assessment and Plan: Ms. Bedoya is a 61 year-old woman with hx of Bipolar type 2 disorder and cocaine use disorder who was brought to [facility] [place] [facility] by family as pt progressively and acutely presented as not able to walk, move, talk as much, blank stare, some absent minded. Pt is known to this blurb writer and this is an unusual presentation for her. PLAN 1. Catatonia: has much improved, off ativan back on clonazepam, however, pt continues to report depressed mood, although brighter affect, improved hygiene. 2. ?Underlying cognitive disorder-MOCA on 07/26/2021- most impairments in executive/visuospatial function, attention, repeat, fluency, recall 1. Continue clonazepam 2. Increase Latuda 80mg po dinner time 3. Continue Effexor ER to 112.5mg po daily- monitor for activation, s/s of hypomania/feroz. 4. Continue trazodone/remeron for sleep I spent minutes with the patient and/or on the patient floor today, greater than?50% of which was spent counseling/coordinating care. Reason for contiued inpatient stay Substantial Risk for: harm to self
[2021-08-05] MEDS: Lurasidone HCl 80 MG TABLET PO (17:14)
[2021-08-05 18:00] VITALS: BP 107/52; PULSE 68; RESP 16; TEMP 36.3; O2SAT 96
[2021-08-05] MEDS: Mirtazapine 15 MG TABLET PO (21:52)
[2021-08-05] MEDS: traZODone HCL 100 MG TABLET 200 MG PO (21:52)
[2021-08-06] MEDS: OXcarbazepine 300 MG TABLET PO ×2 (08:51→21:46)
[2021-08-06] MEDS: Gabapentin 300 MG CAPSULE PO ×3 (08:51→21:46)
[2021-08-06] MEDS: clonazePAM 1 MG TABLET PO ×3 (08:51→21:46)
[2021-08-06] MEDS: Multivitamin TABLET 1 TAB PO (08:51)
[2021-08-06] MEDS: Venlafaxine HCl ER 37.5 MG CAP.ER.24H 112.5 MG PO (08:52)
[2021-08-06 08:54] VITALS: BP 113/56; PULSE 75; RESP 16; TEMP 36.2; O2SAT 90
--- NOTE | 2021-08-06 14:06 | P.PNPSI_ITS ---
Subjective Subjective Date of Service: 08/06/21 Reason For Visit: SI Interim History: pt reports her anxiety and depression are high. she states that her latuda was increased from 60 mg daily to 80 mg daily as of yesterday evening - she takes it with dinner. she states she ended up going to bed a bit earlier than usual last night. she has no other complaints or requests and is amenable to leave her regimen as it is for the next several days to see how the increase in latuda affects her. per staff, pt is pleasant and guarded. she reports dep/anx of 06/29. she denies HI. reports SI has decreased, but per SW collateral that means she has not had any in recent days. attending groups, social. reportedly to bed at 2230, slept through the night. Mental Status Exam Mental Status Exam Narrative: Appearance: casually groomed, adequate hygiene, anxious Behavior:cooperative psychomotor: no retardation noted Speech: clear, regular response rate, fluent, soft tone, spontaneous Thought process: linear, logical Thought content:no overt psychosis, less rumination, less anxious Mood: anxious and depressed Affect:constricted AH/VH: none expressed Delusions: none expressed SI: none expressed HI: none expressed Insight/judgment:fair x 2. memory/cog: alert, oriented x 3. Diagnostics Vital Signs (24Hr): Vital Signs - 24 hr 08/05/21 18:00 08/06/21 08:54 Temperature 97.3 F 97.2 F Pulse Rate 68 75 Respiratory Rate 16 16 Blood Pressure 107/52 L 113/56 L Pulse Oximetry 96 90 L Body Mass Index 28.0 Labs Results: 07/15/21 22:17 07/15/21 22:17 Imaging Radiology Impressions: ITS Impressions Head CT 07/17/21 17:37 IMPRESSION: No acute intracranial pathology. This critical result was discussed with Dr. Olivares at 1808 hours on 07/17/2021. It was ascertained that the content and urgency of the report was understood at the time of direct communication. Medications Medications Current Medications Acetaminophen (Acetaminophen 325 Mg Tablet) 650 mg PO Q6H PRN PRN Reason: Headache/Pain Mild Scale (1-3) Last Admin: 08/04/21 20:40 Dose: 650 mg Documented by: Al Hydroxide/Mg Hydroxide (Magnesium Hydrox/Alum Hydrox 30 Ml Oral.Susp) 30 ml PO Q6H PRN PRN Reason: Heartburn/Nausea Last Admin: 07/26/21 16:50 Dose: 30 ml Documented by: Clonazepam (Clonazepam 1 Mg Tablet) 1 mg PO TID [facility] Last Admin: 08/06/21 08:51 Dose: 1 mg Documented by: Gabapentin (Gabapentin 300 Mg Capsule) 300 mg PO TID [facility] Last Admin: 08/06/21 08:51 Dose: 300 mg Documented by: Hydroxyzine HCl (Hydroxyzine Hcl 25 Mg Tablet) 25 mg PO Q6H PRN PRN Reason: Anxiety Last Admin: 07/31/21 09:00 Dose: 25 mg Documented by: Lurasidone HCl (Lurasidone Hcl 80 Mg Tablet) 80 mg PO DAILY@1700 [facility] Last Admin: 08/05/21 17:14 Dose: 80 mg Documented by: Magnesium Hydroxide (Milk Of Magnesia 30 Ml Oral.Susp) 30 ml PO DAILY PRN PRN Reason: Constipation Mirtazapine (Mirtazapine 15 Mg Tablet) 15 mg PO BEDTIME [facility] Last Admin: 08/05/21 21:52 Dose: 15 mg Documented by: Multivitamins/Vitamin C (Multivitamin Tablet) 1 tab PO DAILY [facility] Last Admin: 08/06/21 08:51 Dose: 1 tab Documented by: Nicotine Polacrilex (Nicotine Polacrilex 2 Mg Gum) 2 mg BUCCAL Q2H PRN PRN Reason: Nicotine Cravings Oxcarbazepine (Oxcarbazepine 300 Mg Tablet) 300 mg PO BID [facility] Last Admin: 08/06/21 08:51 Dose: 300 mg Documented by: Trazodone HCl (Trazodone Hcl 100 Mg Tablet) 200 mg PO BEDTIME [facility] Last Admin: 08/05/21 21:52 Dose: 200 mg Documented by: Venlafaxine HCl (Venlafaxine Hcl Er 37.5 Mg Cap.Er.24h) 112.5 mg PO DAILY [facility] Last Admin: 08/06/21 08:52 Dose: 112.5 mg Documented by: Allergies Allergies Allergy/AdvReac Type Severity Reaction Status Date / Time sulfamethoxazole Allergy Unknown ANAPHYLAXIS Verified 10/24/20 21:43 [From BACTRIM] trimethoprim [From BACTRIM] Allergy Unknown ANAPHYLAXIS Verified 10/24/20 21:43 Assessment & Plan Assessment & Plan (1) Cocaine use disorder: Status: Acute Code(s): F14.10 - Cocaine abuse, uncomplicated (2) Bipolar II disorder with atypical features: Status: Acute Code(s): F31.81 - Bipolar II disorder Assessment and Plan: Ms. Bedoya is a 61 year-old woman with hx of Bipolar type 2 disorder and cocaine use disorder who was brought to [facility] [place] family as pt progressively and acutely presented as not able to walk, move, talk as much, blank stare, some absent minded. Pt is known to this adjusto writer operator and this is an unusual presentation for her. PLAN 1. Catatonia: has much improved, off ativan back on clonazepam, however, pt continues to report depressed mood, although brighter affect, improved hygiene. 2. ?Underlying cognitive disorder-MOCA on 07/26/2021- most impairments in executive/visuospatial function, attention, repeat, fluency, recall 1. Continue clonazepam 2. Increased Latuda to 80mg po dinner time as of 08/05. 3. Continue Effexor ER to 112.5mg po daily- monitor for activation, s/s of hypomania/feroz. 4. Continue trazodone/remeron for sleep I spent minutes with the patient and/or on the patient floor today, greater than?50% of which was spent counseling/coordinating care. Reason for contiued inpatient stay Substantial Risk for: inability to function and rapid decompensation
[2021-08-06] MEDS: Lurasidone HCl 80 MG TABLET PO (16:46)
[2021-08-06 20:39] VITALS: BP 122/75; PULSE 86; TEMP 36.4; O2SAT 94
[2021-08-06] MEDS: Acetaminophen 325 MG TABLET 650 MG PO (21:46)
[2021-08-06] MEDS: Mirtazapine 15 MG TABLET PO (21:46)
[2021-08-06] MEDS: traZODone HCL 100 MG TABLET 200 MG PO (21:46)
[2021-08-07 09:35] VITALS: BP 113/71; PULSE 80; RESP 16; TEMP 36.3; O2SAT 95
[2021-08-07] MEDS: clonazePAM 1 MG TABLET PO ×3 (09:38→22:02)
[2021-08-07] MEDS: OXcarbazepine 300 MG TABLET PO ×2 (09:38→22:02)
[2021-08-07] MEDS: Multivitamin TABLET 1 TAB PO (09:38)
[2021-08-07] MEDS: Venlafaxine HCl ER 37.5 MG CAP.ER.24H 112.5 MG PO (09:38)
[2021-08-07] MEDS: Gabapentin 300 MG CAPSULE PO ×3 (09:38→22:02)
[2021-08-07 16:59] VITALS: BMI 28.8
[2021-08-07] MEDS: Lurasidone HCl 80 MG TABLET PO (17:56)
--- NOTE | 2021-08-07 18:28 | HO.PSYCHPN ---
Subjective Subjective Date of Service: 08/07/21 Reason For Visit: SI Interim History: pt found in her room attending to ADLs. she had just taken a shower. she repsented as bright and cheerful, smiling at MD for the first time janelle aligner typewriter julio cesar jay. she reports she slept well and had no complaints or requests. per staff, pt reports no change in her anxiety and depression. denies SI. hopeful about discharge. c/o right great toe pain which comes and goes, declines to have anyone look at it. Mental Status Exam Mental Status Exam Narrative: Appearance: casually groomed, good hygiene Behavior:cooperative psychomotor: no retardation noted Speech: clear, regular response rate, fluent, soft tone, spontaneous Thought process: linear, logical Thought content:no paranoia or delusions expressed Mood: not assessed Affect:full range AH/VH: none expressed Delusions: none expressed SI: none expressed HI: none expressed Insight/judgment:fair x 2. memory/cog: alert, oriented x 3. Diagnostics Vital Signs (24Hr): Vital Signs - 24 hr 08/06/21 20:39 08/07/21 09:35 Temperature 97.6 F 97.3 F Pulse Rate 86 80 Respiratory Rate 16 Blood Pressure 122/75 113/71 Pulse Oximetry 94 95 Body Mass Index 28.8 Labs Results: 07/15/21 22:17 07/15/21 22:17 Imaging Radiology Impressions: ITS Impressions Head CT 07/17/21 17:37 IMPRESSION: No acute intracranial pathology. This critical result was discussed with Dr. Olivares at 1808 hours on 07/17/2021. It was ascertained that the content and urgency of the report was understood at the time of direct communication. Medications Medications Current Medications Acetaminophen (Acetaminophen 325 Mg Tablet) 650 mg PO Q6H PRN PRN Reason: Headache/Pain Mild Scale (1-3) Last Admin: 08/06/21 21:46 Dose: 650 mg Documented by: Al Hydroxide/Mg Hydroxide (Magnesium Hydrox/Alum Hydrox 30 Ml Oral.Susp) 30 ml PO Q6H PRN PRN Reason: Heartburn/Nausea Last Admin: 07/26/21 16:50 Dose: 30 ml Documented by: Clonazepam (Clonazepam 1 Mg Tablet) 1 mg PO TID [facility] Last Admin: 08/07/21 14:50 Dose: 1 mg Documented by: Gabapentin (Gabapentin 300 Mg Capsule) 300 mg PO TID [facility] Last Admin: 08/07/21 14:50 Dose: 300 mg Documented by: Hydroxyzine HCl (Hydroxyzine Hcl 25 Mg Tablet) 25 mg PO Q6H PRN PRN Reason: Anxiety Last Admin: 07/31/21 09:00 Dose: 25 mg Documented by: Lurasidone HCl (Lurasidone Hcl 80 Mg Tablet) 80 mg PO DAILY@1700 [facility] Last Admin: 08/07/21 17:56 Dose: 80 mg Documented by: Magnesium Hydroxide (Milk Of Magnesia 30 Ml Oral.Susp) 30 ml PO DAILY PRN PRN Reason: Constipation Mirtazapine (Mirtazapine 15 Mg Tablet) 15 mg PO BEDTIME [facility] Last Admin: 08/06/21 21:46 Dose: 15 mg Documented by: Multivitamins/Vitamin C (Multivitamin Tablet) 1 tab PO DAILY [facility] Last Admin: 08/07/21 09:38 Dose: 1 tab Documented by: Nicotine Polacrilex (Nicotine Polacrilex 2 Mg Gum) 2 mg BUCCAL Q2H PRN PRN Reason: Nicotine Cravings Oxcarbazepine (Oxcarbazepine 300 Mg Tablet) 300 mg PO BID [facility] Last Admin: 08/07/21 09:38 Dose: 300 mg Documented by: Trazodone HCl (Trazodone Hcl 100 Mg Tablet) 200 mg PO BEDTIME [facility] Last Admin: 08/06/21 21:46 Dose: 200 mg Documented by: Venlafaxine HCl (Venlafaxine Hcl Er 37.5 Mg Cap.Er.24h) 112.5 mg PO DAILY [facility] Last Admin: 08/07/21 09:38 Dose: 112.5 mg Documented by: Allergies Allergies Allergy/AdvReac Type Severity Reaction Status Date / Time sulfamethoxazole Allergy Unknown ANAPHYLAXIS Verified 10/24/20 21:43 [From BACTRIM] trimethoprim [From BACTRIM] Allergy Unknown ANAPHYLAXIS Verified 10/24/20 21:43 Assessment & Plan Assessment & Plan (1) Cocaine use disorder: Status: Acute Code(s): F14.10 - Cocaine abuse, uncomplicated (2) Bipolar II disorder with atypical features: Status: Acute Code(s): F31.81 - Bipolar II disorder Assessment and Plan: Ms. Bedoya is a 61 year-old woman with hx of Bipolar type 2 disorder and cocaine use disorder who was brought to [facility] ED by family as pt progressively and acutely presented as not able to walk, move, talk as much, blank stare, some absent minded. Pt is known to this aligner typewriter and this is an unusual presentation for her. PLAN 1. Catatonia: has much improved, off ativan back on clonazepam, however, pt continues to report depressed mood, although brighter affect, improved hygiene. 2. ?Underlying cognitive disorder-MOCA on 07/26/2021- most impairments in executive/visuospatial function, attention, repeat, fluency, recall 1. Continue clonazepam 2. Increased Latuda to 80mg po dinner time as of 08/05. 3. Continue Effexor ER to 112.5mg po daily- monitor for activation, s/s of hypomania/freoz. 4. Continue trazodone/remeron for sleep I spent minutes with the patient and/or on the patient floor today, greater than?50% of which was spent counseling/coordinating care. Reason for contiued inpatient stay Substantial Risk for: inability to function and rapid decompensation
[2021-08-07 20:49] VITALS: BP 106/69; PULSE 80; TEMP 36.3; O2SAT 96
[2021-08-07] MEDS: Mirtazapine 15 MG TABLET PO (22:02)
[2021-08-07] MEDS: traZODone HCL 100 MG TABLET 200 MG PO (22:02)
[2021-08-07] MEDS: Acetaminophen 325 MG TABLET 650 MG PO (22:02)
[2021-08-08] MEDS: clonazePAM 1 MG TABLET PO ×3 (09:30→21:41)
[2021-08-08] MEDS: Venlafaxine HCl ER 37.5 MG CAP.ER.24H 112.5 MG PO (09:30)
[2021-08-08] MEDS: OXcarbazepine 300 MG TABLET PO ×2 (09:30→21:41)
[2021-08-08] MEDS: Multivitamin TABLET 1 TAB PO (09:30)
[2021-08-08] MEDS: Gabapentin 300 MG CAPSULE PO ×3 (09:30→21:41)
[2021-08-08 10:44] VITALS: BP 142/67; PULSE 87; RESP 17; TEMP 36.7; O2SAT 95
--- NOTE | 2021-08-08 10:53 | HO.PSYCHPN ---
Subjective Subjective Date of Service: 08/08/21 Reason For Visit: SI Interim History: pt found in her room attending to ADLs.? she was brushing her teeth.? she reports she slept well and had no complaints or requests.? per staff, pt reports anxiety 06/29.? sleeping and eating well. hopeful for discharge soon. Mental Status Exam Mental Status Exam Narrative: Appearance: casually groomed, good hygiene Behavior:cooperative psychomotor: no retardation noted Speech: clear, regular response rate, fluent, soft tone, spontaneous Thought process: linear, logical Thought content:no paranoia or delusions expressed Mood: not assessed Affect:constricted AH/VH: none expressed Delusions: none expressed SI: none expressed HI: none expressed Insight/judgment:fair x 2. memory/cog: alert, oriented x 3. Diagnostics Vital Signs (24Hr): Vital Signs - 24 hr 08/07/21 20:49 08/08/21 10:44 Temperature 97.3 F 98.0 F Pulse Rate 80 87 Respiratory Rate 17 Blood Pressure 106/69 142/67 H Pulse Oximetry 96 95 Body Mass Index 28.8 Labs Results: 07/15/21 22:17 07/15/21 22:17 Imaging Radiology Impressions: ITS Impressions Head CT 07/17/21 17:37 IMPRESSION: No acute intracranial pathology. This critical result was discussed with Dr. Olivares at 1808 hours on 07/17/2021. It was ascertained that the content and urgency of the report was understood at the time of direct communication. Medications Medications Current Medications Acetaminophen (Acetaminophen 325 Mg Tablet) 650 mg PO Q6H PRN PRN Reason: Headache/Pain Mild Scale (1-3) Last Admin: 08/07/21 22:02 Dose: 650 mg Documented by: Al Hydroxide/Mg Hydroxide (Magnesium Hydrox/Alum Hydrox 30 Ml Oral.Susp) 30 ml PO Q6H PRN PRN Reason: Heartburn/Nausea Last Admin: 07/26/21 16:50 Dose: 30 ml Documented by: Clonazepam (Clonazepam 1 Mg Tablet) 1 mg PO TID [facility] Last Admin: 08/08/21 09:30 Dose: 1 mg Documented by: Gabapentin (Gabapentin 300 Mg Capsule) 300 mg PO TID [facility] Last Admin: 08/08/21 09:30 Dose: 300 mg Documented by: Hydroxyzine HCl (Hydroxyzine Hcl 25 Mg Tablet) 25 mg PO Q6H PRN PRN Reason: Anxiety Last Admin: 07/31/21 09:00 Dose: 25 mg Documented by: Lurasidone HCl (Lurasidone Hcl 80 Mg Tablet) 80 mg PO DAILY@1700 [facility] Last Admin: 08/07/21 17:56 Dose: 80 mg Documented by: Magnesium Hydroxide (Milk Of Magnesia 30 Ml Oral.Susp) 30 ml PO DAILY PRN PRN Reason: Constipation Mirtazapine (Mirtazapine 15 Mg Tablet) 15 mg PO BEDTIME [facility] Last Admin: 08/07/21 22:02 Dose: 15 mg Documented by: Multivitamins/Vitamin C (Multivitamin Tablet) 1 tab PO DAILY [facility] Last Admin: 08/08/21 09:30 Dose: 1 tab Documented by: Nicotine Polacrilex (Nicotine Polacrilex 2 Mg Gum) 2 mg BUCCAL Q2H PRN PRN Reason: Nicotine Cravings Oxcarbazepine (Oxcarbazepine 300 Mg Tablet) 300 mg PO BID [facility] Last Admin: 08/08/21 09:30 Dose: 300 mg Documented by: Trazodone HCl (Trazodone Hcl 100 Mg Tablet) 200 mg PO BEDTIME [facility] Last Admin: 08/07/21 22:02 Dose: 200 mg Documented by: Venlafaxine HCl (Venlafaxine Hcl Er 37.5 Mg Cap.Er.24h) 112.5 mg PO DAILY [facility] Last Admin: 08/08/21 09:30 Dose: 112.5 mg Documented by: Allergies Allergies Allergy/AdvReac Type Severity Reaction Status Date / Time sulfamethoxazole Allergy Unknown ANAPHYLAXIS Verified 10/24/20 21:43 [From BACTRIM] trimethoprim [From BACTRIM] Allergy Unknown ANAPHYLAXIS Verified 10/24/20 21:43 Assessment & Plan Assessment & Plan (1) Cocaine use disorder: Status: Acute Code(s): F14.10 - Cocaine abuse, uncomplicated (2) Bipolar II disorder with atypical features: Status: Acute Code(s): F31.81 - Bipolar II disorder Assessment and Plan: Ms. Bedoya is a 61 year-old woman with hx of Bipolar type 2 disorder and cocaine use disorder who was brought to [facility] by family as pt progressively and acutely presented as not able to walk, move, talk as much, blank stare, some absent minded. Pt is known to this freelance writer and this is an unusual presentation for her. PLAN 1. Catatonia: has much improved, off ativan back on clonazepam, however, pt continues to report depressed mood, although brighter affect, improved hygiene. 2. ?Underlying cognitive disorder-MOCA on 07/26/2021- most impairments in executive/visuospatial function, attention, repeat, fluency, recall 1. Continue clonazepam 2. Increased Latuda to 80mg po dinner time as of 08/05. 3. Continue Effexor ER to 112.5mg po daily- monitor for activation, s/s of hypomania/feroz. 4. Continue trazodone/remeron for sleep I spent minutes with the patient and/or on the patient floor today, greater than?50% of which was spent counseling/coordinating care. Reason for contiued inpatient stay Substantial Risk for: inability to function and rapid decompensation
[2021-08-08] MEDS: Acetaminophen 325 MG TABLET 650 MG PO (18:04)
[2021-08-08] MEDS: Lurasidone HCl 80 MG TABLET PO (18:05)
[2021-08-08 21:38] VITALS: BP 100/62; PULSE 78; TEMP 36.4; O2SAT 97
[2021-08-08] MEDS: Mirtazapine 15 MG TABLET PO (21:41)
[2021-08-08] MEDS: traZODone HCL 100 MG TABLET 200 MG PO (21:41)
[2021-08-09] MEDS: Gabapentin 300 MG CAPSULE PO ×3 (09:22→21:55)
[2021-08-09] MEDS: clonazePAM 1 MG TABLET PO ×3 (09:22→21:55)
[2021-08-09] MEDS: Multivitamin TABLET 1 TAB PO (09:22)
[2021-08-09] MEDS: Venlafaxine HCl ER 37.5 MG CAP.ER.24H 112.5 MG PO (09:22)
[2021-08-09] MEDS: OXcarbazepine 300 MG TABLET PO ×2 (09:22→21:54)
[2021-08-09 09:31] VITALS: BP 103/73; PULSE 76; TEMP 36.2; O2SAT 96
--- NOTE | 2021-08-09 17:44 | HO.PSYCHPN ---
Subjective Subjective Date of Service: 08/09/21 Reason For Visit: SI Interim History: pt seen and discussed Patient reports she is feeling well. She is attending to ADLs.? She is calm and cooperative. She says her medications seem to be working well. She slept, woke up a couple of times but was able to fall right back to sleep. She had no complaints or requests. Hopeful for discharge soon. Review of Systems Review of Systems Yes all other systems are reviewed and are negative Constitutional: Denies chills and Denies fever(s) Cardiovascular: Denies chest pain Musculoskeletal: Reports abnormal gait, Denies myalgias and Denies muscle cramps Reports abnormal gait, Denies focal weakness and Denies Other visual disturbances Mental Status Exam Mental Status Exam Narrative: Appearance: casually groomed, good hygiene Behavior:cooperative psychomotor: no retardation noted Speech: clear, regular response rate, fluent, soft tone, spontaneous Thought process: linear, logical Thought content:no paranoia or delusions expressed Mood: good Affect:constricted AH/VH: none expressed Delusions: none expressed SI: none expressed HI: none expressed Insight/judgment:fair x 2. memory/cog: alert, oriented x 3. Patient Appearance: Well Grooomed Patient Orientation: Person, Place and Situation Level of Consciousness: Awake Patient Behavior: Passive Mood Description: Calm Affect Description: Constricted Patient Cognition Impaired: No Ability to Follow Directions: Good Speech Pattern: Clear Diagnostics Vital Signs (24Hr): Vital Signs - 24 hr 08/08/21 21:38 08/09/21 09:31 Temperature 97.6 F 97.2 F Pulse Rate 78 76 Blood Pressure 100/62 103/73 Pulse Oximetry 97 96 Body Mass Index 28.8 Labs Results: 07/15/21 22:17 07/15/21 22:17 Imaging Radiology Impressions: ITS Impressions Head CT 07/17/21 17:37 IMPRESSION: No acute intracranial pathology. This critical result was discussed with Dr. Olivares at 1808 hours on 07/17/2021. It was ascertained that the content and urgency of the report was understood at the time of direct communication. Medications Medications Current Medications Acetaminophen (Acetaminophen 325 Mg Tablet) 650 mg PO Q6H PRN PRN Reason: Headache/Pain Mild Scale (1-3) Last Admin: 08/08/21 18:04 Dose: 650 mg Documented by: Al Hydroxide/Mg Hydroxide (Magnesium Hydrox/Alum Hydrox 30 Ml Oral.Susp) 30 ml PO Q6H PRN PRN Reason: Heartburn/Nausea Last Admin: 07/26/21 16:50 Dose: 30 ml Documented by: Clonazepam (Clonazepam 1 Mg Tablet) 1 mg PO TID [facility] Last Admin: 08/09/21 15:47 Dose: 1 mg Documented by: Gabapentin (Gabapentin 300 Mg Capsule) 300 mg PO TID [facility] Last Admin: 08/09/21 15:47 Dose: 300 mg Documented by: Hydroxyzine HCl (Hydroxyzine Hcl 25 Mg Tablet) 25 mg PO Q6H PRN PRN Reason: Anxiety Last Admin: 07/31/21 09:00 Dose: 25 mg Documented by: Lurasidone HCl (Lurasidone Hcl 80 Mg Tablet) 80 mg PO DAILY@1700 [facility] Last Admin: 08/08/21 18:05 Dose: 80 mg Documented by: Magnesium Hydroxide (Milk Of Magnesia 30 Ml Oral.Susp) 30 ml PO DAILY PRN PRN Reason: Constipation Mirtazapine (Mirtazapine 15 Mg Tablet) 15 mg PO BEDTIME [facility] Last Admin: 08/08/21 21:41 Dose: 15 mg Documented by: Multivitamins/Vitamin C (Multivitamin Tablet) 1 tab PO DAILY [facility] Last Admin: 08/09/21 09:22 Dose: 1 tab Documented by: Nicotine Polacrilex (Nicotine Polacrilex 2 Mg Gum) 2 mg BUCCAL Q2H PRN PRN Reason: Nicotine Cravings Oxcarbazepine (Oxcarbazepine 300 Mg Tablet) 300 mg PO BID [facility] Last Admin: 08/09/21 09:22 Dose: 300 mg Documented by: Trazodone HCl (Trazodone Hcl 100 Mg Tablet) 200 mg PO BEDTIME [facility] Last Admin: 08/08/21 21:41 Dose: 200 mg Documented by: Venlafaxine HCl (Venlafaxine Hcl Er 37.5 Mg Cap.Er.24h) 112.5 mg PO DAILY [facility] Last Admin: 08/09/21 09:22 Dose: 112.5 mg Documented by: Allergies Allergies Allergy/AdvReac Type Severity Reaction Status Date / Time sulfamethoxazole Allergy Unknown ANAPHYLAXIS Verified 10/24/20 21:43 [From BACTRIM] trimethoprim [From BACTRIM] Allergy Unknown ANAPHYLAXIS Verified 10/24/20 21:43 Assessment & Plan Assessment & Plan (1) Cocaine use disorder: Status: Acute Code(s): F14.10 - Cocaine abuse, uncomplicated (2) Bipolar II disorder with atypical features: Status: Acute Code(s): F31.81 - Bipolar II disorder Assessment and Plan: Ms. Bedoya is a 61 year-old woman with hx of Bipolar type 2 disorder and cocaine use disorder who was brought to [facility] by family as pt progressively and acutely presented as not able to walk, move, talk as much, blank stare, some absent minded. Pt is known to this senior copywriter and this is an unusual presentation for her. PLAN 1. Catatonia: has much improved, off ativan back on clonazepam, however, pt continues to report depressed mood, although brighter affect, improved hygiene. 2. ?Underlying cognitive disorder-MOCA on 07/26/2021- most impairments in executive/visuospatial function, attention, repeat, fluency, recall 1. Continue clonazepam 2. Increased Latuda to 80mg po dinner time as of 08/05. 3. Continue Effexor ER to 112.5mg po daily- monitor for activation, s/s of hypomania/feroz. 4. Continue trazodone/remeron for sleep I spent minutes with the patient and/or on the patient floor today, greater than?50% of which was spent counseling/coordinating care. Reason for contiued inpatient stay Substantial Risk for: harm to self and inability to function
[2021-08-09] MEDS: Lurasidone HCl 80 MG TABLET PO (18:33)
[2021-08-09] MEDS: Mirtazapine 15 MG TABLET PO (21:54)
[2021-08-09] MEDS: traZODone HCL 100 MG TABLET 200 MG PO (21:55)
[2021-08-09 22:32] VITALS: BP 119/74; PULSE 85; RESP 17; TEMP 36.3; O2SAT 97
[2021-08-10] MEDS: Venlafaxine HCl ER 37.5 MG CAP.ER.24H 112.5 MG PO (09:45)
[2021-08-10] MEDS: Multivitamin TABLET 1 TAB PO (09:45)
[2021-08-10] MEDS: OXcarbazepine 300 MG TABLET PO ×2 (09:45→21:53)
[2021-08-10] MEDS: Gabapentin 300 MG CAPSULE PO ×3 (09:45→21:53)
[2021-08-10] MEDS: clonazePAM 1 MG TABLET PO ×3 (09:46→21:53)
[2021-08-10 09:52] VITALS: BP 111/77; PULSE 70; TEMP 36.2; O2SAT 96
--- NOTE | 2021-08-10 15:00 | HO.PSYCHPN ---
Subjective Subjective Date of Service: 08/10/21 Reason For Visit: SI Interim History: pt seen and discussed Patient reports she is feeling well. She is attending to ADLs.? She is calm and cooperative. She says her medications seem to be working well. She slept well. She had no complaints or requests. Hopeful for discharge soon. Review of Systems Review of Systems Yes all other systems are reviewed and are negative Constitutional: Denies chills and Denies fever(s) Cardiovascular: Denies chest pain Musculoskeletal: Reports abnormal gait, Denies myalgias and Denies muscle cramps Reports abnormal gait, Denies focal weakness and Denies Other visual disturbances Mental Status Exam Mental Status Exam Narrative: Appearance: casually groomed, good hygiene Behavior:cooperative psychomotor: no retardation noted Speech: clear, regular response rate, fluent, soft tone, spontaneous Thought process: linear, logical Thought content:no paranoia or delusions expressed Mood: good Affect:constricted AH/VH: none expressed Delusions: none expressed SI: none expressed HI: none expressed Insight/judgment:fair x 2. memory/cog: alert, oriented x 3. Patient Appearance: Well Grooomed Patient Orientation: Person, Place and Situation Level of Consciousness: Awake Patient Behavior: Passive Mood Description: Calm Affect Description: Constricted Patient Cognition Impaired: No Ability to Follow Directions: Good Speech Pattern: Clear Diagnostics Vital Signs (24Hr): Vital Signs - 24 hr 08/10/21 09:52 08/10/21 20:57 Temperature 97.2 F 97.3 F Pulse Rate 70 88 Blood Pressure 111/77 99/68 Pulse Oximetry 96 95 Body Mass Index 28.8 Labs Results: 07/15/21 22:17 07/15/21 22:17 Imaging Radiology Impressions: ITS Impressions Head CT 07/17/21 17:37 IMPRESSION: No acute intracranial pathology. This critical result was discussed with Dr. Olivares at 1808 hours on 07/17/2021. It was ascertained that the content and urgency of the report was understood at the time of direct communication. Medications Medications Current Medications Acetaminophen (Acetaminophen 325 Mg Tablet) 650 mg PO Q6H PRN PRN Reason: Headache/Pain Mild Scale (1-3) Last Admin: 08/08/21 18:04 Dose: 650 mg Documented by: Al Hydroxide/Mg Hydroxide (Magnesium Hydrox/Alum Hydrox 30 Ml Oral.Susp) 30 ml PO Q6H PRN PRN Reason: Heartburn/Nausea Last Admin: 07/26/21 16:50 Dose: 30 ml Documented by: Clonazepam (Clonazepam 1 Mg Tablet) 1 mg PO TID [facility] Last Admin: 08/10/21 21:53 Dose: 1 mg Documented by: Gabapentin (Gabapentin 300 Mg Capsule) 300 mg PO TID [facility] Last Admin: 08/10/21 21:53 Dose: 300 mg Documented by: Hydroxyzine HCl (Hydroxyzine Hcl 25 Mg Tablet) 25 mg PO Q6H PRN PRN Reason: Anxiety Last Admin: 07/31/21 09:00 Dose: 25 mg Documented by: Lurasidone HCl (Lurasidone Hcl 80 Mg Tablet) 80 mg PO DAILY@1700 [facility] Last Admin: 08/10/21 17:28 Dose: 80 mg Documented by: Magnesium Hydroxide (Milk Of Magnesia 30 Ml Oral.Susp) 30 ml PO DAILY PRN PRN Reason: Constipation Mirtazapine (Mirtazapine 15 Mg Tablet) 15 mg PO BEDTIME [facility] Last Admin: 08/10/21 21:53 Dose: 15 mg Documented by: Multivitamins/Vitamin C (Multivitamin Tablet) 1 tab PO DAILY [facility] Last Admin: 08/10/21 09:45 Dose: 1 tab Documented by: Nicotine Polacrilex (Nicotine Polacrilex 2 Mg Gum) 2 mg BUCCAL Q2H PRN PRN Reason: Nicotine Cravings Oxcarbazepine (Oxcarbazepine 300 Mg Tablet) 300 mg PO BID [facility] Last Admin: 08/10/21 21:53 Dose: 300 mg Documented by: Trazodone HCl (Trazodone Hcl 100 Mg Tablet) 200 mg PO BEDTIME [facility] Last Admin: 08/10/21 21:53 Dose: 200 mg Documented by: Venlafaxine HCl (Venlafaxine Hcl Er 37.5 Mg Cap.Er.24h) 112.5 mg PO DAILY [facility] Last Admin: 08/10/21 09:45 Dose: 112.5 mg Documented by: Allergies Allergies Allergy/AdvReac Type Severity Reaction Status Date / Time sulfamethoxazole Allergy Unknown ANAPHYLAXIS Verified 10/24/20 21:43 [From BACTRIM] trimethoprim [From BACTRIM] Allergy Unknown ANAPHYLAXIS Verified 10/24/20 21:43 Assessment & Plan Assessment & Plan (1) Cocaine use disorder: Status: Acute Code(s): F14.10 - Cocaine abuse, uncomplicated (2) Bipolar II disorder with atypical features: Status: Acute Code(s): F31.81 - Bipolar II disorder Assessment and Plan: Ms. Bedoya is a 61 year-old woman with hx of Bipolar type 2 disorder and cocaine use disorder who was brought to [facility] ED by family as pt progressively and acutely presented as not able to walk, move, talk as much, blank stare, some absent minded. 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 PLAN 1. Catatonia: has much improved, off ativan back on clonazepam, however, pt continues to report depressed mood, although brighter affect, improved hygiene. 2. ?Underlying cognitive disorder-MOCA on 07/26/2021- most impairments in executive/visuospatial function, attention, repeat, fluency, recall 1. Continue clonazepam 2. Increased Latuda to 80mg po dinner time as of 08/05. 3. Continue Effexor ER to 112.5mg po daily- monitor for activation, s/s of hypomania/feroz. 4. Continue trazodone/remeron for sleep I spent minutes with the patient and/or on the patient floor today, greater than?50% of which was spent counseling/coordinating care. Reason for contiued inpatient stay Substantial Risk for: harm to self and rapid decompensation
[2021-08-10] MEDS: Lurasidone HCl 80 MG TABLET PO (17:28)
[2021-08-10 20:57] VITALS: BP 99/68; PULSE 88; TEMP 36.3; O2SAT 95
[2021-08-10] MEDS: traZODone HCL 100 MG TABLET 200 MG PO (21:53)
[2021-08-10] MEDS: Mirtazapine 15 MG TABLET PO (21:53)
--- NOTE | 2021-08-11 09:48 | P.PNPSI_ITS ---
Subjective Subjective Date of Service: 08/11/21 Reason For Visit: SI Subjective Notes: Conditional Voluntary Interim History: Pt reports she is in fact feeling better in that she is less anxious, less depressed, still worries about going home and quickly feeling dep ressed or suicidal. She denies suicidal ideation. She denies VH/AH. She reports sleeping and eating well. She notes significant improvement since admission. Per nursing, pt has been visible in the unit, social with select peers. No Behavioral concerns. She is taking medications as prescribed. Review of Systems Review of Systems Yes all other systems are reviewed and are negative Constitutional: Denies chills and Denies fever(s) Cardiovascular: Denies chest pain Musculoskeletal: Reports abnormal gait, Denies myalgias and Denies muscle cramps Reports abnormal gait, Denies focal weakness and Denies Other visual disturbances Mental Status Exam Mental Status Exam Narrative: Appearance: casually groomed, good hygiene Behavior:cooperative psychomotor: no retardation noted Speech: clear, regular response rate, fluent, soft tone, spontaneous Thought process: linear, logical Thought content:no paranoia or delusions expressed Mood: good Affect:constricted AH/VH: none expressed Delusions: none expressed SI: none expressed HI: none expressed Insight/judgment:fair x 2. memory/cog: alert, oriented x 3.MOCA on 07/26 score 15/30, most difficulty with executive function, attention, language repetition and fluency, recall (3/5), orientation. Diagnostics Vital Signs (24Hr): Vital Signs - 24 hr 08/10/21 20:57 08/11/21 09:50 Temperature 97.3 F 97.4 F Pulse Rate 88 85 Respiratory Rate 16 Blood Pressure 99/68 129/74 Pulse Oximetry 95 95 Body Mass Index 28.8 Labs Results: 07/15/21 22:17 07/15/21 22:17 Imaging Radiology Impressions: ITS Impressions Head CT 07/17/21 17:37 IMPRESSION: No acute intracranial pathology. This critical result was discussed with Dr. Olivares at 1808 hours on 07/17/2021. It was ascertained that the content and urgency of the report was understood at the time of direct communication. Medications Medications Current Medications Acetaminophen (Acetaminophen 325 Mg Tablet) 650 mg PO Q6H PRN PRN Reason: Headache/Pain Mild Scale (1-3) Last Admin: 08/08/21 18:04 Dose: 650 mg Documented by: Al Hydroxide/Mg Hydroxide (Magnesium Hydrox/Alum Hydrox 30 Ml Oral.Susp) 30 ml PO Q6H PRN PRN Reason: Heartburn/Nausea Last Admin: 07/26/21 16:50 Dose: 30 ml Documented by: Clonazepam (Clonazepam 1 Mg Tablet) 1 mg PO TID [facility] Last Admin: 08/11/21 09:54 Dose: 1 mg Documented by: Gabapentin (Gabapentin 300 Mg Capsule) 300 mg PO TID [facility] Last Admin: 08/11/21 09:54 Dose: 300 mg Documented by: Hydroxyzine HCl (Hydroxyzine Hcl 25 Mg Tablet) 25 mg PO Q6H PRN PRN Reason: Anxiety Last Admin: 07/31/21 09:00 Dose: 25 mg Documented by: Lurasidone HCl (Lurasidone Hcl 80 Mg Tablet) 80 mg PO DAILY@1700 [facility] Last Admin: 08/10/21 17:28 Dose: 80 mg Documented by: Magnesium Hydroxide (Milk Of Magnesia 30 Ml Oral.Susp) 30 ml PO DAILY PRN PRN Reason: Constipation Mirtazapine (Mirtazapine 15 Mg Tablet) 15 mg PO BEDTIME [facility] Last Admin: 08/10/21 21:53 Dose: 15 mg Documented by: Multivitamins/Vitamin C (Multivitamin Tablet) 1 tab PO DAILY [facility] Last Admin: 08/11/21 09:54 Dose: 1 tab Documented by: Nicotine Polacrilex (Nicotine Polacrilex 2 Mg Gum) 2 mg BUCCAL Q2H PRN PRN Reason: Nicotine Cravings Oxcarbazepine (Oxcarbazepine 300 Mg Tablet) 300 mg PO BID [facility] Last Admin: 08/11/21 09:54 Dose: 300 mg Documented by: Trazodone HCl (Trazodone Hcl 100 Mg Tablet) 200 mg PO BEDTIME [facility] Last Admin: 08/10/21 21:53 Dose: 200 mg Documented by: Venlafaxine HCl (Venlafaxine Hcl Er 37.5 Mg Cap.Er.24h) 112.5 mg PO DAILY [facility] Last Admin: 08/11/21 09:54 Dose: 112.5 mg Documented by: Allergies Allergies Allergy/AdvReac Type Severity Reaction Status Date / Time sulfamethoxazole Allergy Unknown ANAPHYLAXIS Verified 10/24/20 21:43 [From BACTRIM] trimethoprim [From BACTRIM] Allergy Unknown ANAPHYLAXIS Verified 10/24/20 21:43 Assessment & Plan Assessment & Plan (1) Cocaine use disorder: Status: Acute Code(s): F14.10 - Cocaine abuse, uncomplicated (2) Bipolar II disorder with atypical features: Status: Acute Code(s): F31.81 - Bipolar II disorder Assessment and Plan: Ms. Bedoya is a 61 year-old woman with hx of Bipolar type 2 disorder and cocaine use disorder who was brought to [facility] by family as pt progressively and acutely presented as not able to walk, move, talk as much, blank stare, some absent minded. 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 PLAN 1. Catatonia: has much improved, off ativan back on clonazepam. 2. ?Underlying cognitive disorder-MOCA on 07/26/2021- most impairments in executive/visuospatial function, attention, repeat, fluency, recall 1. Continue clonazepam 2. Increased Latuda to 80mg po dinner time as of 08/05. 3. Continue Effexor ER to 112.5mg po daily- monitor for activation, s/s of hypomania/feroz. 4. Continue trazodone/remeron for sleep I spent minutes with the patient and/or on the patient floor today, greater than?50% of which was spent counseling/coordinating care. Patient educated on: diagnosis, medication risk/benefits and substance abuse Reason for contiued inpatient stay Substantial Risk for: stable for discharge
[2021-08-11 09:50] VITALS: BP 129/74; PULSE 85; RESP 16; TEMP 36.3; O2SAT 95
[2021-08-11] MEDS: Venlafaxine HCl ER 37.5 MG CAP.ER.24H 112.5 MG PO (09:54)
[2021-08-11] MEDS: Multivitamin TABLET 1 TAB PO (09:54)
[2021-08-11] MEDS: Gabapentin 300 MG CAPSULE PO ×3 (09:54→21:42)
[2021-08-11] MEDS: OXcarbazepine 300 MG TABLET PO ×2 (09:54→21:41)
[2021-08-11] MEDS: clonazePAM 1 MG TABLET PO ×3 (09:54→21:41)
[2021-08-11] MEDS: Lurasidone HCl 80 MG TABLET PO (13:40)
[2021-08-11 18:00] VITALS: BP 107/63; PULSE 78; TEMP 36.1; O2SAT 96
[2021-08-11] MEDS: traZODone HCL 100 MG TABLET 200 MG PO (21:41)
[2021-08-11] MEDS: Mirtazapine 15 MG TABLET PO (21:42)
[2021-08-12 09:25] VITALS: BP 118/65; PULSE 80; RESP 18; TEMP 36.3; O2SAT 97
[2021-08-12] MEDS: Multivitamin TABLET 1 TAB PO (09:25)
[2021-08-12] MEDS: OXcarbazepine 300 MG TABLET PO ×2 (09:25→21:14)
[2021-08-12] MEDS: clonazePAM 1 MG TABLET PO ×3 (09:26→21:14)
[2021-08-12] MEDS: Venlafaxine HCl ER 37.5 MG CAP.ER.24H 112.5 MG PO (09:26)
[2021-08-12] MEDS: Gabapentin 300 MG CAPSULE PO ×3 (09:26→21:14)
--- NOTE | 2021-08-12 14:28 | P.PNPSI_ITS ---
Subjective Subjective Date of Service: 08/12/21 Reason For Visit: SI Subjective Notes: Conditional Voluntary Interim History: Pt reports depression have significnatly decrease and she rates it at 4-5 on a scale from 1-10. Pt reports feeling anxious still but affect much brighter than reported mood. She denies SI/HI. She reports eating and sleeping well. Per nursing, pt visible in the unit, social with select peers, attends assigned groups. No behavioral concerns. Medication Compliance: Yes Side effects from medications: No Review of Systems Review of Systems Yes all other systems are reviewed and are negative Constitutional: Denies chills and Denies fever(s) Cardiovascular: Denies chest pain Musculoskeletal: Reports abnormal gait, Denies myalgias and Denies muscle cramps Reports abnormal gait, Denies focal weakness and Denies Other visual disturbances Mental Status Exam Mental Status Exam Narrative: Appearance: casually groomed, good hygiene Behavior:cooperative psychomotor: no retardation noted Speech: clear, regular response rate, fluent, soft tone, spontaneous Thought process: linear, logical Thought content:no paranoia or delusions expressed Mood: good Affect:constricted AH/VH: none expressed Delusions: none expressed SI: none expressed HI: none expressed Insight/judgment:fair x 2. memory/cog: alert, oriented x 3. MOCA on 07/26 score 15/30, most difficulty with executive function, attention, language repetition and fluency, recall (3/5), orientation. Diagnostics Vital Signs (24Hr): Vital Signs - 24 hr 08/11/21 18:00 08/12/21 09:25 Temperature 97.0 F 97.4 F Pulse Rate 78 80 Respiratory Rate 18 Blood Pressure 107/63 118/65 Pulse Oximetry 96 97 Body Mass Index 28.8 Labs Results: 07/15/21 22:17 07/15/21 22:17 Imaging Radiology Impressions: ITS Impressions Head CT 07/17/21 17:37 IMPRESSION: No acute intracranial pathology. This critical result was discussed with Dr. Olivares at 1808 hours on 07/17/2021. It was ascertained that the content and urgency of the report was understood at the time of direct communication. Medications Medications Current Medications Acetaminophen (Acetaminophen 325 Mg Tablet) 650 mg PO Q6H PRN PRN Reason: Headache/Pain Mild Scale (1-3) Last Admin: 08/08/21 18:04 Dose: 650 mg Documented by: Al Hydroxide/Mg Hydroxide (Magnesium Hydrox/Alum Hydrox 30 Ml Oral.Susp) 30 ml PO Q6H PRN PRN Reason: Heartburn/Nausea Last Admin: 07/26/21 16:50 Dose: 30 ml Documented by: Clonazepam (Clonazepam 1 Mg Tablet) 1 mg PO TID [facility] Last Admin: 08/12/21 09:26 Dose: 1 mg Documented by: Gabapentin (Gabapentin 300 Mg Capsule) 300 mg PO TID [facility] Last Admin: 08/12/21 09:26 Dose: 300 mg Documented by: Hydroxyzine HCl (Hydroxyzine Hcl 25 Mg Tablet) 25 mg PO Q6H PRN PRN Reason: Anxiety Last Admin: 07/31/21 09:00 Dose: 25 mg Documented by: Lurasidone HCl (Lurasidone Hcl 80 Mg Tablet) 80 mg PO DAILY@1230 [facility] Last Admin: 08/12/21 14:19 Dose: Not Given Documented by: Magnesium Hydroxide (Milk Of Magnesia 30 Ml Oral.Susp) 30 ml PO DAILY PRN PRN Reason: Constipation Mirtazapine (Mirtazapine 15 Mg Tablet) 15 mg PO BEDTIME [facility] Last Admin: 08/11/21 21:42 Dose: 15 mg Documented by: Multivitamins/Vitamin C (Multivitamin Tablet) 1 tab PO DAILY [facility] Last Admin: 08/12/21 09:25 Dose: 1 tab Documented by: Nicotine Polacrilex (Nicotine Polacrilex 2 Mg Gum) 2 mg BUCCAL Q2H PRN PRN Reason: Nicotine Cravings Oxcarbazepine (Oxcarbazepine 300 Mg Tablet) 300 mg PO BID [facility] Last Admin: 08/12/21 09:25 Dose: 300 mg Documented by: Trazodone HCl (Trazodone Hcl 100 Mg Tablet) 200 mg PO BEDTIME [facility] Last Admin: 08/11/21 21:41 Dose: 200 mg Documented by: Venlafaxine HCl (Venlafaxine Hcl Er 37.5 Mg Cap.Er.24h) 112.5 mg PO DAILY [facility] Last Admin: 08/12/21 09:26 Dose: 112.5 mg Documented by: Allergies Allergies Allergy/AdvReac Type Severity Reaction Status Date / Time sulfamethoxazole Allergy Unknown ANAPHYLAXIS Verified 10/24/20 21:43 [From BACTRIM] trimethoprim [From BACTRIM] Allergy Unknown ANAPHYLAXIS Verified 10/24/20 21:43 Assessment & Plan Assessment & Plan (1) Cocaine use disorder: Status: Acute Code(s): F14.10 - Cocaine abuse, uncomplicated (2) Bipolar II disorder with atypical features: Status: Acute Code(s): F31.81 - Bipolar II disorder Assessment and Plan: Ms. Bedoya is a 61 year-old woman with hx of Bipolar type 2 disorder and cocaine use disorder who was brought to [facility] ED by family as pt progressively and acutely presented as not able to walk, move, talk as much, blank stare, some absent minded. 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 PLAN 1. Catatonia: has much improved, off ativan back on clonazepam. 2. ?Underlying cognitive disorder-MOCA on 07/26/2021- most impairments in executive/visuospatial function, attention, repeat, fluency, recall 1. Continue clonazepam 2. Increased Latuda to 80mg po dinner time as of 08/05. 3. Continue Effexor ER to 112.5mg po daily- monitor for activation, s/s of hypomania/feroz. 4. Continue trazodone/remeron for sleep I spent minutes with the patient and/or on the patient floor today, greater than?50% of which was spent counseling/coordinating care. Reason for contiued inpatient stay Substantial Risk for: stable for discharge
[2021-08-12 21:09] VITALS: BP 103/70; PULSE 84; TEMP 36.3; O2SAT 95
[2021-08-12] MEDS: traZODone HCL 100 MG TABLET 200 MG PO (21:14)
[2021-08-12] MEDS: Mirtazapine 15 MG TABLET PO (21:14)
[2021-08-12] MEDS: Lurasidone HCl 80 MG TABLET PO (21:14)
[2021-08-13 08:45] VITALS: BP 133/62; PULSE 75; RESP 18; TEMP 36.4; O2SAT 94
[2021-08-13] MEDS: Multivitamin TABLET 1 TAB PO (09:02)
[2021-08-13] MEDS: Gabapentin 300 MG CAPSULE PO (09:02)
[2021-08-13] MEDS: OXcarbazepine 300 MG TABLET PO (09:03)
[2021-08-13] MEDS: clonazePAM 1 MG TABLET PO (09:03)
[2021-08-13] MEDS: Venlafaxine HCl ER 37.5 MG CAP.ER.24H 112.5 MG PO (09:03)
--- NOTE | 2021-08-13 09:06 | P.DS_ITS ---
DS: Providers Provider Date of Service: 08/13/21 <Karen Lomassuad - Last Filed: 09/10/21 15:05> Date of admission: 07/16/21 11:48 <Karen Lomasluanavíctor - Last Filed: 09/10/21 15:05> Primary care physician: Unknown Physician <Karen Lomasluanavíctor - Last Filed: 09/10/21 15:05> DS: Diagnosis Discharge Diagnosis (1) Bipolar II disorder with atypical features: Status: Acute <Karen Lomasluanavíctor - Last Filed: 09/10/21 15:05> DS: Medications Discharge Medications Home Medications: Home Medications Medication Instructions Recorded Confirmed gabapentin 300 mg capsule 300 mg PO TID 07/15/21 07/15/21 Previous Rx's Medication Instructions Recorded clonazepam 1 mg tablet 1 mg PO TID #90 tab 08/13/21 lurasidone 80 mg tablet (Latuda) 80 mg PO BEDTIME #30 tab 08/13/21 mirtazapine 15 mg tablet 15 mg PO BEDTIME #30 tab 08/13/21 multivitamin (Daily-Elias) 1 tab PO DAILY #30 tab 08/13/21 oxcarbazepine 300 mg tablet 300 mg PO BID #60 tab 08/13/21 trazodone 100 mg tablet 200 mg PO BEDTIME #60 tab 08/13/21 venlafaxine 150 mg 150 mg PO DAILY #30 cap 08/13/21 capsule,extended release 24 hr <Karen Lomassuad - Last Filed: 09/10/21 15:05> Mental Status Exam Mental Status Exam Narrative: Appearance: casually groomed, good hygiene Behavior:cooperative psychomotor: no retardation noted Speech: clear, regular response rate, fluent, soft tone, spontaneous Thought process: linear, logical Thought content:no paranoia or delusions expressed Mood: good Affect:constricted AH/VH: none expressed Delusions: none expressed SI: none expressed HI: none expressed Insight/judgment:fair x 2. memory/cog: alert, oriented x 3. MOCA on 07/26/21 score 15/30, most difficulty with executive function, attention, language repetition and fluency, recall (3/5), orientation. <Karen Lomassuad - Last Filed: 09/10/21 15:05> Data Data Completed and Pending Completed studies during hospitalization [Text1]: 07/31/21 11:04 Urine clean catch - Urine lara top Urine Culture - Final 07/15/21 22:28 Urine clean catch - Urine lara top Urine Culture - Final <Karen Lamb - Last Filed: 09/10/21 15:05> Imaging Diagnostic Imaging Impressions Head CT 07/17/21 17:37 IMPRESSION: No acute intracranial pathology. This critical result was discussed with Dr. Olivares at 1808 hours on 07/17/2021. It was ascertained that the content and urgency of the report was understood at the time of direct communication. <Karen Lamb - Last Filed: 09/10/21 15:05> DS: Summary Hospital Course Hospital Course: Subjective Notes: Conditional Voluntary Narrative: Ms. Bedoya is a 61 year-old woman with hx of Bipolar type 2, cocaine use disorder who was brought to [facility] ED by family as pt has been presenting as increasingly more withdrawn, not able to talk much, not moving much, in bed, barely taking care for herself. Her son reports pt has been zombie-like. Pt reports she knows she is not well. She states I can't think. She expresses concern as to how she is presenting but does not know what is going on with her. When asked if she can't move because she is confused, pt reports she is not sure. She does walk with some assistance. She reports feeling anxious due to current presentation. In the ED, her utox was positive for benzodiazepines, which she has been prescribed for years by her OP. Pt was negative for cocaine. Pt reports last use of cocaine several weeks ago. Ms. Bedoya is known to this chief writer through two previous admission earlier this years and this is a very unusual presentation for this patient. Pt is oriented to place, month, situation, year. She has been mostly in bed, black stare, does follow commands and able to verbalize short answers. Past Psychiatric History: Inpt M5 and d/c 10/18/20? HOSPITAL COURSE Ms. Bedoya was admitted on a CV and placed on 15 minutes checks for safety. Pt presented with s/s of catatonia including mutism, blank stare, waxy flexibility. Pt also presented as very ambivalent unable to make decisions, reporting depressed mood, passive SI. After discussing risks, benefits and alternative treatment options, pt was started on ativan 2mg po TID for catatonia. She responded well and gradually her affect was much brighter, she was ambulating and talking much more. She continued to endorse depressed mood, anhedonia, hopeless/helpless, anxious mood. She was continued on latuda which was increased to 80mg po daily. She was added Effexor for depression. Her affect gradually presented as much more brighter. No signs of activation or feroz noted. She reported less symptoms of depression, reported feeling more optimistic and future oriented. Her appetite and sleep improved. She was tapered off ativan and switched back to clonazepam as she has been on for several years. She did not appear internally preoccupied. Once mood had improved MOCA was compl eted which did show impairments in executive function, orientation, recall. Collateral information gathered from her son who agreed at time of discharged that pt was in a much improved condition and denied any safety concerns. <Karen Lamb - Last Filed: 09/10/21 15:05> Time Spent with Patient Time attestation: Total time spent providing and/or coordinating discharge services: <Karen Lamb - Last Filed: 09/10/21 15:05> Discharge Plan Discharge Patient Disposition: Home, Self-Care <Karen Lamb - Last Filed: 09/10/21 15:05> Discharge Diagnosis: Bipolar Disorder type 2 cocaine use disorder <Karen Lamb - Last Filed: 09/10/21 15:05> Bipolar Disorder type 2 cocaine use disorder <Christopher Mireles MD - Last Filed: 09/10/21 22:36> Referrals: REENA ZEPEDA, PSYCHIATRY [Other] - 08/26/21 2:00 am (IN OFFICE) ANDREA MCKEON, THERAPIST [Other] - 08/21/21 2:00 am (TELEHEALTH) Physician,Unknown J [Primary Care Provider] - 1 Week ([facility] - [phone] - will call the pt to schedule a follow up appt) <Karen Lamb - Last Filed: 09/10/21 15:05> Discharge Medications: New clonazepam 1 mg Tablet 1 mg PO TID Qty: 90 RF: 0 oxcarbazepine 300 mg Tablet 300 mg PO BID Qty: 60 RF: 0 trazodone 100 mg Tablet 200 mg PO BEDTIME Qty: 60 RF: 0 mirtazapine 15 mg Tablet 15 mg PO BEDTIME Qty: 30 RF: 0 Latuda 80 mg Tablet 80 mg PO BEDTIME Qty: 30 RF: 0 venlafaxine 150 mg capsule,extended release 24hr 150 mg PO DAILY Qty: 30 RF: 0 multivitamin [Daily-Elias] Tablet 1 tab PO DAILY Qty: 30 RF: 0 Continued gabapentin 300 mg capsule 300 mg PO TID RF: 0 Discontinued clonazepam 1 mg tablet 1 tab PO TID 15 Days Qty: 45 RF: 0 Latuda 80 mg tablet 1 tab PO DAILY RF: 0 mirtazapine 7.5 mg tablet 1 tab PO BEDTIME RF: 0 oxcarbazepine 300 mg tablet 1 tab PO BID RF: 0 trazodone 100 mg tablet 1 - 2 tab PO BEDTIME RF: 0 <Karen Lamb - Last Filed: 09/10/21 15:05> Discharge Orders: Discharge Order (Routine); Ordered 08/13/21 Ordered By: Karen Lamb <Karen Lamb - Last Filed: 09/10/21 15:05> Diet: regular diet <Karen Lamb - Last Filed: 09/10/21 15:05> regular diet <Christopher Mireles MD - Last Filed: 09/10/21 22:36> Activity on Discharge: As tolerated <Karen Lamb - Last Filed: 09/10/21 15:05> As tolerated <Christopher Mireles MD - Last Filed: 09/10/21 22:36> Stand Alone Forms: Patient Portal Discharge page, Community Support <Karen Lamb - Last Filed: 09/10/21 15:05> Care Plan Goals: 1. Maintain mood 2. No SI/HI. 3. Avoid cocaine use. <Karen Lamb - Last Filed: 09/10/21 15:05> Health Concerns: 1. Follow up with PCP <Karen Lamb - Last Filed: 09/10/21 15:05> Plan of Treatment: 1. Take medications as prescribed 2. Go to ED or call 911 in event of emergency <Karen Lamb - Last Filed: 09/10/21 15:05> Assessment: Pt with much brighter affect. She reports less symptoms of depression. No signs of catatonia. No SI/HI. No signs of aggression towards self or others. <Karen Lamb - Last Filed: 09/10/21 15:05> Discharge Date/Time: 08/13/21 11:35 <Karen Lamb - Last Filed: 09/10/21 15:05>
--- NOTE | 2021-08-13 09:43 | PC.NURSE ---
Patient is alert, fully oriented, pleasant and cooperative with discharge plan. Patient states, I feel so much better and The staff have been so good to me here. Patient denies ideation, plan or intent to harm self or others. She denies perceptual disturbance. Iveth verbalizes knowledge of prescribed medications. She states she plans to obtain a mediplanner to improve compliance. She verbalizes intent to continue medications as prescribed and to attend follow up appointments. Iveth denies physical complaint [ End ]
== END 2021-08-13 11:35 | disposition home or self-care (01) | DRG 885 ==
LOC: HO.ED 21:12 → HO.PADLT16 07-16 11:55
PROVIDERS: Admitting Provider Psychiatry & Neurology Psychiatry; Emergency Provider Emergency Medicine Emergency Medical Services; Visit Provider Social Worker
DX: F31.81 Bipolar II disorder (principal); R45.851 Suicidal ideations; F20.2 Catatonic schizophrenia; F14.10 Cocaine abuse, uncomplicated; Z20.822 Contact with and (suspected) exposure to COVID-19; Z23 Encounter for immunization; Z88.2 Allergy status to sulfonamides; Z79.899 Other long term (current) drug therapy
CPT/HCPCS: 36415; 70450; 80048; 80061; 80076; 80307; 81001; 81003; 82077; 82607; 82746; 83036; 83735; 84443; 85025; 85610; 87086; 87635; 90471; 90686; 93005; 99285; J2060

== ENCOUNTER 2021-10-03 12:29 | Emergency (ER) | payer MEDICARE, MEDICAID, SELFPAY ==
--- NOTE | ~2021-10-03 | XR_ITS ---
EXAMINATION: XR CHEST CLINICAL INFORMATION: Chest wall pain. Status post CPR. COMPARISON: None TECHNIQUE: 2 views of the chest were obtained. FINDINGS: The lungs are well-expanded and clear. The heart size and pulmonary vascularity is normal. No gross bony abnormality seen. XR/XR chest 2V IMPRESSION: Unremarkable chest exam.
[2021-10-03 12:43] VITALS: BP 137/77; BP 152/80; PULSE 81; PULSE 88; RESP 18; TEMP 37; O2SAT 95; O2SAT 99; BMI 27.4
--- NOTE | 2021-10-03 13:09 | ECG_ITS ---
Test Reason : pain Blood Pressure : / mmHG Vent. Rate : 066 BPM Atrial Rate : 066 BPM P-R Int : 156 ms QRS Dur : 100 ms QT Int : 410 ms P-R-T Axes : 041 -02 027 degrees QTc Int : 429 ms Artifact in tracing Sinus rhythm with Premature ventricular complexes Otherwise normal ECG When compared with ECG of 16-JUL-2021 13:33, Premature ventricular complexes present Nonspecific T wave abnormality has replaced inverted T waves in Anterior leads Referred By: Rosa Márquez Electronically Signed By:TONI CHAPARRO
--- NOTE | 2021-10-03 13:09 | ED_ITS ---
HPI - Overdose General Chief Complaint: Overdose Stated Complaint: overdose Time Seen by Provider: 10/03/21 12:51 Source: patient Mode of arrival: EMS Limitations: no limitations History of Present Illness HPI Narrative: 61-year-old female who snorted heroin and was revived with Narcan presents emergency room via EMS. Patient states that she has never tried heroin before, and was giving her friend arrived and her friend suggested that she try starting it. Patient states that things have been going okay in her life, she is doing fine with her mental health, no SI or HI, she took her meds this morning, and had an appointment with her therapist yesterday. No recent life stressors. Per EMS, patient was given 4 mg Narcan. She states she used 1 bag. Per EMS bystanders were doing CPR on the scene. She is now nauseous, sleepy, and her chest hurts. States everything hurts. Denies alcohol or other drug us bakari GERONIMO complaint: accidental overdose Context: Accidental Overdose: wanted to get high Treatments Prior to Arrival: narcan Related Data Home Medications Medication Instructions Recorded Confirmed gabapentin 300 mg capsule 300 mg PO TID 07/15/21 07/15/21 Previous Rx's Medication Instructions Recorded clonazepam 1 mg tablet 1 mg PO TID #90 tab 08/13/21 lurasidone 80 mg tablet (Latuda) 80 mg PO BEDTIME #30 tab 08/13/21 mirtazapine 15 mg tablet 15 mg PO BEDTIME #30 tab 08/13/21 multivitamin (Daily-Elias) 1 tab PO DAILY #30 tab 08/13/21 oxcarbazepine 300 mg tablet 300 mg PO BID #60 tab 08/13/21 trazodone 100 mg tablet 200 mg PO BEDTIME #60 tab 08/13/21 venlafaxine 150 mg 150 mg PO DAILY #30 cap 08/13/21 capsule,extended release 24 hr ketorolac 10 mg tablet 10 mg PO TID 3 Days #9 tab 10/03/21 naloxone 4 mg/actuation nasal 4 mg INTRANASAL Q2M PRN #2 ea 10/03/21 spray (Narcan) ondansetron 4 mg disintegrating 4 mg PO Q8H #6 tab 10/03/21 tablet Allergies Allergy/AdvReac Type Severity Reaction Status Date / Time sulfamethoxazole Allergy Unknown ANAPHYLAXIS Verified 10/24/20 21:43 [From BACTRIM] trimethoprim [From BACTRIM] Allergy Unknown ANAPHYLAXIS Verified 10/24/20 21:43 Review of Systems Constitutional: Constitutional: Reports body ache(s), Denies chills, Denies fatigue, Denies fever(s), Denies headache(s), Denies malaise and Denies weakness Eyes: Eyes: Denies blurry vision and Denies diplopia ENT: Denies vertigo, Denies dizziness, Denies otalgia, Denies headache(s), Denies mouth pain, Denies post nasal drip, Denies sinus pain, Denies sinus pressure, Denies sore throat and Denies throat swelling Cardiovascular: Cardiovascular: Reports chest pain (chest wall pain), Denies syncope, Denies leg edema, Denies lightheadedness, Denies Loss of Consciousness, Denies palpitations and Denies dyspnea Respiratory: Respiratory: Denies chest congestion, Denies cough and Denies dyspnea Gastrointestinal: Gastrointestinal: Denies abdominal pain, Denies hematochezia, Denies constipation, Denies diarrhea and Denies vomiting Musculoskeletal: Musculoskeletal: Reports myalgias Neurologic: Denies confusion, Denies vertigo, Denies dizziness, Denies syncope, Denies headache(s) and Denies weakness Psychiatric: Psychiatric: Reports anxiety, Denies confusion, Denies depr ession, Denies auditory hallucinations, Denies hopelessness, Denies anhedonia, Denies hallucinations, Denies homicidal ideation and Denies suicidal ideation Endocrine: Endocrine: Denies fatigue and Denies palpitations Allergic/Immunologic: Allergic/Immunologic: Denies throat swelling PMFSH Past Medical History Medical History Back pain Bipolar 1 disorder, depressed, severe Opioid abuse Polysubstance abuse Social History Social History Household Members: None Housing: Apartment Do you presently have visiting nurse or other home services: No Alcohol intake: former Patient Tobacco Use Status: Never used Tobacco Second Hand Smoke Exposure: No Substance Use Type: Crack/Cocaine Advance Directives: Yes Advance Directives Information Provided: Yes Advance Directives on File: No Patient : No service: No Sexual orientation: Did not discuss. Physical Exam Vital Signs: Vital Signs: Last Vital Signs Temp 98.6 F 10/03/21 12:43 Pulse 81 10/03/21 12:43 Resp 18 10/03/21 12:43 BP 137/77 10/03/21 12:43 Pulse Ox 95 10/03/21 12:43 BMI result Body Mass Index 27.4 Const: General: no acute distress, alert and awake; No confusion Nutritional Appearance: obese Orientation/consciousness: patient oriented x3 and No confusion Limitations: no limitations HENMT: Head: Yes normal to inspection, Yes normocephalic and Yes atraumatic Ears: hearing grossly normal bilaterally, external ears normal, TM's normal bilaterally and EAC's normal General nose exam: Normal external nose present Face and sinus: Yes normal facial exam and Yes sinuses nontender Mouth: Normal oral and palatal mucosa present Throat: Yes posterior oropharynx normal Eyes: Conjunctivae: conjunctivae normal Pupils: Equal, round and reactive pupils present EOM: EOMs intact bilaterally Neck: Neck: Yes full ROM, Yes no lymphadenopathy and Yes supple Chest: Chest palpation & inspection: normal inspection of the chest, no crepitus and tenderness (bilateral rib tenderness) Breast/axilla inspection: normal inspection of the breasts Resp: Effort & Inspection: normal respiratory effort and able to speak in complete sentences Auscultation: clear to auscultation bilaterally, no crackles, no rales, no rhonchi and no wheezes Cardio: Rate: regular rate Rhythm: regular rhythm Heart sounds: S1 normal heart sound present and S2 normal heart sound present GI: Inspection: Yes normal to inspection Palpation (GI): Soft to palpation, nontender, no guarding and not rigid Percussion: Yes normal to percussion Auscultation: normal bowel sounds Skin: General skin exam: no rashes or lesions noted Neuro: General: patient oriented x3 and No confusion Cranial nerves: Yes Equal, round and reactive pupils present Extrem: General: Yes normal to inspection and Yes full ROM Psych: Appearance: disheveled Mental Status: mental status grossly normal Speech and movement: Normal speech and movement present Affect: Anxious affect present Attitude: cooperative Thought process: Normal thought process present Thought content: suicidality, no homicidality, no hallucinations and No Depressive thoughts present Course Course Course Narrative: 61-year-old female presents via EMS for heroin overdose, revived with Narcan. On my exam, patient is alert and oriented, states that she just tried heroin for the 1st time on the way in. States she used 1 bag. Patient is diffusely tender over her entire chest wall. No vertebral point tenderness her cervical, thoracic, or lumbar spine. Will get EKG, urine, labs, x-ray chest. Reevaluation(s) Reevaluation #1: EKG, labs, within normal limits. Chest x-ray is normal. Negative alcohol, salicylate, acetaminophen. Misael Supervisor Statement Clerks talked to patient. Pt again states that she regrets using heroin, that it was her first time, and that her grandson was there when it happened, and she feels bad about that. She has a therapist, and does not want to use any recovery services at this time. Will give ketorolac for body aches. Will discharge with narcan and zofran Urine positive for opioids, phenyl, marijuana MDM - Overdose Lab Data Result diagrams: 10/03/21 14:13 10/03/21 14:13 Labs: Lab Results 10/03/21 10/03/21 10/03/21 Range/Units 14:13 14:13 14:13 WBC 8.5 (4.8-10.8) X10*3/uL RBC 3.84 L (4.20-5.50) X10*6/uL Hgb 12.3 (12.0-16.0) g/dl Hct 38.1 (37.0-47.0) % MCV 99.2 H (80.0-98.0) fL MCH 32.0 (27.0-33.0) pg MCHC 32.3 (31.0-35.0) g/dl RDW 12.8 (11.0-16.0) % Plt Count 252 (160-400) X10*3/uL MPV 9.1 L (9.4-12.3) fL Immature Gran % (Auto) 0.5 H (0.0-0.4) % Neut % (Auto) 78.5 H (45-73) % Lymph % (Auto) 14.7 L (20-40) % [place] % (Auto) 6.1 (2-11) % Eos % (Auto) 0.1 (0-4) % Baso % (Auto) 0.1 (0-2) % Lymph # (Auto) 1.3 (1.2-4.9) X10*3/uL [place] # (Auto) 0.5 (0.1-1.2) X10*3/uL Eos # (Auto) 0.0 (0.0-0.4) X10*3/uL Baso # (Auto) 0.0 (0.0-0.2) X10*3/uL Abs Immat Gran (auto) 0.04 H (0.00-0.03) X10*3/uL Absolute Neuts (auto) 6.7 (2.0-8.3) x10*3/uL Absolute Nucleated RBC 0.000 (0.0-0.012) X10*3/uL Nucleated RBC % (auto) 0.0 (0.0-0.2) /100WBC Sodium 142 (135-145) mmol/L Potassium 4.8 D (3.3-5.1) mmol/L Chloride 110 H (96-108) mmol/L Carbon Dioxide 27 (22-29) mmol/L Anion Gap 10 L (12-20) BUN 14 (9-16) mg/dL Creatinine 0.83 (0.5-1.4) mg/dL Estim Creat Clear Calc 71.2 Estimated GFR > 60 Random Glucose 102 (60-115) mg/dL Calcium 9.5 D (8.4-10.2) mg/dL Total Bilirubin 0.3 (0.0-1.0) mg/dL AST 16 D (5-31) U/L ALT 15 (0-31) U/L Alkaline Phosphatase 103 D (39-117) U/L Total Protein 6.6 (6.5-8.0) g/dL Albumin 3.9 (3.5-5.0) g/dL Urine Test (NEGATIVE) Salicylates < 5.0 L (15-30) mg/dL Urine Opiates Screen (Not Detect) Urine Fentanyl Screen (Not Detect) Acetaminophen < 1 (<30) mcg/mL Ur Barbiturates Screen (Not Detect) Ur Phencyclidine Scrn (Not Detect) Ur Amphetamines Screen (Not Detect) U Benzodiazepines Scrn (Not Detect) Urine Cocaine Screen (Not Detect) U Marijuana (THC) Screen (Not Detect) Ethyl Alcohol < 10 mg/dL 01/14/22 01/14/22 Range/Units 15:28 15:28 WBC (4.8-10.8) X10*3/uL RBC (4.20-5.50) X10*6/uL Hgb (12.0-16.0) g/dl Hct (37.0-47.0) % MCV (80.0-98.0) fL MCH (27.0-33.0) pg MCHC (31.0-35.0) g/dl RDW (11.0-16.0) % Plt Count (160-400) X10*3/uL MPV (9.4-12.3) fL Immature Gran % (Auto) (0.0-0.4) % Neut % (Auto) (45-73) % Lymph % (Auto) (20-40) % [place] % (Auto) (2-11) % Eos % (Auto) (0-4) % Baso % (Auto) (0-2) % Lymph # (Auto) (1.2-4.9) X10*3/uL [place] # (Auto) (0.1-1.2) X10*3/uL Eos # (Auto) (0.0-0.4) X10*3/uL Baso # (Auto) (0.0-0.2) X10*3/uL Abs Immat Gran (auto) (0.00-0.03) X10*3/uL Absolute Neuts (auto) (2.0-8.3) x10*3/uL Absolute Nucleated RBC (0.0-0.012) X10*3/uL Nucleated RBC % (auto) (0.0-0.2) /100WBC Sodium (135-145) mmol/L Potassium (3.3-5.1) mmol/L Chloride (96-108) mmol/L Carbon Dioxide (22-29) mmol/L Anion Gap (12-20) BUN (9-16) mg/dL Creatinine (0.5-1.4) mg/dL Estim Creat Clear Calc Estimated GFR Random Glucose (60-115) mg/dL Calcium (8.4-10.2) mg/dL Total Bilirubin (0.0-1.0) mg/dL AST (5-31) U/L ALT (0-31) U/L Alkaline Phosphatase (39-117) U/L Total Protein (6.5-8.0) g/dL Albumin (3.5-5.0) g/dL Urine Test NEGATIVE (NEGATIVE) Salicylates (15-30) mg/dL Urine Opiates Screen POSITIVE H (Not Detect) Urine Fentanyl Screen POSITIVE H (Not Detect) Acetaminophen (<30) mcg/mL Ur Barbiturates Screen Not Detected (Not Detect) Ur Phencyclidine Scrn Not Detected (Not Detect) Ur Amphetamines Screen Not Detected (Not Detect) U Benzodiazepines Scrn Not Detected (Not Detect) Urine Cocaine Screen Not Detected (Not Detect) U Marijuana (THC) Screen POSITIVE H (Not Detect) Ethyl Alcohol mg/dL ECG Data Interpretation: Sinus at a rate of 66, ND 156, QRS 100, QTC 429, normal axis. No ST elevation or depression, no T-wave inversions. There is some artifact Discharge Plan Discharge Clinical Impression: Heroin overdose Qualifiers: Encounter type: initial encounter Injury intent: accidental or unintentional Qualified Code(s): T40.1X1A - Poisoning by heroin, accidental (unintentional), initial encounter Patient Disposition: Home, Self-Care Instructions: Narcotic Safety (ED), Adult Overdose (ED) Additional Instructions: Please do not use heroin. It can kill you. Please fill the prescription for Narcan, and have it on hand. I have ordered ketorolac for you, this will help with body aches. Please take it every 8 hours for the next 3 days. Please do not take any ibuprofen containing products while you are taking this. So no ibuprofen, Motrin, Excedrin, Aleve. Please take Zofran, you may take 1 every 8 hours. This will help with nausea. Please drink plenty of fluids. Please call your primary care provider and your therapist for follow-up appointment. You were given recovery information, if you are interested in pursuing that, please call the numbers provided. Please return to emergency room for any new or concerning symptoms. Prescriptions: New naloxone [Narcan] 4 mg/actuation spray,non-aerosol 4 mg intranasal Q2M PRN (Reason: opioid overdose) Qty: 2 RF: 0 ondansetron 4 mg tablet,disintegrating 4 mg PO Q8H Qty: 6 RF: 0 ketorolac 10 mg tablet 10 mg PO TID 3 Days Qty: 9 RF: 0 No Action gabapentin 300 mg capsule 300 mg PO TID RF: 0 clonazepam 1 mg Tablet 1 mg PO TID Qty: 90 RF: 0 oxcarbazepine 300 mg Tablet 300 mg PO BID Qty: 60 RF: 0 trazodone 100 mg Tablet 200 mg PO BEDTIME Qty: 60 RF: 0 mirtazapine 15 mg Tablet 15 mg PO BEDTIME Qty: 30 RF: 0 Latuda 80 mg Tablet 80 mg PO BEDTIME Qty: 30 RF: 0 venlafaxine 150 mg capsule,extended release 24hr 150 mg PO DAILY Qty: 30 RF: 0 multivitamin [Daily-Elias] Tablet 1 tab PO DAILY Qty: 30 RF: 0
--- NOTE | 2021-10-03 13:17 | HO.SUDE ---
SUDE Assessment: Patient is a 61 year old Moroccan speaking female who presented to [facility] ED via EMS after an accidental overdose. Patient reports she was with a friend who was using heroin and that he offered her some to try. Patient reports snorting the heroin and overdosing shortly after. Patient reports no previous overdoses. Patient states this is her first time using heroin. Patient denies using other drugs, stating I'm clean. Patient was psychiatrically admitted to the hospital in June of last year and reports it was helpful. Patient reports she is supported by a therapist and a prescriber. Patient also has a daughter who is supportive. Patient reports no ATS admissions. Patient continues to report this was her first time using heroin and that she plans to never use again. Patient expresses regret, stating her 20 year old grandson was crying when he saw her taken by ambulance. Encouraged patient to reach out to staff if she has any additional needs and to utilize the supports she has in place.
[2021-10-03] MEDS: 0.9 % Sodium Chloride 1,000 ML 999 ML IV (13:32)
[2021-10-03] MEDS: ondansetron HCL 4 MG/2 ML VIAL IVPUSH (14:16)
[2021-10-03 14:19] LABS: MANUAL DIFF FLAG NO
[2021-10-03 14:20] LABS: Basophils Percent Auto 0.1 % (0-2); Eosinophils Percent Auto 0.1 % (0-4); Hematocrit 38.1 % (37.0-47.0); Hemoglobin 12.3 g/dl (12.0-16.0); Imm Gran Abs Auto 0.04 X10*3/uL (0.00-0.03); Imm Gran Pct Auto 0.5 % (0.0-0.4); Lymphocytes Absolute Auto 1.3 X10*3/uL (1.2-4.9); Lymphocytes Percent Auto 14.7 % (20-40); Mean Corpuscular HGB Conc 32.3 g/dl (31.0-35.0); Mean Corpuscular Volume 99.2 fL (80.0-98.0); Mean Platelet Volume 9.1 fL (9.4-12.3); Monocytes Absolute Auto 0.5 X10*3/uL (0.1-1.2); Monocytes Percent Auto 6.1 % (2-11); Neutrophils Absolute Auto 6.7 x10*3/uL (2.0-8.3); Neutrophils Percent Auto 78.5 % (45-73); Platelet Count 252 X10*3/uL (160-400); Red Blood Count 3.84 X10*6/uL (4.20-5.50); Red Cell Distribution Width 12.8 % (11.0-16.0); White Blood Count 8.5 X10*3/uL (4.8-10.8)
[2021-10-03 14:35] LABS: Ethanol < 10 mg/dL
[2021-10-03 14:37] LABS: Acetaminophen LAB < 1 mcg/mL (<30); Alanine Aminotransferase 15 U/L (0-31); Albumin Level 3.9 g/dL (3.5-5.0); Alkaline Phosphatase 103 U/L (39-117); Anion Gap 10 (12-20); Aspartate Amino Transferase 16 U/L (5-31); Bilirubin Total 0.3 mg/dL (0.0-1.0); Blood Urea Nitrogen 14 mg/dL (9-16); Calcium 9.5 mg/dL (8.4-10.2); Carbon Dioxide 27 mmol/L (22-29); Chloride 110 mmol/L (96-108); Creatinine Clr Calc Pharmacy 71.2; Estimated Glomerular Filt Rate > 60; Glucose Random 102 mg/dL (60-115); Potassium 4.8 mmol/L (3.3-5.1); Salicylate < 5.0 mg/dL (15-30); Sodium 142 mmol/L (135-145); Total Protein 6.6 g/dL (6.5-8.0)
[2021-10-03] MEDS: Ketorolac Tromethamine 30 MG/ML VIAL 15 MG IVPUSH (15:26)
[2021-10-03 15:37] LABS: UPreg QC Valid YES; Urine Pregnancy NEGATIVE (NEGATIVE)
--- NOTE | 2021-10-03 15:52 | MHC.RECOVSUP ---
Recovery Support note: This continuity writer followed up with patient to discuss recovery resources further. Education provided regarding recovery coaching and [facility]. Patient declines referral to manager disaster recovery at this time. Patient is accepting information on [facility] in the event that she would like to connect with a online health and fitness coach in the future. Medical record review reveals patient was previously going to the [facility] and had reported percocet use. This continuity writer brought this up with patient and she denied this. Discussed case with patient's ED provider.
[2021-10-03 16:40] LABS: Amphetamine Screen Urine Not Detected (Not Detect); Barbiturates, Urine Not Detected (Not Detect); Benzodiazepines Screen Urine Not Detected (Not Detect); Cannabinoid Screen Urine POSITIVE (Not Detect); Cocaine Screen Urine Not Detected (Not Detect); Fentanyl, urine POSITIVE (Not Detect); Opiate Screen Urine POSITIVE (Not Detect); Phencyclidine Screen Urine Not Detected (Not Detect)
== END 2021-10-03 17:23 | disposition home or self-care (01) ==
PROVIDERS: Physician Assistant; Emergency Provider Emergency Medicine
DX: T40.1X1A Poisoning by heroin, accidental (unintentional), initial encounter (principal); F14.90 Cocaine use, unspecified, uncomplicated; Y92.9 Unspecified place or not applicable; Z79.899 Other long term (current) drug therapy; Z71.51 Drug abuse counseling and surveillance of drug abuser
CPT/HCPCS: 71046; 80053; 80143; 80179; 80307; 81025; 82077; 85025; 93005; 96361; 96374; 96375; 99283; 99284; J1885; J2405

== ENCOUNTER 2023-04-25 07:15 | Emergency (ER) | payer MEDICARE, MEDICAID, SELFPAY ==
--- NOTE | ~2023-04-25 | XR_ITS ---
EXAMINATION: XR ABDOMEN KUB CLINICAL INDICATION: Constipation. COMPARISON: None available. TECHNIQUE: AP view of the abdomen. FINDINGS: There is a nonobstructive bowel gas pattern. Mild to moderate stool seen throughout the colon distally to the rectum. Multiple phleboliths overlie the mid to inferior pelvis. The osseous structures are unremarkable. XR/XR KUB IMPRESSION: Nonobstructive bowel gas pattern. Mild to moderate colonic stool burden.
[2023-04-25 07:27] VITALS: BP 97/66; PULSE 74; RESP 18; TEMP 36.4; O2SAT 98; BMI 26.6
--- OUTSIDE RECORDS SUMMARY | 2023-04-25 08:54 | XMS_ITS | Continuity of Care Document ---
Author Name Unknown Organization [facility] Yaakov lt Address [address] [place] [address]- Care Team Providers Care Software Sales Executive Name Role Phone Ariela Serrano NP Primary Care Physician [place] [facility] [place](s): 01/10/21 - 02/09/21 [facility] Adult [address] [place] [address]- Allergies, Adverse Reactions, Alerts Substance Reaction Severity Status Bactrim hives Active Immunizations Given and Recorded Vaccine Date Status Refusal Reason SARS-CoV-2 (COVID-19) mRNA BNT-162b2 vac 01/07/21 Recorded zoster vaccine, inactivated 04/19/20 Recorded zoster vaccine, inactivated 11/15/19 Recorded influenza virus vaccine, inactivated 07/30/19 Liam rded influenza virus vaccine, inactivated 06/08/18 Liam rded influenza virus vaccine, inactivated 08/01/17 Liam rded influenza virus vaccine, inactivated 08/13/15 Liam rded influenza virus vaccine, inactivated 08/14/13 Liam rded influenza virus vaccine, inactivated 06/24/10 Liam rded tetanus/diphtheria/pertussis, acel(Tdap) 06/12/15 Recorded influ virus vac, H1N1, inactive(oldterm) 10/17/09 Recorded Medications Acidophilus Probiotic Blend oral capsule 1 capsule, By Mouth, Daily, # 30 capsule, 0 Refills, Maintenance, 01/28/21 15:58:00 EDT, [facility] #[id number], Partial fill upon patient request if the prescription is for a schedule II opioiddrug., 1 capsule By Mouth Daily, 165, cm, 01/28/21... Start Date: 01/28/21 Status: Ordered clonazePAM 1 mg oral tablet 1 tablet = 1 mg, By Mouth, 3 times a day, 0 Refills, Maintenance, 04/25/20 13:24:00 EDT, Tablet Start Date: 04/25/20 Status: Ordered fluconazole 150 mg oral tablet 1 tablet = 150 mg, By Mouth, Once, epeat dose if still having symptoms in 72 hours, # 2 tablet, 0 Refills, Soft Stop, 01/28/21 15:57:00 EDT, Tablet, [facility] #[id number], Partial fill upon patient request if the prescription is for a schedule I... Start Date: 01/28/21 Status: Ordered gabapentin 300 mg oral capsule 300 mg, 1, capsule, By Mouth, 3 times a day, # 90 capsule, Refills 0, Tot. Refills 0, Maintenance, 06/05/20 10:48:00 EDT, Route to Pharmacy Electronically, [facility] #[id number], 165.1, cm, 06/05/20 8:32:00 EDT, Height, 73.1, kg, 05/21/20 17:26:... Start Date: 06/05/20 Status: Ordered Latuda 60 mg oral tablet 0 Refills, Maintenance, 01/17/21 10:40:00 EDT, Partial fill upon patient request if the prescription is for a schedule II opioid drug. Start Date: 01/17/21 Status: Ordered Lidocaine 2% Topical Topically, 2 times a day, 0 Refills, Maintenance Start Date: 08/26/20 Status: Ordered loratadine 10 mg oral tablet 10 mg, 1, tablet, By Mouth, Daily, # 90 tablet, Refills 0, Maintenance, 08/26/20 9:49:00 EST, Partial fill upon patient request if the prescription is for a schedule II opioid drug. Start Date: 08/26/20 Status: Ordered OXcarbazepine 300 mg oral tablet 300 mg, 1, tablet, By Mouth, 2 times a day, # 120 tablet, Refills 0, Maintenance, 04/25/20 13:24:00EDT Start Date: 04/25/20 Status: Ordered traZODone 100 mg oral tablet 200 mg, 2, tablet, By Mouth, Daily at bedtime, # 60 tablet, Refills 0, Tot. Refills 0, Maintenance,06/05/20 10:57:00 EDT, Route to Pharmacy Electronically, [facility] #[id number], 165.1, cm, 06/05/20 8:32:00 EDT, Height, 73.1, kg, 05/21/20 17:26... Start Date: 06/05/20 Status: Ordered Problem List Condition Effective Dates Status Health Status Inform ant AR (allergic rhinitis)(Confirmed) Active Anemia(Confirmed) Active Chronic bipolar disorder(Confirmed) Active Breast lump in female(Confirmed) Active Cocaine use disorder(Confirmed) Active Lumbar degenerative disc disease(Confirmed) Active Hx MRSA infection(Confirmed) Active Hypertriglyceridemia(Confirmed) Active Urinary frequency(Confirmed) Active Kidney stone(Confirmed) Active Major depression(Confirmed) Active Medicare annual wellness vis it, initial(Confirmed) Active Pilonidal cyst with abscess(Confirmed) Active Post-concussion syndrome(Confirmed) Active Hematoma, subungual, great t oe, left(Confirmed) Active Vitreous floaters of both eyes(Confirmed) Active Word finding difficulty(Confirmed) Active Social History Social History Type Response Smoking Status Never smoker entered on: 05/04/16 Sex
--- OUTSIDE RECORDS SUMMARY | 2023-04-25 08:54 | XMS_ITS | Continuity of Care Document ---
Author Name Unknown Organization [facility] Yaakov lt Address [address] [place] [address]- Care Team Providers Care Financial Services Assistant Name Role Phone Meghna Harmon Primary Care Physician [facility]counter [facility] Date(s): 11/11/22 - 12/11/22 [facility] Adult [address] [place] [address]- Allergies, Adverse Reactions, Alerts Substance Reaction Severity Status Bactrim hives Active Immunizations Given and Recorded Vaccine Date Status Refusal Reason SARS-CoV-2 (COVID-19) mRNA BNT-162b2 vac 08/30/21 Recorded SARS-CoV-2 (COVID-19) mRNA BNT-162b2 vac 02/02/21 Recorded SARS-CoV-2 (COVID-19) mRNA BNT-162b2 vac 01/07/21 Recorded influenza virus vaccine, inactivated 07/18/21 Liam rded influenza virus vaccine, inactivated 07/30/19 Liam rded influenza virus vaccine, inactivated 06/08/18 Liam rded influenza virus vaccine, inactivated 08/01/17 Liam rded influenza virus vaccine, inactivated 08/13/15 Liam rded influenza virus vaccine, inactivated 08/14/13 Liam rded influenza virus vaccine, inactivated 06/24/10 Liam rded zoster vaccine, inactivated 04/19/20 Recorded zoster vaccine, inactivated 11/15/19 Recorded tetanus/diphtheria/pertussis, acel(Tdap) 06/12/15 Recorded influ virus vac, H1N1, inactive(oldterm) 10/17/09 Recorded Medications Acidophilus Probiotic Blend oral capsule 1 capsule, By Mouth, Daily, # 30 capsule, 0 Refills, Maintenance, 01/28/21 15:58:00 EDT, [facility] #[id number], Partial fill upon patient request if the [...] Refills, Soft Stop, 01/28/21 15:57:00 EDT, Tablet, [facility] #[id number], Partial fill upon patient request if the prescription is for a schedule I... Start Date: 01/28/21 Status: Ordered gabapentin 300 mg oral capsule 600 mg, 2, capsule, By Mouth, Daily at bedtime, # 90 capsule, Refills 0, Tot. Refills 0, Maintenance, 06/05/20 10:48:00 EDT, Route to Pharmacy Electronically, [facility] #[id number], 165.1, cm, 06/05/20 8:32:00 EDT, Height, 73.1, kg, 05/21/20 17:... Start Date: 06/05/20 Status: Ordered Latuda 60 [...] opioid drug. Start Date: 08/26/20 Status: Ordered mirtazapine 7.5 mg oral tablet 2 tablet = 15 mg, By Mouth, Daily at bedtime, # 180 tablet, 0 Refills, Maintenance, 03/21/21 15:21:00 EDT, Tablet, Partial fill upon patient request if the prescription is for a schedule II opioid drug. Start Date: 03/21/21 Status: Ordered ondansetron 4 mg oral tablet, disintegrating 0 Refills, Maintenance, 03/19/22 14:47:00 EDT, Partial fill upon patient request if the prescription is for a schedule II opioid drug. Start Date: 03/19/22 Status: Ordered OXcarbazepine 300 mg oral tablet 300 mg, 1, tablet, By Mouth, 2 times a day, # 120 tablet, Refills 0, Maintenance, 04/25/20 13:24:00EDT Start Date: 04/25/20 Status: Ordered traZODone 100 mg oral tablet 200 mg, 2, tablet, By Mouth, Daily at bedtime, # 60 tablet, Refills 0, Tot. Refills 0, Maintenance,06/05/20 10:57:00 EDT, Route to Pharmacy Electronically, [facility] #[id number], 165.1, cm, 06/05/20 8:32:00 EDT, Height, 73.1, kg, 05/21/20 17:26... Start Date: 06/05/20 Status: Ordered venlafaxine 150 mg oral capsule, extended release 1 capsule = 150 mg, By Mouth, Daily, # 30 capsule, 0 Refills, Maintenance, 03/19/22 14:49:00 EDT, [facility] Caps[facility], Partial fill upon patient request if the prescription is for a schedule II opioid drug. Start Date: 03/19/22 Status: Ordered Problem List Condition Confirmation Course Effective Dates Status Health Status Informant AR (allergic rhinitis) Confirmed Active Anemia Confirmed Active Chronic bipolar disorder Confirmed Active Breast lump in female Confirmed Active Cocaine use disorder Confirmed Active Lumbar degenerative disc disease Confirmed Active Other skin changes Confirmed Active SOB (shortness of breath) Confirmed Active Hx MRSA infection Confirmed Active Hypercalcemia Confirmed Active Hypertriglyceridemia Confirmed Active Urinary frequency Confirmed Active Kidney stone Confirmed Active Major depression Confirmed Active Medicare annual wellness visit, initial Confirmed Active Pilonidal cyst with abscess Confirmed Active Post-concussion syndrome Confirmed Active Hematoma, subungual, great toe, left Confirmed Active Vitreous floaters of both eyes Confirmed Active Word finding difficulty Confirmed Active Social History Social History Type Response Smoking Status Never smoker entered on: 05/04/16 Sex Patient Care team information Care Team Personnel Name: Meghna Harmon Position: [facility] Associate Professional Member Role: PCP Address: Address: [address] [place] [address]- Name: Robert ANDRADE, Fani Lane Position: [facility] Nurse Member Role: Primary Care Nurse Care Team Related Persons Name: SIVA BEE Address: home [address] [place] [address]
--- OUTSIDE RECORDS SUMMARY | 2023-04-25 08:54 | XMS_ITS | Continuity of Care Document ---
Author Name Unknown Organization [facility] Yaakov lt Address [address] [place] [address]- Care Team Providers Care Dehydrogenation Converter Helper Name Role Phone Meghna Harmon Primary Care Physician Encounter [facility] Date(s): 08/18/22 - 09/17/22 [facility] Adult [address] [place] [address]- Allergies, Adverse Reactions, Alerts Substance Reaction Severity [...] Maintenance, 01/28/21 15:58:00 EDT, [facility] #[id number], Partial fill upon patient request if the [...] Refills, Soft Stop, 01/28/21 15:57:00 EDT, Tablet, [facility] #[id number], Partial fill upon patient request if the prescription is for a schedule I... Start Date: 01/28/21 Status: Ordered gabapentin 300 mg oral capsule 600 mg, 2, capsule, By Mouth, Daily at bedtime, # 90 capsule, Refills 0, Tot. Refills 0, Maintenance, 06/05/20 10:48:00 EDT, Route to Pharmacy Electronically, [facility] #[id number], 165.1, cm, 06/05/20 8:32:00 EDT, Height, 73.1, [...] Maintenance,06/05/20 10:57:00 EDT, Route to Pharmacy Electronically, [facility] #[id number], 165.1, cm, 06/05/20 8:32:00 EDT, Height, 73.1, [...] Care Team Personnel Name: Meghna Harmon Position: [facility] Associate Professional Member Role: PCP Address: Address: [address] [place] [address]- Name: Robert ANDRADE, Fani Lane Position: [facility] Nurse Member Role: Primary Care Nurse Care Team Related Persons Name: SIVA BEE Address: [address] [place] [address]
--- OUTSIDE RECORDS SUMMARY | 2023-04-25 08:54 | XMS_ITS | Continuity of Care Document ---
Author Name Unknown Organization [facility] [place] Yaakov lt Address [address] [place] [address]- Care Team Providers Care Juvenile Probation Officer Name Role Phone Meghna Harmon Primary Care Physician Encounter [facility] Date(s): 11/02/22 - 12/02/22 [facility] [place] Adult [address] [place] [address]- Allergies, Adverse Reactions, Alerts Substance Reaction Severity [...] capsule, 0 Refills, Maintenance, 01/28/21 15:58:00 EDT, [facility] #[id number], Partial fill upon patient request if the [...] Refills, Soft Stop, 01/28/21 15:57:00 EDT, Tablet, [facility] #[id number], Partial fill upon patient request if the prescription is for a schedule I... Start Date: 01/28/21 Status: Ordered gabapentin 300 mg oral capsule 600 mg, 2, capsule, By Mouth, Daily at bedtime, # 90 capsule, Refills 0, Tot. Refills 0, Maintenance, 06/05/20 10:48:00 EDT, Route to Pharmacy Electronically, [facility] #[id number], 165.1, cm, 06/05/20 8:32:00 EDT, Height, 73.1, [...] Maintenance,06/05/20 10:57:00 EDT, Route to Pharmacy Electronically, [facility] #[id number], 165.1, cm, 06/05/20 8:32:00 EDT, Height, 73.1, [...] Care Team Personnel Name: Meghna Harmon Position: [facility] Associate Professional Member Role: PCP Address: Address: [address] [place] [address]- Name: Robert ANDRADE, Fani Lane Position: [facility] AM[facility] Nurse Member Role: Primary Care Nurse Care Team Related Persons Name: SIVA BEE Address: home [address] [place] [address]
--- OUTSIDE RECORDS SUMMARY | 2023-04-25 08:54 | XMS_ITS | Continuity of Care Document ---
Author Name Unknown Organization [facility] Address [address] [place] [address]- Care Team Providers Care Events Manager Name Role Phone Ariela Serrano NP Primary Care Physician Encounter [facility] Date(s): 12/15/21 - 02/25/22 [facility] [address] [place] [address]- Attending Physician: Klaus Key Referring Physician: Ariela Serrano NP Allergies, Adverse Reactions, Alerts Substance Reaction Severity [...] capsule, 0 Refills, Maintenance, 01/28/21 15:58:00 EDT, [facility] #[id number], Partial fill upon patient request if the [...] Refills, Soft Stop, 01/28/21 15:57:00 EDT, Tablet, [facility] #[id number], Partial fill upon patient request if the prescription is for a schedule I... Start Date: 01/28/21 Status: Ordered gabapentin 300 mg oral capsule 300 mg, 1, capsule, By Mouth, 3 times a day, # 90 capsule, Refills 0, Tot. Refills 0, Maintenance, 06/05/20 10:48:00 EDT, Route to Pharmacy Electronically, [facility] #[id number], 165.1, cm, 06/05/20 8:32:00 EDT, Height, 73.1, [...] opioid drug. Start Date: 03/21/21 Status: Ordered OXcarbazepine 300 mg oral tablet 300 mg, 1, tablet, By Mouth, 2 times a day, # 120 tablet, Refills 0, Maintenance, 04/25/20 13:24:00EDT Start Date: 04/25/20 Status: Ordered traZODone 100 mg oral tablet 200 mg, 2, tablet, By Mouth, Daily at bedtime, # 60 tablet, Refills 0, Tot. Refills 0, Maintenance,06/05/20 10:57:00 EDT, Route to Pharmacy Electronically, [facility] #[id number], 165.1, cm, 06/05/20 8:32:00 EDT, Height, 73.1, kg, 05/21/20 17:26... Start Date: 06/05/20 Status: Ordered Problem List Condition Effective Dates Status Health Status Inform ant AR (allergic rhinitis)(Confirmed) Active Anemia(Confirmed) Active Chronic bipolar disorder(Confirmed) Active Breast lump in female(Confirmed) Active Cocaine use disorder(Confirmed) Active Lumbar degenerative disc disease(Confirmed) Active Other skin changes(Confirmed) Active SOB (shortness of breath)(Confirmed) Active Hx MRSA infection(Confirmed) Active Hypertriglyceridemia(Confirmed) Active [...]
--- OUTSIDE RECORDS SUMMARY | 2023-04-25 08:54 | XMS_ITS | Continuity of Care Document ---
Author Name Unknown Organization [facility] Yaakov Address [address] [place] [address]- Care Team Providers Care Remote Sensing Technologist Name Role Phone Maggie WHITE, Ariela Primary Care Physician [phone] Encounter [facility] Date(s): 08/13/21 - 09/12/21 [facility] Adult [address] [place] [address]- Allergies, Adverse Reactions, Alerts Substance Reaction Severity Status Bactrim hives Active Immunizations Given and Recorded Vaccine Date Status Refusal Reason SARS-CoV-2 (COVID-19) mRNA BNT-162b2 vac 02/02/21 Recorded [...] capsule, 0 Refills, Maintenance, 01/28/21 15:58:00 EDT, [facility] #[id number], Partial fill upon patient request if the [...] Refills, Soft Stop, 01/28/21 15:57:00 EDT, Tablet, [facility] #[id number], Partial fill upon patient request if the prescription is for a schedule I... Start Date: 01/28/21 Status: Ordered gabapentin 300 mg oral capsule 300 mg, 1, capsule, By Mouth, 3 times a day, # 90 capsule, Refills 0, Tot. Refills 0, Maintenance, 06/05/20 10:48:00 EDT, Route to Pharmacy Electronically, [facility] #[id number], 165.1, cm, 06/05/20 8:32:00 EDT, Height, 73.1, [...] Maintenance,06/05/20 10:57:00 EDT, Route to Pharmacy Electronically, [facility] #[id number], 165.1, cm, 06/05/20 8:32:00 EDT, Height, 73.1, [...]
--- OUTSIDE RECORDS SUMMARY | 2023-04-25 08:54 | XMS_ITS | Continuity of Care Document ---
Author Name Unknown Organization [facility] Address [address] [place] [address]- Care Team Providers Care Cathead Worker Name Role Phone Meghna Harmon Primary Care Physician [phone] [place]counter [facility] [place](s): 07/07/22 - 10/07/22 [facility] [address] [place] [address]- Attending Physician: Lorrie Bhatti MD Admitting Physician: Lorrie Bhatti MD Referring Physician: Ariela Serrano NP Allergies, Adverse [...] capsule, 0 Refills, Maintenance, 01/28/21 15:58:00 EDT, [facility] #[id number], Partial fill upon patient request if the [...] Refills, Soft Stop, 01/28/21 15:57:00 EDT, Tablet, [facility] #[id number], Partial fill upon patient request if the prescription is for a schedule I... Start Date: 01/28/21 Status: Ordered gabapentin 300 mg oral capsule 600 mg, 2, capsule, By Mouth, Daily at bedtime, # 90 capsule, Refills 0, Tot. Refills 0, Maintenance, 06/05/20 10:48:00 EDT, Route to Pharmacy Electronically, [facility] #[id number], 165.1, cm, 06/05/20 8:32:00 EDT, Height, 73.1, [...] Maintenance,06/05/20 10:57:00 EDT, Route to Pharmacy Electronically, [facility] #[id number], 165.1, cm, 06/05/20 8:32:00 EDT, Height, 73.1, [...] Care Team Personnel Name: Meghna Harmon Position: [facility] Associate Professional Member Role: PCP Address: Address: [address] [place] [address]- Name: Robert ANDRADE, Fani Lane Position: [facility] Nurse Member Role: Primary Care Nurse Care Team Related Persons Name: SIVA BEE Address: home [address] [place] [address]
--- OUTSIDE RECORDS SUMMARY | 2023-04-25 08:54 | XMS_ITS | Continuity of Care Document ---
Author Name Unknown Organization [facility] Address [address] [place] [address]- Care Team Providers Care International Accounting Manager Name Role Phone Meghna Harmon Primary Care Physician [phone] [place] [facility] [place] 09[place] - 12/02/22 [facility] [address] [place] [address]- Encounter Diagnosis Primary hyperparathyroidism(Discharge Diagnosis) - 10/30/22 Attending Physician: Brayan Nix MD Admitting Physician: Brayan Nix MD Referring Physician: Meghna Harmon Allergies, Adverse Reactions, Alerts Substance Reaction Severity [...] capsule, 0 Refills, Maintenance, 01/28/21 15:58:00 EDT, [facility] #[id number], Partial fill upon patient request if the [...] Refills, Soft Stop, 01/28/21 15:57:00 EDT, Tablet, [facility] #[id number], Partial fill upon patient request if the prescription is for a schedule I... Start Date: 01/28/21 Status: Ordered gabapentin 300 mg oral capsule 600 mg, 2, capsule, By Mouth, Daily at bedtime, # 90 capsule, Refills 0, Tot. Refills 0, Maintenance, 06/05/20 10:48:00 EDT, Route to Pharmacy Electronically, [facility] #[id number], 165.1, cm, 06/05/20 8:32:00 EDT, Height, 73.1, [...] Maintenance,06/05/20 10:57:00 EDT, Route to Pharmacy Electronically, [facility] #[id number], 165.1, cm, 06/05/20 8:32:00 EDT, Height, 73.1, [...] Confirmed Active Word finding difficulty Confirmed Active Diagnosis Diagnosis Type Effective Dates Health Status Clinical Service Informant Primary hyperparathyroidism Discharge Diagnosis 10/30/22 Social History Social History Type Response Smoking Status Never smoker entered on: 05/04/16 Sex Patient Care team information Care Team Personnel Name: Meghna Harmon Position: [facility] Associate Professional Member Role: PCP Address: Address: [address] [place] [address]- Name: Robert ANDRADE, Fani Lane Position: [facility] AM[facility] Nurse Member Role: Primary Care Nurse Care Team Related Persons Name: SIVA BEE Address: home [address] [place] [address]
--- OUTSIDE RECORDS SUMMARY | 2023-04-25 08:54 | XMS_ITS | Continuity of Care Document ---
Author Name Unknown Organization [facility] Yaakov lt Address [address] [place] [address]- Care Team Providers Care Electric Switch Tester Name Role Phone Meghna Harmon Primary Care Physician [phone] Encounter [facility] Date(s): 11/02/22 - 12/02/22 [facility] Adult [address] [place] [address]- Allergies, Adverse Reactions, Alerts Substance Reaction Severity [...] Maintenance, 01/28/21 15:58:00 EDT, [facility] #[id number], Partial fill upon patient request if the [...] Refills, Soft Stop, 01/28/21 15:57:00 EDT, Tablet, [facility] #[id number], Partial fill upon patient request if the prescription is for a schedule I... Start Date: 01/28/21 Status: Ordered gabapentin 300 mg oral capsule 600 mg, 2, capsule, By Mouth, Daily at bedtime, # 90 capsule, Refills 0, Tot. Refills 0, Maintenance, 06/05/20 10:48:00 EDT, Route to Pharmacy Electronically, [facility] #[id number], 165.1, cm, 06/05/20 8:32:00 EDT, Height, 73.1, [...] Maintenance,06/05/20 10:57:00 EDT, Route to Pharmacy Electronically, [facility] #[id number], 165.1, cm, 06/05/20 8:32:00 EDT, Height, 73.1, [...] Care Team Personnel Name: Meghna Harmon Position: [facility] Associate Professional Member Role: PCP Address: Address: [address] [place] [address]- Name: Robert ANDRADE, Fani Lane Position: [facility] AMB Nurse Member Role: Primary Care Nurse Care Team Related Persons Name: SIVA BEE Address: home [address] [place] [address]
[2023-04-25 08:55] LABS: MANUAL DIFF FLAG NO
--- OUTSIDE RECORDS SUMMARY | 2023-04-25 08:55 | XMS_ITS | Continuity of Care Document ---
Author Name Unknown Organization [facility] Address [address] [place] [address]- Care Team Providers Care Food Service Clerk Name Role Phone Ariela Serrano NP Primary Care Physician [place] [facility] [place] 05/29/22 - 07/08/[address] [address] Attending Physician: Meghna Harmon Admitting Physician: Meghna Harmon Referring Physician: Meghna Harmon Allergies, Adverse Reactions, [...] capsule, 0 Refills, Maintenance, 01/28/21 15:58:00 EDT, [facility] #[id number], Partial fill upon patient request if the [...] Refills, Soft Stop, 01/28/21 15:57:00 EDT, Tablet, [facility] #[id number], Partial fill upon patient request if the prescription is for a schedule I... Start Date: 01/28/21 Status: Ordered gabapentin 300 mg oral capsule 600 mg, 2, capsule, By Mouth, Daily at bedtime, # 90 capsule, Refills 0, Tot. Refills 0, Maintenance, 06/05/20 10:48:00 EDT, Route to Pharmacy Electronically, [facility] #[id number], 165.1, cm, 06/05/20 8:32:00 EDT, Height, 73.1, [...] Maintenance,06/05/20 10:57:00 EDT, Route to Pharmacy Electronically, [facility] #[id number], 165.1, cm, 06/05/20 8:32:00 EDT, Height, 73.1, [...] stone Confirmed Active Major depression Confirmed Active Obese class I Confirmed Active Medicare annual wellness visit, initial Confirmed Active Pilonidal cyst with abscess Confirmed Active Post-concussion syndrome Confirmed Active Hematoma, subungual, great toe, left Confirmed Active Vitreous floaters of both eyes Confirmed Active Word finding difficulty Confirmed Active Social History Social History Type Response Smoking Status Never smoker entered on: 05/04/16 Sex Patient Care team information Personnel Name: Ariela Serrano NP Address: Address: [address] [place] [address]
--- OUTSIDE RECORDS SUMMARY | 2023-04-25 08:55 | XMS_ITS | Continuity of Care Document ---
Author Name Unknown Organization [facility] Address [address] [place] [address]- Care Team Providers Care Record Clerk Name Role Phone Maggie WHITE, Ariela Primary Care Physician [phone] Encounter [facility] Date(s): 08/13/21 - 09/21/21 [facility] Adult [address] [place] [address]- Attending Physician: Ariela Serrano NP Referring Physician: Eddie Rodriguez MD Allergies, Adverse Reactions, Alerts Substance Reaction Severity [...] capsule, 0 Refills, Maintenance, 01/28/21 15:58:00 EDT, [facility] #[id number], Partial fill upon patient request if the [...] Refills, Soft Stop, 01/28/21 15:57:00 EDT, Tablet, [facility] #[id number], Partial fill upon patient request if the prescription is for a schedule I... Start Date: 01/28/21 Status: Ordered gabapentin 300 mg oral capsule 300 mg, 1, capsule, By Mouth, 3 times a day, # 90 capsule, Refills 0, Tot. Refills 0, Maintenance, 06/05/20 10:48:00 EDT, Route to Pharmacy Electronically, [facility] #[id number], 165.1, cm, 06/05/20 8:32:00 EDT, Height, 73.1, [...] Maintenance,06/05/20 10:57:00 EDT, [id number], 165.1, cm, 06/05/20 8:32:00 EDT, Height, 73.1, [...]
--- OUTSIDE RECORDS SUMMARY | 2023-04-25 08:55 | XMS_ITS | Continuity of Care Document ---
Author Name Unknown Organization [facility] Address [address] [place] [address]- Care Team Providers Care Metal Annealer Name Role Phone Maggie WHITE, Ariela Primary Care Physician [phone] Encounter [facility] Date(s): 01/20/21 - 02/19/21 [facility] [address] [place] [address]- Allergies, Adverse Reactions, Alerts Substance Reaction Severity [...] capsule, 0 Refills, Maintenance, 01/28/21 15:58:00 EDT, [facility] #[id number], Partial fill upon patient request if the [...] Refills, Soft Stop, 01/28/21 15:57:00 EDT, Tablet, [facility] #[id number], Partial fill upon patient request if the prescription is for a schedule I... Start Date: 01/28/21 Status: Ordered gabapentin 300 mg oral capsule 300 mg, 1, capsule, By Mouth, 3 times a day, # 90 capsule, Refills 0, Tot. Refills 0, Maintenance, 06/05/20 10:48:00 EDT, Route to Pharmacy Electronically, [facility] #[id number], 165.1, cm, 06/05/20 8:32:00 EDT, Height, 73.1, [...] Maintenance,06/05/20 10:57:00 EDT, Route to Pharmacy Electronically, [facility] #[id number], 165.1, cm, 06/05/20 8:32:00 EDT, Height, 73.1, [...]
--- OUTSIDE RECORDS SUMMARY | 2023-04-25 08:55 | XMS_ITS | Continuity of Care Document ---
Author Name Unknown Organization [facility] Address [address] [place] [address]- Care Team Providers Care Digital Strategy Director Name Role Phone Maggie WHITE, Ariela Primary Care Physician [phone] Encounter [facility] Date(s): 04/07/21 - 04/14/21 [facility] Adult [address] [place] [address]- Encounter Diagnosis Dyspnea(Discharge Diagnosis) - 04/13/21 Attending Physician: Ariela Serrano NP Referring Physician: Jennifer GERONIMO, Eddie Alejandro Allergies, Adverse Reactions, Alerts Substance Reaction Severity [...] capsule, 0 Refills, Maintenance, 01/28/21 15:58:00 EDT, [facility] #[id number], Partial fill upon patient request if the [...] Refills, Soft Stop, 01/28/21 15:57:00 EDT, Tablet, [facility] #[id number], Partial fill upon patient request if the prescription is for a schedule I... Start Date: 01/28/21 Status: Ordered gabapentin 300 mg oral capsule 300 mg, 1, capsule, By Mouth, 3 times a day, # 90 capsule, Refills 0, Tot. Refills 0, Maintenance, 06/05/20 10:48:00 EDT, Route to Pharmacy Electronically, [facility] #[id number], 165.1, cm, 06/05/20 8:32:00 EDT, Height, 73.1, [...] Maintenance,06/05/20 10:57:00 EDT, Route to Pharmacy Electronically, [facility] #[id number], 165.1, cm, 06/05/20 8:32:00 EDT, Height, 73.1, [...] both eyes(Confirmed) Active Word finding difficulty(Confirmed) Active Diagnosis Diagnosis Type Effective Dates Health Status Clini lobo Service Informant Dyspnea Discharge Diagnosis 04/13/21 Vital Signs Most recent to oldest [Reference Range]: 1 Height 165 cm (04/07/21 1:55 PM) Weight 83.3 kg (04/07/21 1:55 PM) Oxygen Saturation [94-100 %] 97 % (04/07/21 1:55 PM) Pulse Rate [55-90 bpm] 86 bpm (04/07/21 1:55 PM) Body Mass Index [18.5-24.99] 30.6 *>HHI* (04/07/21 1:55 PM) Blood Pressure [90-138/55-84 mm Hg] 98/7 0mm Hg (04/07/21 1:55 PM) Temperature [96.8-100.4 DegF] 98.6 DegF (04/07/21 1:55 PM) Mode of Delivery (Oxygen) Room air (04/07/21 1:55 PM) Blood pressure sites Arm, right (04/07/21 1:55 PM) Temperature Route Oral (04/07/21 1:55 PM) Weight Obtained Via Standing scale (04/07/21 1:55 PM) Social History Social History Type Response Smoking Status Never smoker entered on: 05/04/16 Sex
--- OUTSIDE RECORDS SUMMARY | 2023-04-25 08:55 | XMS_ITS | Continuity of Care Document ---
Author Name Unknown Organization [facility] lt Address [address] [place] [address]- Care Team Providers Care Appliance Fixer Name Role Phone Maggie WHITE, Ariela Primary Care Physician Encounter [facility] Date(s): 01/17/21 - 01/24/21 [facility] Adult [address] [place] [address]- Encounter Diagnosis Urinary frequency(Discharge Diagnosis) - 01/17/21 Medicare annual wellness visit, initial(Discharge Diagnosis) - 01/17/21 Anemia(Discharge Diagnosis) - 01/18/21 Hypertriglyceridemia(Discharge Diagnosis) - 01/18/21 Chronic bipolar disorder(Discharge Diagnosis) - 01/18/21 Attending Physician: Jennifer GERONIMO, Eddie Alejandro Allergies, Adverse [...] virus vac, H1N1, inactive(oldterm) 10/17/09 Recorded Medications clonazePAM 1 mg oral tablet 1 tablet = 1 mg, By Mouth, 3 times a day, 0 Refills, Maintenance, 04/25/20 13:24:00 EDT, Tablet Start Date: 04/25/20 Status: Ordered doxycycline monohydrate 100 mg oral capsule 1 capsule = 100 mg, By Mouth, 2 times a day, for 7 days, # 14 capsule, 0 Refills, Acute 01/28/21 17:41:00 EDT, 01/21/21 17:41:00 EDT, Capsule, [facility] #[id number], Partial fill upon patient request if the prescription is for a schedule II opio... Start Date: 01/21/21 Stop Date: 01/28/21 Status: Ordered gabapentin 300 mg oral capsule 300 mg, 1, capsule, By Mouth, 3 times a day, # 90 capsule, Refills 0, Tot. Refills 0, Maintenance, 06/05/20 10:48:00 EDT, Route to Pharmacy Electronically, [facility] #[id number], 165.1, cm, 06/05/20 8:32:00 EDT, Height, 73.1, [...] Maintenance,06/05/20 10:57:00 EDT, Route to Pharmacy Electronically, [facility] #[id number], 165.1, cm, 06/05/20 8:32:00 EDT, Height, 73.1, [...] Effective Dates Health Status Clinical Service Informant Urinary frequency Discharge Diagnosis 01/17/21 Medicare annual wellness visit, initial Discharge Diagnosis 01/17/21 Anemia Discharge Diagnosis 01/18/21 Hypertriglyceridemia Discharge Diagnosis 01/18/21 Chronic bipolar disorder Discharge Diagnosis 01/18/21 Vital Signs Most recent to oldest [Reference Range]: 1 Height 165.1 cm (01/17/21 9:55 AM) Weight 89.7 kg (01/17/21 9:55 AM) Oxygen Saturation [94-100 %] 97 % (01/17/21 9:55 AM) Pulse Rate [55-90 bpm] 78 bpm (01/17/21 9:55 AM) Body Mass Index [18.5-24.99] 32.91 *>HHI* (01/17/21 9:55 AM) Blood Pressure [90-138/55-84 mm Hg] 100/ 70mm Hg (01/17/21 9:55 AM) Respiratory Rate [16-30 br/min] 16 br/mi n (01/17/21 9:55 AM) Temperature [96.8-100.4 DegF] 98.4 DegF (01/17/21 9:55 AM) Mode of Delivery (Oxygen) Room air (01/17/21 9:55 AM) Blood pressure sites Arm, right (01/17/21 9:55 AM) Temperature Route Oral (01/17/21 9:55 AM) Weight Obtained Via Standing scale (01/17/21 9:55 AM) Social History Social History Type Response Smoking Status Never smoker entered on: 05/04/16 Sex
--- OUTSIDE RECORDS SUMMARY | 2023-04-25 08:55 | XMS_ITS | Continuity of Care Document ---
Author Name Unknown Organization [facility] lt Address [address] [place] [address]- Care Team Providers Care Facilities Engineering Manager Name Role Phone Ariela Serrano NP Primary Care Physician Encounter [facility] Date(s): 03/19/22 - 03/26/22 [facility] Adult [address] [place] [address]- Encounter Diagnosis Hypercalcemia(Discharge Diagnosis) - 03/19/22 Attending Physician: Ariela Serrano NP Allergies, Adverse Reactions, [...] capsule, 0 Refills, Maintenance, 01/28/21 15:58:00 EDT, [facility] #[id number], Partial fill upon patient request if the [...] Refills, Soft Stop, 01/28/21 15:57:00 EDT, Tablet, [facility] #[id number], Partial fill upon patient request if the prescription is for a schedule I... Start Date: 01/28/21 Status: Ordered gabapentin 300 mg oral capsule 600 mg, 2, capsule, By Mouth, Daily at bedtime, # 90 capsule, Refills 0, Tot. Refills 0, Maintenance, 06/05/20 10:48:00 EDT, Route to Pharmacy Electronically, [facility] #[id number], 165.1, cm, 06/05/20 8:32:00 EDT, Height, 73.1, [...] Ordered ondansetron 4 mg oral tablet, disintegrating 1 tablet = 4 mg, By Mouth, Every 6 hours, PRN Nausea & Vomiting, # 12 tablet, 0 Refills, Acute 04/01/22 15:15:00 EDT, 03/16/22 14:17:00 EDT, Tablet, [facility] #[id number], Partial fill uponpatient request if the prescription is for a schedule I... Start Date: 03/16/22 Stop Date: 04/01/22 Status: Ordered ondansetron 4 mg oral tablet, [...] Maintenance,06/05/20 10:57:00 EDT, Route to Pharmacy Electronically, [facility][id number], 165.1, cm, 06/05/20 8:32:00 EDT, Height, 73.1, [...] Date: 03/19/22 Status: Ordered Problem List Condition Effective Dates Status Health Status Inform ant AR (allergic rhinitis)(Confirmed) Active Anemia(Confirmed) Active Chronic bipolar disorder(Confirmed) Active Breast lump in female(Confirmed) Active Cocaine use disorder(Confirmed) Active Lumbar degenerative disc disease(Confirmed) Active Other skin changes(Confirmed) Active SOB (shortness of breath)(Confirmed) Active Hx MRSA infection(Confirmed) Active Hypercalcemia(Confirmed) Active Hypertriglyceridemia(Confirmed) Active Urinary frequency(Confirmed) Active Kidney stone(Confirmed) Active Major depression(Confirmed) Active Obese class I(Confirmed) Active Medicare annual wellness vis it, initial(Confirmed) Active Pilonidal cyst with abscess(Confirmed) Active Post-concussion syndrome(Confirmed) Active Hematoma, subungual, great t oe, left(Confirmed) Active Vitreous floaters of both eyes(Confirmed) Active Word finding difficulty(Confirmed) Active Diagnosis Diagnosis Type Effective Dates Health Status Cl inical Service Informant Hypercalcemia Discharge Diagnosis 03/19/22 Vital Signs Most recent to oldest [Reference Range]: 1 Height 165 cm (03/19/22 2:59 PM) Social History Social History Type Response Smoking Status Never smoker entered on: 05/04/16 Sex
--- OUTSIDE RECORDS SUMMARY | 2023-04-25 08:55 | XMS_ITS | Continuity of Care Document ---
Author Name Unknown Organization [facility] lt Address [address] [place] [address]- Care Team Providers Care Logging Tractor Operator Swamp Name Role Phone Meghna Harmon Primary Care Physician [phone] Encounter [facility] Date(s): 01/07/23 - 02/06/23 [facility] Adult [address] [place] [address]- Allergies, Adverse Reactions, Alerts Substance Reaction Severity [...] capsule, 0 Refills, Maintenance, 01/28/21 15:58:00 EDT, [facility] #[id number], Partial fill upon patient request if the [...] Refills, Soft Stop, 01/28/21 15:57:00 EDT, Tablet, [facility] #[id number], Partial fill upon patient request if the prescription is for a schedule I... Start Date: 01/28/21 Status: Ordered gabapentin 300 mg oral capsule 600 mg, 2, capsule, By Mouth, Daily at bedtime, # 90 capsule, Refills 0, Tot. Refills 0, Maintenance, 06/05/20 10:48:00 EDT, Route to Pharmacy Electronically, [facility] #[id number], 165.1, cm, 06/05/20 8:32:00 EDT, Height, 73.1, [...] Maintenance,06/05/20 10:57:00 EDT, Route to Pharmacy Electronically, [facility] #[id number], 165.1, cm, 06/05/20 8:32:00 EDT, Height, 73.1, [...] Care Team Personnel Name: Meghna Harmon Position: [facility] Associate Professional Member Role: PCP Address: Address: [address] [place] [address]- [place] Name: Robert RN, Fani Lane Position: [facility] Nurse Member Role: Primary Care Nurse Care Team Related Persons Name: SIVA BEE Address: [address] [place] [address]
--- OUTSIDE RECORDS SUMMARY | 2023-04-25 08:55 | XMS_ITS | Continuity of Care Document ---
Author Name Unknown Organization [facility] Address [address] [place] [address]- Care Team Providers Care Marketing Director Name Role Phone Maggie WHITE, Ariela Primary Care Physician [place] [facility] [place] 05/30/21 - 06/29/21 [facility] Adult [address] [place] [address]- Attending Physician: AdmEfrem [email or web address] Admitting Physician: AdmtrMaria Referring Physician: Admtr, Ar8 Allergies, Adverse Reactions, Alerts Substance Reaction Severity [...] capsule, 0 Refills, Maintenance, 01/28/21 15:58:00 EDT, [facility] #[id number], Partial fill upon patient request if the [...] Refills, Soft Stop, 01/28/21 15:57:00 EDT, Tablet, [facility] #[id number], Partial fill upon patient request if the prescription is for a schedule I... Start Date: 01/28/21 Status: Ordered gabapentin 300 mg oral capsule 300 mg, 1, capsule, By Mouth, 3 times a day, # 90 capsule, Refills 0, Tot. Refills 0, Maintenance, 06/05/20 10:48:00 EDT, Route to Pharmacy Electronically, [facility] #[id number], 165.1, cm, 06/05/20 8:32:00 EDT, Height, 73.1, [...] Maintenance,06/05/20 10:57:00 EDT, Route to Pharmacy Electronically, [facility] #[id number], 165.1, cm, 06/05/20 8:32:00 EDT, Height, 73.1, [...]
--- OUTSIDE RECORDS SUMMARY | 2023-04-25 08:55 | XMS_ITS | Continuity of Care Document ---
Author Name Unknown Organization [facility] lt Address [address] [place] [address]- Care Team Providers Care Personal Lines Appraiser Name Role Phone Maggie WHITE, Ariela Primary Care Physician [phone] Encounter [facility] Date(s): 02/17/22 - 02/24/22 [facility] Adult [address] [place] [address]- Encounter Diagnosis Other skin changes(Discharge Diagnosis) - 02/17/22 Chronic bipolar disorder(Discharge Diagnosis) - 02/17/22 Attending Physician: Ariela Serrano NP Referring Physician: [...] capsule, 0 Refills, Maintenance, 01/28/21 15:58:00 EDT, [facility] #[id number], Partial fill upon patient request if the [...] Refills, Soft Stop, 01/28/21 15:57:00 EDT, Tablet, [facility] #[id number], Partial fill upon patient request if the prescription is for a schedule I... Start Date: 01/28/21 Status: Ordered gabapentin 300 mg oral capsule 300 mg, 1, capsule, By Mouth, 3 times a day, # 90 capsule, Refills 0, Tot. Refills 0, Maintenance, 06/05/20 10:48:00 EDT, Route to Pharmacy Electronically, [facility] #[id number], 165.1, cm, 06/05/20 8:32:00 EDT, Height, 73.1, [...] Maintenance,06/05/20 10:57:00 EDT, Route to Pharmacy Electronically, [facility] #[id number], 165.1, cm, 06/05/20 8:32:00 EDT, Height, 73.1, [...] Dates Health Status Cl inical Service Informant Other skin changes Discharge Diagnosis 02/17/22 Chronic bipolar disorder Discharge Diagnosis 02/17/22 Vital Signs Most recent to oldest [Reference Range]: 1 Height 165 cm (02/17/22 2:30 PM) Social History Social History Type Response Smoking Status Never smoker entered on: 05/04/16 Sex
--- OUTSIDE RECORDS SUMMARY | 2023-04-25 08:55 | XMS_ITS | Continuity of Care Document ---
Author Name Unknown Organization [facility] Address [address] [place] [address]- Care Team Providers Care Casting And Locker Room Servicer Name Role Phone Ariela Serrano NP Primary Care Physician [phone] Encounter [facility] Date(s): 04/28/22 - 06/07/[address] [address] Attending Physician: Meghna Harmon Admitting Physician: Meghan Harmon Referring Physician: Meghna Harmon Allergies, Adverse [...] capsule, 0 Refills, Maintenance, 01/28/21 15:58:00 EDT, [facility] #[id number], Partial fill upon patient request if the [...] Refills, Soft Stop, 01/28/21 15:57:00 EDT, Tablet, [facility] #[id number], Partial fill upon patient request if the prescription is for a schedule I... Start Date: 01/28/21 Status: Ordered gabapentin 300 mg oral capsule 600 mg, 2, capsule, By Mouth, Daily at bedtime, # 90 capsule, Refills 0, Tot. Refills 0, Maintenance, 06/05/20 10:48:00 EDT, Route to Pharmacy Electronically, [facility] #[id number], 165.1, cm, 06/05/20 8:32:00 EDT, Height, 73.1, [...] Maintenance,06/05/20 10:57:00 EDT, Route to Pharmacy Electronically, [facility] #[id number], 165.1, cm, 06/05/20 8:32:00 EDT, Height, 73.1, [...] Status Never smoker entered on: 05/04/16 Sex Care Team Personnel Name: Ariela Serrano NP Address: [address] [place] [address]
--- OUTSIDE RECORDS SUMMARY | 2023-04-25 08:55 | XMS_ITS | Continuity of Care Document ---
Author Name Unknown Organization [facility] Address [address] [place] [address]- Care Team Providers Care Merchandising Lead Name Role Phone Ariela Serrano NP Primary Care Physician [place] [facility] 02/19/21 - 04/02/21 [facility] [address] [place] [address]- Attending Physician: Ariela Serrano NP Allergies, Adverse [...] capsule, 0 Refills, Maintenance, 01/28/21 15:58:00 EDT, [facility] #[id number], Partial fill upon patient request if the [...] Refills, Soft Stop, 01/28/21 15:57:00 EDT, Tablet, [facility] #[id number], Partial fill upon patient request if the prescription is for a schedule I... Start Date: 01/28/21 Status: Ordered gabapentin 300 mg oral capsule 300 mg, 1, capsule, By Mouth, 3 times a day, # 90 capsule, Refills 0, Tot. Refills 0, Maintenance, 06/05/20 10:48:00 EDT, Route to Pharmacy Electronically, [facility] #[id number], 165.1, cm, 06/05/20 8:32:00 EDT, Height, 73.1, [...] Maintenance,06/05/20 10:57:00 EDT, Route to Pharmacy Electronically, [facility] #[id number], 165.1, cm, 06/05/20 8:32:00 EDT, Height, 73.1, [...]
--- OUTSIDE RECORDS SUMMARY | 2023-04-25 08:55 | XMS_ITS | Continuity of Care Document ---
Author Name Unknown Organization [facility] Address [address] [place] [address]- Care Team Providers Care Customs Import Specialist Name Role Phone Ariela Serrano NP Primary Care Physician [place] [facility] [place](s): 03/25/22 - 04/24/22 [facility] [address] [place] [address]- Allergies, Adverse Reactions, Alerts Substance Reaction Severity [...] capsule, 0 Refills, Maintenance, 01/28/21 15:58:00 EDT, [facility] #[id number], Partial fill upon patient request if the [...] Refills, Soft Stop, 01/28/21 15:57:00 EDT, Tablet, [facility] #[id number], Partial fill upon patient request if the prescription is for a schedule I... Start Date: 01/28/21 Status: Ordered gabapentin 300 mg oral capsule 600 mg, 2, capsule, By Mouth, Daily at bedtime, # 90 capsule, Refills 0, Tot. Refills 0, Maintenance, 06/05/20 10:48:00 EDT, Route to Pharmacy Electronically, [facility] #[id number], 165.1, cm, 06/05/20 8:32:00 EDT, Height, 73.1, [...] Maintenance,06/05/20 10:57:00 EDT, Route to Pharmacy Electronically, [facility] #[id number], 165.1, cm, 06/05/20 8:32:00 EDT, Height, 73.1, [...]
--- OUTSIDE RECORDS SUMMARY | 2023-04-25 08:55 | XMS_ITS | Continuity of Care Document ---
Author Name Unknown Organization [facility] Address [address] [place] [address]- Care Team Providers Care Crucible Packer Name Role Phone Maggie WHITE, Ariela Primary Care Physician Encounter [facility] Date(s): 01/26/22 - 02/25/22 [facility] [place] [address] [place] [address]- Attending Physician: Maria Meade Admitting Physician: AdmMaria gregory Referring Physician: Admtr, ArMae Allergies, Adverse Reactions, Alerts Substance Reaction Severity [...] capsule, 0 Refills, Maintenance, 01/28/21 15:58:00 EDT, [facility] #[id number], Partial fill upon patient request if the [...] Refills, Soft Stop, 01/28/21 15:57:00 EDT, Tablet, [facility] #85471, Partial fill upon patient request if the prescription is for a schedule I... Start Date: 01/28/21 Status: Ordered gabapentin 300 mg oral capsule 300 mg, 1, capsule, By Mouth, 3 times a day, # 90 capsule, Refills 0, Tot. Refills 0, Maintenance, 06/05/20 10:48:00 EDT, Route to Pharmacy Electronically, [facility] #[id number], 165.1, cm, 06/05/20 8:32:00 EDT, Height, 73.1, [...] Maintenance,06/05/20 10:57:00 EDT, Route to Pharmacy Electronically, [facility] #[id number], 165.1, cm, 06/05/20 8:32:00 EDT, Height, 73.1, [...]
--- OUTSIDE RECORDS SUMMARY | 2023-04-25 08:55 | XMS_ITS | Continuity of Care Document ---
Author Name Unknown Organization [facility] Address [address] [place] [address]- Care Team Providers Care Editor Producer Name Role Phone Maggie WHITE, Ariela Primary Care Physician Encounter [facility] Date(s): 12/15/21 - 01/14/22 [facility] [address] [place] [address]- Allergies, Adverse Reactions, Alerts Substance Reaction Severity [...] capsule, 0 Refills, Maintenance, 01/28/21 15:58:00 EDT, [facility] #[id number], Partial fill upon patient request if the [...] Refills, Soft Stop, 01/28/21 15:57:00 EDT, Tablet, [facility] #[id number], Partial fill upon patient request if the prescription is for a schedule I... Start Date: 01/28/21 Status: Ordered gabapentin 300 mg oral capsule 300 mg, 1, capsule, By Mouth, 3 times a day, # 90 capsule, Refills 0, Tot. Refills 0, Maintenance, 06/05/20 10:48:00 EDT, Route to Pharmacy Electronically, [facility] #[id number], 165.1, cm, 06/05/20 8:32:00 EDT, Height, 73.1, [...] Maintenance,06/05/20 10:57:00 EDT, Route to Pharmacy Electronically, [facility] #[id number], 165.1, cm, 06/05/20 8:32:00 EDT, Height, 73.1, kg, 05/21/20 17:26... Start Date: 06/05/20 Status: Ordered Zofran 8 mg oral tablet 1 tablet = 8 mg, By Mouth, 3 times a day, # 9 tablet, 0 Refills, Maintenance, 10/12/21 9:12:00 EST,Tablet, [facility] #[id number], Partial fill upon patient request if the prescription is for aschedule II opioid drug., 165, cm, 05/30/21 10:55:0... Start Date: 10/12/21 Status: Ordered Problem List Condition Effective Dates Status Health Status Inform ant AR (allergic rhinitis)(Confirmed) Active Anemia(Confirmed) Active Chronic bipolar disorder(Confirmed) Active Breast lump in female(Confirmed) Active Cocaine use disorder(Confirmed) Active Lumbar degenerative disc disease(Confirmed) Active SOB (shortness of breath)(Confirmed) Active Hx [...]
--- OUTSIDE RECORDS SUMMARY | 2023-04-25 08:55 | XMS_ITS | Continuity of Care Document ---
Author Name Unknown Organization [facility] Address [address] [place] [address]- Care Team Providers Care Order Clerk Name Role Phone Ariela Serrano NP Primary Care Physician Encounter [facility] [place] Date(s): 03/17/22 - 04/16/22 [facility] [address] [place] [address]- Allergies, Adverse Reactions, Alerts Substance Reaction Severity [...] capsule, 0 Refills, Maintenance, 01/28/21 15:58:00 EDT, [facility] #[id number], Partial fill upon patient request if the [...] Refills, Soft Stop, 01/28/21 15:57:00 EDT, Tablet, [facility] #[id number], Partial fill upon patient request if the prescription is for a schedule I... Start Date: 01/28/21 Status: Ordered gabapentin 300 mg oral capsule 600 mg, 2, capsule, By Mouth, Daily at bedtime, # 90 capsule, Refills 0, Tot. Refills 0, Maintenance, 06/05/20 10:48:00 EDT, Route to Pharmacy Electronically, [facility] #[id number], 165.1, cm, 06/05/20 8:32:00 EDT, Height, 73.1, [...] Maintenance,06/05/20 10:57:00 EDT, Route to Pharmacy Electronically, [facility] #[id number], 165.1, cm, 06/05/20 8:32:00 EDT, Height, 73.1, [...]
--- OUTSIDE RECORDS SUMMARY | 2023-04-25 08:55 | XMS_ITS | Continuity of Care Document ---
Author Name Unknown Organization [facility] Address [address] [place] [address]- Care Team Providers Care Care Trainer Name Role Phone Ariela Serrano NP Primary Care Physician [phone] [place] [facility] [place]10[place]21 - 11/09/21 [facility] [address] [place] [address]- Attending Physician: AdmMaria gregory Admitting Physician: AdmtrMaria Referring Physician: Admtr, Ar8 [...] capsule, 0 Refills, Maintenance, 01/28/21 15:58:00 EDT, [facility] #[id number], Partial fill upon patient request if the [...] Refills, Soft Stop, 01/28/21 15:57:00 EDT, Tablet, [facility] #[id number], Partial fill upon patient request if the prescription is for a schedule I... Start Date: 01/28/21 Status: Ordered gabapentin 300 mg oral capsule 300 mg, 1, capsule, By Mouth, 3 times a day, # 90 capsule, Refills 0, Tot. Refills 0, Maintenance, 06/05/20 10:48:00 EDT, Route to Pharmacy Electronically, [facility] #[id number], 165.1, cm, 06/05/20 8:32:00 EDT, Height, 73.1, [...] Maintenance,06/05/20 10:57:00 EDT, Route to Pharmacy Electronically, [facility] #[id number], 165.1, cm, 06/05/20 8:32:00 EDT, Height, 73.1, kg, 05/21/20 17:26... Start Date: 06/05/20 Status: Ordered Zofran 8 mg oral tablet 1 tablet = 8 mg, By Mouth, 3 times a day, # 9 tablet, 0 Refills, Maintenance, 10/12/21 9:12:00 EST,Tablet, [facility] #[id number], Partial fill upon patient request if the [...]
--- OUTSIDE RECORDS SUMMARY | 2023-04-25 08:55 | XMS_ITS | Continuity of Care Document ---
Author Name Unknown Organization [facility] Address [address] [facility] [address] [place] [address]- Care Team Providers Care Multi Line Claims Adjuster Name Role Phone Maggie WHITE, Ariela Primary Care Physician Encounter 12/02/20 - 12/09/20 [facility] [address], [address] [place] [address]- Attending Physician: Leatha Main NP Admitting Physician: Leatha Main NP Referring Physician: Leatha Main NP Allergies, Adverse Reactions, Alerts Substance Reaction Severity Status Bactrim hives Active Medications clonazePAM 1 mg oral tablet 1 tablet = 1 mg, By Mouth, 3 times a day, 0 Refills, Maintenance, 04/25/20 13:24:00 EDT, Tablet Start Date: 04/25/20 Status: Ordered gabapentin 300 mg oral capsule 300 mg, 1, capsule, By Mouth, 3 times a day, # 90 capsule, Refills 0, Tot. Refills 0, Maintenance, 06/05/20 10:48:00 EDT, Route to Pharmacy Electronically, [facility] #[id number], 165.1, cm, 06/05/20 8:32:00 EDT, Height, 73.1, kg, 05/21/20 17:26:... Start Date: 06/05/20 Status: Ordered Lidocaine 2% Topical Topically, 2 times a day, 0 Refills, Maintenance Start Date: 08/26/20 Status: Ordered loratadine 10 mg oral tablet 10 mg, 1, tablet, By Mouth, Daily, # 90 tablet, Refills 0, Maintenance, 08/26/20 9:49:00 EST, Partial fill upon patient request if the prescription is for a schedule II opioid drug. Start Date: 08/26/20 Status: Ordered lurasidone 40 mg oral tablet 1 tablet = 40 mg, By Mouth, Daily, # 90 tablet, 0 Refills, Maintenance, 08/26/20 9:49:00 EST, Tablet, Partial fill upon patient request if the prescription is for a schedule II opioid drug. Start Date: 08/26/20 Status: Ordered mirtazapine 7.5 mg oral tablet 1 tablet = 7.5 mg, By Mouth, Daily at bedtime, # 30 tablet, 0 Refills, Maintenance, 06/05/20 10:58:00 EDT, Tablet, [facility] #[id number], 165.1, cm, 06/05/20 8:32:00 EDT, Height, 73.1, kg, 05/21/20 17:26:00 EDT, Dry Weight Start Date: 06/05/20 Status: Ordered OXcarbazepine 300 mg oral tablet 300 mg, 1, tablet, By Mouth, 2 times a day, # 120 tablet, Refills 0, Maintenance, 04/25/20 13:24:00EDT Start Date: 04/25/20 Status: Ordered traZODone 100 mg oral tablet 200 mg, 2, tablet, By Mouth, Daily at bedtime, # 60 tablet, Refills 0, Tot. Refills 0, Maintenance,06/05/20 10:57:00 EDT, Route to Pharmacy Electronically, [facility] #[id number], 165.1, cm, 06/05/20 8:32:00 EDT, Height, 73.1, kg, 05/21/20 17:26... Start Date: 06/05/20 Status: Ordered Problem List Condition Effective Dates Status Health Status Inform ant AR (allergic rhinitis)(Confirmed) Active Chronic bipolar disorder(Confirmed) Active Breast lump in female(Confirmed) Active Cocaine use disorder(Confirmed) Active Lumbar degenerative disc disease(Confirmed) Active Hx MRSA infection(Confirmed) Active Kidney stone(Confirmed) Active Major depression(Confirmed) Active Pilonidal cyst with abscess(Confirmed) Active Post-concussion syndrome(Confirmed) Active Hematoma, subungual, great t oe, left(Confirmed) Active Vitreous floaters of both eyes(Confirmed) Active Word finding difficulty(Confirmed) Active Social History Social History Type Response Smoking Status Never smoker entered on: 05/04/16 Sex
--- OUTSIDE RECORDS SUMMARY | 2023-04-25 08:55 | XMS_ITS | Continuity of Care Document ---
Author Name Unknown Organization [facility] Address [address] [place] [address]- Care Team Providers Care Logistics Lead Name Role Phone Ariela Serrano NP Primary Care Physician [phone] Encounter [facility] [place] Date(s): 03/26/22 - 04/25/22 [facility] [address] [place] [address]- Allergies, Adverse Reactions, Alerts Substance Reaction Severity [...] capsule, 0 Refills, Maintenance, 01/28/21 15:58:00 EDT, [facility] #[id number], Partial fill upon patient request if the [...] Refills, Soft Stop, 01/28/21 15:57:00 EDT, Tablet, [facility] #[id number], Partial fill upon patient request if the prescription is for a schedule I... Start Date: 01/28/21 Status: Ordered gabapentin 300 mg oral capsule 600 mg, 2, capsule, By Mouth, Daily at bedtime, # 90 capsule, Refills 0, Tot. Refills 0, Maintenance, 06/05/20 10:48:00 EDT, Route to Pharmacy Electronically, [facility] #[id number], 165.1, cm, 06/05/20 8:32:00 EDT, Height, 73.1, [...] Maintenance,06/05/20 10:57:00 EDT, Route to Pharmacy Electronically, [facility] #[id number], 165.1, cm, 06/05/20 8:32:00 EDT, Height, 73.1, [...]
--- OUTSIDE RECORDS SUMMARY | 2023-04-25 08:55 | XMS_ITS | Continuity of Care Document ---
Author Name Unknown Organization [facility] Address [address] [facility], [facility] [address] [place] [address]- Care Team Providers Care Reel Cutter Name Role Phone Maggie WHITE, Ariela Primary Care Physician [phone] Encounter 12/31/20 - 01/07/21 [facility] [address], [address] [place] [address]- Attending Physician: Den GERONIMO, November Admitting Physician: Den GERONIMO, November Referring Physician: Den GERONIMO, November Allergies, Adverse Reactions, Alerts Substance Reaction Severity [...] 06/05/20 10:48:00 EDT, Route to Pharmacy Electronically, [facility] #[id number], 165.1, cm, 06/05/20 8:32:00 EDT, Height, 73.1, [...] 0 Refills, Maintenance, 06/05/20 10:58:00 EDT, Tablet, [facility] #[id number], 165.1, cm, 06/05/20 8:32:00 EDT, Height, 73.1, [...] Maintenance,06/05/20 10:57:00 EDT, Route to Pharmacy Electronically, [facility] #[id number], 165.1, cm, 06/05/20 8:32:00 EDT, Height, 73.1, [...]
--- OUTSIDE RECORDS SUMMARY | 2023-04-25 08:55 | XMS_ITS | Continuity of Care Document ---
Author Name Unknown Organization [facility] Address [address] [place] [address]- Care Team Providers Care Outside B2B Sales Name Role Phone Meghna Harmon Primary Care Physician [phone] [place] [facility] [place] Date(s): 11/10/22 - 12/10/22 [facility] [address] [place] [address]- Attending Physician: Maria Meade Admitting Physician: AdmtrMaria Referring Physician: Admtr, Ar8 [...] capsule, 0 Refills, Maintenance, 01/28/21 15:58:00 EDT, [facility] #[id number], Partial fill upon patient request if the [...] Refills, Soft Stop, 01/28/21 15:57:00 EDT, Tablet, [facility] #96206, Partial fill upon patient request if the prescription is for a schedule I... Start Date: 01/28/21 Status: Ordered gabapentin 300 mg oral capsule 600 mg, 2, capsule, By Mouth, Daily at bedtime, # 90 capsule, Refills 0, Tot. Refills 0, Maintenance, 06/05/20 10:48:00 EDT, Route to Pharmacy Electronically, [facility] #[id number], 165.1, cm, 06/05/20 8:32:00 EDT, Height, 73.1, [...] Maintenance,06/05/20 10:57:00 EDT, Route to Pharmacy Electronically, [facility] #[id number], 165.1, cm, 06/05/20 8:32:00 EDT, Height, 73.1, [...] Care Team Personnel Name: Meghna Harmon Position: [facility] PCO Associate Professional Member Role: PCP Address: Address: [address] [place] [address]- Name: Robert ANDRADE, Fani Lane Position: [facility] AMB Nurse Member Role: Primary Care Nurse Care Team Related Persons Name: SIVA BEE Address: home [address] [place] [address]
--- OUTSIDE RECORDS SUMMARY | 2023-04-25 08:55 | XMS_ITS | Continuity of Care Document ---
Author Name Unknown Organization [facility] Address [address] [place] [address]- Care Team Providers Care Senior Java J2Ee Developer Name Role Phone Maggie WHITE, Ariela Primary Care Physician [place] [facility] [place] 11/21/20 - 12/21/20 [facility] [address] [place] [address]- Allergies, Adverse Reactions, Alerts Substance Reaction Severity [...] 06/05/20 10:48:00 EDT, Route to Pharmacy Electronically, [facility] #[id number], 165.1, cm, 06/05/20 8:32:00 EDT, Height, 73.1, [...] 0 Refills, Maintenance, 06/05/20 10:58:00 EDT, Tablet, [facility] #[id number], 165.1, cm, 06/05/20 8:32:00 EDT, Height, 73.1, [...] Maintenance,06/05/20 10:57:00 EDT, Route to Pharmacy Electronically, [facility] #[id number], 165.1, cm, 06/05/20 8:32:00 EDT, Height, 73.1, [...]
--- OUTSIDE RECORDS SUMMARY | 2023-04-25 08:55 | XMS_ITS | Continuity of Care Document ---
Author Name Unknown Organization [facility] Address [address] [place] [address]- Care Team Providers Care Ultrasound Spec Name Role Phone Meghna Harmon Primary Care Physician [phone] [place] [facility] [place]23 [place] 03/03/23 [facility] [address] [place] [address]- Allergies, Adverse Reactions, Alerts Substance Reaction Severity [...] capsule, 0 Refills, Maintenance, 01/28/21 15:58:00 EDT, [facility] #[id number], Partial fill upon patient request if the [...] Refills, Soft Stop, 01/28/21 15:57:00 EDT, Tablet, [facility] #05105, Partial fill upon patient request if the prescription is for a schedule I... Start Date: 01/28/21 Status: Ordered gabapentin 300 mg oral capsule 600 mg, 2, capsule, By Mouth, Daily at bedtime, # 90 capsule, Refills 0, Tot. Refills 0, Maintenance, 06/05/20 10:48:00 EDT, Route to Pharmacy Electronically, [facility] #[id number], 165.1, cm, 06/05/20 8:32:00 EDT, Height, 73.1, [...] Maintenance,06/05/20 10:57:00 EDT, Route to Pharmacy Electronically, [facility] #[id number], 165.1, cm, 06/05/20 8:32:00 EDT, Height, 73.1, [...] Care Team Personnel Name: Meghna Harmon Position: [facility] PCO Associate Professional Member Role: PCP Address: Address: [address] [place] [address]- [place] Name: Robert RN, Fani Lane Position: [facility] Nurse Member Role: Primary Care Nurse Care Team Related Persons Name: SIVA BEE Address: home [address] [place] [address]
--- OUTSIDE RECORDS SUMMARY | 2023-04-25 08:55 | XMS_ITS | Continuity of Care Document ---
Author Name Unknown Organization [facility] Address [address] [facility], [facility] [address] [place] [address]- Care Team Providers Care Rail Tractor Operator Name Role Phone Maggie WHITE, Ariela Primary Care Physician [phone] Encounter 11/20/20 - 12/25/20 [facility] [address], [facility] [address] [place] [address]- Attending Physician: Leatha Main NP Admitting Physician: [...] 06/05/20 10:48:00 EDT, Route to Pharmacy Electronically, [facility] #[id number], 165.1, cm, 06/05/20 8:32:00 EDT, Height, 73.1, [...] 0 Refills, Maintenance, 06/05/20 10:58:00 EDT, Tablet, [facility] #[id number], 165.1, cm, 06/05/20 8:32:00 EDT, Height, 73.1, [...] Maintenance,06/05/20 10:57:00 EDT, Route to Pharmacy Electronically, [facility] #[id number], 165.1, cm, 06/05/20 8:32:00 EDT, Height, 73.1, [...]
--- OUTSIDE RECORDS SUMMARY | 2023-04-25 08:55 | XMS_ITS | Continuity of Care Document ---
Author Name Unknown Organization [facility] Address [address] [place] [address] [address] [place] [address]- Care Team Providers Care Hotel Housekeeper Name Role Phone Maggie WHITE, Ariela Primary Care Physician Encounter [facility] Date(s): 01/06/21 - 02/05/[address] [place], [place] [address] Attending Physician: Admtr, Ar8 Admitting Physician: Admtr, Ar8 Referring Physician: Admtr, Ar8 Allergies, Adverse Reactions, [...] capsule, 0 Refills, Maintenance, 01/28/21 15:58:00 EDT, [facility] #[id number], Partial fill upon patient request if the [...] Refills, Soft Stop, 01/28/21 15:57:00 EDT, Tablet, [facility] #[id number], Partial fill upon patient request if the prescription is for a schedule I... Start Date: 01/28/21 Status: Ordered gabapentin 300 mg oral capsule 300 mg, 1, capsule, By Mouth, 3 times a day, # 90 capsule, Refills 0, Tot. Refills 0, Maintenance, 06/05/20 10:48:00 EDT, Route to Pharmacy Electronically, [facility] #[id number], 165.1, cm, 06/05/20 8:32:00 EDT, Height, 73.1, [...] Maintenance,06/05/20 10:57:00 EDT, Route to Pharmacy Electronically, [facility][id number], 165.1, cm, 06/05/20 8:32:00 EDT, Height, 73.1, [...]
--- OUTSIDE RECORDS SUMMARY | 2023-04-25 08:55 | XMS_ITS | Continuity of Care Document ---
Author Name Unknown Organization [facility] Address [address] [place] [address]- Care Team Providers Care Wash Worker Name Role Phone Maggie WHITE, Ariela Primary Care Physician Encounter [facility] Date(s): 03/21/21 - 04/20/21 [facility] [address] [place] [address]- Allergies, Adverse Reactions, Alerts Substance Reaction Severity [...] capsule, 0 Refills, Maintenance, 01/28/21 15:58:00 EDT, [facility] #[id number], Partial fill upon patient request if the [...] Refills, Soft Stop, 01/28/21 15:57:00 EDT, Tablet, [facility] #97678, Partial fill upon patient request if the prescription is for a schedule I... Start Date: 01/28/21 Status: Ordered gabapentin 300 mg oral capsule 300 mg, 1, capsule, By Mouth, 3 times a day, # 90 capsule, Refills 0, Tot. Refills 0, Maintenance, 06/05/20 10:48:00 EDT, Route to Pharmacy Electronically, [facility] #[id number], 165.1, cm, 06/05/20 8:32:00 EDT, Height, 73.1, [...] Maintenance,06/05/20 10:57:00 EDT, Route to Pharmacy Electronically, [facility] #06514, 165.1, cm, 06/05/20 8:32:00 EDT, Height, 73.1, [...]
--- OUTSIDE RECORDS SUMMARY | 2023-04-25 08:55 | XMS_ITS | Continuity of Care Document ---
Author Name Unknown Organization [facility] Address [address] [place] [address]- Care Team Providers Care Wheelage Clerk Name Role Phone Ariela Serrano NP Primary Care Physician Encounter [facility] Date(s): 01/17/21 - 02/16/21 [facility] Adult [address] [place] [address]- Allergies, Adverse Reactions, Alerts Substance Reaction Severity [...] capsule, 0 Refills, Maintenance, 01/28/21 15:58:00 EDT, [facility] #[id number], Partial fill upon patient request if the [...] Refills, Soft Stop, 01/28/21 15:57:00 EDT, Tablet, [email or web address] #[id number], Partial fill upon patient request if the prescription is for a schedule I... Start Date: 01/28/21 Status: Ordered gabapentin 300 mg oral capsule 300 mg, 1, capsule, By Mouth, 3 times a day, # 90 capsule, Refills 0, Tot. Refills 0, Maintenance, 06/05/20 10:48:00 EDT, Route to Pharmacy Electronically, [email or web address] #[id number], 165.1, cm, 06/05/20 8:32:00 EDT, Height, 73.1, [...] Maintenance,06/05/20 10:57:00 EDT, Route to Pharmacy Electronically, [email or web address] #[id number], 165.1, cm, 06/05/20 8:32:00 EDT, Height, 73.1, [...]
--- OUTSIDE RECORDS SUMMARY | 2023-04-25 08:55 | XMS_ITS | Continuity of Care Document ---
Author Name Unknown Organization [facility] Address [address] [place] [address]- Care Team Providers Care Heel Cementer Machine Name Role Phone Juan GERONIMO, Denia Roberts Primary Care Physician Encounter [facility] Date(s): 08/27/20 - 09/03/20 [facility] Adult [address] [place] [address]- Encounter Diagnosis Post-concussion syndrome(Discharge Diagnosis) - 08/27/20 Kidney stone(Discharge Diagnosis) - 08/27/20 Major depression(Discharge Diagnosis) - 08/27/20 Cocaine use disorder(Discharge Diagnosis) - 08/27/20 Lumbar degenerative disc disease(Discharge Diagnosis) - 08/27/20 Breast lump in female(Discharge Diagnosis) - 08/27/20 Encounter to establish care(Discharge Diagnosis) - 08/27/20 Chronic bipolar disorder(Discharge Diagnosis) - 08/27/20 Attending Physician: Ariela Serrano NP Allergies, Adverse [...] 06/05/20 10:48:00 EDT, Route to Pharmacy Electronically, [facility] #[id number], 165.1, cm, 06/05/20 8:32:00 EDT, Height, 73.1, [...] opioid drug. Start Date: 08/26/20 Status: Ordered miconazole 2% topical ointment See Instructions, Topically Daily to affected area, # 1 each, 0 Refills, Maintenance, 06/05/20 10:48:00 EDT, Ointment, [facility] #[id number], Topically Daily to affected area, 165.1, cm, 06/05/20 8:32:00 EDT, Height, 73.1, kg, 05/21/20 17:26:00... Start Date: 06/05/20 Status: Ordered mirtazapine 7.5 mg oral tablet 1 tablet = 7.5 mg, By Mouth, Daily at bedtime, # 30 tablet, 0 Refills, Maintenance, 06/05/20 10:58:00 EDT, Tablet, [facility] #01263, 165.1, cm, 06/05/20 8:32:00 EDT, Height, 73.1, kg, 05/21/20 17:26:00 EDT, Dry Weight Start Date: 06/05/20 Status: Ordered nystatin topical 614817 u/gm powder See Instructions, Topically 2 times a day to affected area, # 15 Gm, 0 Refills, Acute 06/05/21 9:00:00 EDT, 06/05/20 10:49:00 EDT, Powder, [facility] #[id number], Topically 2 times a day to affected area, 165.1, cm, 06/05/20 8:32:00 EDT, Height,... Start Date: 06/05/20 Stop Date: 06/05/21 Status: Ordered OXcarbazepine 300 mg oral tablet 300 mg, 1, tablet, By Mouth, 2 times a day, # 120 tablet, Refills 0, Maintenance, 04/25/20 13:24:00EDT Start Date: 04/25/20 Status: Ordered SEROquel 300 mg oral tablet 1 tablet = 300 mg, By Mouth, Daily at bedtime, # 30 tablet, 0 Refills, Maintenance, 06/05/20 10:57:00 EDT, Tablet, [facility] #[id number], 165.1, cm, 06/05/20 8:32:00 EDT, Height, 73.1, kg, 05/21/20 17:26:00 EDT, Dry Weight Start Date: 06/05/20 Status: Ordered traZODone 100 mg oral tablet 200 mg, 2, tablet, By Mouth, Daily at bedtime, # 60 tablet, Refills 0, Tot. Refills 0, Maintenance,06/05/20 10:57:00 EDT, Route to Pharmacy Electronically, [facility] #[id number], 165.1, cm, 06/05/20 8:32:00 EDT, Height, 73.1, kg, 05/21/20 17:26... Start Date: 06/05/20 Status: Ordered Problem List Condition Effective Dates Status Health Status Inform ant [place] (allergic rhinitis)(Confirmed) Active Chronic bipolar disorder(Confirmed) Active Breast lump in female(Confirmed) Active Cocaine use disorder(Confirmed) Active Lumbar degenerative disc disease(Confirmed) Active Hx MRSA infection(Confirmed) Active Kidney stone(Confirmed) Active Major depression(Confirmed) Active Encounter to establish care(Confirmed) Active Pilonidal cyst with abscess(Confirmed) Active Post-concussion syndrome(Confirmed) Active Hematoma, subungual, great t oe, left(Confirmed) Active Vitreous floaters of both eyes(Confirmed) Active Word finding difficulty(Confirmed) Active Diagnosis Diagnosis Type Effective Dates Health Status Clinical Service Informant Encounter to establish care Discharge Diagnosis 08/27/20 Breast lump in female Discharge Diagnosis 08/27/20 Chronic bipolar disorder Discharge Diagnosis 08/27/20 Cocaine use disorder Discharge Diagnosis 08/27/20 Kidney stone Discharge Diagnosis 08/27/20 Major depression Discharge Diagnosis 08/27/20 Post-concussion syndrome Discharge Diagnosis 08/27/20 Lumbar degenerative disc disease Discharge Diagnosis 08/27/20 Procedures Procedure Date Related Diagnosis Body Site Status Colonoscopy 04/13/08 Completed Tubal ligation 1982 Completed Colonoscopy 1 Completed Hysteroscopy with endometrial ablation Completed Left Biopsy of breast 2 C ompleted 1July 2019 normal per patient 2Augu2019 per pt Vital Signs Most recent to oldest [Reference Range]: 1 Height 165.1 cm (08/27/20 1:49 PM) Social History Social History Type Response Smoking Status Never smoker entered on: 05/04/16 Sex
--- OUTSIDE RECORDS SUMMARY | 2023-04-25 08:55 | XMS_ITS | Continuity of Care Document ---
Author Name Unknown Organization [facility] Address [address] [address]- Care Team Providers Care Bacon Slicer Name Role Phone Meghna Harmon Primary Care Physician [place] [facility] [place]s): 07/15/22 - 09/25/22 [facility] [address] [address]- Attending Physician: Meghna Harmon Admitting Physician: Meghna [...] capsule, 0 Refills, Maintenance, 01/28/21 15:58:00 EDT, [facility] #[id number], Partial fill upon patient request if the [...] Refills, Soft Stop, 01/28/21 15:57:00 EDT, Tablet, [facility] #[id number], Partial fill upon patient request if the prescription is for a schedule I... Start Date: 01/28/21 Status: Ordered gabapentin 300 mg oral capsule 600 mg, 2, capsule, By Mouth, Daily at bedtime, # 90 capsule, Refills 0, Tot. Refills 0, Maintenance, 06/05/20 10:48:00 EDT, Route to Pharmacy Electronically, [facility] #[id number], 165.1, cm, 06/05/20 8:32:00 EDT, Height, 73.1, [...] Maintenance,06/05/20 10:57:00 EDT, Route to Pharmacy Electronically, [facility] #[id number], 165.1, cm, 06/05/20 8:32:00 EDT, Height, 73.1, [...] Care Team Personnel Name: Meghna Harmon Position: [facility] PCO Associate Professional Member Role: PCP Address: Address: [address] [place] [address]- Name: Robert ANDRADE, Fani Lane Position: [facility] AMB Nurse Member Role: Primary Care Nurse Care Team Related Persons Name: SIVA BEE Address: home [address] [place] [address]
--- OUTSIDE RECORDS SUMMARY | 2023-04-25 08:55 | XMS_ITS | Continuity of Care Document ---
Author Name Unknown Organization [facility] Address [address] [address]- Care Team Providers Care Hose Turner Name Role Phone Meghna Harmon Primary Care Physician [phone] [place] [facility] [place] 08/15/22 [facility] [address] [address]- Attending Physician: Meghna Harmon Admitting Physician: Meghna [...] capsule, 0 Refills, Maintenance, 01/28/21 15:58:00 EDT, [facility] #[id number], Partial fill upon patient request if the [...] Refills, Soft Stop, 01/28/21 15:57:00 EDT, Tablet, [facility] #[id number], Partial fill upon patient request if the prescription is for a schedule I... Start Date: 01/28/21 Status: Ordered gabapentin 300 mg oral capsule 600 mg, 2, capsule, By Mouth, Daily at bedtime, # 90 capsule, Refills 0, Tot. Refills 0, Maintenance, 06/05/20 10:48:00 EDT, Route to Pharmacy Electronically, [facility] #[id number], 165.1, cm, 06/05/20 8:32:00 EDT, Height, 73.1, [...] Maintenance,06/05/20 10:57:00 EDT, Route to Pharmacy Electronically, [facility] #[id number], 165.1, cm, 06/05/20 8:32:00 EDT, Height, 73.1, [...] Care Team Personnel Name: Meghna Harmon Position: [facility] PCO Associate Professional Member Role: PCP Address: Address: [address] [place] [address]- Name: Robert ANDRADE, Fani Lane Position: [facility] AMB Nurse Member Role: Primary Care Nurse Care Team Related Persons Name: BEE SIVA Address: home [address] [place] [address]
--- OUTSIDE RECORDS SUMMARY | 2023-04-25 08:55 | XMS_ITS | Continuity of Care Document ---
Author Name Unknown Organization [facility] Yaakov lt Address [address] [place] [address]- Care Team Providers Care Weed Inspector Name Role Phone Meghna Harmon Primary Care Physician Encounter [facility] Date(s): 08/19/22 - 08/26/22 [facility] Adult [address] [place] [address]- Encounter Diagnosis Hematuria due to cystitis(Discharge Diagnosis) - 08/19/22 UTI symptoms(Discharge Diagnosis) - 08/19/22 Attending Physician: Not on Staff, Attending MD Allergies, Adverse Reactions, Alerts Substance Reaction [...] capsule, 0 Refills, Maintenance, 01/28/21 15:58:00 EDT, [facility] #[id number], Partial fill upon patient request if the [...] Refills, Soft Stop, 01/28/21 15:57:00 EDT, Tablet, [facility] #[id number], Partial fill upon patient request if the prescription is for a schedule I... Start Date: 01/28/21 Status: Ordered gabapentin 300 mg oral capsule 600 mg, 2, capsule, By Mouth, Daily at bedtime, # 90 capsule, Refills 0, Tot. Refills 0, Maintenance, 06/05/20 10:48:00 EDT, Route to Pharmacy Electronically, [facility] #[id number], 165.1, cm, 06/05/20 8:32:00 EDT, Height, 73.1, [...] Maintenance,06/05/20 10:57:00 EDT, Route to Pharmacy Electronically, [facility] #[id number], 165.1, cm, 06/05/20 8:32:00 EDT, Height, 73.1, [...] Dates Health Status Cl inical Service Informant Hematuria due to cystitis Discharge Diagnosis 08/19/22 UTI symptoms Discharge Diagnosis 08/19/22 Vital Signs Most recent to oldest [Reference Range]: 1 Height 165 cm (08/19/22 3:45 PM) Weight 81.4 kg (08/19/22 3:45 PM) Oxygen Saturation [94-100 %] 96 % (08/19/22 3:45 PM) Pulse Rate [55-90 bpm] 83 bpm (08/19/22 3:45 PM) Body Mass Index [18.5-24.99 kg/m2] 29.9 kg/m2 *H* (08/19/22 3:45 PM) Blood Pressure [90-138/55-84 mm Hg] 104/ 80mm Hg (08/19/22 3:45 PM) Temperature [96.8-100.4 DegF] 97.5 DegF (08/19/22 3:45 PM) Mode of Delivery (Oxygen) Room air (08/19/22 3:45 PM) Blood pressure sites Arm, left (08/19/22 3:45 PM) Temperature Route Oral (08/19/22 3:45 PM) Weight Obtained Via Standing scale (08/19/22 3:45 PM) Social History Social History Type Response Smoking Status Never smoker entered on: 05/04/16 Sex Patient Care team information Care Team Personnel Name: Meghna Harmon Position: [facility] PCO Associate Professional Member Role: PCP Address: Address: [address] [place] [id number]- Name: Robert ANDRADE, Fani Lane Position: [facility] AMB Nurse Member Role: Primary Care Nurse Care Team Related Persons Name: SIVA BEE Address: home [address] [place] [address]
--- OUTSIDE RECORDS SUMMARY | 2023-04-25 08:55 | XMS_ITS | Continuity of Care Document ---
Author Name Unknown Organization [facility] Address [address] [place] [address]- Care Team Providers Care Button Sewer Hand Name Role Phone Maggie WHITE, Ariela Primary Care Physician Encounter [facility] Date(s): 01/29/21 - 02/28/21 [facility] [address] [place] [address]- Allergies, Adverse Reactions, Alerts Substance Reaction Severity [...] capsule, 0 Refills, Maintenance, 01/28/21 15:58:00 EDT, [facility] #[id number], Partial fill upon patient request if the [...] Refills, Soft Stop, 01/28/21 15:57:00 EDT, Tablet, [facility] #[id number], Partial fill upon patient request if the prescription is for a schedule I... Start Date: 01/28/21 Status: Ordered gabapentin 300 mg oral capsule 300 mg, 1, capsule, By Mouth, 3 times a day, # 90 capsule, Refills 0, Tot. Refills 0, Maintenance, 06/05/20 10:48:00 EDT, Route to Pharmacy Electronically, [facility] #[id number], 165.1, cm, 06/05/20 8:32:00 EDT, Height, 73.1, [...] Maintenance,06/05/20 10:57:00 EDT, Route to Pharmacy Electronically, [facility] #[id number], 165.1, cm, 06/05/20 8:32:00 EDT, Height, 73.1, [...]
--- OUTSIDE RECORDS SUMMARY | 2023-04-25 08:55 | XMS_ITS | Continuity of Care Document ---
Author Name Unknown Organization [facility] Yaakov lt Address [address] [place] [address]- Care Team Providers Care Inside Sales Account Representative Name Role Phone Meghna Harmon Primary Care Physician Encounter [facility] Date(s): 11/11/22 - 12/11/22 [facility] Adult [address] [place] [address]- Allergies, Adverse Reactions, Alerts Substance Reaction Severity [...] Maintenance, 01/28/21 15:58:00 EDT, [facility] #[id number], Partial fill upon patient request if the [...] Refills, Soft Stop, 01/28/21 15:57:00 EDT, Tablet, [facility] #[id number], Partial fill upon patient request if the prescription is for a schedule I... Start Date: 01/28/21 Status: Ordered gabapentin 300 mg oral capsule 600 mg, 2, capsule, By Mouth, Daily at bedtime, # 90 capsule, Refills 0, Tot. Refills 0, Maintenance, 06/05/20 10:48:00 EDT, Route to Pharmacy Electronically, [facility] #[id number], 165.1, cm, 06/05/20 8:32:00 EDT, Height, 73.1, [...] Maintenance,06/05/20 10:57:00 EDT, Route to Pharmacy Electronically, [facility] #[id number], 165.1, cm, 06/05/20 8:32:00 EDT, Height, 73.1, [...] Care Team Personnel Name: Meghna Harmon Position: [facility] PCO Associate Professional Member Role: PCP Address: Address: [address] [place] [address]- Name: Robert ANDRADE, Fani Lane Position: [facility] AMB Nurse Member Role: Primary Care Nurse Care Team Related Persons Name: SIVA BEE Address: home [address] [place] [address]
--- OUTSIDE RECORDS SUMMARY | 2023-04-25 08:56 | XMS_ITS | Continuity of Care Document ---
Author Name Unknown Organization [facility] Yaakov Address [address] [place] [address]- Care Team Providers Care Napper Fixer Name Role Phone Ariela Serrano NP Primary Care Physician [phone] Encounter [facility] [place](s): 11/17/21 - 11/24/21 [facility] Adult [address] [place] [address]- Encounter Diagnosis SOB (shortness of breath)(Discharge Diagnosis) - 11/17/21 Medicare annual wellness visit, initial(Discharge Diagnosis) - 11/17/21 Attending Physician: Ariela Serrano NP Allergies, Adverse [...] capsule, 0 Refills, Maintenance, 01/28/21 15:58:00 EDT, [email or web address] #[id number], Partial fill upon patient request if the [...] Refills, Soft Stop, 01/28/21 15:57:00 EDT, Tablet, [email or web address] #16101, Partial fill upon patient request if the prescription is for a schedule I... Start Date: 01/28/21 Status: Ordered gabapentin 300 mg oral capsule 300 mg, 1, capsule, By Mouth, 3 times a day, # 90 capsule, Refills 0, Tot. Refills 0, Maintenance, 06/05/20 10:48:00 EDT, Route to Pharmacy Electronically, [email or web address] #[id number], 165.1, cm, 06/05/20 8:32:00 EDT, Height, 73.1, [...] Maintenance,06/05/20 10:57:00 EDT, Route to Pharmacy Electronically, [email or web address] #[id number], 165.1, cm, 06/05/20 8:32:00 EDT, Height, 73.1, kg, 05/21/20 17:26... Start Date: 06/05/20 Status: Ordered Zofran 8 mg oral tablet 1 tablet = 8 mg, By Mouth, 3 times a day, # 9 tablet, 0 Refills, Maintenance, 10/12/21 9:12:00 EST,Tablet, [email or web address] #[id number], Partial fill upon patient request if the [...] Dates Health Status Cl inical Service Informant Medicare annual wellness visit, initial Discharge Diagnosis 11/17/21 SOB (shortness of breath) Discharge Diagnosis 11/17/21 Vital Signs Most recent to oldest [Reference Range]: 1 Height 165 cm (11/17/21 1:59 PM) Weight 81.1 kg (11/17/21 1:59 PM) Oxygen Saturation [94-100 %] 98 % (11/17/21 1:59 PM) Pulse Rate [55-90 bpm] 80 bpm (11/17/21 1:59 PM) Body Mass Index [18.5-24.99] 29.79 *H* (11/17/21 1:59 PM) Blood Pressure [90-138/55-84 mm Hg] 107/ 71mm Hg (11/17/21 1:59 PM) Blood pressure sites Arm, right (11/17/21 1:59 PM) Social History Social History Type Response Smoking Status Never smoker entered on: 05/04/16 Sex
--- OUTSIDE RECORDS SUMMARY | 2023-04-25 08:56 | XMS_ITS | Continuity of Care Document ---
Author Name Unknown Organization [facility] Address [address] [address]- Care Team Providers Care Package Drier Name Role Phone Meghna Harmon Primary Care Physician [phone] Encounter [facility] [place] Date(s): 10/26/22 - 11/25/22 [facility] [address] [address]- Attending Physician: Maria Meade Admitting Physician: Maria Meade Referring Physician: AdmtrMaria Allergies, Adverse Reactions, Alerts Substance Reaction Severity Status Bactrim hives Active Immunizations Given and Recorded Vaccine Date Status Refusal Reason SARS-CoV-2 (COVID-19) mRNA BNT-162b2 vac 08/30/21 Recorded SARS-CoV-2 (COVID-19) mRNA BNT-162b2 vac 02/02/21 Recorded SARS-CoV-2 (COVID-19) mRNA BNT-162b2 vac 01/07/21 Recorded influenza virus vaccine, inactivated 07/18/21 Liam rded influenza virus vaccine, inactivated 07/30/19 Ilam rded influenza virus vaccine, inactivated 06/08/18 Liam [...] Daily, # 30 capsule, 0 Refills, Maintenance, 05/11/21 15:58:00 EDT, [facility] #[id number], Partial fill upon patient request if the [...] Refills, Soft Stop, 01/28/21 15:57:00 EDT, Tablet, [facility] #08826, Partial fill upon patient request if the prescription is for a schedule I... Start Date: 01/28/21 Status: Ordered gabapentin 300 mg oral capsule 600 mg, 2, capsule, By Mouth, Daily at bedtime, # 90 capsule, Refills 0, Tot. Refills 0, Maintenance, 06/05/20 10:48:00 EDT, Route to Pharmacy Electronically, [facility] #[id number], 165.1, cm, 06/05/20 8:32:00 EDT, Height, 73.1, [...] Maintenance,06/05/20 10:57:00 EDT, Route to Pharmacy Electronically, [facility] #[id number], 165.1, cm, 06/05/20 8:32:00 EDT, Height, 73.1, [...] Care Team Personnel Name: Meghna Harmon Position: [facility] PCO Associate Professional Member Role: PCP Address: Address: [address] [place] [address]- Name: Fani Jones RN Position: [facility] AMB Nurse Member Role: Primary Care Nurse Care Team Related Persons Name: BEE SIVA Address: home [address] [place] [address]
--- OUTSIDE RECORDS SUMMARY | 2023-04-25 08:56 | XMS_ITS | Continuity of Care Document ---
Author Name Unknown Organization [facility] Yaakov Address [address] [place] [address]- Care Team Providers Care Rn Advice Name Role Phone Juan GERONIMO, Denia Roberts Primary Care Physician [phone] [place] [facility] [place] 04/11/20 - 05/11/20 [facility] Adult [address] [place] [address]- [facility] Allergies, Adverse Reactions, Alerts Substance Reaction Severity Status Bactrim hives Active Medications chlorhexidine topical 2% liquid See Instructions, Use as directed, one cup of chlorhexidine for a bathtub of water, daily x 7 days., # 1 bottle, 3 Refills, Maintenance Start Date: 11/20/11 Status: Ordered clonazePAM 1 mg oral tablet 1 tablet = 1 mg, By Mouth, 3 times a day, 0 Refills, Maintenance, 04/25/20 13:24:00 EDT, Tablet Start Date: 04/25/20 Status: Ordered gabapentin 100 mg oral capsule 200 mg, 2, capsule, By Mouth, Daily, PRN, Refills 0, Maintenance, Anxiety, 05/04/16 13:27:55 Start Date: 05/04/16 Status: Ordered ibuprofen 400 mg oral tablet 400 mg, 1, tablet, By Mouth, 3 times a day, PRN, with food or milk, # 10 tablet, Refills 0, Tot. Refills 0, Maintenance, for fever, 05/04/16 14:50:04, Print Requisition Start Date: 05/04/16 Status: Ordered ibuprofen 400 mg oral tablet 400 mg, 1, tablet, By Mouth, Every 4 hours, PRN, # 30 tablet, Refills 0, Tot. Refills 0, Maintenance, for fever, 05/06/16 10:49:36, Print Requisition Start Date: 05/06/16 Status: Ordered ibuprofen 800 mg oral tablet 1 tablet = 800 mg, By Mouth, 3 times a day, # 90 tablet, 0 Refills, Maintenance, Tablet Start Date: 03/30/11 Stop Date: 04/09/11 Status: Ordered lorazepam 1 mg oral tablet 1 tablet, By Mouth, 2 times a day, 0 Refills, Maintenance, Tablet Start Date: 03/30/11 Status: Ordered Motrin Tablet 400 mg, By Mouth, 3 times a day, PRN, Maintenance, Pain , Mild, 03/30/11 19:25:10 Start Date: 03/30/11 Status: Ordered Multivitamin 1 tablet, By Mouth, Daily, 0 Refills, Maintenance, 04/25/20 13:22:00 EDT Start Date: 04/25/20 Status: Ordered OXcarbazepine 300 mg oral tablet 300 mg, 1, tablet, By Mouth, 2 times a day, # 120 tablet, Refills 0, Maintenance, 04/25/20 13:24:00EDT Start Date: 04/25/20 Status: Ordered Percocet-5/325 325 mg-5 mg oral tablet 1, tablet, By Mouth, Every 4 hours, PRN, five -no driving, # 5 tablet, Refills 0, Tot. Refills 0, Maintenance, Pain, 05/04/16 14:49:52, Print Requisition, Tablet Start Date: 05/04/16 Stop Date: 05/06/16 Status: Ordered Seroquel XR 300 mg oral tablet, extended release 1 tablet, By Mouth, Daily in PM, # 30 tablet, 0 Refills, Maintenance, ER Tablet Start Date: 03/30/11 Status: Ordered traZODone 100 mg oral tablet 100 mg, 1, tablet, By Mouth, Daily at bedtime, # 180 tablet, Refills 0, Maintenance, 04/25/20 13:21:00 EDT Start Date: 04/25/20 Status: Ordered Problem List Condition Effective Dates Status Health Status Inform ant Breast lump in female(Confirmed) Active Social History Social History Type Response Smoking Status Never smoker entered on: 05/04/16 Sex
--- OUTSIDE RECORDS SUMMARY | 2023-04-25 08:56 | XMS_ITS | Continuity of Care Document ---
Author Name Unknown Organization [facility] Yaakov lt Address [address] [place] [address]- Care Team Providers Care Scrap [place] Name Role Phone Meghna Harmon Primary Care Physician Encounter [facility] Date(s): 11/02/22 - 12/03/22 [facility] Adult [address] [place] [address]- Attending Physician: Maggie ASSEMBLER PRODUCTION LINE, Ariela Allergies, Adverse Reactions, Alerts Substance Reaction Severity [...] capsule, 0 Refills, Maintenance, 01/28/21 15:58:00 EDT, [facility] #[id number], Partial fill upon patient request if the [...] Refills, Soft Stop, 01/28/21 15:57:00 EDT, Tablet, [facility] #[id number], Partial fill upon patient request if the prescription is for a schedule I... Start Date: 01/28/21 Status: Ordered gabapentin 300 mg oral capsule 600 mg, 2, capsule, By Mouth, Daily at bedtime, # 90 capsule, Refills 0, Tot. Refills 0, Maintenance, 06/05/20 10:48:00 EDT, Route to Pharmacy Electronically, [facility] #[id number], 165.1, cm, 06/05/20 8:32:00 EDT, Height, 73.1, [...] Maintenance,06/05/20 10:57:00 EDT, Route to Pharmacy Electronically, [facility] #[id number], 165.1, cm, 06/05/20 8:32:00 EDT, Height, 73.1, [...] Care Team Personnel Name: Meghna Harmon Position: [facility] PCO Associate Professional Member Role: PCP Address: Address: [address] [place] [address]- Name: Robert RN, Fani Lane Position: [facility] AMB Nurse Member Role: Primary Care Nurse Care Team Related Persons Name: SIVA BEE Address: home [address] [place] [address]
--- OUTSIDE RECORDS SUMMARY | 2023-04-25 08:56 | XMS_ITS | Continuity of Care Document ---
Author Name Unknown Organization [facility] Address [address] [address]- Care Team Providers Care Nursing Manager Name Role Phone Meghna Harmon Primary Care Physician [phone] [place] [facility] [place] 09/25/22 [facility] [address] [address]- Attending Physician: Maria Meade Admitting Physician: Maria [...] capsule, 0 Refills, Maintenance, 05/11/21 15:58:00 EDT, [facility] #[id number], Partial fill upon patient request if the [...] Refills, Soft Stop, 01/28/21 15:57:00 EDT, Tablet, [facility] #[id number], Partial fill upon patient request if the prescription is for a schedule I... Start Date: 01/28/21 Status: Ordered gabapentin 300 mg oral capsule 600 mg, 2, capsule, By Mouth, Daily at bedtime, # 90 capsule, Refills 0, Tot. Refills 0, Maintenance, 06/05/20 10:48:00 EDT, Route to Pharmacy Electronically, [facility] #[id number], 165.1, cm, 06/05/20 8:32:00 EDT, Height, 73.1, [...] Maintenance,06/05/20 10:57:00 EDT, Route to Pharmacy Electronically, [facility] #[id number], 165.1, cm, 06/05/20 8:32:00 EDT, Height, 73.1, [...] Care Team Personnel Name: Meghna Harmon Position: [facility] PCO Associate Professional Member Role: PCP Address: Address: [address] [place] [address]- Name: Fani Jones RN Position: [facility] AMB Nurse Member Role: Primary Care Nurse Care Team Related Persons Name: BEE SIVA Address: home [address] [place] [address]
--- OUTSIDE RECORDS SUMMARY | 2023-04-25 08:56 | XMS_ITS | Continuity of Care Document ---
Author Name Unknown Organization [facility] Yaakov lt Address [address] [place] [address]- Care Team Providers Care Cash Surrender Calculator Name Role Phone Maggie WHITE, Ariela Primary Care Physician Encounter [facility] [place] Date(s): 02/04/21 - 02/11/21 [facility] Adult [address] [place] [address]- Encounter Diagnosis UTI symptoms(Discharge Diagnosis) - 02/04/21 Attending Physician: Lizeth rBiceño NP Referring Physician: Vj Babin MD Allergies, Adverse Reactions, Alerts Substance Reaction [...] capsule, 0 Refills, Maintenance, 01/28/21 15:58:00 EDT, [facility] #[id number], Partial fill upon patient request if the [...] Refills, Soft Stop, 01/28/21 15:57:00 EDT, Tablet, [facility] #56102, Partial fill upon patient request if the prescription is for a schedule I... Start Date: 01/28/21 Status: Ordered gabapentin 300 mg oral capsule 300 mg, 1, capsule, By Mouth, 3 times a day, # 90 capsule, Refills 0, Tot. Refills 0, Maintenance, 06/05/20 10:48:00 EDT, Route to Pharmacy Electronically, [facility] #[id number], 165.1, cm, 06/05/20 8:32:00 EDT, Height, 73.1, [...] Maintenance,06/05/20 10:57:00 EDT, Route to Pharmacy Electronically, [facility] #[id number], 165.1, cm, 06/05/20 8:32:00 EDT, Height, 73.1, [...] Dates Health Status Cl inical Service Informant UTI symptoms Discharge Diagnosis 02/04/21 Vital Signs Most recent to oldest [Reference Range]: 1 Height 165 cm (02/04/21 12:41 PM) Social History Social History Type Response Smoking Status Never smoker entered on: 05/04/16 Sex
--- OUTSIDE RECORDS SUMMARY | 2023-04-25 08:56 | XMS_ITS | Continuity of Care Document ---
Author Name Unknown Organization [facility] Address [address] [place] [address]- Care Team Providers Care Mold Clamper Name Role Phone Meghna Harmon Primary Care Physician [phone] Encounter [facility] Date(s): 06/08/22 - 07/18/[address] [address] Attending Physician: Meghna Harmon Admitting Physician: Meghna [...] capsule, 0 Refills, Maintenance, 01/28/21 15:58:00 EDT, [facility] #[id number], Partial fill upon patient request if the [...] Refills, Soft Stop, 01/28/21 15:57:00 EDT, Tablet, [facility] #01137, Partial fill upon patient request if the prescription is for a schedule I... Start Date: 01/28/21 Status: Ordered gabapentin 300 mg oral capsule 600 mg, 2, capsule, By Mouth, Daily at bedtime, # 90 capsule, Refills 0, Tot. Refills 0, Maintenance, 06/05/20 10:48:00 EDT, Route to Pharmacy Electronically, [facility] #[id number], 165.1, cm, 06/05/20 8:32:00 EDT, Height, 73.1, [...] Maintenance,06/05/20 10:57:00 EDT, Route to Pharmacy Electronically, [facility] #[id number], 165.1, cm, 06/05/20 8:32:00 EDT, Height, 73.1, [...] Sex Patient Care team information Personnel Name: Meghna Harmon Address: Address: [address] [place] [address]
--- OUTSIDE RECORDS SUMMARY | 2023-04-25 08:56 | XMS_ITS | Continuity of Care Document ---
Author Name Unknown Organization [facility] Yaakov lt Address [address] [place] [address]- Care Team Providers Care Push Button Switch Assembler Name Role Phone Maggie WHITE, Ariela Primary Care Physician [phone] Encounter [facility] Date(s): 02/13/22 - 03/15/22 [facility] Adult [address] [place] [address]- Allergies, Adverse Reactions, Alerts Substance Reaction Severity [...] capsule, 0 Refills, Maintenance, 01/28/21 15:58:00 EDT, [facility] #[id number], Partial fill upon patient request if the [...] Refills, Soft Stop, 01/28/21 15:57:00 EDT, Tablet, [facility] #44008, Partial fill upon patient request if the prescription is for a schedule I... Start Date: 01/28/21 Status: Ordered gabapentin 300 mg oral capsule 300 mg, 1, capsule, By Mouth, 3 times a day, # 90 capsule, Refills 0, Tot. Refills 0, Maintenance, 06/05/20 10:48:00 EDT, Route to Pharmacy Electronically, [facility] #[id number], 165.1, cm, 06/05/20 8:32:00 EDT, Height, 73.1, [...] Maintenance,06/05/20 10:57:00 EDT, Route to Pharmacy Electronically, [facility] #79050, 165.1, cm, 06/05/20 8:32:00 EDT, Height, 73.1, [...]
--- OUTSIDE RECORDS SUMMARY | 2023-04-25 08:56 | XMS_ITS | Continuity of Care Document ---
Author Name Unknown Organization [facility] Address [address] [place] [address]- Care Team Providers Care Plant Buyer Name Role Phone Ariela Serrano NP Primary Care Physician Encounter [facility] Date(s): 11/17/21 - 12/17/21 [facility] [address] [place] [address]- Allergies, Adverse Reactions, Alerts Substance Reaction Severity [...] capsule, 0 Refills, Maintenance, 01/28/21 15:58:00 EDT, [facility] #[id number], Partial fill upon patient request if the [...] Refills, Soft Stop, 01/28/21 15:57:00 EDT, Tablet, [facility] #67602, Partial fill upon patient request if the prescription is for a schedule I... Start Date: 01/28/21 Status: Ordered gabapentin 300 mg oral capsule 300 mg, 1, capsule, By Mouth, 3 times a day, # 90 capsule, Refills 0, Tot. Refills 0, Maintenance, 06/05/20 10:48:00 EDT, Route to Pharmacy Electronically, [facility] #[id number], 165.1, cm, 06/05/20 8:32:00 EDT, Height, 73.1, [...] Maintenance,06/05/20 10:57:00 EDT, Route to Pharmacy Electronically, [facility] #[id number], 165.1, cm, 06/05/20 8:32:00 EDT, Height, 73.1, kg, 05/21/20 17:26... Start Date: 06/05/20 Status: Ordered Zofran 8 mg oral tablet 1 tablet = 8 mg, By Mouth, 3 times a day, # 9 tablet, 0 Refills, Maintenance, 10/12/21 9:12:00 EST,Tablet, [facility] #[id number], Partial fill upon patient request if the [...]
--- OUTSIDE RECORDS SUMMARY | 2023-04-25 08:56 | XMS_ITS | Continuity of Care Document ---
Author Name Unknown Organization [facility] Yaakov lt Address [address] [place] [address]- Care Team Providers Care Custodial Laborer Name Role Phone Ariela Serrano NP Primary Care Physician Encounter [facility] [place] Date(s): 01/20/21 - 03/02/21 [facility] Adult [address] [place] [address]- Attending Physician: Ariela Serrano NP Allergies, Adverse [...] capsule, 0 Refills, Maintenance, 01/28/21 15:58:00 EDT, [facility] #[id number], Partial fill upon patient request if the [...] Refills, Soft Stop, 01/28/21 15:57:00 EDT, Tablet, [facility] #[id number], Partial fill upon patient request if the prescription is for a schedule I... Start Date: 01/28/21 Status: Ordered gabapentin 300 mg oral capsule 300 mg, 1, capsule, By Mouth, 3 times a day, # 90 capsule, Refills 0, Tot. Refills 0, Maintenance, 06/05/20 10:48:00 EDT, Route to Pharmacy Electronically, [facility] #[id number], 165.1, cm, 06/05/20 8:32:00 EDT, Height, 73.1, [...] Maintenance,06/05/20 10:57:00 EDT, Route to Pharmacy Electronically, [facility] #[id number], 165.1, cm, 06/05/20 8:32:00 EDT, Height, 73.1, [...]
--- OUTSIDE RECORDS SUMMARY | 2023-04-25 08:56 | XMS_ITS | Continuity of Care Document ---
Author Name Unknown Organization [facility] Address [address] [address]- Care Team Providers Care Act Tutor Name Role Phone Meghna Harmon Primary Care Physician [phone] [place] [facility] [place] 11/02/22 [facility] [address] [address]- Attending Physician: Meghna Harmon Admitting Physician: Meghna [...] capsule, 0 Refills, Maintenance, 01/28/21 15:58:00 EDT, [facility] #[id number], Partial fill upon patient request if the [...] Refills, Soft Stop, 01/28/21 15:57:00 EDT, Tablet, [facility] #26383, Partial fill upon patient request if the prescription is for a schedule I... Start Date: 01/28/21 Status: Ordered gabapentin 300 mg oral capsule 600 mg, 2, capsule, By Mouth, Daily at bedtime, # 90 capsule, Refills 0, Tot. Refills 0, Maintenance, 06/05/20 10:48:00 EDT, Route to Pharmacy Electronically, [facility] #[id number], 165.1, cm, 06/05/20 8:32:00 EDT, Height, 73.1, [...] Maintenance,06/05/20 10:57:00 EDT, Route to Pharmacy Electronically, [facility] #[id number], 165.1, cm, 06/05/20 8:32:00 EDT, Height, 73.1, [...] Status Never smoker entered on: 05/04/16 Sex US Heart * Event Display: Echocardiogram - Complete Authored Date: * Event Display: Echocardiogram - Complete Authored Date: Transthoracic Echocardiography Report (TTE) Patient Demographics Patient Name ELIAS BEE Date of Study 10/26/2022 Corporate Gender Female Facility Race Unknown Ethnicity Date of 1960 Height: 64.96 inches Age 62 year(s) Weight: 178.58 pounds Accession Number [id number] BSA: 1.88 m2 Room Number BMI: 29.75 kg/m2 Referring Physician Josey Dickson Interpreting Len Ramos MD PA Physician Equipment Tech Kurt Alvarez Indications Shortness of breath. Study Data Type of Study TTE procedure:Echo Complete-Doppler, Colorflow, M-Mode. Study Date10/26/2022 Start Time: 02:13 PM Study Location: [facility] Echo Study Status: Echo lab Patient Status: Routine Technical Quality: Adequate EKG: Within normal limits HR: 76 bpm 2D Measurements LV Diastolic Dimension: 4.4 cm LV Systolic Dimension: 2.6 cm LV Septum Diastolic: 0.95 cm LV PW Diastolic: 0.9 cm AO Root Dimension: 3 cm LA Dimension: 3.5 cm LA ESV (BP):38.9 ml LVOT Stroke Volume: 91.57 ml LA ESV Index: 21 ml/m2 Stroke Volume Index48.71 ml/m2 LVOT: 2.2 cm Cardiac Index:3.7 l/min/m2 Ascending Aorta:3.1 cm Doppler Measurements AV Peak Velocity: 121 cm/s MV Peak E-Wave: 67.3 cm/s AV Peak Gradient: 5.86 mmHg MV Peak A-Wave: 78 cm/s AV Mean Gradient: 3 mmHg MV E/A Ratio: 0.86 AV VTI:23.4 cm MV P1/2t: 69 msec LVOT Peak Velocity: 124 cm/s LVOT VTI24.1 cm MV Deceleration Time: 234 msec AV Area (Continuity):3.91 cm2 MV Area (PHT): 3.19 cm2 TR Velocity:266 cm/s TR Gradient:28.3 mmHg Estimated RAP:3 mmHg Estimated RVSP: 31.3 mmHg E' Septal Velocity: 6.96 cm/s E' Lateral Velocity: 8.16 cm/s E/Med E':9.34440 E/Lat E':8.098992 Cardiac Anatomy Left Ventricle/Interventricular Septum The left ventricle is normal in size, wall thickness and systolic function. The ejection fraction is 60-65%. No regional wall motion abnormalities seen. Normal diastolic function. Left Atrium/Interatrial Septum The left atrium is normal in size. Aortic Valve The aortic valve is trileaflet. There is no aortic stenosis. There is mild aortic regurgitation. Mitral Valve The mitral valve appears mildly thickened. There is trace to mild mitral regurgitation. Aorta The ascending aorta and aortic root are normal in size. Right Ventricle The right ventricle is normal in size and function. Right Atrium The right atrium is normal in size. Pulmonic Valve The pulmonic valve is poorly visualized. There is trace pulmonic regurgitation. Tricuspid Valve There is mild to moderate tricuspid valve regurgitation. Pumonary Artery The pulmonary artery systolic pressure estimation is 30-35 mmHg. Venous Structures The inferior vena cava size is normal with normal inspiratory collapse. The central venous pressure estimation is 3 mmHg. Pericardium/Extracardiac There is no pericardial effusion. Summary 1. The left ventricle is normal in size, wall thickness and systolic function. The ejection fraction is 60-65%. No regional wall motion abnormalities seen. Normal diastolic function. 2. The right ventricle is normal in size and function. The pulmonary artery systolic pressure estimation is 30-35 mmHg. 3. Biatrial size is normal. 4. The aortic valve is trileaflet. There is no aortic stenosis. There is mild aortic regurgitation. 5. There is mild to moderate tricuspid valve regurgitation. Comparison No prior study available for comparison. Signature Patient Care team information Care Team Personnel Name: Meghna Harmon Position: [facility] PCO Associate Professional Member Role: PCP Address: Address: [address] [place] [address]- Name: Robert ANDRADE, Fani Lane Position: [facility] AMB Nurse Member Role: Primary Care Nurse Care Team Related Persons Name: SIVA BEE Address: home [address] [place] [address]
--- OUTSIDE RECORDS SUMMARY | 2023-04-25 08:56 | XMS_ITS | Continuity of Care Document ---
Author Name Unknown Organization [facility] Address [address] [place] [address]- Care Team Providers Care Standard Machine Stitcher Name Role Phone Meghna Harmon Primary Care Physician [phone] Encounter [facility] [place] Date(s): 11/02/22 - 12/02/22 [facility] [address] [place] [address]- Attending Physician: Maria Meade Admitting Physician: AdmtrMaria [...] capsule, 0 Refills, Maintenance, 01/28/21 15:58:00 EDT, [facility] #[id number], Partial fill upon patient request if the [...] Refills, Soft Stop, 01/28/21 15:57:00 EDT, Tablet, [facility] #39141, Partial fill upon patient request if the prescription is for a schedule I... Start Date: 01/28/21 Status: Ordered gabapentin 300 mg oral capsule 600 mg, 2, capsule, By Mouth, Daily at bedtime, # 90 capsule, Refills 0, Tot. Refills 0, Maintenance, 06/05/20 10:48:00 EDT, Route to Pharmacy Electronically, [facility] #[id number], 165.1, cm, 06/05/20 8:32:00 EDT, Height, 73.1, [...] Maintenance,06/05/20 10:57:00 EDT, Route to Pharmacy Electronically, [facility] #[id number], 165.1, cm, 06/05/20 8:32:00 EDT, Height, 73.1, [...] Personnel Name: Meghna Harmon Position: [facility] PCO Associate Professional Member Role: PCP Address: Address: [address] [place] [address]- Name: Robert ANDRADE, Fani Lane Position: [facility] AMB Nurse Member Role: Primary Care Nurse Care Team Related Persons Name: SIVA BEE Address: home [address] [place] [address]
--- OUTSIDE RECORDS SUMMARY | 2023-04-25 08:56 | XMS_ITS | Continuity of Care Document ---
Author Name Unknown Organization [facility] Address [address] [place] [address]- Care Team Providers Care Quilt Sewer Name Role Phone Ariela Serrano NP Primary Care Physician [phone] [place] [facility] [place] 04/25/22 [facility] [address] [place] [address]- Allergies, Adverse Reactions, Alerts Substance Reaction Severity [...] capsule, 0 Refills, Maintenance, 01/28/21 15:58:00 EDT, [facility] #59303, Partial fill upon patient request if the [...] Refills, Soft Stop, 01/28/21 15:57:00 EDT, Tablet, [facility] #90643, Partial fill upon patient request if the prescription is for a schedule I... Start Date: 01/28/21 Status: Ordered gabapentin 300 mg oral capsule 600 mg, 2, capsule, By Mouth, Daily at bedtime, # 90 capsule, Refills 0, Tot. Refills 0, Maintenance, 06/05/20 10:48:00 EDT, Route to Pharmacy Electronically, [facility] #05825, 165.1, cm, 06/05/20 8:32:00 EDT, Height, 73.1, [...] Maintenance,06/05/20 10:57:00 EDT, Route to Pharmacy Electronically, [facility] #52949, 165.1, cm, 06/05/20 8:32:00 EDT, Height, 73.1, [...]
--- OUTSIDE RECORDS SUMMARY | 2023-04-25 08:56 | XMS_ITS | Continuity of Care Document ---
Author Name Unknown Organization [facility] [place] Yaakov Address [address] [place] [address]- Care Team Providers Care Automation Controls Expert Name Role Phone Maggie WHITE, Ariela Primary Care Physician Encounter [facility] [place] Date(s): 05/30/21 - 06/06/21 [facility] Adult [address] [place] [address]- Attending Physician: Jennifer GERONIMO, Eddie Alejandro Allergies, [...] capsule, 0 Refills, Maintenance, 01/28/21 15:58:00 EDT, [facility] #78124, Partial fill upon patient request if the [...] Refills, Soft Stop, 01/28/21 15:57:00 EDT, Tablet, [facility] #71785, Partial fill upon patient request if the prescription is for a schedule I... Start Date: 01/28/21 Status: Ordered gabapentin 300 mg oral capsule 300 mg, 1, capsule, By Mouth, 3 times a day, # 90 capsule, Refills 0, Tot. Refills 0, Maintenance, 06/05/20 10:48:00 EDT, Route to Pharmacy Electronically, [facility] #23374, 165.1, cm, 06/05/20 8:32:00 EDT, Height, 73.1, [...] Maintenance,06/05/20 10:57:00 EDT, Route to Pharmacy Electronically, [facility] #15386, 165.1, cm, 06/05/20 8:32:00 EDT, Height, 73.1, [...] both eyes(Confirmed) Active Word finding difficulty(Confirmed) Active Vital Signs Most recent to oldest [Reference Range]: 1 Height 165 cm (05/30/21 10:55 AM) Social History Social History Type Response Smoking Status Never smoker entered on: 05/04/16 Sex
--- OUTSIDE RECORDS SUMMARY | 2023-04-25 08:56 | XMS_ITS | Continuity of Care Document ---
Author Name Unknown Organization [facility] Yaakov lt Address [address] [place] [address]- Care Team Providers Care Citizenship Instructor Name Role Phone Meghna Harmon Primary Care Physician En[facility] [place] Date(s): 08/19/22 - 09/18/22 [facility] [place] Adult [address] [place] [address]- Attending Physician: Admbri, [id number] Admitting Physician: Admtr ArMae Referring Physician: Admtr, Ar8 Allergies, Adverse Reactions, [...] capsule, 0 Refills, Maintenance, 01/28/21 15:58:00 EDT, [facility] #40505, Partial fill upon patient request if the [...] Refills, Soft Stop, 01/28/21 15:57:00 EDT, Tablet, [facility] #99217, Partial fill upon patient request if the prescription is for a schedule I... Start Date: 01/28/21 Status: Ordered gabapentin 300 mg oral capsule 600 mg, 2, capsule, By Mouth, Daily at bedtime, # 90 capsule, Refills 0, Tot. Refills 0, Maintenance, 06/05/20 10:48:00 EDT, Route to Pharmacy Electronically, [facility] #86068, 165.1, cm, 06/05/20 8:32:00 EDT, Height, 73.1, [...] Maintenance,06/05/20 10:57:00 EDT, Route to Pharmacy Electronically, [email or web address] #[id number], 165.1, cm, 06/05/20 8:32:00 EDT, Height, 73.1, [...] Status Never smoker entered on: 05/04/16 Sex Note * Event Display: MRI Head, Non- BH Authored Date: [id number] Patient Care team information Care Team Personnel Name: Meghna Harmon Position: [facility] PCO Associate Professional Member Role: PCP Address: Address: [address] [place] [address]- Name: Robert ANDRADE, Fani Lane Position: [facility] AMB Nurse Member Role: Primary Care Nurse Care Team Related Persons Name: BEE SIVA Address: home [address] [place] [address]
--- OUTSIDE RECORDS SUMMARY | 2023-04-25 08:56 | XMS_ITS | Continuity of Care Document ---
Author Name Unknown Organization [facility] Address [address] [place] [address]- Care Team Providers Care Radiology Therapist Name Role Phone Ariela Serrano NP Primary Care Physician Encounter [facility] [place] Date(s): 10/10/21 - 10/17/21 [facility] [address] [place] [address]- Attending Physician: Not on Staff, Attending MD Referring Physician: Ariela Serrano NP Allergies, [...] capsule, 0 Refills, Maintenance, 01/28/21 15:58:00 EDT, [facility] #[id number], Partial fill upon patient request if the [...] Refills, Soft Stop, 01/28/21 15:57:00 EDT, Tablet, [facility] #[id number], Partial fill upon patient request if the prescription is for a schedule I... Start Date: 01/28/21 Status: Ordered gabapentin 300 mg oral capsule 300 mg, 1, capsule, By Mouth, 3 times a day, # 90 capsule, Refills 0, Tot. Refills 0, Maintenance, 06/05/20 10:48:00 EDT, Route to Pharmacy Electronically, [facility] #[id number], 165.1, cm, 06/05/20 8:32:00 EDT, Height, 73.1, [...] drug. Start Date: 03/21/21 Status: Ordered ondansetron 8 mg oral tablet, disintegrating 1 tablet = 8 mg, By Mouth, Every 8 hours, # 10 tablet, 0 Refills, Acute 10/21/21 23:00:00 EST, 10/10/21 17:39:00 EST, [facility] #[id number], Partial fill upon patient request if the prescription is for a schedule II opioid drug., 165, cm, ... Start Date: 10/10/21 Stop Date: 10/21/21 Status: Ordered OXcarbazepine 300 mg oral tablet 300 mg, 1, tablet, By Mouth, 2 times a day, # 120 tablet, Refills 0, Maintenance, 04/25/20 13:24:00EDT Start Date: 04/25/20 Status: Ordered traZODone 100 mg oral tablet 200 mg, 2, tablet, By Mouth, Daily at bedtime, # 60 tablet, Refills 0, Tot. Refills 0, Maintenance,06/05/20 10:57:00 EDT, Route to Pharmacy Electronically, [facility] #[id number], 165.1, cm, 06/05/20 8:32:00 EDT, Height, 73.1, kg, 05/21/20 17:26... Start Date: 06/05/20 Status: Ordered Zofran 8 mg oral tablet 1 tablet = 8 mg, By Mouth, 3 times a day, # 9 tablet, 0 Refills, Maintenance, 10/12/21 9:12:00 EST,Tablet, [facility] #[id number], Partial fill upon patient request if the [...]
--- OUTSIDE RECORDS SUMMARY | 2023-04-25 08:56 | XMS_ITS | Continuity of Care Document ---
Author Name Unknown Organization [facility] Yaakov lt Address [address] [place] [address]- Care Team Providers Care Rn Birthing Name Role Phone Ariela Serrano NP Primary Care Physician Encounter [facility] [place] Date(s): 03/21/21 - 03/28/21 [facility] Adult [address] [place] [address]- Attending Physician: Ariela Serrano NP Allergies, Adverse [...] capsule, 0 Refills, Maintenance, 01/28/21 15:58:00 EDT, [facility] #26135, Partial fill upon patient request if the [...] Refills, Soft Stop, 01/28/21 15:57:00 EDT, Tablet, [facility] #64874, Partial fill upon patient request if the prescription is for a schedule I... Start Date: 01/28/21 Status: Ordered gabapentin 300 mg oral capsule 300 mg, 1, capsule, By Mouth, 3 times a day, # 90 capsule, Refills 0, Tot. Refills 0, Maintenance, 06/05/20 10:48:00 EDT, Route to Pharmacy Electronically, [facility] #[id number], 165.1, cm, 06/05/20 8:32:00 EDT, Height, 73.1, [...] Maintenance,06/05/20 10:57:00 EDT, Route to Pharmacy Electronically, [facility] #[id number], 165.1, cm, 06/05/20 8:32:00 EDT, Height, 73.1, [...] oldest [Reference Range]: 1 Height 165 cm (03/21/21 3:08 PM) Weight 83.5 kg (03/21/21 3:08 PM) Oxygen Saturation [94-100 %] 97 % (03/21/21 3:08 PM) Pulse Rate [55-90 bpm] 89 bpm (03/21/21 3:08 PM) Body Mass Index [18.5-24.99] 30.67 *>HHI* (03/21/21 3:08 PM) Blood Pressure [90-138/55-84 mm Hg] 104/ 72mm Hg (03/21/21 3:08 PM) Temperature [96.8-100.4 DegF] 97.7 DegF (03/21/21 3:08 PM) Blood pressure sites Arm, left (03/21/21 3:08 PM) Social History Social History Type Response Smoking Status Never smoker entered on: 05/04/16 Sex
--- OUTSIDE RECORDS SUMMARY | 2023-04-25 08:56 | XMS_ITS | Continuity of Care Document ---
Author Name Unknown Organization [facility] Address [address] [address]- Care Team Providers Care Budget Specialist Name Role Phone Meghna Harmon Primary Care Physician [place] [facility] [place] 10[place]/22 [facility] [address] [address]- Attending Physician: Meghna Harmon Admitting Physician: Meghna [...] capsule, 0 Refills, Maintenance, 01/28/21 15:58:00 EDT, [email or web address] #[id number], Partial fill upon patient request if the [...] Refills, Soft Stop, 01/28/21 15:57:00 EDT, Tablet, [email or web address] #[id number], Partial fill upon patient request if the prescription is for a schedule I... Start Date: 01/28/21 Status: Ordered gabapentin 300 mg oral capsule 600 mg, 2, capsule, By Mouth, Daily at bedtime, # 90 capsule, Refills 0, Tot. Refills 0, Maintenance, 06/05/20 10:48:00 EDT, Route to Pharmacy Electronically, [email or web address] #[id number], 165.1, cm, 06/05/20 8:32:00 EDT, Height, 73.1, [...] Maintenance,06/05/20 10:57:00 EDT, Route to Pharmacy Electronically, [facility] #[id number], 165.1, cm, 06/05/20 8:32:00 EDT, Height, 73.1, [...] Care Team Personnel Name: Meghna Harmon Position: [facility] PCO Associate Professional Member Role: PCP Address: Address: [address] [place] [address]- Name: Robert ANDRADE, Fani Lane Position: [facility] AMB Nurse Member Role: Primary Care Nurse Care Team Related Persons Name: SIVA BEE Address: home [address] [place] [address]
--- OUTSIDE RECORDS SUMMARY | 2023-04-25 08:56 | XMS_ITS | Continuity of Care Document ---
Author Name Unknown Organization [facility] Yaakov Address [address] [place] [address]- Care Team Providers Care Atlassian Administrator Name Role Phone Maggie WHITE, Ariela Primary Care Physician En[place] [facility] [place](s): 11/18/20 - 11/25/20 [facility] Adult [address] [place] [address]- Attending Physician: Leatha Main NP Allergies, Adverse Reactions, Alerts Substance Reaction Severity Status Bactrim hives Active Medications Augmentin 875 mg-125 mg oral tablet 1 tablet, By Mouth, Every 12 hours, for 7 days, with food or milk, # 14 tablet, 0 Refills, Acute 11/29/20 14:26:00 EST, 11/22/20 14:26:00 EST, Tablet, [facility] #[id number], Partial fill upon patient request if the prescription is for a schedule... Start Date: 11/22/20 Stop Date: 11/29/20 Status: Ordered clonazePAM 1 mg oral tablet 1 tablet = 1 mg, By Mouth, 3 times a day, 0 Refills, Maintenance, 04/25/20 13:24:00 EDT, Tablet Start Date: 04/25/20 Status: Ordered gabapentin 300 mg oral capsule 300 mg, 1, capsule, By Mouth, 3 times a day, # 90 capsule, Refills 0, Tot. Refills 0, Maintenance, 06/05/20 10:48:00 EDT, Route to Pharmacy Electronically, [facility] #[id number], 165.1, cm, 06/05/20 8:32:00 EDT, Height, 73.1, [...] 0 Refills, Maintenance, 06/05/20 10:58:00 EDT, Tablet, [facility] #[id number], 165.1, cm, 06/05/20 8:32:00 EDT, Height, 73.1, [...] Maintenance,06/05/20 10:57:00 EDT, Route to Pharmacy Electronically, [facility] #[id number], 165.1, cm, 06/05/20 8:32:00 EDT, Height, 73.1, [...] oldest [Reference Range]: 1 Height 165.1 cm (11/18/20 1:43 PM) Weight 85.2 kg (11/18/20 1:43 PM) Oxygen Saturation [94-100 %] 97 % (11/18/20 1:43 PM) Pulse Rate [55-90 bpm] 87 bpm (11/18/20 1:43 PM) Body Mass Index [18.5-24.99] 31.26 *>HHI* (11/18/20 1:43 PM) Blood Pressure [90-138/55-84 mm Hg] 124/ 68mm Hg (11/18/20 1:43 PM) Respiratory Rate [16-30 br/min] 16 br/mi n (11/18/20 1:43 PM) Temperature [96.8-100.4 DegF] 98.7 DegF (11/18/20 1:43 PM) Mode of Delivery (Oxygen) Room air (11/18/20 1:43 PM) Blood pressure sites Arm, right (11/18/20 1:43 PM) Temperature Route Oral (11/18/20 1:43 PM) Weight Obtained Via Standing scale (11/18/20 1:43 PM) Social History Social History Type Response Smoking Status Never smoker entered on: 05/04/16 Sex
--- OUTSIDE RECORDS SUMMARY | 2023-04-25 08:56 | XMS_ITS | Continuity of Care Document ---
Author Name Unknown Organization [facility] Address [address] [place] [address]- Care Team Providers Care Train System Operator Name Role Phone Ariela Serrano NP Primary Care Physician [phone] [place] [facility] [place] 04[place]24/22 [facility] [address] [place] [address]- Allergies, Adverse Reactions, Alerts Substance Reaction Severity [...] capsule, 0 Refills, Maintenance, 01/28/21 15:58:00 EDT, [facility] #[id number], Partial fill upon patient request if the [...] Refills, Soft Stop, 01/28/21 15:57:00 EDT, Tablet, [facility] #35315, Partial fill upon patient request if the prescription is for a schedule I... Start Date: 01/28/21 Status: Ordered gabapentin 300 mg oral capsule 600 mg, 2, capsule, By Mouth, Daily at bedtime, # 90 capsule, Refills 0, Tot. Refills 0, Maintenance, 06/05/20 10:48:00 EDT, Route to Pharmacy Electronically, [facility] #38344, 165.1, cm, 06/05/20 8:32:00 EDT, Height, 73.1, [...] Maintenance,06/05/20 10:57:00 EDT, Route to Pharmacy Electronically, [facility] #[id number], 165.1, cm, 06/05/20 8:32:00 EDT, Height, 73.1, [...]
--- OUTSIDE RECORDS SUMMARY | 2023-04-25 08:56 | XMS_ITS | Continuity of Care Document ---
Author Name Unknown Organization [facility]akov Address [address] [place] [address]- Care Team Providers Care Radiographer Angiogram Name Role Phone Maggie WHITE, Ariela Primary Care Physician [phone] Encounter [facility] Date(s): 10/09/21 - 11/08/21 [facility] Adult [address] [place] [address]- Allergies, Adverse Reactions, Alerts Substance Reaction Severity [...] capsule, 0 Refills, Maintenance, 01/28/21 15:58:00 EDT, [facility] #99328, Partial fill upon patient request if the [...] Refills, Soft Stop, 01/28/21 15:57:00 EDT, Tablet, [facility] #47131, Partial fill upon patient request if the prescription is for a schedule I... Start Date: 01/28/21 Status: Ordered gabapentin 300 mg oral capsule 300 mg, 1, capsule, By Mouth, 3 times a day, # 90 capsule, Refills 0, Tot. Refills 0, Maintenance, 06/05/20 10:48:00 EDT, Route to Pharmacy Electronically, [facility] #[id number], 165.1, cm, 06/05/20 8:32:00 EDT, Height, 73.1, [...] Maintenance,06/05/20 10:57:00 EDT, Route to Pharmacy Electronically, [facility] #[id number], 165.1, cm, 06/05/20 8:32:00 EDT, Height, 73.1, kg, 05/21/20 17:26... Start Date: 06/05/20 Status: Ordered Zofran 8 mg oral tablet 1 tablet = 8 mg, By Mouth, 3 times a day, # 9 tablet, 0 Refills, Maintenance, 10/12/21 9:12:00 EST,Tablet, [facility] #[id number], Partial fill upon patient request if the [...]
--- OUTSIDE RECORDS SUMMARY | 2023-04-25 08:56 | XMS_ITS | Continuity of Care Document ---
Author Name Unknown Organization [facility] Yaakov lt Address [address] [place] [address]- Care Team Providers Care Asphalt Patcher Name Role Phone Ariela Serrano NP Primary Care Physician [phone] Encounter [facility] Date(s): 03/06/22 - 04/05/22 [facility] Adult [address] [place] [address]- Allergies, Adverse Reactions, Alerts Substance Reaction Severity [...] capsule, 0 Refills, Maintenance, 01/28/21 15:58:00 EDT, [facility] #[id number], Partial fill upon patient request if the [...] 01/28/21 15:57:00 EDT, Tablet, [facility] #[id number], Partial fill upon patient request if the prescription is for a schedule I... Start Date: 01/28/21 Status: Ordered gabapentin 300 mg oral capsule 600 mg, 2, capsule, By Mouth, Daily at bedtime, # 90 capsule, Refills 0, Tot. Refills 0, Maintenance, 06/05/20 10:48:00 EDT, Route to Pharmacy Electronically, [facility] #[id number], 165.1, cm, 06/05/20 8:32:00 EDT, Height, 73.1, [...] Maintenance,06/05/20 10:57:00 EDT, Route to Pharmacy Electronically, [facility] #[id number], 165.1, cm, 06/05/20 8:32:00 EDT, Height, 73.1, [...]
--- OUTSIDE RECORDS SUMMARY | 2023-04-25 08:56 | XMS_ITS | Continuity of Care Document ---
Author Name Unknown Organization [facility] Address [address] [place] [address]- Care Team Providers Care Mold Repair Technician Name Role Phone Meghna Harmon Primary Care Physician [phone] [place] [facility] [place]/17/22 - 10/17/22 [facility] [address] [place] [address]- Allergies, Adverse Reactions, Alerts Substance Reaction Severity [...] capsule, 0 Refills, Maintenance, 01/28/21 15:58:00 EDT, [facility] #[id number], Partial fill upon patient request if the [...] Refills, Soft Stop, 01/28/21 15:57:00 EDT, Tablet, [facility] #[id number], Partial fill upon patient request if the prescription is for a schedule I... Start Date: 01/28/21 Status: Ordered gabapentin 300 mg oral capsule 600 mg, 2, capsule, By Mouth, Daily at bedtime, # 90 capsule, Refills 0, Tot. Refills 0, Maintenance, 06/05/20 10:48:00 EDT, Route to Pharmacy Electronically, [facility] #[id number], 165.1, cm, 06/05/20 8:32:00 EDT, Height, 73.1, [...] Maintenance,06/05/20 10:57:00 EDT, Route to Pharmacy Electronically, [facility] #[id number], 165.1, cm, 06/05/20 8:32:00 EDT, Height, 73.1, [...] Care Team Personnel Name: Meghna Harmon Position: [facility] PCO Associate Professional Member Role: PCP Address: Address: [address] [place] [address]- Name: Robert ANDRADE, Fani Lane Position: [facility] AMB Nurse Member Role: Primary Care Nurse Care Team Related Persons Name: SIVA BEE Address: home [address] [place] [address]
--- OUTSIDE RECORDS SUMMARY | 2023-04-25 08:56 | XMS_ITS | Continuity of Care Document ---
Author Name Unknown Organization [facility] Yaakov lt Address [address] [place] [address]- Care Team Providers Care Biological Science Technician Name Role Phone Ariela Serrano NP Primary Care Physician [place] [facility] [place](s[place] 01/28/21 - 02/04/21 [facility] Adult [address] [place] [address]- Encounter Diagnosis Dysuria(Discharge Diagnosis) - 01/28/21 Attending Physician: Not on Staff, Attending MD [...] capsule, 0 Refills, Maintenance, 01/28/21 15:58:00 EDT, [facility] #[id number], Partial fill upon patient request if the prescription is for a schedule II opioiddrug., 1 capsule By Mouth Daily, 165, cm, 01/28/21... Start Date: 01/28/21 Status: Ordered cephalexin monohydrate 500 mg oral capsule 1 capsule = 500 mg, By Mouth, Every 12 hours, # 7 capsule, 0 Refills, Acute 02/05/21 15:59:00 EDT, 01/28/21 15:57:00 EDT, Capsule, [facility] #[id number], Partial fill upon patient request if the prescription is for a schedule II opioid drug., 16... Start Date: 01/28/21 Stop Date: 02/05/21 Status: Ordered clonazePAM 1 mg oral tablet 1 tablet = 1 mg, By Mouth, 3 times a day, 0 Refills, Maintenance, 04/25/20 13:24:00 EDT, Tablet Start Date: 04/25/20 Status: Ordered fluconazole 150 mg oral tablet 1 tablet = 150 mg, By Mouth, Once, epeat dose if still having symptoms in 72 hours, # 2 tablet, 0 Refills, Soft Stop, 01/28/21 15:57:00 EDT, Tablet, [facility] #[id number], Partial fill upon patient request if the prescription is for a schedule I... Start Date: 01/28/21 Status: Ordered gabapentin 300 mg oral capsule 300 mg, 1, capsule, By Mouth, 3 times a day, # 90 capsule, Refills 0, Tot. Refills 0, Maintenance, 06/05/20 10:48:00 EDT, Route to Pharmacy Electronically, [facility] #[id number], 165.1, cm, 06/05/20 8:32:00 EDT, Height, 73.1, [...] Maintenance,06/05/20 10:57:00 EDT, Route to Pharmacy Electronically, [facility] #[id number], 165.1, cm, 06/05/20 8:32:00 EDT, Height, 73.1, [...] Dates Health Status Clini lobo Service Informant Dysuria Discharge Diagnosis 01/28/21 Vital Signs Most recent to oldest [Reference Range]: 1 Height 165 cm (01/28/21 3:19 PM) Weight 86.8 kg (01/28/21 3:19 PM) Oxygen Saturation [94-100 %] 96 % (01/28/21 3:19 PM) Pulse Rate [55-90 bpm] 77 bpm (01/28/21 3:19 PM) Body Mass Index [18.5-24.99] 31.88 *>HHI* (01/28/21 3:19 PM) Blood Pressure [90-138/55-84 mm Hg] 106/ 64mm Hg (01/28/21 3:19 PM) Temperature [96.8-100.4 DegF] 97.6 DegF (01/28/21 3:19 PM) Mode of Delivery (Oxygen) Room air (01/28/21 3:19 PM) Blood pressure sites Arm, right (01/28/21 3:19 PM) Temperature Route Oral (01/28/21 3:19 PM) Weight Obtained Via Standing scale (01/28/21 3:19 PM) Social History Social History Type Response Smoking Status Never smoker entered on: 05/04/16 Sex
--- OUTSIDE RECORDS SUMMARY | 2023-04-25 08:56 | XMS_ITS | Continuity of Care Document ---
Author Name Unknown Organization [facility] Yaakov Address [address] [place] [address]- Care Team Providers Care Front End Ui Developer Name Role Phone Maggie WHITE, Ariela Primary Care Physician Encounter [facility] [place] Date(s): 11/22/20 - 11/29/20 [facility] Adult [address] [place] [address]- Encounter Diagnosis Infection of ear(Discharge Diagnosis) - 11/22/20 Attending Physician: Not on Staff, Attending MD [...] 06/05/20 10:48:00 EDT, Route to Pharmacy Electronically, [facility] #[id number], 165.1, cm, 06/05/20 8:32:00 EDT, Height, 73.1, [...] 0 Refills, Maintenance, 06/05/20 10:58:00 EDT, Tablet, [facility] #[id number], 165.1, cm, 06/05/20 8:32:00 EDT, Height, 73.1, [...] Maintenance,06/05/20 10:57:00 EDT, Route to Pharmacy Electronically, [facility] #[id number], 165.1, cm, 06/05/20 8:32:00 EDT, Height, 73.1, [...] Dates Health Status Cl inical Service Informant Infection of ear Discharge Diagnosis 11/22/20 Vital Signs Most recent to oldest [Reference Range]: 1 Height 165.1 cm (11/22/20 2:01 PM) Weight 86.3 kg (11/22/20 2:01 PM) Oxygen Saturation [94-100 %] 96 % (11/22/20 2:01 PM) Pulse Rate [55-90 bpm] 65 bpm (11/22/20 2:01 PM) Body Mass Index [18.5-24.99] 31.66 *>HHI* (11/22/20 2:01 PM) Blood Pressure [90-138/55-84 mm Hg] 122/ 80mm Hg (11/22/20 2:01 PM) Blood pressure sites Arm, right (11/22/20 2:01 PM) Social History Social History Type Response Smoking Status Never smoker entered on: 05/04/16 Sex
--- OUTSIDE RECORDS SUMMARY | 2023-04-25 08:56 | XMS_ITS | Continuity of Care Document ---
Author Name Unknown Organization [facility] Yaakov lt Address [address] [place] [address]- Care Team Providers Care Ship Fastener Name Role Phone Ariela Serrano NP Primary Care Physician Encounter [facility] Date(s): 03/04/22 - 04/03/22 [facility] Adult [address] [place] [address]- Allergies, Adverse Reactions, Alerts Substance Reaction Severity [...] capsule, 0 Refills, Maintenance, 01/28/21 15:58:00 EDT, [facility] #[id number], Partial fill upon patient request if the [...] Refills, Soft Stop, 01/28/21 15:57:00 EDT, Tablet, [facility] #30717, Partial fill upon patient request if the prescription is for a schedule I... Start Date: 01/28/21 Status: Ordered gabapentin 300 mg oral capsule 600 mg, 2, capsule, By Mouth, Daily at bedtime, # 90 capsule, Refills 0, Tot. Refills 0, Maintenance, 06/05/20 10:48:00 EDT, Route to Pharmacy Electronically, [facility] #[id number], 165.1, cm, 06/05/20 8:32:00 EDT, Height, 73.1, [...] Maintenance,06/05/20 10:57:00 EDT, Route to Pharmacy Electronically, [facility] #[id number], 165.1, cm, 06/05/20 8:32:00 EDT, Height, 73.1, [...]
--- OUTSIDE RECORDS SUMMARY | 2023-04-25 08:56 | XMS_ITS | Continuity of Care Document ---
Author Name Unknown Organization [facility] Address [address] [place] [address]- Care Team Providers Care Microwave Radio Technician Name Role Phone Meghna Harmon Primary Care Physician [place] [facility] [place]s): 09/04/22 - 10/04/22 [facility] [address] [place] [address]- Allergies, Adverse Reactions, Alerts Substance Reaction Severity [...] capsule, 0 Refills, Maintenance, 01/28/21 15:58:00 EDT, [facility] #[id number], Partial fill upon patient request if the [...] Refills, Soft Stop, 01/28/21 15:57:00 EDT, Tablet, [facility] #[id number], Partial fill upon patient request if the prescription is for a schedule I... Start Date: 01/28/21 Status: Ordered gabapentin 300 mg oral capsule 600 mg, 2, capsule, By Mouth, Daily at bedtime, # 90 capsule, Refills 0, Tot. Refills 0, Maintenance, 06/05/20 10:48:00 EDT, Route to Pharmacy Electronically, [facility] #[id number], 165.1, cm, 06/05/20 8:32:00 EDT, Height, 73.1, [...] Maintenance,06/05/20 10:57:00 EDT, Route to Pharmacy Electronically, [facility] #[id number], 165.1, cm, 06/05/20 8:32:00 EDT, Height, 73.1, [...] Care Team Personnel Name: Meghna Harmon Position: [facility] PCO Associate Professional Member Role: PCP Address: Address: [address] [place] [address]- Name: Robert ANDRADE, Fani Lane Position: [facility] AMB Nurse Member Role: Primary Care Nurse Care Team Related Persons Name: SIVA BEE Address: home [address] [place] [address]
--- OUTSIDE RECORDS SUMMARY | 2023-04-25 08:56 | XMS_ITS | Continuity of Care Document ---
Author Name Unknown Organization [facility] Yaakov lt Address [address] [place] [address]- Care Team Providers Care Household Personal Assistant Name Role Phone Maggie WHITE, Ariela Primary Care Physician [phone] Encounter [facility] [place] Date(s): 03/04/22 - 04/05/22 [facility] Adult [address] [place] [address]- Attending Physician: Lizeth Briceño NP Allergies, Adverse Reactions, Alerts Substance Reaction [...] Liam rded influenza virus vaccine, inactivated 08/01/17 Ilam rded influenza virus vaccine, inactivated 08/13/15 Liam rded influenza virus vaccine, inactivated 08/14/13 Liam rded influenza virus vaccine, inactivated 06/24/10 Liam rded zoster vaccine, inactivated 04/19/20 Recorded zoster vaccine, inactivated 11/15/19 Recorded tetanus/diphtheria/pertussis, acel(Tdap) 06/12/15 Recorded influ virus vac, H1N1, inactive(oldterm) 10/17/09 Recorded Medications Acidophilus Probiotic Blend oral capsule 1 capsule, By Mouth, Daily, # 30 capsule, 0 Refills, Maintenance, 01/28/21 15:58:00 EDT, [facility] #[id number], Partial fill upon patient request if the [...] Refills, Soft Stop, 01/28/21 15:57:00 EDT, Tablet, [facility] #[id number], Partial fill upon patient request if the prescription is for a schedule I... Start Date: 01/28/21 Status: Ordered gabapentin 300 mg oral capsule 600 mg, 2, capsule, By Mouth, Daily at bedtime, # 90 capsule, Refills 0, Tot. Refills 0, Maintenance, 06/05/20 10:48:00 EDT, Route to Pharmacy Electronically, [facility] #[id number], 165.1, cm, 06/05/20 8:32:00 EDT, Height, 73.1, [...] Maintenance,06/05/20 10:57:00 EDT, Route to Pharmacy Electronically, [facility] #[id number], 165.1, cm, 06/05/20 8:32:00 EDT, Height, 73.1, [...]
--- OUTSIDE RECORDS SUMMARY | 2023-04-25 08:56 | XMS_ITS | Continuity of Care Document ---
Author Name Unknown Organization [facility] Address [address] [place] [address] [address] [place] [address]- Care Team Providers Care Paper Box Maker Name Role Phone Maggie WHITE, Ariela Primary Care Physician [place] [facility] [place](s): 12/05/20 - 02/05/[address] [place] [address]- Attending Physician: Jose Rosenthal MD Referring Physician: Leatha Main NP Allergies, Adverse [...] capsule, 0 Refills, Maintenance, 01/28/21 15:58:00 EDT, [facility] #[id number], Partial fill upon patient request if the [...] Refills, Soft Stop, 01/28/21 15:57:00 EDT, Tablet, [facility] #[id number], Partial fill upon patient request if the prescription is for a schedule I... Start Date: 01/28/21 Status: Ordered gabapentin 300 mg oral capsule 300 mg, 1, capsule, By Mouth, 3 times a day, # 90 capsule, Refills 0, Tot. Refills 0, Maintenance, 06/05/20 10:48:00 EDT, Route to Pharmacy Electronically, [facility] #[id number], 165.1, cm, 06/05/20 8:32:00 EDT, Height, 73.1, [...] Maintenance,06/05/20 10:57:00 EDT, Route to Pharmacy Electronically, [facility] #[id number], 165.1, cm, 06/05/20 8:32:00 EDT, Height, 73.1, [...]
--- OUTSIDE RECORDS SUMMARY | 2023-04-25 08:56 | XMS_ITS | Continuity of Care Document ---
Author Name Unknown Organization [facility] Yaakov lt Address [address] [place] [address]- Care Team Providers Care Claims Adjuster Crop Name Role Phone Meghna Harmon Primary Care Physician Encounter [facility] [place] Date(s): 11/03/22 - 12/03/22 [facility] Adult [address] [place] [address]- Attending Physician: Admbri, Efrem8 Admitting Physician: Admtr [...] capsule, 0 Refills, Maintenance, 01/28/21 15:58:00 EDT, [facility] #[id number], Partial fill upon patient request if the [...] Refills, Soft Stop, 01/28/21 15:57:00 EDT, Tablet, [facility] #70513, Partial fill upon patient request if the prescription is for a schedule I... Start Date: 01/28/21 Status: Ordered gabapentin 300 mg oral capsule 600 mg, 2, capsule, By Mouth, Daily at bedtime, # 90 capsule, Refills 0, Tot. Refills 0, Maintenance, 06/05/20 10:48:00 EDT, Route to Pharmacy Electronically, [facility] #[id number], 165.1, cm, 06/05/20 8:32:00 EDT, Height, 73.1, [...] Maintenance,06/05/20 10:57:00 EDT, Route to Pharmacy Electronically, [facility] #[id number], 165.1, cm, 06/05/20 8:32:00 EDT, Height, 73.1, [...] Display: MRI Head, Non- BH Authored Date: [id number] Patient Care team information Care Team Personnel Name: Meghna Harmon Position: [facility] PCO Associate Professional Member Role: PCP Address: Address: [address] [place] [address]- Name: Robert ANDRADE, Fani Lane Position: [facility] AMB Nurse Member Role: Primary Care Nurse Care Team Related Persons Name: BEE SIVA Address: home [address] [place] [address]
--- OUTSIDE RECORDS SUMMARY | 2023-04-25 08:56 | XMS_ITS | Continuity of Care Document ---
Author Name Unknown Organization [facility] Yaakov lt Address [address] [place] [address]- Care Team Providers Care Database Administration Associate Name Role Phone Maggie WHITE, Ariela Primary Care Physician [phone] Encounter [facility] Date(s): 01/14/22 - 02/13/22 [facility] Adult [address] [place] [address]- Allergies, Adverse Reactions, Alerts Substance Reaction Severity [...] capsule, 0 Refills, Maintenance, 01/28/21 15:58:00 EDT, [facility] #[id number], Partial fill upon patient request if the [...] Refills, Soft Stop, 01/28/21 15:57:00 EDT, Tablet, [facility] #[id number], Partial fill upon patient request if the prescription is for a schedule I... Start Date: 01/28/21 Status: Ordered gabapentin 300 mg oral capsule 300 mg, 1, capsule, By Mouth, 3 times a day, # 90 capsule, Refills 0, Tot. Refills 0, Maintenance, 06/05/20 10:48:00 EDT, Route to Pharmacy Electronically, [facility] #[id number], 165.1, cm, 06/05/20 8:32:00 EDT, Height, 73.1, [...] Maintenance,06/05/20 10:57:00 EDT, Route to Pharmacy Electronically, [facility] #[id number], 165.1, cm, 06/05/20 8:32:00 EDT, Height, 73.1, kg, 05/21/20 17:26... Start Date: 06/05/20 Status: Ordered Zofran 8 mg oral tablet 1 tablet = 8 mg, By Mouth, 3 times a day, # 9 tablet, 0 Refills, Maintenance, 10/12/21 9:12:00 EST,Tablet, [facility] #[id number], Partial fill upon patient request if the [...]
--- OUTSIDE RECORDS SUMMARY | 2023-04-25 08:56 | XMS_ITS | Continuity of Care Document ---
Author Name Unknown Organization [facility] Yaakov lt Address [address] [place] [address]- Care Team Providers Care Speech Teacher Name Role Phone eMghna Harmon Primary Care Physician [phone] Encounter [facility] Date(s): 06/24/22 - 07/24/22 [facility] Adult [address] [place] [address]- Allergies, Adverse Reactions, Alerts Substance Reaction Severity [...] Maintenance, 01/28/21 15:58:00 EDT, [facility] #[id number], Partial fill upon patient request if the [...] Refills, Soft Stop, 01/28/21 15:57:00 EDT, Tablet, [facility] #27701, Partial fill upon patient request if the prescription is for a schedule I... Start Date: 01/28/21 Status: Ordered gabapentin 300 mg oral capsule 600 mg, 2, capsule, By Mouth, Daily at bedtime, # 90 capsule, Refills 0, Tot. Refills 0, Maintenance, 06/05/20 10:48:00 EDT, Route to Pharmacy Electronically, [facility] #[id number], 165.1, cm, 06/05/20 8:32:00 EDT, Height, 73.1, [...] Maintenance,06/05/20 10:57:00 EDT, Route to Pharmacy Electronically, [facility] #[id number], 165.1, cm, 06/05/20 8:32:00 EDT, Height, 73.1, [...] information Personnel Name: Meghna Harmon Address: Address: [address] [place] [id number]
--- OUTSIDE RECORDS SUMMARY | 2023-04-25 08:56 | XMS_ITS | Continuity of Care Document ---
Author Name Unknown Organization [facility] Yaakov lt Address [address] [place] [address]- Care Team Providers Care Theater Manager Name Role Phone Maggie WHITE, Ariela Primary Care Physician [place] [facility] [place] 03/16/22 - 03/23/22 [facility] Adult [address] [place] [address]- Encounter Diagnosis SOB (shortness of breath)(Discharge Diagnosis) - 03/16/22 Attending Physician: Meghna Harmon Referring Physician: Ariela Serrano NP Allergies, Adverse [...] capsule, 0 Refills, Maintenance, 01/28/21 15:58:00 EDT, [facility] #[id number], Partial fill upon patient request if the [...] Refills, Soft Stop, 01/28/21 15:57:00 EDT, Tablet, [facility] #[id number], Partial fill upon patient request if the prescription is for a schedule I... Start Date: 01/28/21 Status: Ordered gabapentin 300 mg oral capsule 600 mg, 2, capsule, By Mouth, Daily at bedtime, # 90 capsule, Refills 0, Tot. Refills 0, Maintenance, 06/05/20 10:48:00 EDT, Route to Pharmacy Electronically, [facility] #[id number], 165.1, cm, 06/05/20 8:32:00 EDT, Height, 73.1, [...] 04/01/22 15:15:00 EDT, 03/16/22 14:17:00 EDT, Tablet, [facility] #59525, Partial fill uponpatient request if the prescription [...] Maintenance,06/05/20 10:57:00 EDT, Route to Pharmacy Electronically, [facility] #[id number], 165.1, cm, 06/05/20 8:32:00 EDT, Height, 73.1, [...] Dates Health Status Cl inical Service Informant SOB (shortness of breath) Discharge Diagnosis 03/16/22 Vital Signs Most recent to oldest [Reference Range]: 1 2 Height 165 cm (03/16/22 3:04 PM) 165 cm (03/16/22 2:03 PM) Weight 85.3 kg (03/16/22 3:04 PM) 85.3 kg (03/16/22 2:03 PM) Pulse Rate [55-90 bpm] 77 bpm (03/16/22 2:03 PM) Body Mass Index [18.5-24.99] 31.33 *>HHI* (03/16/22 2:03 PM) Blood Pressure [90-138/55-84 mm Hg] 119/ 74mm Hg (03/16/22 2:03 PM) Temperature [96.8-100.4 DegF] 97.5 DegF (03/16/22 2:03 PM) Blood pressure sites Arm, right (03/16/22 2:03 PM) Temperature Route Temporal (03/16/22 2:03 PM) Weight Obtained Via Standing scale (03/16/22 2:03 PM) Social History Social History Type Response Smoking Status Never smoker entered on: 05/04/16 Sex
--- OUTSIDE RECORDS SUMMARY | 2023-04-25 08:57 | XMS_ITS | Continuity of Care Document ---
Author Name Unknown Organization [facility] Address [address] [place] [address]- Care Team Providers Care Crossword Puzzle Maker Name Role Phone Ariela Serrano NP Primary Care Physician Encounter [facility] [place] Date(s): 01/21/21 - 01/21/[address] [address]- Discharge Disposition: A-D/C Home Attending Physician: Kajal Merida DO Admitting Physician: Kajal Merida DO Referring Physician: Not on Staff, Referring MD Allergies, Adverse Reactions, Alerts Substance Reaction [...] 01/28/21 17:41:00 EDT, 01/21/21 17:41:00 EDT, Capsule, [facility] #[id number], Partial fill upon patient request if the prescription is for a schedule II opio... Start Date: 01/21/21 Stop Date: 01/28/21 Status: Ordered gabapentin 300 mg oral capsule 300 mg, 1, capsule, By Mouth, 3 times a day, # 90 capsule, Refills 0, Tot. Refills 0, Maintenance, 06/05/20 10:48:00 EDT, Route to Pharmacy Electronically, [facility] #[id number], 165.1, cm, 06/05/20 8:32:00 EDT, Height, 73.1, [...] Maintenance,06/05/20 10:57:00 EDT, Route to Pharmacy Electronically, [facility] #[id number], 165.1, cm, 06/05/20 8:32:00 EDT, Height, 73.1, [...] oldest [Reference Range]: 1 Height 165 cm (01/21/21 4:03 PM) Weight 82 kg (01/21/21 4:03 PM) Oxygen Saturation [94-100 %] 97 % (01/21/21 4:03 PM) Pulse Rate [55-90 bpm] 72 bpm (01/21/21 4:03 PM) Blood Pressure [90-138/55-84 mm Hg] 135/ 76mm Hg (01/21/21 4:03 PM) Respiratory Rate [16-30 br/min] 15 br/mi n *L* (01/21/21 4:03 PM) Temperature [96.8-100.4 DegF] 98.6 DegF (01/21/21 4:03 PM) Mode of Delivery (Oxygen) Room air (01/21/21 4:03 PM) Blood pressure sites Arm, left (01/21/21 4:03 PM) Temperature Route Temporal (01/21/21 4:03 PM) Dry Weight 82 kg (01/21/21 4:03 PM) Weight Obtained Via Standing scale (01/21/21 4:03 PM) Dry Weight Obtained Via Standing scale (01/21/21 4:03 PM) Social History Social History Type Response Smoking Status Never smoker entered on: 05/04/16 Sex
--- OUTSIDE RECORDS SUMMARY | 2023-04-25 08:57 | XMS_ITS | Continuity of Care Document ---
Author Name Unknown Organization [facility] Yaakov lt Address [address] [place] [address]- Care Team Providers Care Tapering Machine Operator Name Role Phone Maggie WHITE, Ariela Primary Care Physician [place] [facility] [place](s): 03/19/22 - 04/18/22 [facility] Adult [address] [place] [address]- Attending Physician: Admtr, Ar8 Admitting Physician: Admtr, [...] capsule, 0 Refills, Maintenance, 01/28/21 15:58:00 EDT, [facility] #[id number], Partial fill upon patient request if the [...] Refills, Soft Stop, 01/28/21 15:57:00 EDT, Tablet, [facility] #[id number], Partial fill upon patient request if the prescription is for a schedule I... Start Date: 01/28/21 Status: Ordered gabapentin 300 mg oral capsule 600 mg, 2, capsule, By Mouth, Daily at bedtime, # 90 capsule, Refills 0, Tot. Refills 0, Maintenance, 06/05/20 10:48:00 EDT, Route to Pharmacy Electronically, [facility] #[id number], 165.1, cm, 06/05/20 8:32:00 EDT, Height, 73.1, [...] Maintenance,06/05/20 10:57:00 EDT, Route to Pharmacy Electronically, [facility] #[id number], 165.1, cm, 06/05/20 8:32:00 EDT, Height, 73.1, [...]
--- OUTSIDE RECORDS SUMMARY | 2023-04-25 08:57 | XMS_ITS | Continuity of Care Document ---
Author Name Unknown Organization [facility] Yaakov Address [address] [place] [address]- Care Team Providers Care Solvent Plant Treater Name Role Phone Maggie WHITE, Ariela Primary Care Physician Encounter [facility] [place] Date(s): 08/27/20 - 09/26/20 [facility] Adult [address] [place] [address]- Attending Physician: Maria Meade Admitting Physician: AdmMaria gregory Referring Physician: AdmtrMaria Allergies, Adverse Reactions, Alerts [...] 06/05/20 10:48:00 EDT, Route to Pharmacy Electronically, [facility] #[id number], 165.1, cm, 06/05/20 8:32:00 EDT, Height, 73.1, [...] 0 Refills, Maintenance, 06/05/20 10:48:00 EDT, Ointment, [facility] #[id number], Topically Daily to affected area, 165.1, cm, 06/05/20 8:32:00 EDT, Height, 73.1, kg, 05/21/20 17:26:00... Start Date: 06/05/20 Status: Ordered mirtazapine 7.5 mg oral tablet 1 tablet = 7.5 mg, By Mouth, Daily at bedtime, # 30 tablet, 0 Refills, Maintenance, 06/05/20 10:58:00 EDT, Tablet, [facility] #[id number], 165.1, cm, 06/05/20 8:32:00 EDT, Height, 73.1, kg, 05/21/20 17:26:00 EDT, Dry Weight Start Date: 06/05/20 Status: Ordered nystatin topical 008599 u/gm powder See Instructions, Topically 2 times a day to affected area, # 15 Gm, 0 Refills, Acute 06/05/21 9:00:00 EDT, 06/05/20 10:49:00 EDT, Powder, [facility] #[id number], Topically 2 times a day to affected [...] 0 Refills, Maintenance, 06/05/20 10:57:00 EDT, Tablet, [facility] #[id number], 165.1, cm, 06/05/20 8:32:00 EDT, Height, 73.1, kg, 05/21/20 17:26:00 EDT, Dry Weight Start Date: 06/05/20 Status: Ordered traZODone 100 mg oral tablet 200 mg, 2, tablet, By Mouth, Daily at bedtime, # 60 tablet, Refills 0, Tot. Refills 0, Maintenance,06/05/20 10:57:00 EDT, Route to Pharmacy Electronically, [facility] #[id number], 165.1, cm, 06/05/20 8:32:00 EDT, Height, 73.1, [...]
[2023-04-25 09:00] LABS: Basophils Percent Auto 0.3 % (0-2); Eosinophils Absolute Auto 0.1 X10*3/uL (0.0-0.4); Hematocrit 40.4 % (37.0-47.0); Hemoglobin 13.1 g/dl (12.0-16.0); Imm Gran Abs Auto 0.02 X10*3/uL (0.00-0.03); Imm Gran Pct Auto 0.2 % (0.0-0.4); Lymphocytes Absolute Auto 2.3 X10*3/uL (1.2-4.9); Lymphocytes Percent Auto 27.3 % (20-40); Mean Corpuscular HGB Conc 32.4 g/dl (31.0-35.0); Mean Corpuscular Hemoglobin 31.3 pg (27.0-33.0); Mean Corpuscular Volume 96.7 fL (80.0-98.0); Monocytes Absolute Auto 0.7 X10*3/uL (0.1-1.2); Monocytes Percent Auto 8.4 % (2-11); Neutrophils Absolute Auto 5.4 x10*3/uL (2.0-8.3); Neutrophils Percent Auto 62.8 % (45-73); Platelet Count 263 X10*3/uL (160-400); Red Blood Count 4.18 X10*6/uL (4.20-5.50); Red Cell Distribution Width 12.3 % (11.0-16.0); White Blood Count 8.6 X10*3/uL (4.8-10.8)
[2023-04-25 09:09] LABS: Alanine Aminotransferase 10 U/L (0-31); Albumin Level 3.9 g/dL (3.5-5.0); Alkaline Phosphatase 111 U/L (39-117); Anion Gap 14 (12-20); Aspartate Amino Transferase 11 U/L (5-31); Bilirubin Direct 0.1 mg/dL (0.0-0.5); Bilirubin Total 0.4 mg/dL (0.0-1.0); Blood Urea Nitrogen 10 mg/dL (9-16); Calcium 10.3 mg/dL (8.4-10.2); Carbon Dioxide 23 mmol/L (22-29); Chloride 110 mmol/L (96-108); Creatinine Clr Calc Pharmacy 63.8; Estimated Glomerular Filt Rate 59; Glucose Random 94 mg/dL (60-115); Lipase 11 U/L (8-78); Potassium 4.3 mmol/L (3.3-5.1); Sodium 143 mmol/L (135-145); Total Protein 6.5 g/dL (6.5-8.0)
[2023-04-25 09:44] VITALS: BP 104/64; PULSE 88; RESP 18; TEMP 36.8; O2SAT 97
[2023-04-25 13:10] LABS: Appearance Urine Cloudy; Color Urine Dark Yellow; Glucose Urine UA Negative (Negative); Leukocyte Esterase Urine Trace (Negative); Nitrite Urine Negative (Negative); PH 5.5 (5.0-9.0); Specific Gravity - Urine >= 1.030 (1.005-1.025); UMIC TRIGGER UACC YES; Urine Blood Negative (Negative); Urine Ketones Trace mg/dL (Negative); Urine Protein 30 (1+) mg/dL (Neg-Trace)
[2023-04-25 13:27] LABS: Bacteria Urine Trace (None Seen); Calcium Oxalate Crystals Urine Present; RBC Urine 0-2 /HPF (0-2); UACC Culture Trigger YES
--- NOTE | 2023-04-25 18:26 | ED_ITS ---
HPI - General Adult General Chief complaint: Abdominal Pain Stated complaint: impact bowels Time Seen by Provider: 04/25/23 17:58 Source: patient Mode of arrival: ambulatory Limitations: no limitations History of Present Illness HPI narrative: 62-year-old female presents to ED for chronic constipation exacrbation. Patient states no relief with [id number] medication. Patient denies any history of surgery in the abdomen. Patient denies any nausea, vomiting, flank pain, fever, chills, dysuria, hematuria. Patient denies any abdominal distension, fever, chills, or any recent trauma. Patient hungry would like to eat. Patient states passing Flatus. Patient denies any history of small-bowel obstruction Related Data Home Medications Medication Instructions Recorded Confirmed gabapentin 300 mg capsule 300 mg PO TID 07/15/21 07/15/21 Previous Rx's Medication Instructions Recorded clonazepam 1 mg tablet 1 mg PO TID #90 tabs 08/13/21 lurasidone 80 mg tablet (Latuda) 80 mg PO BEDTIME #30 tabs 08/13/21 mirtazapine 15 mg tablet 15 mg PO BEDTIME #30 tabs 08/13/21 multivitamin (Daily-Elias tablet) 1 tab PO DAILY #30 tabs 08/13/21 oxcarbazepine 300 mg tablet 300 mg PO BID #60 tabs 08/13/21 trazodone 100 mg tablet 200 mg PO BEDTIME #60 tabs 08/13/21 venlafaxine 150 mg 150 mg PO DAILY #30 caps 08/13/21 capsule,extended release 24 hr ketorolac 10 mg tablet 10 mg PO TID 3 days #9 tabs 10/03/21 naloxone 4 mg/actuation nasal 4 mg intranasal Q2M PRN opioid 10/03/21 spray (Narcan) overdose #2 ea ondansetron 4 mg disintegrating 4 mg PO Q8H #6 tabs 10/03/21 tablet polyethylene glycol 3350 17 gram 17 g PO DAILY #14 ea 04/25/23 oral powder packet (Miralax) Allergies Allergy/AdvReac Type Severity Reaction Status Date / Time sulfamethoxazole Allergy Unknown ANAPHYLAXIS Verified 04/25/23 07:33 [From BACTRIM] trimethoprim [From BACTRIM] Allergy Unknown ANAPHYLAXIS Verified 04/25/23 07:33 Review of Systems Review of Systems: Constipation chronic. Yes all other systems are reviewed and are negative [facility] Past Medical History Medical History Back pain Bipolar 1 disorder, depressed, severe Opioid abuse Polysubstance abuse Social History Social History Household Members: None Housing: Apartment Do you presently have visiting nurse or other home services: No Alcohol intake: former Patient Tobacco Use Status: Never used Tobacco Second Hand Smoke Exposure: No Substance Use Type: Crack/Cocaine Advance Directives: No Advance Directives Information Provided: No service: No Sexual orientation: Did not discuss. Physical Exam ED Vital Signs: Vital Signs - 24 hr 04/25/23 07:27 04/25/23 09:44 04/25/23 18:50 Temperature 97.6 F 98.2 F 97.6 F Pulse Rate 74 88 70 Respiratory Rate 18 18 18 Blood Pressure 97/66 104/64 129/74 Pulse Oximetry 98 97 98 Oxygen Delivery Method Room Air Room Air Room Air BMI result Body Mass Index 26.6 Const General: cooperative, healthy appearing, comfortable, no acute distress, well developed, alert, awake and Physically active Orientation/consciousness: oriented to person, oriented to place, oriented to time and patient oriented x3 HENMT Head: Yes normal to inspection, Yes No palpable skull fracture present, Yes normocephalic, Yes atraumatic and No abrasion Eyes General: appearance normal, both eyes and all related structures Neck Neck: Yes normal visual inspection, Yes full ROM, Yes no lymphadenopathy, Yes no meningeal signs, Yes trachea midline, Yes supple, No anterior neck swelling and No tender Chest Chest palpation & inspection: normal inspection of the chest and normal palpation of entire chest wall Resp Effort & Inspection: normal respiratory effort and able to speak in complete sentences Auscultation: clear to auscultation bilaterally Cardio Jugular venous distension: no JVD Heart sounds: S1 normal heart sound present and S2 normal heart sound present GI Other: Positive for normal bowel sounds. Negative for abdominal distension or hyperactive bowel sounds. Rectal exam negative for blood. Negative for stool impaction in rectum. Negative for melena. Inspection: Yes normal to inspection, No abdominal wall ecchymosis and No distended Palpation (GI): Soft to palpation, not firm, nontender, no guarding and not rigid General: No CVA tenderness and Yes no CVA tenderness Back/Spine/Pelvis Back: no CVA tenderness, No CVA tenderness and No back tenderness Skin General skin exam: no rashes or lesions noted, elasticity normal and turgor norm al Neuro General: oriented to person, oriented to place, oriented to time, patient oriented x3, gait normal, tone normal, moves all extremities, Normal light touch and pain sensation, no meningeal signs, no focal motor deficits and CN's II-XI intact bilaterally Extrem General: Yes normal to inspection and Yes full ROM Psych Appearance: grossly normal, well kempt and not disheveled Medications Administered Discontinued Medications Generic Name Dose Route Start Last Admin Trade Name Freq PRN Reason Stop Dose Admin Lactulose 20 gm 04/25/23 18:20 04/25/23 19:05 Lactulose 20 Gm/30 Ml Solution PO 04/25/23 18:21 20 gm ONCE ONE Administration Medical Decision Making Medical Decision Making [facility] Narrative: 62-year-old female history of bipolar disorder presents to ED for chronic c onstipation without any nausea, vomiting, bowel distension, fever, chills, or flank pain. Patient states for the past 2 days no relief with [id number] constipation medication. Patient denies any abdominal surgery history. Patient states constipated for couple days. Patient states able to pass gas. On physical exam abdomen is soft benign nontender. Abdomen is not distended. Normal bowel sounds. Negative for hyperactive bowel sounds. Rectal exam negative for stool impaction. Patient like to eat and his hungry. X-ray negative for signs of small-bowel obstruction. Shows constipation stool burden. Rectal exam negative for fecal impaction. Presently no indication for CT scan of abdomen. Patient will like to receive oral medication for constipation to go home with and not taking the ER. Patient has been eating all day while waiting to be seen. Differential Diagnosis Differential Diagnoses: The differential diagnosis associated with the presentation includes (UTI, constipation, small-bowel obstruction, stool im paction, ileus,) Admission/Observation Consideration of admission/observation: Escalation of care including admission/observation considered Lab Data [facility] Lab Attestation statement: I reviewed the patient's lab results. 04/25/23 08:50 04/25/23 08:50 Labs: Lab Results 04/25/23 04/25/23 04/25/23 Range/Units 08:50 08:50 12:03 WBC 8.6 (4.8-10.8) X10*3/uL RBC 4.18 L (4.20-5.50) X10*6/uL Hgb 13.1 (12.0-16.0) g/dl Hct 40.4 (37.0-47.0) % MCV 96.7 (80.0-98.0) fL MCH 31.3 (27.0-33.0) pg MCHC 32.4 (31.0-35.0) g/dl RDW 12.3 (11.0-16.0) % Plt Count 263 (160-400) X10*3/uL MPV 9.0 L (9.4-12.3) fL Immature Gran % (Auto) 0.2 (0.0-0.4) % Neut % (Auto) 62.8 (45-73) % Lymph % (Auto) 27.3 (20-40) % [facility] % (Auto) 8.4 (2-11) % Eos % (Auto) 1.0 (0-4) % Baso % (Auto) 0.3 (0-2) % Lymph # (Auto) 2.3 (1.2-4.9) X10*3/uL [facility] # (Auto) 0.7 (0.1-1.2) X10*3/uL Eos # (Auto) 0.1 (0.0-0.4) X10*3/uL Baso # (Auto) 0.0 (0.0-0.2) X10*3/uL Abs Immat Gran (auto) 0.02 (0.00-0.03) X10*3/uL Absolute Neuts (auto) 5.4 (2.0-8.3) x10*3/uL Absolute Nucleated RBC 0.000 (0.0-0.012) X10*3/uL Nucleated RBC % (auto) 0.0 (0.0-0.2) /100WBC Sodium 143 (135-145) mmol/L Potassium 4.3 (3.3-5.1) mmol/L Chloride 110 H (96-108) mmol/L Carbon Dioxide 23 (22-29) mmol/L Anion Gap 14 (12-20) BUN 10 (9-16) mg/dL Creatinine 0.97 (0.5-1.4) mg/dL Estim Creat Clear Calc 63.8 Estimated GFR 59 Random Glucose 94 (60-115) mg/dL Calcium 10.3 H D (8.4-10.2) mg/dL Total Bilirubin 0.4 (0.0-1.0) mg/dL Direct Bilirubin 0.1 (0.0-0.5) mg/dL AST 11 (5-31) U/L ALT 10 (0-31) U/L Alkaline Phosphatase 111 (39-117) U/L Total Protein 6.5 (6.5-8.0) g/dL Albumin 3.9 (3.5-5.0) g/dL Lipase 11 (8-78) U/L Urine Color Dark Yellow Urine Appearance Cloudy Urine pH 5.5 (5.0-9.0) Ur Specific [place] >= 1.030 H (1.005-1.025) Urine Protein 30 (1+) H (Neg-Trace) mg/dL Urine Glucose (UA) Negative (Negative) mg/dL Urine Ketones Trace (Negative) mg/dL Urine Blood Negative (Negative) Urine Nitrite Negative (Negative) Ur Leukocyte Esterase Trace H (Negative) Urine RBC 0-2 (0-2) /HPF Urine WBC 6-10 (0-5) /HPF Ur Squamous Epith Cells 3-5 (0-2) /HPF Calcium Oxalate Crystal Present Urine Bacteria Trace (None Seen) Hyaline Casts 11-20 (0-2) /LPF Independent Interpretation I performed an independent interpretation of an: Plain X-Ray Radiology Impression Discussion of test interpretation with radiology: I have reviewed the radiologist's reading. Tests considered The following testing was considered but not selected: CT scan abdomen Discharge Plan Discharge Clinical Impression: Constipation Patient Disposition: Home, Self-Care Instructions: Constipation (ED) Additional Instructions: Return to the ED immediately any abdominal pain, nausea, vomiting, inability to tolerate solid food/liquid, inability to pass flatus, no bowel movements, fever, chills, or any other concerning symptoms. Prescriptions: New polyethylene glycol 3350 [Miralax] 17 gram powder in packet 17 g PO DAILY Qty: 14 0RF No Action gabapentin 300 mg capsule 300 mg PO TID clonazepam 1 mg Tablet 1 mg PO TID Qty: 90 0RF oxcarbazepine 300 mg Tablet 300 mg PO BID Qty: 60 0RF trazodone 100 mg Tablet 200 mg PO BEDTIME Qty: 60 0RF mirtazapine 15 mg Tablet 15 mg PO BEDTIME Qty: 30 0RF Latuda 80 mg Tablet 80 mg PO BEDTIME Qty: 30 0RF venlafaxine 150 mg capsule,extended release 24hr 150 mg PO DAILY Qty: 30 0RF multivitamin [Daily-Elias] Tablet 1 tab PO DAILY Qty: 30 0RF naloxone [Narcan] 4 mg/actuation spray,non-aerosol 4 mg intranasal Q2M PRN (Reason: opioid overdose) Qty: 2 0RF Rx Instructions: spray 1 dose into ONE nostril; alternate nostrils w each dose until help arrives ondansetron 4 mg tablet,disintegrating 4 mg PO Q8H Qty: 6 0RF ketorolac 10 mg tablet 10 mg PO TID 3 Days Qty: 9 0RF Stand Alone Forms: Work/School Release Interventions: ED Discharge Assessment Last Done: 04/25/23 19:08 Discharge Date/Time: 04/25/23 19:08 Print Language: Austrian
[2023-04-25 18:50] VITALS: BP 129/74; PULSE 70; RESP 18; TEMP 36.4; O2SAT 98
[2023-04-25] MEDS: Lactulose 20 GM/30 ML SOLUTION PO (19:05)
== END 2023-04-25 19:08 | disposition home or self-care (01) ==
PROVIDERS: Emergency Provider Internal Medicine
DX: K59.00 Constipation, unspecified (principal); Z79.899 Other long term (current) drug therapy
CPT/HCPCS: 36415; 74018; 80048; 80076; 81001; 81003; 83690; 85025; 87086; 87088; 87186; 99283

== ENCOUNTER 2023-09-30 15:19 | Outpatient (REF) | payer MEDICARE, MEDICAID, SELFPAY | END 2023-09-30 15:20 | disposition home or self-care (01) | LOC: HO.LNP 15:19 | PROVIDERS: Visit Provider Otolaryngology | DX: B49 Unspecified mycosis (principal) | CPT/HCPCS: 87102 ==

== ENCOUNTER 2024-06-05 15:16 | Emergency (ER) | payer MEDICARE, MEDICAID, SELFPAY ==
--- NOTE | 2024-06-05 | ECG_ITS ---
Test Reason : CHEST PAIN Blood Pressure : / mmHG Vent. Rate : 086 BPM Atrial Rate : 086 BPM P-R Int : 142 ms QRS Dur : 082 ms QT Int : 374 ms P-R-T Axes : 035 -05 016 degrees QTc Int : 447 ms Normal sinus rhythm Normal ECG When compared with ECG of 03-OCT-2021 13:24, Premature ventricular complexes are no longer Present QRS duration has decreased Referred By: Generic ED Physician Electronically Signed By:VISHNU PHAN
--- NOTE | ~2024-06-05 | XR_ITS ---
EXAMINATION: XR CHEST CLINICAL INFORMATION: Chest pain. COMPARISON: Chest radiograph dated October 03, 2021. TECHNIQUE: 2 views of the chest were obtained. FINDINGS: The heart is normal in size. The lungs are clear. No pleural effusion. No pneumothorax. No acute osseous abnormality. XR/XR chest 2V IMPRESSION: No acute cardiopulmonary disease. Electronically signed by: Danny Hernández DO 06/05/2024 04:50 PM EDT
[2024-06-05 15:39] VITALS: BP 107/65; PULSE 81; RESP 16; TEMP 37.1; O2SAT 95; BMI 23.4
--- NOTE | 2024-06-05 15:42 | ED_ITS ---
HPI - Chest Pain General Chief Complaint: Chest Pain Stated Complaint: chest pain seeing black left arm pain Time Seen by Provider: 06/05/24 17:24 Source: patient Mode of arrival: ambulatory Limitations: no limitations History of Present Illness ED Provider: balaji GEE narrative: Patient's history of bipolar disorder complaining of left arm pain for a while also complaining of pain in the left chest started earlier today no shortness of breath no neck pain no headache Related Data Home Medications ?Medication ?Instructions ?Recorded ?Confirmed gabapentin 300 mg capsule 300 mg PO TID 07/15/21 07/15/21 Previous Rx's ?Medication ?Instructions ?Recorded clonazepam 1 mg tablet 1 mg PO TID #90 tabs 08/13/21 lurasidone 80 mg tablet (Latuda) 80 mg PO BEDTIME #30 tabs 08/13/21 mirtazapine 15 mg tablet 15 mg PO BEDTIME #30 tabs 08/13/21 multivitamin (Daily-Elias tablet) 1 tab PO DAILY #30 tabs 08/13/21 oxcarbazepine 300 mg tablet 300 mg PO BID #60 tabs 08/13/21 trazodone 100 mg tablet 200 mg (2 x 100 mg) PO BEDTIME #60 08/13/21 tabs venlafaxine 150 mg 150 mg PO DAILY #30 caps 08/13/21 capsule,extended release 24 hr ketorolac 10 mg tablet 10 mg PO TID 3 days #9 tabs 10/03/21 naloxone 4 mg/actuation nasal 4 mg intranasal Q2M PRN opioid 10/03/21 spray (Narcan) overdose #2 ea ondansetron 4 mg disintegrating 4 mg PO Q8H #6 tabs 10/03/21 tablet polyethylene glycol 3350 17 gram 17 g PO DAILY #14 ea 04/25/23 oral powder packet (Miralax) cefuroxime axetil 250 mg tablet 250 mg PO BID 7 days #14 tabs 04/29/23 ibuprofen 600 mg tablet 600 mg PO Q6H PRN fever or pain 06/05/24 #30 tabs Allergies Allergy/AdvReac Type Severity Reaction Status Date / Time sulfamethoxazole Allergy Unknown ANAPHYLAXIS Verified 06/05/24 15:41 [From BACTRIM] trimethoprim [From BACTRIM] Allergy Unknown ANAPHYLAXIS Verified 06/05/24 15:41 Review of Systems 2 Review of Systems: Yes all other systems are reviewed and are negative [facility] Past Medical History Medical History Polysubstance abuse Back pain Opioid abuse Bipolar 1 disorder, depressed, severe Social History Social History Household Members: None Housing: Apartment Do you presently have visiting nurse or other home services: No Alcohol intake: former Comment: pt no longer high fall risk Patient Tobacco Use Status: Never used Tobacco Second Hand Smoke Exposure: No Substance Use Type: Crack/Cocaine Advance Directives: No Advance Directives Information Provided: No Do you have a plan to hurt others: No Plan service: No Sexual orientation: Did not discuss. Physical Exam 2 Vital Signs: Vital Signs: Last Vital Signs Temp 98.4 F 06/05/24 18:28 Pulse 86 06/05/24 18:28 Resp 16 06/05/24 18:28 BP 145/81 H 06/05/24 18:28 Pulse Ox 96 06/05/24 18:28 O2 Del Method Room Air 06/05/24 18:28 BMI result Body Mass Index 23.4 Appearance: Alert. Oriented X3. No acute distress. Eyes: No pallor or icterus ENT: Pharynx normal. Oral Mucosa moist Neck: Normal inspection. Neck supple. CVS: Normal heart rate and rhythm. Pulses normal. Respiratory: No respiratory distress. Equal air entry bilateral, no wheezing/rales/rhonchi Abdomen: Soft and nontender. Bowel sounds are present, no mass palpable, Skin: Skin warm and dry. Normal skin color. Normal skin turgor. Extremities: No lower extremity edema. No calf tenderness Neuro: Oriented X 3. No motor deficit. Course Course Course Narrative: This is a Rapid Medical Examination (RME) performed by Cedric Burgess PA-C in triage. Full HPI, ROS, assessment and treatment plan per primary provider in the Main ED. 63 yo female hx of polysubstance abuse and bipolar 2 disorder here for eval of left UE and left sided chest pain, intermittent since waking this morning. feels generally unwell. endorses assoc nausea without vomiting. admits to black spots in her vision. admits to covid booster and flu shot in each arm last week. + rrr. lungs clear. Plan: labs, ekg, cxr Medications Administered Discontinued Medications Generic Name Dose Route Start Last Admin Trade Name Delmer PRN Reason Stop Dose Admin Ibuprofen 600 mg 06/05/24 18:22 06/05/24 18:32 Ibuprofen 600 Mg Tablet PO 06/05/24 18:23 600 mg ONCE ONE Administration Ondansetron HCl 4 mg 06/05/24 18:22 06/05/24 18:32 Ondansetron Odt 4 Mg Tab.Rapdis TRANSLINGU 06/05/24 18:23 4 mg ONCE ONE Administration Medical Decision Making Medical Decision Making [facility] Narrative: Patient has atypical left arm pain and left chest pain for a while workup is negative EKG without any ischemic likely musculoskeletal pain discharge patient home advised to follow with Differential Diagnosis Differential Diagnoses: The differential diagnosis associated with the presentation includes Musculoskeletal pain/ACS/anxiety Admission/Observation Consideration of admission/observation: Escalation of care including admission/observation considered Lab Data [facility] Lab Attestation statement: I reviewed the patient's lab results. 06/05/24 17:10 06/05/24 17:10 Labs: Lab Results 06/05/24 06/05/24 Range/Units 17:10 17:11 WBC 9.1 (4.8-10.8) X10*3/uL RBC 4.39 (4.20-5.50) X10*6/uL Hgb 13.9 (12.0-16.0) g/dl Hct 41.5 (37.0-47.0) % MCV 94.5 (80.0-98.0) fL MCH 31.7 (27.0-33.0) pg MCHC 33.5 (31.0-35.0) g/dl RDW 12.3 (11.0-16.0) % Plt Count 285 (160-400) X10*3/uL MPV 9.0 L (9.4-12.3) fL Immature Gran % (Auto) 0.2 (0.0-0.4) % Neut % (Auto) 63.8 (45-73) % Lymph % (Auto) 28.8 (20-40) % [place] % (Auto) 6.5 (2-11) % Eos % (Auto) 0.4 (0-4) % Baso % (Auto) 0.3 (0-2) % Lymph # (Auto) 2.6 (1.2-4.9) X10*3/uL [place] # (Auto) 0.6 (0.1-1.2) X10*3/uL Eos # (Auto) 0.0 (0.0-0.4) X10*3/uL Baso # (Auto) 0.0 (0.0-0.2) X10*3/uL Abs Immat Gran (auto) 0.02 (0.00-0.03) X10*3/uL Absolute Neuts (auto) 5.8 (2.0-8.3) x10*3/uL Absolute Nucleated RBC 0.000 (0.0-0.012) X10*3/uL Nucleated RBC % (auto) 0.0 (0.0-0.2) /100WBC PT 11.3 (11.1-13.3) SEC INR 0.9 (0.9-1.1) Sodium 142 (135-145) mmol/L Potassium 3.9 (3.3-5.1) mmol/L Chloride 107 (96-108) mmol/L Carbon Dioxide 27 (22-29) mmol/L Anion Gap 12 (12-20) BUN 8 L (9-16) mg/dL Creatinine 0.86 (0.5-1.4) mg/dL Estim Creat Clear Calc 64.3 Estimated GFR > 60 Random Glucose 99 (60-115) mg/dL Calcium 10.8 H (8.4-10.2) mg/dL Total Bilirubin 0.6 (0.0-1.0) mg/dL AST 12 (5-31) U/L ALT 8 (0-31) U/L Alkaline Phosphatase 102 (39-117) U/L Troponin I High Sens < 2.7 (<3.5-17.0) ng/L Total Protein 6.8 (6.5-8.0) g/dL Albumin 4.1 (3.5-5.0) g/dL Lipase 14 (8-78) U/L Influenza Type A (PCR) NEGATIVE (Negative) Influenza Type B (PCR) NEGATIVE (Negative) RSV RNA Qual (PCR) NEGATIVE (Negative) SARS-CoV-2 RNA (RT-PCR) NEGATIVE (Negative) Independent Interpretation I performed an independent interpretation of an: EKG Interpretation: Normal sinus rhythm heart rate 86 beats per minute normal interval normal axis no acute STT wave changes no acute ischemia Discharge Plan Discharge Clinical Impression: Atypical chest pain Patient Disposition: Home, Self-Care Instructions: Noncardiac Chest Pain (ED) Additional Instructions: Your pain in the chest and left arm is muscular pain Take ibuprofen for pain as needed Follow up with your PCP Prescriptions: New ibuprofen 600 mg tablet 600 mg PO Q6H PRN (Reason: fever or pain) Qty: 30 0RF No Action gabapentin 300 mg capsule 300 mg PO TID clonazepam 1 mg Tablet 1 mg PO TID Qty: 90 0RF oxcarbazepine 300 mg Tablet 300 mg PO BID Qty: 60 0RF trazodone 100 mg Tablet 200 mg PO BEDTIME Qty: 60 0RF mirtazapine 15 mg Tablet 15 mg PO BEDTIME Qty: 30 0RF Latuda 80 mg Tablet 80 mg PO BEDTIME Qty: 30 0RF venlafaxine 150 mg capsule,extended release 24hr 150 mg PO DAILY Qty: 30 0RF multivitamin [Daily-Elias] Tablet 1 tab PO DAILY Qty: 30 0RF naloxone [Narcan] 4 mg/actuation spray,non-aerosol 4 mg intranasal Q2M PRN (Reason: opioid overdose) Qty: 2 0RF Rx Instructions: spray 1 dose into ONE nostril; alternate nostrils w each dose until help arrives ondansetron 4 mg tablet,disintegrating 4 mg PO Q8H Qty: 6 0RF ketorolac 10 mg tablet 10 mg PO TID 3 Days Qty: 9 0RF polyethylene glycol 3350 [Miralax] 17 gram powder in packet 17 g PO DAILY Qty: 14 0RF cefuroxime axetil 250 mg tablet 250 mg PO BID 7 Days Qty: 14 0RF Interventions: ED Discharge Assessment Last Done: 06/05/24 18:28 Print Language: Wolof
[2024-06-05 17:16] LABS: MANUAL DIFF FLAG NO
[2024-06-05 17:22] LABS: Basophils Percent Auto 0.3 % (0-2); Eosinophils Percent Auto 0.4 % (0-4); Hematocrit 41.5 % (37.0-47.0); Hemoglobin 13.9 g/dl (12.0-16.0); Imm Gran Abs Auto 0.02 X10*3/uL (0.00-0.03); Imm Gran Pct Auto 0.2 % (0.0-0.4); Lymphocytes Absolute Auto 2.6 X10*3/uL (1.2-4.9); Lymphocytes Percent Auto 28.8 % (20-40); Mean Corpuscular HGB Conc 33.5 g/dl (31.0-35.0); Mean Corpuscular Hemoglobin 31.7 pg (27.0-33.0); Mean Corpuscular Volume 94.5 fL (80.0-98.0); Monocytes Absolute Auto 0.6 X10*3/uL (0.1-1.2); Monocytes Percent Auto 6.5 % (2-11); Neutrophils Absolute Auto 5.8 x10*3/uL (2.0-8.3); Neutrophils Percent Auto 63.8 % (45-73); Platelet Count 285 X10*3/uL (160-400); Red Blood Count 4.39 X10*6/uL (4.20-5.50); Red Cell Distribution Width 12.3 % (11.0-16.0); White Blood Count 9.1 X10*3/uL (4.8-10.8)
[2024-06-05 17:27] LABS: INTERNATIONAL NORM RATIO 0.9 (0.9-1.1); Prothrombin Time 11.3 SEC (11.1-13.3)
--- OUTSIDE RECORDS SUMMARY | 2024-06-05 17:27 | XMS_ITS | Continuity of Care Document ---
Author Organization [facility] Wayne Yaakov lt Address [address] [place] [address]- Care Team Providers Care Soil Sampler Name Role Phone Meghna Harmon Primary Care Physician [facility] Date(s): 06/16/23 - 07/16/23 [facility] [place] Adult [address] [place] [address]- Allergies, Adverse Reactions, Alerts Substance Reaction Severity Status Bactrim hives Active Immunizations Given and Recorded Vaccine Date Status Refusal Reason RSV vaccine preF3, recombinant 07/13/23 Recorded SARS-CoV-2(COVID-19)mRNA-LNP vac([id number]) 07/02/23 Recorded influenza virus vaccine, inactivated 05/28/23 Liam rded influenza virus vaccine, inactivated 06/11/22 Liam rded influenza virus vaccine, inactivated 07/18/21 Liam rded influenza virus vaccine, inactivated 07/30/19 Liam rded influenza virus vaccine, inactivated 06/08/18 Liam rded influenza virus vaccine, inactivated 08/01/17 Liam rded influenza virus vaccine, inactivated 08/13/15 Liam rded influenza virus vaccine, inactivated 08/14/13 Liam rded influenza virus vaccine, inactivated 06/24/10 Liam rded [id number] bivalent booster vax 06/11/22 Recorded SARS-CoV-2 (COVID-19) mRNA BNT-162b2 vac 08/30/21 Recorded SARS-CoV-2 (COVID-19) mRNA BNT-162b2 vac 02/02/21 Recorded SARS-CoV-2 (COVID-19) mRNA BNT-162b2 vac 01/07/21 Recorded zoster vaccine, inactivated 04/19/20 Recorded zoster vaccine, inactivated 11/15/19 Recorded tetanus/diphtheria/pertussis, acel(Tdap) 06/12/15 Recorded influ virus vac, H1N1, inactive(oldterm) 10/17/09 Recorded Medications Acidophilus Probiotic Blend oral capsule 1 capsule, By Mouth, Daily, # 30 capsule, 0 Refills, Maintenance, 01/28/21 15:58:00 EDT, [facility] #[id number], Partial fill upon patient request if the prescription is for a schedule II opioiddrug., 1 capsule By Mouth Daily, 165, cm, 01/28/21... Start Date: 01/28/21 Status: Ordered clonazePAM 1 mg oral tablet 1 tablet = 1 mg, By Mouth, 3 times a day, 0 Refills, Maintenance, 04/25/20 13:24:00 EDT, Tablet Start Date: 04/25/20 Status: Ordered fluconazole 100 mg oral tablet 1 tablet = 100 mg, By Mouth, Daily, # 14 tablet, 0 Refills, Maintenance, 07/15/23 14:26:00 EDT, Tablet, [facility] #[id number], Partial fill upon patient request if the prescription is for a schedule II opioid drug., 165, cm, 07/15/23 13:58:00 ED... Start Date: 07/15/23 Stop Date: 07/29/23 Status: Ordered gabapentin 300 mg oral capsule 600 mg, 2, capsule, By Mouth, Daily at bedtime, # 90 capsule, Refills 0, Tot. Refills 0, Maintenance, 06/05/20 10:48:00 EDT, Route to Pharmacy Electronically, [facility] #[id number], 165.1, cm, 06/05/20 8:32:00 EDT, Height, 73.1, [...] opioid drug. Start Date: 08/26/20 Status: Ordered ondansetron 4 mg oral tablet, disintegrating 1 tablet = 4 mg, By Mouth, 3 times a day, PRN Nausea & Vomiting, # 15 tablet, 0 Refills, Acute 07/17/23 11:00:00 EDT, 06/17/23 10:36:00 EDT, Tablet, [facility] #[id number], Partial fill uponpatient request if the prescription is for a schedule I... Start Date: 06/17/23 Stop Date: 07/17/23 Status: Ordered OXcarbazepine 300 mg oral tablet 300 mg, 1, tablet, By Mouth, 2 times a day, # 120 tablet, Refills 0, Maintenance, 04/25/20 13:24:00EDT Start Date: 04/25/20 Status: Ordered traZODone 100 mg oral tablet 200 mg, 2, tablet, By Mouth, Daily at bedtime, # 60 tablet, Refills 0, Tot. Refills 0, Maintenance,06/05/20 10:57:00 EDT, Route to Pharmacy Electronically, [facility] #[id number], 165.1, cm, 06/05/20 8:32:00 EDT, Height, 73.1, [...] Active Breast lump in female Confirmed Active Thrush Confirmed Active Cocaine use disorder Confirmed Active Lumbar degenerative disc disease Confirmed Active SOB (shortness of breath) Confirmed Active Hx MRSA infection Confirmed Active Hypercalcemia Confirmed Active Hypertriglyceridemia Confirmed Active Urinary frequency Confirmed Active Kidney stone Confirmed Active Major depression Confirmed Active Pilonidal cyst with abscess Confirmed Active Post-concussion syndrome Confirmed Active Hematoma, subungual, great toe, left Confirmed Active Vitreous floaters of both eyes Confirmed Active Word finding difficulty Confirmed Active Social History Social History Type Response Smoking Status Never smoker entered on: 05/04/16 Sex Patient Care team information Care Team Personnel Name: Meghna Harmon Position: [facility] PCO Associate Professional Member Role: PCP Address: Address: [address] [place] [address]- Name: Robert RN, Fani Lane Position: [facility] AMB Nurse Member Role: Primary Care Nurse Care Team Related Persons Name: SIVA BEE Address: home [address] [place] [address]
--- OUTSIDE RECORDS SUMMARY | 2024-06-05 17:28 | XMS_ITS | Continuity of Care Document ---
Author Organization [facility] Wayne Yaakov lt Address [address] [place] [address]- Care Team Providers Care Laboratory Asst Name Role Phone Meghna Harmon Primary Care Physician [facility] Date(s): 08/20/23 - 09/19/23 [facility] Adult [address] [place] [address]- Allergies, Adverse Reactions, Alerts Substance Reaction Severity Status Bactrim hives Active Immunizations Given and Recorded Vaccine Date Status Refusal Reason RSV vaccine preF3, recombinant 07/13/23 Recorded SARS-CoV-2(COVID-19)mRNA-LNP vac([id number]) 07/02/23 Recorded influenza virus vaccine, inactivated 05/28/23 [...] influenza virus vaccine, inactivated 06/24/10 Liam rded [id number] bivalent booster vax 06/11/22 Recorded SARS-CoV-2 (COVID-19) [...] capsule, 0 Refills, Maintenance, 01/28/21 15:58:00 EDT, [facility] #[id number], Partial fill upon patient request if the [...] 0 Refills, Maintenance, 07/15/23 14:26:00 EDT, Tablet, [facility] #[id number], Partial fill upon patient request if the prescription is for a schedule II opioid drug., 165, cm, 07/15/23 13:58:00 ED... Start Date: 07/15/23 Stop Date: 07/29/23 Status: Ordered gabapentin 300 mg oral capsule 600 mg, 2, capsule, By Mouth, Daily at bedtime, # 90 capsule, Refills 0, Tot. Refills 0, Maintenance, 06/05/20 10:48:00 EDT, Route to Pharmacy Electronically, [facility] #[id number], 165.1, cm, 06/05/20 8:32:00 EDT, Height, 73.1, [...] opioid drug. Start Date: 08/26/20 Status: Ordered Mucinex 600 mg oral tablet, extended release See Instructions, 1 tablet By Mouth Every 12 hours as needed for cough and chest congestion. Swallow extended-release tablets whole; do not chew or crush, # 10 tablet, 0 Refills, Maintenance, 08/18/23 11:30:00 EST, ER Tablet, [facility] #0... Start Date: 08/18/23 Status: Ordered OXcarbazepine 300 mg oral tablet 300 mg, 1, tablet, By Mouth, 2 times a day, # 120 tablet, Refills 0, Maintenance, 04/25/20 13:24:00EDT Start Date: 04/25/20 Status: Ordered traZODone 100 mg oral tablet 200 mg, 2, tablet, By Mouth, Daily at bedtime, # 60 tablet, Refills 0, Tot. Refills 0, Maintenance,06/05/20 10:57:00 EDT, Route to Pharmacy Electronically, [facility] #[id number], 165.1, cm, 06/05/20 8:32:00 EDT, Height, 73.1, [...] Course Effective Dates Status Health Status Informant Acute bronchitis Confirmed Active AR (allergic rhinitis) Confirmed Active Anemia Confirmed [...] Associate Professional Member Role: PCP Address: Address: [address] [place] [address]- Name: Fani Jones RN Position: [facility] AMB Nurse Member Role: Primary Care Nurse Care Team Related Persons Name: CRISTAL SIVA Address: home [address] [place] [id number]
--- OUTSIDE RECORDS SUMMARY | 2024-06-05 17:28 | XMS_ITS | Continuity of Care Document ---
Author Organization [facility] Yaakov Address [address] [place] [address]- Care Team Providers Care Food Crops Farm Hand Name Role Phone Meghna Harmon Primary Care Physician Encounter [facility] Date(s): 04/22/23 - 04/29/23 [facility] Adult [address] [place] [address]- Encounter Diagnosis Constipation(Discharge Diagnosis) - 04/22/23 Attending Physician: Kamille Sullivan Allergies, Adverse Reactions, Alerts Substance Reaction Severity [...] capsule, 0 Refills, Maintenance, 01/28/21 15:58:00 EDT, [facility] #[id number], Partial fill upon patient request if the [...] Refills, Soft Stop, 01/28/21 15:57:00 EDT, Tablet, [facility] #[id number], Partial fill upon patient request if the prescription is for a schedule I... Start Date: 01/28/21 Status: Ordered gabapentin 300 mg oral capsule 600 mg, 2, capsule, By Mouth, Daily at bedtime, # 90 capsule, Refills 0, Tot. Refills 0, Maintenance, 06/05/20 10:48:00 EDT, Route to Pharmacy Electronically, [facility] #[id number], 165.1, cm, 06/05/20 8:32:00 EDT, Height, 73.1, [...] Maintenance,06/05/20 10:57:00 EDT, Route to Pharmacy Electronically, [facility] #[id number], 165.1, cm, 06/05/20 8:32:00 EDT, Height, 73.1, [...] Dates Health Status Cl inical Service Informant Constipation Discharge Diagnosis 04/22/23 Vital Signs Most recent to oldest [Reference Range]: 1 Height 165 cm (04/22/23 1:47 PM) Weight 74.9 kg (04/22/23 1:47 PM) Oxygen Saturation [94-100 %] 97 % (04/22/23 1:47 PM) Pulse Rate [55-90 bpm] 72 bpm (04/22/23 1:47 PM) Body Mass Index [18.5-24.99 kg/m2] 27.51 kg/m2 *H* (04/22/23 1:47 PM) Blood Pressure [90-138/55-84 mm Hg] 97/6 8mm Hg (04/22/23 1:47 PM) Temperature [96.8-100.4 DegF] 96.9 DegF (04/22/23 1:47 PM) Mode of Delivery (Oxygen) Room air (04/22/23 1:47 PM) Blood pressure sites Arm, left (04/22/23 1:47 PM) Temperature Route Temporal (04/22/23 1:47 PM) Weight Obtained Via Standing scale (04/22/23 1:47 PM) Social History Social History Type Response Smoking Status Never smoker entered on: 05/04/16 Sex Note * Riya Bang: PERFORM, SIGN, VERIFY Event Display: Patient Education/Instruction Authored Date: [id number] [facility] *KACI Riley Clinical Summary Name ELIAS BEE Age 62 Years 1960 PCP Josey [place], [id number] Date 04/22/2023 13:36:00 Patient Instructions Please ask pharmacist for these items to help with constipation, anal fissures, and hemorrhoids Sitz bath for anal fissures Preparation H Rectal lidocaine cream Metamucil Jodi Gonzales Additional Instructions: Scheduled Appointments?? Future Appointments ?[facility] [address]??[place],??[place],??[address] ?Phone:??[phone]?Fax:??-- ?Appt. Date:??04/29/2023?2:15 PM ?Scheduled Provider:??PEDRITO Smith 1 Follow-Up Instructions ?? Diagnosis Constipation, unspecified Medications: Please continue your medications until treatment is completed or stopped by your provider. Discuss any questions related to medications with your provider. Medications to Continue with No Changes These medications were not printed or sent to your pharmacy Clonazepam (clonazePAM 1 mg oral tablet) 1 tab(s) Oral 3 times a day. Next Dose: Fluconazole (fluconazole 150 mg oral tablet) 1 tab(s) Oral once. epeat dose if still having symptoms in 72 hours. Refills: 0. Next Dose: Gabapentin (gabapentin 300 mg oral capsule) 2 capsule Oral Daily at Bedtime. Refills: 0. Next Dose: Lactobacillus Acidophilus (Acidophilus Probiotic Blend oral capsule) 1 capsule Oral Daily. Refills:0. Next Dose: Lidocaine Topical (Lidocaine 2% Topical) Topically twice a day. Next Dose: Loratadine (loratadine 10 mg oral tablet) 1 tab(s) Oral Daily. Next Dose: lurasidone (Latuda 60 mg oral tablet) Next Dose: Mirtazapine (mirtazapine 7.5 mg oral tablet) 2 tab(s) Oral Daily at Bedtime. Next Dose: Ondansetron (ondansetron 4 mg oral tablet, disintegrating) Next Dose: Oxcarbazepine (OXcarbazepine 300 mg oral tablet) 1 tab(s) Oral twice a day. Next Dose: Trazodone (traZODone 100 mg oral tablet) 2 tab(s) Oral Daily at Bedtime. Refills: 0. Next Dose: Venlafaxine (venlafaxine 150 mg oral capsule, extended release) 1 capsule Oral Daily. Next Dose: Allergy Info:?? Bactrim Medications Given This Visit Future Orders ?XR Abdomen AP? Order Date:04/22/23?- Complete on or after?04/22/23 Vital Signs Height 165 cm Weight 74.9 kg BMI 27.51 kg/m2 Blood Pressure 97 mm Hg/68 mm Hg Temperature 96.9 DegF Pulse Rate 72 bpm Respiratory Rate 02 Sat Mode of Delivery 97 %/Room air You can now view a summary of your hospital visit from the comfort of your home through a free online portal called [employer]. [employer] is a website that allows you to securely view your medical information including discharge summary, medications and follow-up visits. ??You can alsosend a secure electronic message to your doctor???s office to request appointments, renew medications or just ask a question. You can enroll at [email or web address] or register during your next office visit. Disclaimer:?? The information provided is of a general nature and is intended to be used in conjunction with the recommendations and advice of your health care practitioner. ??Every effort has been made to ensure that the information provided is accurate and complete at the time it is provided to you however, as your needs change, or, as new ??information becomes available, different or additional instructions may be required. If you have questions, please consult with your primary care provider or pharmacist, as appropriate. ??This information is not intended to serve as substitution for assessment and evaluation by a qualified health care provider. If you do not have a primary care provider, you may find a [facility] provider by calling [facility] at [phone]. For information about the plan of care including goals and instructions for your diagnosis, please see the patient education orders section of this document. Patient Education Materials?? The content of this educational material or handout may have been modified, supplemented, or adapted from its original content and format to support your individualized medical care. [address] Treating Constipation Constipation is a common and often uncomfortable problem. Constipation means you have bowel movements less often than usual or strain to pass hard, dry stool. It can last a short time. Or it can be aproblem that never seems to go away. The good news is that it can often be treated and controlled. Eat More Fiber One of the best ways to help treat constipation is to eat a high-fiber diet. Fiber (in whole grains, fruits, and vegetables) adds bulk and absorbs water to soften the stool. This helps the stool passthrough the colon more easily. When you increase your fiber intake, do it slowly. And increase the amount of water that you drink, too. Eating more of the following foods can add fiber to your diet. ??? High-fiber cereals ??? Whole grains, bran, and brown rice ??? Vegetables such as carrots, broccoli, and greens ??? Fresh fruits (especially apples, pears, and dried fruits like raisins and apricots) ??? Nuts and legumes (especially beans such as lentils, kidney beans, and mendoza beans) Get Physically Active Exercise helps improve the working of your colon. This helps ease constipation. Try to get some activity every day. If you haven???t been active for a while, talk to your doctor before starting again. Avoid Chronic Laxative Use Some laxatives stimulate the colon to work more quickly. Using these laxatives too much may keep the colon from working right without them. If you use laxatives often, talk to the doctor. He or she can help you ease off of them. And don???t use stimulant laxatives without talking to your healthcareprovider first. Note: Your doctor may suggest an [id number] product to help ease your constipation. If so, follow directions carefully when using it. ?? [phone] [facility], [address] [place] [address], [place] [address]. All rights reserved. This information is not intended as a substitute for professional medical care. Always follow your healthcare professional's instructions. Constipation (Adult) Constipation means that you have bowel movements that are less frequent than usual. Stools often become very hard and difficult to pass. Constipation is very common. At some point in life it affects almost everyone. Since everyone's bowel habits are different, what is constipation to one person may not be to another. Your healthcare provider may do tests to diagnose constipation. It depends on what??he or she??finds when evaluating you. Symptoms of constipation include: ??? Abdominal pain ??? Bloating ??? Vomiting ??? Painful bowel movements ??? Itching, swelling, bleeding, or pain around the anus Causes Constipation can have many causes. These include: ??? Diet low in fiber ??? Too much dairy ??? Not drinking enough liquids ??? Lack of exercise or physical activity. This is especially true for older adults. ??? Changes in lifestyle or daily routine, including , aging, work, and travel ??? Frequent use or misuse of laxatives ??? Ignoring the urge to have a bowel movement or delaying it until later ??? Medicines, such as certain prescription pain medicines, iron supplements, antacids, certain antidepressants, and calcium supplements ??? Diseases like irritable bowel syndrome, bowel obstructions, stroke, diabetes, thyroid disease, Parkinson disease, hemorrhoids, and colon cancer Complications Potential complications of constipation can include: ??? Hemorrhoids ??? Rectal bleeding from hemorrhoids or anal fissures??(skin tears) ??? Hernias ??? Dependency on laxatives ??? Chronic constipation ??? Fecal impaction ??? Bowel obstruction or perforation Home care All treatment should be done after talking with your healthcare provider. This is especially true if you have another medical problems, are taking prescription medicines, or are an older adult. Treatment most often involves lifestyle changes. You may also need medicines. Your healthcare provider will tell you which will work best for you. Follow the advice below to help avoid this problem in the future. Lifestyle changes These lifestyle changes can help prevent constipation: ??? Diet. Eat a high-fiber diet, with fresh fruit and vegetables, and reduce dairy intake, meats, and processed foods ??? Fluids. It's important to get enough fluids each day. Drink plenty of water when you eat more fiber. If you are on diet that limits the amount of fluid you can have, talk about this with your healthcare provider. ??? Regular exercise. Check with your healthcare provider first. Medications Take any medicines as directed. Some laxatives are safe to use only every now and then. Others can be taken on a regular basis. Talk with your doctor or pharmacist if you have questions. Prescription pain medicines can cause constipation. If you are taking this kind of medicine, ask your healthcare provider if you should also take a stool softener. Medicines you may take to treat constipation include: ??? Fiber supplements ??? Stool softeners ??? Laxatives ??? Enemas ??? Rectal suppositories Follow-up care Follow up with your healthcare provider if symptoms don't get better in the next few days. You may need to have more tests or see a specialist. Call 911 Call 911 if any of these occur: ??? Trouble breathing ??? Stiff, rigid abdomen that is severely painful to touch ??? Confusion ??? Fainting or loss of consciousness ??? Rapid heart rate ??? Chest pain When to seek medical advice Call your healthcare provider right away if any of these occur: ??? Fever over 100.4??F (38??C) ??? Failure to resume normal bowel movements ??? Pain in your abdomen or back gets worse ??? Nausea or vomiting ??? Swelling in your abdomen ??? Blood in the stool ??? Black, tarry stool ??? Involuntary weight loss ??? Weakness ?? [id number] [facility]. [address] [place] [address], [place] [address]. All rights reserved. This information is not intended as a substitute for professional medical care. Always follow your healthcare professional's instructions. Patient Care team information Care Team Personnel Name: Meghna Harmon Position: [facility] PCO Associate Professional Member Role: PCP Address: Address: [address] [place] [address]- Name: Robert RN, Fani Lane Position: [facility] AMB Nurse Member Role: Primary Care Nurse Care Team Related Persons Name: SIVA BEE Address: home [address] [place] [address]
--- OUTSIDE RECORDS SUMMARY | 2024-06-05 17:28 | XMS_ITS | Continuity of Care Document ---
Author Organization [facility] Wayne Yaakov lt Address [address] [place] [address]- Care Team Providers Care Tree Trimming Supervisor Name Role Phone Meghna Harmon Primary Care Physician [phone] [facility]counter [facility] Date(s): 09/15/23 - 10/15/23 [facility] Adult [address] [place] [address]- Allergies, Adverse Reactions, Alerts Substance Reaction Severity Status Bactrim hives Active Immunizations Given and Recorded Vaccine Date Status Refusal Reason RSV vaccine preF3, recombinant 07/13/23 Recorded SARS-CoV-2(COVID-19)mRNA-LNP vac([id number]) 07/02/23 Recorded influenza virus vaccine, inactivated 05/28/23 [...] influenza virus vaccine, inactivated 06/24/10 Liam rded [id number] bivalent booster vax 06/11/22 Recorded SARS-CoV-2 (COVID-19) [...] capsule, 0 Refills, Maintenance, 01/28/21 15:58:00 EDT, [facility] #[id number], Partial fill upon patient request if the [...] 0 Refills, Maintenance, 07/15/23 14:26:00 EDT, Tablet, [facility] #[id number], Partial fill upon patient request if the prescription is for a schedule II opioid drug., 165, cm, 07/15/23 13:58:00 ED... Start Date: 07/15/23 Stop Date: 07/29/23 Status: Ordered gabapentin 300 mg oral capsule 600 mg, 2, capsule, By Mouth, Daily at bedtime, # 90 capsule, Refills 0, Tot. Refills 0, Maintenance, 06/05/20 10:48:00 EDT, Route to Pharmacy Electronically, [facility] #[id number], 165.1, cm, 06/05/20 8:32:00 EDT, Height, 73.1, [...] Refills, Maintenance, 08/18/23 11:30:00 EST, ER Tablet, [facility] #0... Start Date: 08/18/23 Status: Ordered [...] Maintenance,06/05/20 10:57:00 EDT, Route to Pharmacy Electronically, [facility] #[id number], 165.1, cm, 06/05/20 8:32:00 EDT, Height, 73.1, [...] Care Team Personnel Name: Meghna Harmon Position: [facility] PCO Associate Professional Member Role: PCP Address: Address: [address] [place] [id number]- Name: Robert ANDRADE, Fani Lane Position: [facility] AMB Nurse Member Role: Primary Care Nurse Care Team Related Persons Name: SIVA BEE Address: home [address] [place] [address]
--- OUTSIDE RECORDS SUMMARY | 2024-06-05 17:28 | XMS_ITS | Continuity of Care Document ---
Author Organization [facility] Wayne Yaakov lt Address [address] [place] [address]- Care Team Providers Care Urologist Physician Name Role Phone Meghna Harmon Primary Care Physician [phone] [facility] 04/[facility]/23 - 05/01/23 [facility] Adult [address] [place] [address]- Allergies, Adverse Reactions, Alerts Substance Reaction Severity [...] capsule, 0 Refills, Maintenance, 01/28/21 15:58:00 EDT, [facility] #[id number], Partial fill upon patient request if the [...] Refills, Soft Stop, 01/28/21 15:57:00 EDT, Tablet, [facility] #[id number], Partial fill upon patient request if the prescription is for a schedule I... Start Date: 01/28/21 Status: Ordered gabapentin 300 mg oral capsule 600 mg, 2, capsule, By Mouth, Daily at bedtime, # 90 capsule, Refills 0, Tot. Refills 0, Maintenance, 06/05/20 10:48:00 EDT, Route to Pharmacy Electronically, [facility] #[id number], 165.1, cm, 06/05/20 8:32:00 EDT, Height, 73.1, [...] Maintenance,06/05/20 10:57:00 EDT, Route to Pharmacy Electronically, [facility] #[id number], 165.1, cm, 06/05/20 8:32:00 EDT, Height, 73.1, [...] Care Team Personnel Name: Meghna Harmon Position: [facility] PCO Associate Professional Member Role: PCP Address: Address: [address] [place] [address]- Name: Robert ANDRADE, Fani Lane Position: [facility] AMB Nurse Member Role: Primary Care Nurse Care Team Related Persons Name: SIVA BEE Address: home [address] [place] [address]
--- OUTSIDE RECORDS SUMMARY | 2024-06-05 17:28 | XMS_ITS | Continuity of Care Document ---
Author Organization [facility] Wayne Yaakov lt Address [address] [place] [address]- Care Team Providers Care Programming Instructor Name Role Phone Meghna Harmon Primary Care Physician [facility]s): 05/03/24 - 06/02/24 [facility] Adult [address] [place] [address]- Allergies, Adverse Reactions, Alerts Substance Reaction Severity Status Bactrim hives Active Immunizations Given and Recorded Vaccine Date Status Refusal Reason RSV vaccine preF3, recombinant 07/13/23 Recorded SARS-CoV-2(COVID-19)mRNA-LNP vac([id number]) 07/02/23 Recorded influenza virus vaccine, inactivated 05/28/23 [...] influenza virus vaccine, inactivated 06/24/10 Liam rded [id number] bivalent booster vax 06/11/22 Recorded SARS-CoV-2 (COVID-19) [...] capsule, 0 Refills, Maintenance, 01/28/21 15:58:00 EDT, [facility] #[id number], Partial fill upon patient request if the [...] 0 Refills, Maintenance, 07/15/23 14:26:00 EDT, Tablet, [facility] #[id number], Partial fill upon patient request if the prescription is for a schedule II opioid drug., 165, cm, 07/15/23 13:58:00 ED... Start Date: 07/15/23 Stop Date: 07/29/23 Status: Ordered gabapentin 300 mg oral capsule 600 mg, 2, capsule, By Mouth, Daily at bedtime, # 90 capsule, Refills 0, Tot. Refills 0, Maintenance, 06/05/20 10:48:00 EDT, Route to Pharmacy Electronically, [facility] #[id number], 165.1, cm, 06/05/20 8:32:00 EDT, Height, 73.1, [...] Refills, Maintenance, 08/18/23 11:30:00 EST, ER Tablet, [facility] #0... Start Date: 08/18/23 Status: Ordered [...] Maintenance,06/05/20 10:57:00 EDT, Route to Pharmacy Electronically, [facility] #[id number], 165.1, cm, 06/05/20 8:32:00 EDT, Height, 73.1, [...] Care Team Personnel Name: Meghna Harmon Position: [facility] PCO Associate Professional Member Role: PCP Address: Address: [address] [place] [id number]- Name: Fani Jones RN Position: [facility] AMB Nurse Member Role: Primary Care Nurse Care Team Related Persons Name: CRISTAL SIVA Address: home [address] [place] [id number]
--- OUTSIDE RECORDS SUMMARY | 2024-06-05 17:28 | XMS_ITS | Continuity of Care Document ---
Author Organization [facility] Yaakov lt Address [address] [place] [address]- Care Team Providers Care Instant Potato Processor Name Role Phone Meghna Harmon Primary Care Physician [facility]s): 09/15/23 - 10/15/23 [facility] Adult [address] [place] [address]- Attending Physician: AdmEfrem [email or web address] Admitting Physician: AdmtrMaria Referring Physician: Admtr, Ar8 Allergies, Adverse Reactions, Alerts Substance Reaction Severity Status Bactrim hives Active Immunizations Given and Recorded Vaccine Date Status Refusal Reason RSV vaccine preF3, recombinant 07/13/23 Recorded SARS-CoV-2(COVID-19)mRNA-LNP vac([id number]) 07/02/23 Recorded influenza virus vaccine, inactivated 05/28/23 [...] influenza virus vaccine, inactivated 06/24/10 Liam rded [id number] bivalent booster vax 06/11/22 Recorded SARS-CoV-2 (COVID-19) [...] capsule, 0 Refills, Maintenance, 01/28/21 15:58:00 EDT, [facility] #[id number], Partial fill upon patient request if the [...] 0 Refills, Maintenance, 07/15/23 14:26:00 EDT, Tablet, [facility] #[id number], Partial fill upon patient request if the prescription is for a schedule II opioid drug., 165, cm, 07/15/23 13:58:00 ED... Start Date: 07/15/23 Stop Date: 07/29/23 Status: Ordered gabapentin 300 mg oral capsule 600 mg, 2, capsule, By Mouth, Daily at bedtime, # 90 capsule, Refills 0, Tot. Refills 0, Maintenance, 06/05/20 10:48:00 EDT, Route to Pharmacy Electronically, [facility] #[id number], 165.1, cm, 06/05/20 8:32:00 EDT, Height, 73.1, [...] Refills, Maintenance, 08/18/23 11:30:00 EST, ER Tablet, [facility] #0... Start Date: 08/18/23 Status: Ordered [...] Maintenance,06/05/20 10:57:00 EDT, Route to Pharmacy Electronically, [facility] #[id number], 165.1, cm, 06/05/20 8:32:00 EDT, Height, 73.1, [...] Status Never smoker entered on: 05/04/16 Sex Radiology * Event Display: MRI Head, Non- Authored Date: [id number] Patient Care team information Care Team Personnel Name: Meghna Harmon Position: [facility] PCO Associate Professional Member Role: PCP Address: Address: [address] [place] [address]- Name: Robert RN, Fani Lane Position: [facility] AMB Nurse Member Role: Primary Care Nurse Care Team Related Persons Name: SIVA BEE Address: home [address] [place] [address]
--- OUTSIDE RECORDS SUMMARY | 2024-06-05 17:28 | XMS_ITS | Continuity of Care Document ---
Author Organization [facility] Wayne Yaakov lt Address [address] [place] [address]- Care Team Providers Care Switch Technician Name Role Phone Meghna Harmon Primary Care Physician [facility]s): 07/27/23 - 08/26/23 [facility] Adult [address] [place] [address]- Allergies, Adverse Reactions, Alerts Substance Reaction Severity Status Bactrim hives Active Immunizations Given and Recorded Vaccine Date Status Refusal Reason RSV vaccine preF3, recombinant 07/13/23 Recorded SARS-CoV-2(COVID-19)mRNA-LNP vac([id number]) 07/02/23 Recorded influenza virus vaccine, inactivated 05/28/23 [...] influenza virus vaccine, inactivated 06/24/10 Liam rded [id number] bivalent booster vax 06/11/22 Recorded SARS-CoV-2 (COVID-19) [...] capsule, 0 Refills, Maintenance, 01/28/21 15:58:00 EDT, [facility] #[id number], Partial fill upon patient request if the prescription is for a schedule II opioiddrug., 1 capsule By Mouth Daily, 165, cm, 01/28/21... Start Date: 01/28/21 Status: Ordered clonazePAM 1 mg oral tablet 1 tablet = 1 mg, By Mouth, 3 times a day, 0 Refills, Maintenance, 04/25/20 13:24:00 EDT, Tablet Start Date: 04/25/20 Status: Ordered doxycycline hyclate 100 mg oral tablet 1 tablet = 100 mg, By Mouth, 2 times a day, for 7 days, with fluids, # 14 tablet, 0 Refills, Acute 08/27/23 16:47:00 EST, 08/20/23 16:47:00 EST, Tablet, [facility] #42378, Partial fill uponpatient request if the prescription is for a schedu... Start Date: 08/20/23 Stop Date: 08/27/23 Status: Ordered fluconazole 100 mg oral tablet 1 tablet = 100 mg, By Mouth, Daily, # 14 tablet, 0 Refills, Maintenance, 07/15/23 14:26:00 EDT, Tablet, [facility] #04933, Partial fill upon patient request if the prescription is for a schedule II opioid drug., 165, cm, 07/15/23 13:58:00 ED... Start Date: 07/15/23 Stop Date: 07/29/23 Status: Ordered gabapentin 300 mg oral capsule 600 mg, 2, capsule, By Mouth, Daily at bedtime, # 90 capsule, Refills 0, Tot. Refills 0, Maintenance, 06/05/20 10:48:00 EDT, Route to Pharmacy Electronically, [facility] #[id number], 165.1, cm, 06/05/20 8:32:00 EDT, Height, 73.1, [...] Refills, Maintenance, 08/18/23 11:30:00 EST, ER Tablet, [facility] #0... Start Date: 08/18/23 Status: Ordered OXcarbazepine 300 mg oral tablet 300 mg, 1, tablet, By Mouth, 2 times a day, # 120 tablet, Refills 0, Maintenance, 04/25/20 13:24:00EDT Start Date: 04/25/20 Status: Ordered traZODone 100 mg oral tablet 200 mg, 2, tablet, By Mouth, Daily at bedtime, # 60 tablet, Refills 0, Tot. Refills 0, Maintenance,06/05/20 10:57:00 EDT, Route to Pharmacy Electronically, [facility] #59612, 165.1, cm, 06/05/20 8:32:00 EDT, Height, 73.1, [...] Care Team Personnel Name: Meghna Harmon Position: [facility] PCO Associate Professional Member Role: PCP Address: Address: [address] [place] [address]- Name: Robert ANDRADE, Fani Lane Position: [facility] AMB Nurse Member Role: Primary Care Nurse Care Team Related Persons Name: SIVA BEE Address: home [address] [place] [address]
--- OUTSIDE RECORDS SUMMARY | 2024-06-05 17:28 | XMS_ITS | Continuity of Care Document ---
Author Organization [facility] Wayne Yaakov lt Address [address] [place] [address]- Care Team Providers Care Youth Care Professional Name Role Phone Meghna Harmon Primary Care Physician [facility]s): 06/03/23 - 07/03/23 [facility] [employer] Adult [address] [place] [address]- Allergies, Adverse Reactions, Alerts Substance Reaction Severity Status Bactrim hives Active Immunizations Given and Recorded Vaccine Date Status Refusal Reason influenza virus vaccine, inactivated 05/28/23 Liam rded influenza virus vaccine, inactivated 06/11/22 Liam rded influenza virus vaccine, inactivated 07/18/21 Liam rded influenza virus vaccine, inactivated 07/30/19 Liam rded influenza virus vaccine, inactivated 06/08/18 Liam rded influenza virus vaccine, inactivated 08/01/17 Liam rded influenza virus vaccine, inactivated 08/13/15 Liam rded influenza virus vaccine, inactivated 08/14/13 Liam rded influenza virus vaccine, inactivated 06/24/10 Liam rded [id number] bivalent booster vax 06/11/22 Recorded SARS-CoV-2 (COVID-19) [...] capsule, 0 Refills, Maintenance, 01/28/21 15:58:00 EDT, [facility] #[id number], Partial fill upon patient request if the [...] 06/05/20 10:48:00 EDT, Route to Pharmacy Electronically, [facility] #[id number], 165.1, cm, 06/05/20 8:32:00 EDT, Height, 73.1, [...] 07/17/23 11:00:00 EDT, 06/17/23 10:36:00 EDT, Tablet, [facility] #[id number], Partial fill uponpatient request if the prescription [...] Maintenance,06/05/20 10:57:00 EDT, Route to Pharmacy Electronically, [facility] #[id number], 165.1, cm, 06/05/20 8:32:00 EDT, Height, 73.1, [...] Associate Professional Member Role: PCP Address: Address: [address] [place] [address]- Name: Fani Jones RN Position: [facility] AMB Nurse Member Role: Primary Care Nurse Care Team Related Persons Name: SIVA BEE Address: home [address] [place] [address]
--- OUTSIDE RECORDS SUMMARY | 2024-06-05 17:28 | XMS_ITS | Continuity of Care Document ---
Author Organization [facility] Address [address] [facility], [address] [place] [address]- Care Team Providers Care Residence Manager Name Role Phone Meghna Harmon Primary Care Physician [phone] Encounter 04/14/23 - 05/29/23 [facility] [address], [address] [place] [address]- Attending Physician: Meghna Harmon Admitting Physician: Meghna [...] capsule, 0 Refills, Maintenance, 01/28/21 15:58:00 EDT, [facility] #[id number], Partial fill upon patient request if the [...] Refills, Soft Stop, 01/28/21 15:57:00 EDT, Tablet, [facility] #[id number], Partial fill upon patient request if the prescription is for a schedule I... Start Date: 01/28/21 Status: Ordered gabapentin 300 mg oral capsule 600 mg, 2, capsule, By Mouth, Daily at bedtime, # 90 capsule, Refills 0, Tot. Refills 0, Maintenance, 06/05/20 10:48:00 EDT, Route to Pharmacy Electronically, [facility] #38974, 165.1, cm, 06/05/20 8:32:00 EDT, Height, 73.1, [...] Maintenance,06/05/20 10:57:00 EDT, Route to Pharmacy Electronically, [facility] #[id number], 165.1, cm, 06/05/20 8:32:00 EDT, Height, 73.1, [...] Meghna Harmon Position: [facility] PCO Associate Professional Member Role: PCP Address: Address: [address] [place] [phone]- Name: Robert ANDRADE, Fani Lane Position: [facility] AMB Nurse Member Role: Primary Care Nurse Care Team Related Persons Name: SIVA BEE Address: home [address] [place] [address]
--- OUTSIDE RECORDS SUMMARY | 2024-06-05 17:29 | XMS_ITS | Continuity of Care Document ---
Author Organization [facility] Wayne Yaakov Address [address] [place] [address]- Care Team Providers Care Photo Engraver Name Role Phone Meghna Harmon Primary Care Physician [phone] [facility]s): 04/16/23 - 05/16/23 [facility] Adult [address] [place] [address]- Allergies, Adverse Reactions, Alerts Substance Reaction Severity [...] capsule, 0 Refills, Maintenance, 01/28/21 15:58:00 EDT, [facility] #[id number], Partial fill upon patient request if the [...] Refills, Soft Stop, 01/28/21 15:57:00 EDT, Tablet, [facility] #[id number], Partial fill upon patient request if the prescription is for a schedule I... Start Date: 01/28/21 Status: Ordered gabapentin 300 mg oral capsule 600 mg, 2, capsule, By Mouth, Daily at bedtime, # 90 capsule, Refills 0, Tot. Refills 0, Maintenance, 06/05/20 10:48:00 EDT, Route to Pharmacy Electronically, [facility] #[id number], 165.1, cm, 06/05/20 8:32:00 EDT, Height, 73.1, [...] Maintenance,06/05/20 10:57:00 EDT, Route to Pharmacy Electronically, [facility] #[id number], 165.1, cm, 06/05/20 8:32:00 EDT, Height, 73.1, [...] Care Team Personnel Name: Meghna Harmon Position: [facility] PCO Associate Professional Member Role: PCP Address: Address: [address] [place] [address]- Name: Robert RN, Fani Lane Position: [facility] Nurse Member Role: Primary Care Nurse Care Team Related Persons Name: SIVA BEE Address: home [address] [place] [address]
--- OUTSIDE RECORDS SUMMARY | 2024-06-05 17:29 | XMS_ITS | Continuity of Care Document ---
Author Organization [facility] Wayne Yaakov Address [address] [place] [address]- Care Team Providers Care Iron Assorter Name Role Phone Meghna Harmon Primary Care Physician [phone] [facility]s): 04/20/23 - 05/20/23 [facility] Adult [address] [place] [address]- Allergies, Adverse Reactions, Alerts Substance Reaction Severity [...] capsule, 0 Refills, Maintenance, 01/28/21 15:58:00 EDT, [facility] #[id number], Partial fill upon patient request if the [...] Refills, Soft Stop, 01/28/21 15:57:00 EDT, Tablet, [facility] #60538, Partial fill upon patient request if the prescription is for a schedule I... Start Date: 01/28/21 Status: Ordered gabapentin 300 mg oral capsule 600 mg, 2, capsule, By Mouth, Daily at bedtime, # 90 capsule, Refills 0, Tot. Refills 0, Maintenance, 06/05/20 10:48:00 EDT, Route to Pharmacy Electronically, [facility] #[id number], 165.1, cm, 06/05/20 8:32:00 EDT, Height, 73.1, [...] Maintenance,06/05/20 10:57:00 EDT, Route to Pharmacy Electronically, [facility] #[id number], 165.1, cm, 06/05/20 8:32:00 EDT, Height, 73.1, [...] Care Team Personnel Name: Meghna Harmon Position: [facility] PCO Associate Professional Member Role: PCP Address: Address: [address] [place] [address]- Name: Robert RN, Fani Lane Position: [facility] Nurse Member Role: Primary Care Nurse Care Team Related Persons Name: SIVA BEE Address: home [address] [place] [address]
--- OUTSIDE RECORDS SUMMARY | 2024-06-05 17:29 | XMS_ITS | Continuity of Care Document ---
Author Organization [facility] Wayne Yaakov Address [address] [place] [address]- Care Team Providers Care Java Web Services Developer Name Role Phone Meghna Harmon Primary Care Physician [phone] Encounter [facility] Date(s): 05/10/23 - 05/17/23 [facility] Adult [address] [place] [address]- Encounter Diagnosis Encounter for follow-up in outpatient clinic(Discharge Diagnosis) - 05/10/23 Attending Physician: Vj Babin MD Allergies, Adverse Reactions, [...] capsule, 0 Refills, Maintenance, 01/28/21 15:58:00 EDT, [facility] #[id number], Partial fill upon patient request if the [...] Refills, Soft Stop, 01/28/21 15:57:00 EDT, Tablet, [facility] #52195, Partial fill upon patient request if the prescription is for a schedule I... Start Date: 01/28/21 Status: Ordered gabapentin 300 mg oral capsule 600 mg, 2, capsule, By Mouth, Daily at bedtime, # 90 capsule, Refills 0, Tot. Refills 0, Maintenance, 06/05/20 10:48:00 EDT, Route to Pharmacy Electronically, [facility] #10958, 165.1, cm, 06/05/20 8:32:00 EDT, Height, 73.1, [...] Maintenance,06/05/20 10:57:00 EDT, Route to Pharmacy Electronically, [facility] #[id number], 165.1, cm, 06/05/20 8:32:00 EDT, Height, 73.1, [...] Dates Health Status Clinical Service Informant Encounter for follow-up in outpatient clinic Discharge Diagnosis 05/10/23 Vital Signs Most recent to oldest [Reference Range]: 1 Height 165 cm (05/10/23 2:24 PM) Weight 76.3 kg (05/10/23 2:24 PM) Oxygen Saturation [94-100 %] 96 % (05/10/23 2:24 PM) Pulse Rate [55-90 bpm] 81 bpm (05/10/23 2:24 PM) Body Mass Index [18.5-24.99 kg/m2] 28.03 kg/m2 *H* (05/10/23 2:24 PM) Blood Pressure [90-138/55-84 mm Hg] 94/6 1mm Hg (05/10/23 2:24 PM) Temperature [96.8-100.4 DegF] 97.9 DegF (05/10/23 2:24 PM) Mode of Delivery (Oxygen) Room air (05/10/23 2:24 PM) Blood pressure sites Arm, right (05/10/23 2:24 PM) Temperature Route Oral (05/10/23 2:24 PM) Weight Obtained Via Standing scale (05/10/23 2:24 PM) Social History Social History Type Response Smoking Status Never smoker entered on: 05/04/16 Sex Note * Amita Ramon: PERFORM, SIGN, VERIFY Event Display: Patient Education/Instruction Authored Date: [id number] [facility] *BMP Kendra Riley Clinical Summary Name ELIAS BEE Age 62 Years 1960 PCP Meghna Harmon PCP Visit Date 05/10/2023 13:55:00 Additional Instructions: Scheduled Appointments?? Future Appointments ?No Future Appointments Scheduled Follow-Up Instructions ?? With: Address: When: Meghna Harmon Comments: [facility] Diagnosis Medications: Please continue your medications until treatment [...] Bactrim Medications Given This Visit Future Orders ?No future orders Vital Signs Height 165 cm Weight 76.3 kg BMI 28.03 kg/m2 Blood Pressure 94 mm Hg/61 mm Hg Temperature 97.9 DegF Pulse Rate 81 bpm Respiratory Rate 02 Sat Mode of Delivery 96 %/Room air You can now view a summary of your hospital visit from the comfort of your home through a free online portal called [email or web address]. Leap.it is a website that allows you to securely view your medical information including discharge summary, medications and follow-up visits. ??You can alsosend a secure electronic message to your doctor???s office to request appointments, renew medications or just ask a question. You can enroll at [email or web address] or register during your next office visit. [...] primary care provider, you may find a [facility] provider by calling [facility] at [phone]. For information about the plan of care including goals and instructions for your diagnosis, please see the patient education orders section of this document. Patient Education Materials?? The content of this educational material or handout may have been modified, supplemented, or adapted from its original content and format to support your individualized medical care. Constipation (Adult) Constipation means that you have [...] ??? Involuntary weight loss ??? Weakness ?? 1400-2920 [employer]. [address] [place] [address]. All rights reserved. This information is not intended as a substitute for professional medical care. Always follow your healthcare professional's instructions. Treating Constipation Constipation is a common and often uncomfortable problem. Constipation means you have bowel movements??fewer than three times per week,??or strain to pass hard, dry stool. It can last a short time. Or it can be a problem that never seems to go away. The good news is that it can often be treated andcontrolled. Eat more fiber One of the best ways to help treat constipation is to increase your fiber intake. You can do this either through diet or by using fiber supplements. Fiber (in whole grains, fruits, and vegetables) adds bulk and absorbs water to soften the stool. This helps the stool pass through the colon more easily. When you increase your fiber intake, do it slowly to avoid side effects such as bloating. Also increase the amount of water that you drink. Eating more of the following foods can add fiber to yourdiet. ??? High-fiber cereals ??? Whole grains, bran, and brown rice ??? Vegetables such as carrots, broccoli, and greens ??? Fresh fruits (especially apples, pears, and dried fruits like raisins and apricots) ??? Nuts and legumes (especially beans such as lentils, kidney beans, and mendoza beans) Get physically active Exercise helps improve the working of your colon which helps ease constipation. Try to get some physical??activity every day. If you haven???t been active for a while, talk to your??health care provider??before starting again. Laxatives Your health care provider may suggest an zjim-jxm-fzeqvzh product to help ease your constipation. He or she may suggest the use of bulk-forming agents or laxatives. The use of laxatives, if used as directed, is common and safe. Follow directions carefully when using them. See your health care provider for new- onset constipation, to rule out other causes such as medications or thyroid disease. ?? 3389-3222 [employer]. [address] [place] [address]. All rights reserved. This information is not intended as a substitute for professional medical care. Always follow your healthcare professional's instructions. Patient Care team information Care Team Personnel Name: Meghna Harmon Position: [facility] PCO Associate Professional Member Role: PCP Address: Address: [address] [place] [id number]- Name: Fani Jones RN Position: [facility] AMB Nurse Member Role: Primary Care Nurse Care Team Related Persons Name: SIVA BEE Address: home [address] [place] [address]
--- OUTSIDE RECORDS SUMMARY | 2024-06-05 17:29 | XMS_ITS | Continuity of Care Document ---
Author Organization [facility] Yaakov lt Address [address] [place] [address]- Care Team Providers Care Joint Maker Machine Name Role Phone Meghna Harmon Primary Care Physician [facility] Date[facility]s): 06/22/23 - 07/22/23 [facility] Adult [address] [place] [address]- Allergies, Adverse Reactions, Alerts Substance Reaction Severity Status Bactrim hives Active Immunizations Given and Recorded Vaccine Date Status Refusal Reason RSV vaccine preF3, recombinant 07/13/23 Recorded SARS-CoV-2(COVID-19)mRNA-LNP vac(lim643) 07/02/23 Recorded influenza virus vaccine, inactivated 05/28/23 [...] influenza virus vaccine, inactivated 06/24/10 Liam rded [id number] bivalent booster vax 06/11/22 Recorded SARS-CoV-2 (COVID-19) [...] capsule, 0 Refills, Maintenance, 01/28/21 15:58:00 EDT, [facility] #[id number], Partial fill upon patient request if the [...] 0 Refills, Maintenance, 07/15/23 14:26:00 EDT, Tablet, [facility] #[id number], Partial fill upon patient request if the prescription is for a schedule II opioid drug., 165, cm, 07/15/23 13:58:00 ED... Start Date: 07/15/23 Stop Date: 07/29/23 Status: Ordered gabapentin 300 mg oral capsule 600 mg, 2, capsule, By Mouth, Daily at bedtime, # 90 capsule, Refills 0, Tot. Refills 0, Maintenance, 06/05/20 10:48:00 EDT, Route to Pharmacy Electronically, [facility] #[id number], 165.1, cm, 06/05/20 8:32:00 EDT, Height, 73.1, [...] Maintenance,06/05/20 10:57:00 EDT, Route to Pharmacy Electronically, [facility] #[id number], 165.1, cm, 06/05/20 8:32:00 EDT, Height, 73.1, [...] Care Team Personnel Name: Meghna Harmon Position: [facility] PCO Associate Professional Member Role: PCP Address: Address: [address] [place] [id number] Name: Robert ANDRADE, Fani Lane Position: [facility] Nurse Member Role: Primary Care Nurse Care Team Related Persons Name: SIVA BEE Address: home [address] [place] [address]
--- OUTSIDE RECORDS SUMMARY | 2024-06-05 17:29 | XMS_ITS | Continuity of Care Document ---
Author Organization [facility] Yaakov lt Address [address] [place] [address]- Care Team Providers Care Icu Clerk Name Role Phone Meghna Harmon Primary Care Physician Encounter [facility] Date(s): 05/17/23 - 06/16/23 [facility] Adult [address] [place] [address]- Allergies, Adverse Reactions, Alerts Substance Reaction Severity [...] Liam rded influenza virus vaccine, inactivated 06/24/10 Ilam rded [id number] bivalent booster vax 06/11/22 Recorded SARS-CoV-2 (COVID-19) [...] capsule, 0 Refills, Maintenance, 01/28/21 15:58:00 EDT, [facility] #[id number], Partial fill upon patient request if the [...] 06/05/20 10:48:00 EDT, Route to Pharmacy Electronically, [facility] #05711, 165.1, cm, 06/05/20 8:32:00 EDT, Height, 73.1, [...] Maintenance,06/05/20 10:57:00 EDT, Route to Pharmacy Electronically, [facility][id number], 165.1, cm, 06/05/20 8:32:00 EDT, Height, 73.1, [...] Care Team Personnel Name: Meghna Harmon Position: [facility] PCO Associate Professional Member Role: PCP Address: Address: [address] [place] [phone]- Name: Robert ANDRADE, Fani Lane Position: [facility] AMB Nurse Member Role: Primary Care Nurse Care Team Related Persons Name: SIVA BEE Address: home [address] [place] [address]
--- OUTSIDE RECORDS SUMMARY | 2024-06-05 17:29 | XMS_ITS | Continuity of Care Document ---
Author Organization [facility] Address [address] [place] [address]- Care Team Providers Care Steel Estimator Name Role Phone Meghna Harmon Primary Care Physician Encounter 05/06/23 - 05/13/23 [facility] [address], [address] [place] [address]- Attending Physician: Meghna Harmon Admitting Physician: Meghna [...] capsule, 0 Refills, Maintenance, 01/28/21 15:58:00 EDT, [facility] #[id number], Partial fill upon patient request if the [...] Refills, Soft Stop, 01/28/21 15:57:00 EDT, Tablet, [facility] #[id number], Partial fill upon patient request if the prescription is for a schedule I... Start Date: 01/28/21 Status: Ordered gabapentin 300 mg oral capsule 600 mg, 2, capsule, By Mouth, Daily at bedtime, # 90 capsule, Refills 0, Tot. Refills 0, Maintenance, 06/05/20 10:48:00 EDT, Route to Pharmacy Electronically, [facility] #[id number], 165.1, cm, 06/05/20 8:32:00 EDT, Height, 73.1, [...] Maintenance,06/05/20 10:57:00 EDT, Route to Pharmacy Electronically, [facility] #[id number], 165.1, cm, 06/05/20 8:32:00 EDT, Height, 73.1, [...] Confirmed Active Word finding difficulty Confirmed Active Results Radiology Reports * Exam Date Time Procedure Performing Provider Status 05/06/23 2:15 PM MM Digital Mammo Screening Norah Marrero; Auth (Verified) Notes: (MM Digital Mammo Screening) Reason For Exam: Screening RESULT: MM Digital Mammo Screening PROCEDURE: MM Digital Mammo Screening INDICATION: Screening for breast cancer. COMPARISON: Multiple priors, most recently 12/31/2020 TECHNIQUE: Full-field digital CC and MLO 3D tomosynthesis images of both breasts were acquired. Computer-aided detection (CAD) was utilized in the interpretation of this study. DENSITY: The breast tissue contains scattered areas of fibroglandular density. FINDINGS: No suspicious masses, suspicious microcalcifications, or areas of architectural distortion are seen in either breast to suggest malignancy. IMPRESSION: No mammographic evidence of malignancy. RECOMMENDATION: Annual mammographic screening BI-RADS: 1 (Negative) Lay letter mailed to patient WSN: [id number] Ordering Physician: Meghna Dowling Dictated By: Laron Hawley MD Dictated Date/Time: 05/06/23 3:26 pm Reviewed By: Laron Hawley MD Signed By: Laron Hawley MD Signed Date/Time: 05/06/23 3:26 pm Transcribed By: RICH Corn Sheller Operator Date/Time: 05/06/23 3:24 pm Birads: Social History Social History Type Response Smoking Status Never smoker entered on: 05/04/16 Sex Patient Care team information Care Team Personnel Name: Meghna Harmon Position: [facility] PCO Associate Professional Member Role: PCP Address: Address: [address] [place] [address]- Name: Fani Jones RN Position: [facility] AMB Nurse Member Role: Primary Care Nurse Care Team Related Persons Name: BEE SIVA Address: home [address] [place] [address]
--- OUTSIDE RECORDS SUMMARY | 2024-06-05 17:29 | XMS_ITS | Continuity of Care Document ---
Author Organization [facility] Yaakov lt Address [address] [place] [address]- Care Team Providers Care Investment Banking Associate Name Role Phone Meghna Harmon Primary Care Physician [facility] Date(s): 08/19/23 - 10/15/23 [facility] [place] Adult [address] [place] [address]- Attending Physician: Meghna Harmon Allergies, Adverse Reactions, Alerts Substance Reaction Severity Status Bactrim hives Active Immunizations Given and Recorded Vaccine Date Status Refusal Reason RSV vaccine preF3, recombinant 07/13/23 Recorded SARS-CoV-2(COVID-19)mRNA-LNP vac(mme275) 07/02/23 Recorded influenza virus vaccine, inactivated 05/28/23 [...] influenza virus vaccine, inactivated 06/24/10 Liam rded [id number] bivalent booster vax 06/11/22 Recorded SARS-CoV-2 (COVID-19) [...] capsule, 0 Refills, Maintenance, 01/28/21 15:58:00 EDT, [facility] #[id number], Partial fill upon patient request if the [...] 0 Refills, Maintenance, 07/15/23 14:26:00 EDT, Tablet, [facility] #93033, Partial fill upon patient request if the prescription is for a schedule II opioid drug., 165, cm, 07/15/23 13:58:00 ED... Start Date: 07/15/23 Stop Date: 07/29/23 Status: Ordered gabapentin 300 mg oral capsule 600 mg, 2, capsule, By Mouth, Daily at bedtime, # 90 capsule, Refills 0, Tot. Refills 0, Maintenance, 06/05/20 10:48:00 EDT, Route to Pharmacy Electronically, [facility] #[id number], 165.1, cm, 06/05/20 8:32:00 EDT, Height, 73.1, [...] Refills, Maintenance, 08/18/23 11:30:00 EST, ER Tablet, [facility] #0... Start Date: 08/18/23 Status: Ordered [...] Maintenance,06/05/20 10:57:00 EDT, Route to Pharmacy Electronically, [facility] #[id number], 165.1, cm, 06/05/20 8:32:00 EDT, Height, 73.1, [...] Harmon Position: [facility] PCO Associate Professional Member Role: PCP Address: Address: [address] [place] [address]- Name: Robert ANDRADE, Fani Lane Position: [facility] AMB Nurse Member Role: Primary Care Nurse Care Team Related Persons Name: SIVA BEE Address: home [address] [place] [address]
--- OUTSIDE RECORDS SUMMARY | 2024-06-05 17:30 | XMS_ITS | Continuity of Care Document ---
Author Organization [facility] Yaakov Address [address] [place] [address]- Care Team Providers Care Candy Mixer Name Role Phone Meghna Harmon Primary Care Physician [phone] [facility]counter [facility] Date(s): 05/04/23 - 06/03/23 [facility] [place] Adult [address] [place] [address]- Allergies, Adverse Reactions, Alerts Substance Reaction Severity [...] capsule, 0 Refills, Maintenance, 01/28/21 15:58:00 EDT, [facility] #[id number], Partial fill upon patient request if the [...] Refills, Soft Stop, 01/28/21 15:57:00 EDT, Tablet, [facility] #56205, Partial fill upon patient request if the prescription is for a schedule I... Start Date: 01/28/21 Status: Ordered gabapentin 300 mg oral capsule 600 mg, 2, capsule, By Mouth, Daily at bedtime, # 90 capsule, Refills 0, Tot. Refills 0, Maintenance, 06/05/20 10:48:00 EDT, Route to Pharmacy Electronically, [facility] #[id number], 165.1, cm, 06/05/20 8:32:00 EDT, Height, 73.1, [...] Maintenance,06/05/20 10:57:00 EDT, Route to Pharmacy Electronically, [facility] #[id number], 165.1, cm, 06/05/20 8:32:00 EDT, Height, 73.1, [...] Professional Member Role: PCP Address: Address: [address] [place] [address]- Name: Robert RN, Fani Lane Position: [facility] Nurse Member Role: Primary Care Nurse Care Team Related Persons Name: SIVA BEE Address: home [address] [place] [address]
--- OUTSIDE RECORDS SUMMARY | 2024-06-05 17:30 | XMS_ITS | Continuity of Care Document ---
Author Organization [facility] Yaakov lt Address [address] [place] [address]- Care Team Providers Care Furniture Sander Name Role Phone Meghna Harmon Primary Care Physician [facility] Date(s): 06/04/23 - 07/04/23 [facility] Adult [address] [place] [address]- Allergies, Adverse Reactions, Alerts Substance Reaction Severity [...] influenza virus vaccine, inactivated 06/24/10 Liam rded [id number] bivalent booster vax 06/11/22 Recorded SARS-CoV-2 (COVID-19) [...] capsule, 0 Refills, Maintenance, 01/28/21 15:58:00 EDT, [facility] #[id number], Partial fill upon patient request if the [...] 06/05/20 10:48:00 EDT, Route to Pharmacy Electronically, [facility] #[id number], 165.1, cm, 06/05/20 8:32:00 EDT, Height, 73.1, [...] 07/17/23 11:00:00 EDT, 06/17/23 10:36:00 EDT, Tablet, [facility] #[id number], Partial fill uponpatient request if the prescription [...] Maintenance,06/05/20 10:57:00 EDT, Route to Pharmacy Electronically, [facility] #[id number], 165.1, cm, 06/05/20 8:32:00 EDT, Height, 73.1, [...] Professional Member Role: PCP Address: Address: [address] [place] [address]- Name: Fani Jones RN Position: [facility] AMB Nurse Member Role: Primary Care Nurse Care Team Related Persons Name: SIVA BEE Address: home [address] [place] [address]
--- OUTSIDE RECORDS SUMMARY | 2024-06-05 17:30 | XMS_ITS | Continuity of Care Document ---
Author Organization [facility] Yaakov lt Address [address] [place] [address]- Care Team Providers Care Wall Worker Name Role Phone Meghna Harmon Primary Care Physician [phone] Encounter [facility] Date(s): 04/09/23 - 05/09/23 [facility] Adult [address] [place] [address]- Allergies, Adverse Reactions, Alerts Substance Reaction Severity [...] capsule, 0 Refills, Maintenance, 01/28/21 15:58:00 EDT, [facility] #[id number], Partial fill upon patient request if the [...] Refills, Soft Stop, 01/28/21 15:57:00 EDT, Tablet, [facility] #08562, Partial fill upon patient request if the prescription is for a schedule I... Start Date: 01/28/21 Status: Ordered gabapentin 300 mg oral capsule 600 mg, 2, capsule, By Mouth, Daily at bedtime, # 90 capsule, Refills 0, Tot. Refills 0, Maintenance, 06/05/20 10:48:00 EDT, Route to Pharmacy Electronically, [facility] #[id number], 165.1, cm, 06/05/20 8:32:00 EDT, Height, 73.1, [...] Maintenance,06/05/20 10:57:00 EDT, Route to Pharmacy Electronically, [facility] #[id number], 165.1, cm, 06/05/20 8:32:00 EDT, Height, 73.1, [...] Care Team Personnel Name: Meghna Harmon Position: [facility] Associate Professional Member Role: PCP Address: Address: [address] [place] [address]- Name: Robert RN, Fani Lane Position: [facility] Nurse Member Role: Primary Care Nurse Care Team Related Persons Name: SIVA BEE Address: home [address] [place] [address]
--- OUTSIDE RECORDS SUMMARY | 2024-06-05 17:30 | XMS_ITS | Continuity of Care Document ---
Author Organization [facility] Yaakov lt Address [address] [place] [address]- Care Team Providers Care Molecular Pathologist Name Role Phone Meghna Harmon Primary Care Physician [facility] Date(s): 09/17/23 - 10/17/23 [facility] [place] Adult [address] [place] [address]- Allergies, Adverse Reactions, Alerts Substance Reaction Severity Status Bactrim hives Active Immunizations Given and Recorded Vaccine Date Status Refusal Reason RSV vaccine preF3, recombinant 07/13/23 Recorded SARS-CoV-2(COVID-19)mRNA-LNP vac(jbr039) 07/02/23 Recorded influenza virus vaccine, inactivated 05/28/23 [...] influenza virus vaccine, inactivated 06/24/10 Liam rded [id number] bivalent booster vax 06/11/22 Recorded SARS-CoV-2 (COVID-19) [...] capsule, 0 Refills, Maintenance, 01/28/21 15:58:00 EDT, [facility] #63909, Partial fill upon patient request if the [...] 0 Refills, Maintenance, 07/15/23 14:26:00 EDT, Tablet, [facility] #07509, Partial fill upon patient request if the prescription is for a schedule II opioid drug., 165, cm, 07/15/23 13:58:00 ED... Start Date: 07/15/23 Stop Date: 07/29/23 Status: Ordered gabapentin 300 mg oral capsule 600 mg, 2, capsule, By Mouth, Daily at bedtime, # 90 capsule, Refills 0, Tot. Refills 0, Maintenance, 06/05/20 10:48:00 EDT, Route to Pharmacy Electronically, [facility] #[id number], 165.1, cm, 06/05/20 8:32:00 EDT, Height, 73.1, [...] Refills, Maintenance, 08/18/23 11:30:00 EST, ER Tablet, [facility] #0... Start Date: 08/18/23 Status: Ordered [...] 10:57:00 EDT, Route to Pharmacy Electronically, [facility] #[id number], 165.1, cm, 06/05/20 8:32:00 EDT, Height, 73.1, [...] Care Team Personnel Name: Meghna Harmon Position: [facility] PCO Associate Professional Member Role: PCP Address: Address: [address] [place] [address]- Name: Robert ANDRADE, Fani Lane Position: [facility] AMB Nurse Member Role: Primary Care Nurse Care Team Related Persons Name: SIVA BEE Address: home [address] [place] [address]
--- OUTSIDE RECORDS SUMMARY | 2024-06-05 17:30 | XMS_ITS | Continuity of Care Document ---
Author Organization [facility] Wayne Yaakov lt Address [address] [place] [address]- Care Team Providers Care Contact Centre Supervisor Name Role Phone Meghna Harmon Primary Care Physician [facility] Date(s): 07/29/23 - 08/28/23 [facility] [place] Adult [address] [place] [address]- Allergies, Adverse Reactions, Alerts Substance Reaction Severity Status Bactrim hives Active Immunizations Given and Recorded Vaccine Date Status Refusal Reason RSV vaccine preF3, recombinant 07/13/23 Recorded SARS-CoV-2(COVID-19)mRNA-LNP vac(ayo362) 07/02/23 Recorded influenza virus vaccine, inactivated 05/28/23 [...] influenza virus vaccine, inactivated 06/24/10 Liam rded [id number] bivalent booster vax 06/11/22 Recorded SARS-CoV-2 (COVID-19) [...] capsule, 0 Refills, Maintenance, 01/28/21 15:58:00 EDT, [facility] #[id number], Partial fill upon patient request if the [...] 0 Refills, Maintenance, 07/15/23 14:26:00 EDT, Tablet, [facility] #[id number], Partial fill upon patient request if the prescription is for a schedule II opioid drug., 165, cm, 07/15/23 13:58:00 ED... Start Date: 07/15/23 Stop Date: 07/29/23 Status: Ordered gabapentin 300 mg oral capsule 600 mg, 2, capsule, By Mouth, Daily at bedtime, # 90 capsule, Refills 0, Tot. Refills 0, Maintenance, 06/05/20 10:48:00 EDT, Route to Pharmacy Electronically, [facility] #[id number], 165.1, cm, 06/05/20 8:32:00 EDT, Height, 73.1, [...] Refills, Maintenance, 08/18/23 11:30:00 EST, ER Tablet, [facility] #0... Start Date: 08/18/23 Status: Ordered [...] Maintenance,06/05/20 10:57:00 EDT, Route to Pharmacy Electronically, [facility] #[id number], 165.1, cm, 06/05/20 8:32:00 EDT, Height, 73.1, [...] Care Team Personnel Name: Meghna Harmon Position: [facility] PCO Associate Professional Member Role: PCP Address: Address: [address] [place] [phone]- Name: Robert ANDRADE, Fani Lane Position: [facility] AMB Nurse Member Role: Primary Care Nurse Care Team Related Persons Name: SIVA BEE Address: home [address] [place] [address]
--- OUTSIDE RECORDS SUMMARY | 2024-06-05 17:31 | XMS_ITS | Continuity of Care Document ---
Author Organization [facility] Wayne Yaakov lt Address [address] [place] [address]- Care Team Providers Care Sweeper Brush Maker Machine Name Role Phone Meghna Harmon Primary Care Physician [facility] Date(s): 06/10/23 - 07/10/23 [facility] Adult [address] [place] [address]- Allergies, Adverse Reactions, Alerts Substance Reaction Severity [...] influenza virus vaccine, inactivated 06/24/10 Liam rded [id number] bivalent booster vax 06/11/22 Recorded SARS-CoV-2 (COVID-19) [...] capsule, 0 Refills, Maintenance, 01/28/21 15:58:00 EDT, [facility] #[id number], Partial fill upon patient request if the [...] 06/05/20 10:48:00 EDT, Route to Pharmacy Electronically, [facility] #[id number], 165.1, cm, 06/05/20 8:32:00 EDT, Height, 73.1, [...] 07/17/23 11:00:00 EDT, 06/17/23 10:36:00 EDT, Tablet, [facility] #[id number], Partial fill uponpatient request if the prescription [...] Maintenance,06/05/20 10:57:00 EDT, Route to Pharmacy Electronically, [facility] #[id number], 165.1, cm, 06/05/20 8:32:00 EDT, Height, 73.1, [...] Care Team Personnel Name: Meghna Harmon Position: [facility] PCO Associate Professional Member Role: PCP Address: Address: [address] [place] [address]- Name: Fani Jones RN Position: [facility] AMB Nurse Member Role: Primary Care Nurse Care Team Related Persons Name: SIVA BEE Address: home [address] [place] [address]
--- OUTSIDE RECORDS SUMMARY | 2024-06-05 17:31 | XMS_ITS | Continuity of Care Document ---
Author Organization [facility] Yaakov lt Address [address] [place] [address]- Care Team Providers Care Senior Animal Trainer Name Role Phone Meghna Harmon Primary Care Physician [phone] Encounter [facility] Date(s): 06/07/23 - 06/14/23 [facility] Adult [address] [place] [address]- Attending Physician: Marisa GERONIMO, Claudio Ames Allergies, Adverse Reactions, Alerts Substance Reaction Severity [...] capsule, 0 Refills, Maintenance, 01/28/21 15:58:00 EDT, [facility] #[id number], Partial fill upon patient request if the [...] 06/05/20 10:48:00 EDT, Route to Pharmacy Electronically, [facility] #[id number], 165.1, cm, 06/05/20 8:32:00 EDT, Height, 73.1, [...] Maintenance,06/05/20 10:57:00 EDT, Route to Pharmacy Electronically, [facility] #[id number], 165.1, cm, 06/05/20 8:32:00 EDT, Height, 73.1, [...] Confirmed Active Word finding difficulty Confirmed Active Vital Signs Most recent to oldest [Reference Range]: 1 Height 165 cm (06/07/23 12:54 PM) Weight 74.3 kg (06/07/23 12:54 PM) Oxygen Saturation [94-100 %] 97 % (06/07/23 12:54 PM) Pulse Rate [55-90 bpm] 80 bpm (06/07/23 12:54 PM) Body Mass Index [18.5-24.99 kg/m2] 27.29 kg/m2 *H* (06/07/23 12:54 PM) Blood Pressure [90-138/55-84 mm Hg] 115/ 80mm Hg (06/07/23 12:54 PM) Blood pressure sites Arm, left (06/07/23 12:54 PM) Temperature Route Oral (06/07/23 12:54 PM) Dry Weight 74.3 kg (06/07/23 12:54 PM) Social History Social History Type Response Smoking Status Never smoker entered on: 05/04/16 Sex Patient Care team information Care Team Personnel Name: Meghna Harmon Position: [facility] PCO Associate Professional Member Role: PCP Address: Address: [address] [place] [address]- Name: Robert ANDRADE, Fani Lane Position: [facility] AMB Nurse Member Role: Primary Care Nurse Care Team Related Persons Name: BEE SIVA Address: home [address] [place] [address]
--- OUTSIDE RECORDS SUMMARY | 2024-06-05 17:31 | XMS_ITS | Continuity of Care Document ---
Author Organization [facility] Yaakov Address [address] [place] [address]- Care Team Providers Care Heel Reducer Name Role Phone Meghna Harmon Primary Care Physician [phone] [facility]counter [facility] Date(s): 04/22/23 - 05/22/23 [facility] [place] Adult [address] [place] [address]- Allergies, Adverse Reactions, Alerts Substance Reaction Severity [...] capsule, 0 Refills, Maintenance, 01/28/21 15:58:00 EDT, [facility] #[id number], Partial fill upon patient request if the [...] Refills, Soft Stop, 01/28/21 15:57:00 EDT, Tablet, [facility] #43647, Partial fill upon patient request if the prescription is for a schedule I... Start Date: 01/28/21 Status: Ordered gabapentin 300 mg oral capsule 600 mg, 2, capsule, By Mouth, Daily at bedtime, # 90 capsule, Refills 0, Tot. Refills 0, Maintenance, 06/05/20 10:48:00 EDT, Route to Pharmacy Electronically, [facility] #00365, 165.1, cm, 06/05/20 8:32:00 EDT, Height, 73.1, [...] Maintenance,06/05/20 10:57:00 EDT, Route to Pharmacy Electronically, [facility] #[id number], 165.1, cm, 06/05/20 8:32:00 EDT, Height, 73.1, [...] Associate Professional Member Role: PCP Address: Address: [address] [place] [address]- Name: Robert RN, Fani Lane Position: [facility] Nurse Member Role: Primary Care Nurse Care Team Related Persons Name: SIVA BEE Address: home [address] [place] [address]
--- OUTSIDE RECORDS SUMMARY | 2024-06-05 17:31 | XMS_ITS | Continuity of Care Document ---
Author Organization [facility] Yaakov lt Address [address] [place] [address]- Care Team Providers Care Mill Work Name Role Phone Meghna Harmon Primary Care Physician [phone] Encounter [facility] Date(s): 07/15/23 - 07/22/23 [facility] Adult [address] [place] [address]- Encounter Diagnosis Thrush(Discharge Diagnosis) - 07/14/23 Attending Physician: Sebastien Olivares DO Allergies, Adverse Reactions, Alerts Substance Reaction Severity Status Bactrim hives Active Immunizations Given and Recorded Vaccine Date Status Refusal Reason RSV vaccine preF3, recombinant 07/13/23 Recorded SARS-CoV-2(COVID-19)mRNA-LNP vac([id number]) 07/02/23 Recorded influenza virus vaccine, inactivated 05/28/23 [...] influenza virus vaccine, inactivated 06/24/10 Liam rded [id number] bivalent booster vax 06/11/22 Recorded SARS-CoV-2 (COVID-19) [...] capsule, 0 Refills, Maintenance, 01/28/21 15:58:00 EDT, [email or web address] #[id number], Partial fill upon patient request if the [...] 0 Refills, Maintenance, 07/15/23 14:26:00 EDT, Tablet, [email or web address] #[id number], Partial fill upon patient request if the prescription is for a schedule II opioid drug., 165, cm, 07/15/23 13:58:00 ED... Start Date: 07/15/23 Stop Date: 07/29/23 Status: Ordered gabapentin 300 mg oral capsule 600 mg, 2, capsule, By Mouth, Daily at bedtime, # 90 capsule, Refills 0, Tot. Refills 0, Maintenance, 06/05/20 10:48:00 EDT, Route to Pharmacy Electronically, [email or web address] #[id number], 165.1, cm, 06/05/20 8:32:00 EDT, Height, 73.1, [...] Maintenance,06/05/20 10:57:00 EDT, Route to Pharmacy Electronically, [facility] #[id number], 165.1, cm, 06/05/20 8:32:00 EDT, Height, 73.1, [...] Dates Health Status Clini lobo Service Informant Thrush Discharge Diagnosis 07/14/23 Vital Signs Most recent to oldest [Reference Range]: 1 Height 165 cm (07/15/23 1:58 PM) Weight 73.9 kg (07/15/23 1:58 PM) Oxygen Saturation [94-100 %] 97 % (07/15/23 1:58 PM) Pulse Rate [55-90 bpm] 77 bpm (07/15/23 1:58 PM) Body Mass Index [18.5-24.99 kg/m2] 27.14 kg/m2 *H* (07/15/23 1:58 PM) Blood Pressure [90-138/55-84 mm Hg] 87/6 2mm Hg *L* (07/15/23 1:58 PM) Blood pressure sites Arm, left (07/15/23 1:58 PM) Social History Social History Type Response Smoking Status Never smoker entered on: 05/04/16 Sex Patient Care team information Care Team Personnel Name: Meghna Harmon Position: [facility] PCO Associate Professional Member Role: PCP Address: Address: [address] [place] [address]- Name: Robert ANDRADE, Fani Lane Position: [facility] AMB Nurse Member Role: Primary Care Nurse Care Team Related Persons Name: SIVA BEE Address: home [address] [place] [address]
--- OUTSIDE RECORDS SUMMARY | 2024-06-05 17:31 | XMS_ITS | Continuity of Care Document ---
Author Organization [facility] Yaakov lt Address [address] [place] [address]- Care Team Providers Care Trouble Shooting Mechanic Name Role Phone Meghna Harmon Primary Care Physician [place] [facility] [place]/18[place]23 - 08/25/23 [facility] Adult [address] [place] [address]- Encounter Diagnosis Acute bronchitis(Discharge Diagnosis) - 08/18/23 Thrush(Discharge Diagnosis) - 08/18/23 Attending Physician: Maggie WILLINGHAMPAriela Garza Allergies, Adverse Reactions, Alerts Substance Reaction Severity Status Bactrim hives Active Immunizations Given and Recorded Vaccine Date Status Refusal Reason RSV vaccine preF3, recombinant 07/13/23 Recorded SARS-CoV-2(COVID-19)mRNA-LNP vac([id number]) 07/02/23 Recorded influenza virus vaccine, inactivated 05/28/23 [...] influenza virus vaccine, inactivated 06/24/10 Liam rded [id number] bivalent booster vax 06/11/22 Recorded SARS-CoV-2 (COVID-19) [...] capsule, 0 Refills, Maintenance, 01/28/21 15:58:00 EDT, [facility] #[id number], Partial fill upon patient request if the [...] 08/27/23 16:47:00 EST, 08/20/23 16:47:00 EST, Tablet, [facility] #[id number], Partial fill uponpatient request if the prescription is for a schedu... Start Date: 08/20/23 Stop Date: 08/27/23 Status: Ordered fluconazole 100 mg oral tablet 1 tablet = 100 mg, By Mouth, Daily, # 14 tablet, 0 Refills, Maintenance, 07/15/23 14:26:00 EDT, Tablet, [facility] #[id number], Partial fill upon patient request if the prescription is for a schedule II opioid drug., 165, cm, 07/15/23 13:58:00 ED... Start Date: 07/15/23 Stop Date: 07/29/23 Status: Ordered gabapentin 300 mg oral capsule 600 mg, 2, capsule, By Mouth, Daily at bedtime, # 90 capsule, Refills 0, Tot. Refills 0, Maintenance, 06/05/20 10:48:00 EDT, Route to Pharmacy Electronically, [facility] #[id number], 165.1, cm, 06/05/20 8:32:00 EDT, Height, [...] Refills, Maintenance, 08/18/23 11:30:00 EST, ER Tablet, [facility] #0... Start Date: 08/18/23 Status: Ordered [...] Maintenance,06/05/20 10:57:00 EDT, Route to Pharmacy Electronically, [facility] #[id number], 165.1, cm, 06/05/20 8:32:00 EDT, Height, 73.1, [...] Effective Dates Health Status Clinical Service Informant Acute bronchitis Discharge Diagnosis 08/18/23 Thrush Discharge Diagnosis 08/18/23 Vital Signs Most recent to oldest [Reference Range]: 1 2 Height 165 cm (08/18/23 2:46 PM) 165 cm (08/18/23 2:38 PM) Social History Social History Type Response Smoking Status Never smoker entered on: 05/04/16 Sex Patient Care team information Care Team Personnel Name: Meghna Harmon Position: [facility] PCO Associate Professional Member Role: PCP Address: Address: [address] [place] [address]- Name: Robert ANDRADE, Fani Lane Position: [facility] AMB Nurse Member Role: Primary Care Nurse Care Team Related Persons Name: SIVA BEE Address: home [address] [place] [address]
--- OUTSIDE RECORDS SUMMARY | 2024-06-05 17:31 | XMS_ITS | Continuity of Care Document ---
Author Organization [facility] Yaakov lt Address [address] [place] [address]- Care Team Providers Care Stove Refinisher Name Role Phone Meghna Harmon Primary Care Physician Encounter [facility] Date(s): 06/15/23 - 06/22/23 [facility] Adult [address] [place] [address]- Encounter Diagnosis Medicare annual wellness visit, subsequent(Discharge Diagnosis) - 06/15/23 Nausea(Discharge Diagnosis) - 06/15/23 Chronic bipolar disorder(Discharge Diagnosis) - 06/15/23 Cocaine use disorder(Discharge Diagnosis) - 06/15/23 Anemia(Discharge Diagnosis) - 06/15/23 Hypertriglyceridemia(Discharge Diagnosis) - 06/15/23 Major depression(Discharge Diagnosis) - 06/15/23 Attending Physician: Meghna Harmon Referring Physician: Claudio Cunningham MD Allergies, Adverse Reactions, Alerts Substance Reaction [...] influenza virus vaccine, inactivated 06/24/10 Liam rded [id number] bivalent booster vax 06/11/22 Recorded SARS-CoV-2 (COVID-19) [...] capsule, 0 Refills, Maintenance, 01/28/21 15:58:00 EDT, [facility] #[id number], Partial fill upon patient request if the [...] 06/05/20 10:48:00 EDT, Route to Pharmacy Electronically, [facility] #[id number], 165.1, cm, 06/05/20 8:32:00 EDT, Height, 73.1, [...] 07/17/23 11:00:00 EDT, 06/17/23 10:36:00 EDT, Tablet, [facility] #[id number], Partial fill uponpatient request if the prescription [...] Maintenance,06/05/20 10:57:00 EDT, Route to Pharmacy Electronically, [facility] #[id number], 165.1, cm, 06/05/20 8:32:00 EDT, Height, 73.1, [...] Effective Dates Health Status Clinical Service Informant Medicare annual wellness visit, subsequent Discharge Diagnosis 06/15/23 Nausea Discharge Diagnosis 06/15/23 Chronic bipolar disorder Discharge Diagnosis 06/15/23 Cocaine use disorder Discharge Diagnosis 06/15/23 Anemia Discharge Diagnosis 06/15/23 Hypertriglyceridemia Discharge Diagnosis 06/15/23 Major depression Discharge Diagnosis 06/15/23 Vital Signs Most recent to oldest [Reference Range]: 1 Height 165 cm (06/15/23 2:43 PM) Weight 74.2 kg (06/15/23 2:43 PM) Oxygen Saturation [94-100 %] 99 % (06/15/23 2:43 PM) Pulse Rate [55-90 bpm] 80 bpm (06/15/23 2:43 PM) Body Mass Index [18.5-24.99 kg/m2] 27.25 kg/m2 *H* (06/15/23 2:43 PM) Blood Pressure [90-138/55-84 mm Hg] 105/ 67mm Hg (06/15/23 2:43 PM) Respiratory Rate [16-30 br/min] 16 br/mi n (06/15/23 2:43 PM) Temperature [96.8-100.4 DegF] 97.7 DegF (06/15/23 2:43 PM) Mode of Delivery (Oxygen) Nasal cannula (06/15/23 2:43 PM) Blood pressure sites Arm, right (06/15/23 2:43 PM) Temperature Route Oral (06/15/23 2:43 PM) Weight Obtained Via Standing scale (06/15/23 2:43 PM) Social History Social History Type Response Smoking Status Never smoker entered on: 05/04/16 Sex Patient Care team information Care Team Personnel Name: Meghna Harmon Position: [facility] PCO Associate Professional Member Role: PCP Address: Address: [address] [place] [id number]- Name: Robert ANDRADE, Fani Lane Position: [facility] AMB Nurse Member Role: Primary Care Nurse Care Team Related Persons Name: SIVA BEE Address: home [address] [place] [address]
--- OUTSIDE RECORDS SUMMARY | 2024-06-05 17:31 | XMS_ITS | Continuity of Care Document ---
Author Organization [facility] Yaakov lt Address [address] [place] [address]- Care Team Providers Care Pipe Finishing Supervisor Name Role Phone Meghna Harmon Primary Care Physician [phone] Encounter [facility] Date(s): 06/25/23 - 07/02/23 [facility] Adult [address] [place] [address]- Encounter Diagnosis Oral thrush(Discharge Diagnosis) - 06/25/23 Attending Physician: Vj Babin MD Referring Physician: Meghna Harmon Allergies, Adverse [...] influenza virus vaccine, inactivated 06/24/10 Liam rded [id number] bivalent booster vax 06/11/22 Recorded SARS-CoV-2 (COVID-19) [...] capsule, 0 Refills, Maintenance, 01/28/21 15:58:00 EDT, [facility] #[id number], Partial fill upon patient request if the [...] 06/05/20 10:48:00 EDT, Route to Pharmacy Electronically, [facility] #[id number], 165.1, cm, 06/05/20 8:32:00 EDT, Height, 73.1, [...] 07/17/23 11:00:00 EDT, 06/17/23 10:36:00 EDT, Tablet, [facility] #[id number], Partial fill uponpatient request if the prescription [...] Maintenance,06/05/20 10:57:00 EDT, Route to Pharmacy Electronically, [facility] #[id number], 165.1, cm, 06/05/20 8:32:00 EDT, Height, 73.1, [...] Dates Health Status Clini lobo Service Informant Oral thrush Discharge Diagnosis 06/25/23 Vital Signs Most recent to oldest [Reference Range]: 1 Height 165 cm (06/25/23 1:46 PM) Weight 74.7 kg (06/25/23 1:46 PM) Oxygen Saturation [94-100 %] 99 % (06/25/23 1:46 PM) Pulse Rate [55-90 bpm] 77 bpm (06/25/23 1:46 PM) Body Mass Index [18.5-24.99 kg/m2] 27.44 kg/m2 *H* (06/25/23 1:46 PM) Blood Pressure [90-138/55-84 mm Hg] 99/6 3mm Hg (06/25/23 1:46 PM) Respiratory Rate [16-30 br/min] 16 br/mi n (06/25/23 1:46 PM) Temperature [96.8-100.4 DegF] 97.4 DegF (06/25/23 1:46 PM) Mode of Delivery (Oxygen) Room air (06/25/23 1:46 PM) Blood pressure sites Arm, left (06/25/23 1:46 PM) Temperature Route Oral (06/25/23 1:46 PM) Weight Obtained Via Standing scale (06/25/23 1:46 PM) Social History Social History Type Response Smoking Status Never smoker entered on: 05/04/16 Sex Patient Care team information Care Team Personnel Name: Meghna Harmon Position: [facility] PCO Associate Professional Member Role: PCP Address: Address: [address] [place] [address]- Name: Robert ANDRADE, Fani Lane Position: [facility] AMB Nurse Member Role: Primary Care Nurse Care Team Related Persons Name: SIVA BEE Address: home [address] [place] [address]
[2024-06-05 17:37] LABS: Alanine Aminotransferase 8 U/L (0-31); Albumin Level 4.1 g/dL (3.5-5.0); Alkaline Phosphatase 102 U/L (39-117); Anion Gap 12 (12-20); Aspartate Amino Transferase 12 U/L (5-31); Bilirubin Total 0.6 mg/dL (0.0-1.0); Blood Urea Nitrogen 8 mg/dL (9-16); Calcium 10.8 mg/dL (8.4-10.2); Carbon Dioxide 27 mmol/L (22-29); Chloride 107 mmol/L (96-108); Creatinine Clr Calc Pharmacy 64.3; Estimated Glomerular Filt Rate > 60; Glucose Random 99 mg/dL (60-115); Lipase 14 U/L (8-78); Potassium 3.9 mmol/L (3.3-5.1); Sodium 142 mmol/L (135-145); Total Protein 6.8 g/dL (6.5-8.0)
[2024-06-05 17:45] LABS: Troponin-I High Sensitivity < 2.7 ng/L (<3.5-17.0)
[2024-06-05 17:48] VITALS: BP 145/81; PULSE 86; RESP 16; TEMP 36.9; O2SAT 96
--- NOTE | 2024-06-05 17:50 | MHC.EDTECH ---
Patient EKG taken, and blood work drawn, vitals are done , the pt rest comfortably in her bed,and call brown in reach.
[2024-06-05 17:58] LABS: Influenza A PCR NEGATIVE (Negative); Influenza B PCR NEGATIVE (Negative); Resp Syncy Virus RNA Qual PCR NEGATIVE (Negative); SARS COV2 PCR INHOUSE NEGATIVE (Negative)
[2024-06-05 18:28] VITALS: BP 145/81; PULSE 86; RESP 16; TEMP 36.9; O2SAT 96
[2024-06-05] MEDS: Ibuprofen 600 MG TABLET PO (18:32)
[2024-06-05] MEDS: Ondansetron ODT 4 MG TAB.RAPDIS TRANSLINGU (18:32)
--- NOTE | 2024-06-05 18:59 | PC.NURSE ---
Discharged by previous nurse
== END 2024-06-05 18:59 | disposition home or self-care (01) ==
PROVIDERS: Physician Assistant Medical; Emergency Provider Internal Medicine
DX: R07.89 Other chest pain (principal); M79.602 Pain in left arm; Z79.899 Other long term (current) drug therapy; Z03.818 Encounter for observation for suspected exposure to other biological agents ruled out
CPT/HCPCS: 0241U; 36415; 71046; 80053; 83690; 84484; 85025; 85610; 93005; 99283; 99284

== ENCOUNTER 2024-10-02 13:31 | Emergency (ER) | payer MEDICARE, MEDICAID, SELFPAY ==
--- NOTE | 2024-10-02 13:36 | ECG_ITS ---
Test Reason : CHEST PAIN Blood Pressure : */* mmHG Vent. Rate : 90 BPM Atrial Rate : 90 BPM P-R Int : 146 ms QRS Dur : 88 ms QT Int : 368 ms P-R-T Axes : 18 -3 19 degrees QTcB Int : 450 ms Normal sinus rhythm Possible Anterior infarct , age undetermined Abnormal ECG When compared with ECG of 05-Jun-2024 15:15, No significant change was found Referred By: Madeleine Smith Electronically Signed By: Abdiaziz Peguero
[2024-10-02 13:57] VITALS: BP 129/78; PULSE 90; RESP 18; TEMP 36.3; O2SAT 97; BMI 24.2
--- NOTE | 2024-10-02 13:57 | ED_ITS ---
HPI - General Adult General Chief complaint: General Medical Stated complaint: chest pain Related Data Home Medications ?Medication ?Instructions ?Recorded ?Confirmed gabapentin 300 mg capsule 300 mg PO TID 07/15/21 07/15/21 Previous Rx's ?Medication ?Instructions ?Recorded clonazepam 1 mg tablet 1 mg PO TID #90 tabs 08/13/21 lurasidone 80 mg tablet (Latuda) 80 mg PO BEDTIME #30 tabs 08/13/21 mirtazapine 15 mg tablet 15 mg PO BEDTIME #30 tabs 08/13/21 multivitamin (Daily-Elias tablet) 1 tab PO DAILY #30 tabs 08/13/21 oxcarbazepine 300 mg tablet 300 mg PO BID #60 tabs 08/13/21 trazodone 100 mg tablet 200 mg (2 x 100 mg) PO BEDTIME #60 08/13/21 tabs venlafaxine 150 mg 150 mg PO DAILY #30 caps 08/13/21 capsule,extended release 24 hr ketorolac 10 mg tablet 10 mg PO TID 3 days #9 tabs 10/03/21 naloxone 4 mg/actuation nasal 4 mg intranasal Q2M PRN opioid 10/03/21 spray (Narcan) overdose #2 ea ondansetron 4 mg disintegrating 4 mg PO Q8H #6 tabs 10/03/21 tablet polyethylene glycol 3350 17 gram 17 g PO DAILY #14 ea 04/25/23 oral powder packet (Miralax) cefuroxime axetil 250 mg tablet 250 mg PO BID 7 days #14 tabs 04/29/23 ibuprofen 600 mg tablet 600 mg PO Q6H PRN fever or pain 06/05/24 #30 tabs Allergies Allergy/AdvReac Type Severity Reaction Status Date / Time sulfamethoxazole Allergy Unknown ANAPHYLAXIS Verified 10/02/24 13:58 [From BACTRIM] trimethoprim [From BACTRIM] Allergy Unknown ANAPHYLAXIS Verified 10/02/24 13:58 [facility] Past Medical History Medical History Polysubstance abuse Back pain Opioid abuse Bipolar 1 disorder, depressed, severe Social History Social History Household Members: None Housing: Apartment Do you presently have visiting nurse or other home services: No Alcohol intake: former Comment: pt no longer high fall risk Patient Tobacco Use Status: Never used Tobacco Second Hand Smoke Exposure: No Substance Use Type: Crack/Cocaine Advance Directives: No Do you have a plan to hurt others: No Plan service: No Sexual orientation: Did not discuss. Physical Exam ED Vital Signs: Vital Signs - 24 hr 10/02/24 13:57 Temperature 97.3 F Pulse Rate 90 Respiratory Rate 18 Blood Pressure 129/78 Pulse Oximetry 97 Oxygen Delivery Method Room Air BMI result Body Mass Index 24.2 Course Course Course Narrative: This is a rapid medical exam performed by Danielle Smith NP: Additional HPI, ROS, PE not included below will be deferred to primary provider. Patient is a 64-year-old female with Bipolar II disorder presenting to the ED with daughter who dropped patient off via car but did not come inside the ED with patient. Daughter states that she believes the patient took too many of her pills but does not know which medication, reports history of overdose in the past. Patient repeatedly stating I don't feel good, I'm having a heart attack. Patient oriented to self, knows she is at an emergency department, unable to state which one, unable to state date. Vital signs WNL. Plan: senior mechanical development engineer notified, aware that patient is not oriented. EKG, labs, CXR 18:28 Notified by radiology that patient refusing CXR, will cancel at this time and defer to primary provider. Attempted to contact patient via telephone when patient did not answer in waiting room. No answer, left voicemail for patient to call the ED> Medical Decision Making Lab Data 10/02/24 14:07 10/02/24 14:07 Labs: Lab Results 10/02/24 Range/Units 14:07 WBC 8.6 (4.8-10.8) X10*3/uL RBC 4.19 L (4.20-5.50) X10*6/uL Hgb 13.2 (12.0-16.0) g/dl Hct 38.2 (37.0-47.0) % MCV 91.2 (80.0-98.0) fL MCH 31.5 (27.0-33.0) pg MCHC 34.6 (31.0-35.0) g/dl RDW 12.6 (11.0-16.0) % Plt Count 360 D (160-400) X10*3/uL MPV 9.3 L (9.4-12.3) fL Immature Gran % (Auto) 0.2 (0.0-0.4) % Neut % (Auto) 61.4 (45-73) % Lymph % (Auto) 30.7 (20-40) % [place] % (Auto) 7.1 (2-11) % Eos % (Auto) 0.3 (0-4) % Baso % (Auto) 0.3 (0-2) % Lymph # (Auto) 2.7 (1.2-4.9) X10*3/uL [place] # (Auto) 0.6 (0.1-1.2) X10*3/uL Eos # (Auto) 0.0 (0.0-0.4) X10*3/uL Baso # (Auto) 0.0 (0.0-0.2) X10*3/uL Abs Immat Gran (auto) 0.02 (0.00-0.03) X10*3/uL Absolute Neuts (auto) 5.3 (2.0-8.3) x10*3/uL Absolute Nucleated RBC 0.000 (0.0-0.012) X10*3/uL Nucleated RBC % (auto) 0.0 (0.0-0.2) /100WBC PT 12.6 H (10.9-12.4) SEC INR 1.1 (0.9-1.1) Sodium 141 (135-145) mmol/L Potassium 3.6 (3.3-5.1) mmol/L Chloride 113 H (96-108) mmol/L Carbon Dioxide 20 L (22-29) mmol/L Anion Gap 12 (12-20) BUN 17 H (9-16) mg/dL Creatinine 0.87 (0.5-1.4) mg/dL Estim Creat Clear Calc 62.7 Estimated GFR > 60 Random Glucose 104 (60-115) mg/dL Calcium 10.6 H (8.4-10.2) mg/dL Total Bilirubin 0.6 (0.0-1.0) mg/dL AST 19 (5-31) U/L ALT 6 (0-31) U/L Alkaline Phosphatase 107 (39-117) U/L Troponin I High Sens < 2.7 (<3.5-17.0) ng/L Total Protein 7.2 (6.5-8.0) g/dL Albumin 4.3 (3.5-5.0) g/dL Salicylates < 5.0 L (15-30) mg/dL Acetaminophen < 3 (<30) mcg/mL Ethyl Alcohol < 10 mg/dL Influenza Type A (PCR) NEGATIVE (Negative) Influenza Type B (PCR) NEGATIVE (Negative) RSV RNA Qual (PCR) NEGATIVE (Negative) SARS-CoV-2 RNA (RT-PCR) NEGATIVE (Negative) Discharge Plan Discharge Clinical Impression: Chest pain Patient Disposition: Left W/O Completing Treatment Prescriptions: No Action gabapentin 300 mg capsule 300 mg PO TID clonazepam 1 mg Tablet 1 mg PO TID Qty: 90 0RF oxcarbazepine 300 mg Tablet 300 mg PO BID Qty: 60 0RF trazodone 100 mg Tablet 200 mg PO BEDTIME Qty: 60 0RF mirtazapine 15 mg Tablet 15 mg PO BEDTIME Qty: 30 0RF Latuda 80 mg Tablet 80 mg PO BEDTIME Qty: 30 0RF venlafaxine 150 mg capsule,extended release 24hr 150 mg PO DAILY Qty: 30 0RF multivitamin [Daily-Elias] Tablet 1 tab PO DAILY Qty: 30 0RF naloxone [Narcan] 4 mg/actuation spray,non-aerosol 4 mg intranasal Q2M PRN (Reason: opioid overdose) Qty: 2 0RF Rx Instructions: spray 1 dose into ONE nostril; alternate nostrils w each dose until help arrives ondansetron 4 mg tablet,disintegrating 4 mg PO Q8H Qty: 6 0RF ketorolac 10 mg tablet 10 mg PO TID 3 Days Qty: 9 0RF polyethylene glycol 3350 [Miralax] 17 gram powder in packet 17 g PO DAILY Qty: 14 0RF cefuroxime axetil 250 mg tablet 250 mg PO BID 7 Days Qty: 14 0RF ibuprofen 600 mg tablet 600 mg PO Q6H PRN (Reason: fever or pain) Qty: 30 0RF Discharge Date/Time: 10/02/24 20:35
[2024-10-02 14:12] LABS: MANUAL DIFF FLAG NO
[2024-10-02 14:15] LABS: Basophils Percent Auto 0.3 % (0-2); Eosinophils Percent Auto 0.3 % (0-4); Hematocrit 38.2 % (37.0-47.0); Hemoglobin 13.2 g/dl (12.0-16.0); Imm Gran Abs Auto 0.02 X10*3/uL (0.00-0.03); Imm Gran Pct Auto 0.2 % (0.0-0.4); Lymphocytes Absolute Auto 2.7 X10*3/uL (1.2-4.9); Lymphocytes Percent Auto 30.7 % (20-40); Mean Corpuscular HGB Conc 34.6 g/dl (31.0-35.0); Mean Corpuscular Hemoglobin 31.5 pg (27.0-33.0); Mean Corpuscular Volume 91.2 fL (80.0-98.0); Mean Platelet Volume 9.3 fL (9.4-12.3); Monocytes Absolute Auto 0.6 X10*3/uL (0.1-1.2); Monocytes Percent Auto 7.1 % (2-11); Neutrophils Absolute Auto 5.3 x10*3/uL (2.0-8.3); Neutrophils Percent Auto 61.4 % (45-73); Platelet Count 360 X10*3/uL (160-400); Red Blood Count 4.19 X10*6/uL (4.20-5.50); Red Cell Distribution Width 12.6 % (11.0-16.0); White Blood Count 8.6 X10*3/uL (4.8-10.8)
[2024-10-02 14:19] LABS: INTERNATIONAL NORM RATIO 1.1 (0.9-1.1); Prothrombin Time 12.6 SEC (10.9-12.4)
[2024-10-02 14:31] LABS: Alanine Aminotransferase 6 U/L (0-31); Albumin Level 4.3 g/dL (3.5-5.0); Alkaline Phosphatase 107 U/L (39-117); Anion Gap 12 (12-20); Aspartate Amino Transferase 19 U/L (5-31); Bilirubin Total 0.6 mg/dL (0.0-1.0); Blood Urea Nitrogen 17 mg/dL (9-16); Calcium 10.6 mg/dL (8.4-10.2); Carbon Dioxide 20 mmol/L (22-29); Chloride 113 mmol/L (96-108); Creatinine Clr Calc Pharmacy 62.7; Estimated Glomerular Filt Rate > 60; Glucose Random 104 mg/dL (60-115); Potassium 3.6 mmol/L (3.3-5.1); Sodium 141 mmol/L (135-145); Total Protein 7.2 g/dL (6.5-8.0)
[2024-10-02 14:33] LABS: Acetaminophen LAB < 3 mcg/mL (<30); Salicylate < 5.0 mg/dL (15-30)
[2024-10-02 14:41] LABS: Troponin-I High Sensitivity < 2.7 ng/L (<3.5-17.0)
[2024-10-02 14:56] LABS: Influenza A PCR NEGATIVE (Negative); Influenza B PCR NEGATIVE (Negative); Resp Syncy Virus RNA Qual PCR NEGATIVE (Negative); SARS COV2 PCR INHOUSE NEGATIVE (Negative)
[2024-10-02 15:27] LABS: Ethanol < 10 mg/dL
--- OUTSIDE RECORDS SUMMARY | 2024-10-02 20:34 | XMS_ITS | Clinical Summary ---
Author Organization Unknown Care Team Providers Care Technical Laboratory Asst Name Role Phone SANDRA STARCHER [employer] T[employer] RANGE FEEDER, EDDIE Unavailable Unavaila paul ESQUIVEL RN, BETHEL Unavailable Unavailable Payers Payer Name Policy Type Policy Number Effective Date Expira tion Date ON DEMAND [place] [id number] [place] - [place]N [id number] Problems Condition Name Condition Details Condition Category Status Onset Date Resolution Date Last Treatment Date Treating Clinician Comments BIPOLAR II DISORDER Active 2023-09 00:00: 00 GENERALIZED ANXIETY DISORDER Active 2023-09 00:00: 00 POST-TRAUMAT IC STRESS DISORDER, UNSPECIFIED Active 2023-09 00:00: 00 COCAINE ABUSE WITH INTOXICATION , UNSPECIFIED Active 2023-09 00:00: 00 COCAINE DEPENDENCE, UNCOMPLICATE D Active 2023-09 00:00: 00 Allergies, Adverse Reactions, Alerts Allergy Name Allergy Type Status Severity Reaction(s) Onset Date Inactive Date Treating Clinician Comments BACTRIM Propensity to adverse reactions Active 2024-08 05:32:1 7 Vital Signs Vital Name Observation Time Observation Value Commen ts Temperature 2024-09-24 22:45:00.000 98 [degF] BMI (%) 2024-09-06 12:22:00.000 23 kg/m2 Height 2024-09-06 12:22:00.000 65 [in_us] Pulse 2024-09-29 12:57:00.000 74 /min Pulse 2024-09-27 12:12:00.000 76 /min Pulse 2024-09-26 16:41:00.000 76 /min Pulse 2024-09-26 14:00:00.000 78 /min O2 Saturation (%) 2024-09-29 12:56:00.000 95 % O2 Saturation (%) 2024-09-27 12:13:00.000 96 % Respirations 2024-09-29 12:57:00.000 20 /min Respirations 2024-09-27 12:12:00.000 20 /min Respirations 2024-09-26 16:41:00.000 20 /min Respirations 2024-09-26 14:00:00.000 20 /min Weight (lbs) 2024-09-06 12:22:00.000 140 [lb_av] Systolic Blood Pressure 2024-09-29 12:57:00.000 110 mm [Hg] Systolic Blood Pressure 2024-09-27 12:12:00.000 100 mm [Hg] Systolic Blood Pressure 2024-09-26 16:41:00.000 126 mm [Hg] Systolic Blood Pressure 2024-09-26 14:00:00.000 128 mm [Hg] Systolic Blood Pressure 2024-09-06 13:00:00.000 106 mm [Hg] Diastolic Blood Pressure 2024-09-29 12:57:00.000 76 mm [Hg] Diastolic Blood Pressure 2024-09-27 12:12:00.000 60 mm [Hg] Diastolic Blood Pressure 2024-09-26 16:41:00.000 72 mm [Hg] Diastolic Blood Pressure 2024-09-26 14:00:00.000 74 mm [Hg] Diastolic Blood Pressure 2024-09-06 13:00:00.000 70 mm [Hg] Plan of Treatment Planned Activity Planned Date Details Comments Future Scheduled Test SKILLED NU RSE TO EVALUATE PATIENT, IDENTIFY PRIMARY AND CO-MORBID CONDITIONS CODED PER CODING GUIDELINES, AND DEVELOP PATIENT SPECIFIC PLAN OF CARE THAT INCLUDES PATIENT GOAL FOR HOME HEALTH. [code = SKILLED NURSE TO EVALUATE PATIENT, IDENTIFY PRIMARY AND CO-MORBID CONDITIONS CODED PER CODING GUIDELINES, AND DEVELOP PATIENT SPECIFIC PLAN OF CARE THAT INCLUDES PATIENT GOAL FOR HOME HEALTH.] Future Scheduled Test SKILLED NU RSE TO O/A OF PATIENTS MENTAL/BEHAVIORAL STATUS, ASSESS VITAL SIGNS 1WK8, 3WK8 ALLOW 2 PRNS FOR MEDICATION MANAGEMENT. [code = SKILLED NURSE TO O/A OF PATIENTS MENTAL/BEHAVIORAL STATUS, ASSESS VITAL SIGNS 1WK8, 3WK8 ALLOW 2 PRNS FOR MEDICATION MANAGEMENT.] Future Scheduled Test SKILLED NU RSE FOR O/A OF ALTERED MOOD [code = SKILLED NURSE FOR O/A OF ALTERED MOOD] Future Scheduled Test SKILLED NU RSE FOR O/A OF GENERAL HEALTH STATUS OF PAIN, CARDIAC, RESPIRATORY, GASTROINTESTINAL, GENITOURINARY, SKIN, NEUROLOGIC, ENDOCRINE SYSTEMS TO IDENTIFY CHANGES ASSOCIATED WITH EXACERBATION FOR EARLY INTERVENTION OF COMPLICATIONS WEEKLY. [code = SKILLED NURSE FOR O/A OF GENERAL HEALTH STATUS OF PAIN, CARDIAC, RESPIRATORY, GASTROINTESTINAL, GENITOURINARY, SKIN, NEUROLOGIC, ENDOCRINE SYSTEMS TO IDENTIFY CHANGES ASSOCIATED WITH EXACERBATION FOR EARLY INTERVENTION OF COMPLICATIONS WEEKLY.] Future Scheduled Test SKILLED NU RSE TO ADMINISTER MEDICATIONS 3WK8 AND PRE-POUR MEDICATIONS 1WK8 PER MEDICATION LIST. [code = SKILLED NURSE TO ADMINISTER MEDICATIONS 3WK8 AND PRE-POUR MEDICATIONS 1WK8 PER MEDICATION LIST.] Future Scheduled Test SKILLED NU RSE TO PERFORM HOME SAFETY AND FALL ASSESSMENT AND PROVIDE INSTRUCTION TO IMPLEMENT HOME SAFETY AND FALL PREVENTION STRATEGIES. [code = SKILLED NURSE TO PERFORM HOME SAFETY AND FALL ASSESSMENT AND PROVIDE INSTRUCTION TO IMPLEMENT HOME SAFETY AND FALL PREVENTION STRATEGIES.] Future Scheduled Test SKILLED NU RSE FOR OBSERVATION AND ASSESSMENT OF PATIENTS PAIN LEVEL AND EFFECTIVENESS OF PAIN MANAGEMENT REGIMEN. SKILLED NURSE TO INSTRUCT PATIENT/CAREGIVER REGARDING PHARMACOLOGIC AND NON-PHARMACOLOGIC PAIN CONTROL MEASURES. SKILLED NURSE TO REPORT TO PHYSICIAN IF PAIN IS UNCONTROLLED WITH CURRENT PAIN MANAGEMENT REGIMEN. [code = SKILLED NURSE FOR OBSERVATION AND ASSESSMENT OF PATIENTS PAIN LEVEL AND EFFECTIVENESS OF PAIN MANAGEMENT REGIMEN. SKILLED NURSE TO INSTRUCT PATIENT/CAREGIVER REGARDING PHARMACOLOGIC AND NON-PHARMACOLOGIC PAIN CONTROL MEASURES. SKILLED NURSE TO REPORT TO PHYSICIAN IF PAIN IS UNCONTROLLED WITH CURRENT PAIN MANAGEMENT REGIMEN.] Future Scheduled Test SKILLED NU RSE TO ASSESS PATIENTS PSYCHOSOCIAL STATUS TO IDENTIFY POTENTIAL ISSUES THAT MAY COMPLICATE THE PROVISION OF THE PLAN OF CARE INCLUDING THE PATIENTS ABILITY TO ACCESS COMMUNITY RESOURCES AND PSYCHOSOCIAL SUPPORT SERVICES. [code = SKILLED NURSE TO ASSESS PATIENTS PSYCHOSOCIAL STATUS TO IDENTIFY POTENTIAL ISSUES THAT MAY COMPLICATE THE PROVISION OF THE PLAN OF CARE INCLUDING THE PATIENTS ABILITY TO ACCESS COMMUNITY RESOURCES AND PSYCHOSOCIAL SUPPORT SERVICES.] Future Scheduled Test SKILLED NU RSE WILL MAINTAIN SITUATIONAL AWARENESS FOR SAFETY AND WILL NOTIFY CLINICAL WELDER GAS TUNGSTEN ARC AND PHYSICIAN/PROVIDER WITH ANY CHANGE IN CONDITION. [code = SKILLED NURSE WILL MAINTAIN SITUATIONAL AWARENESS FOR SAFETY AND WILL NOTIFY CLINICAL WELDER GAS TUNGSTEN ARC AND PHYSICIAN/PROVIDER WITH ANY CHANGE IN CONDITION.] Goal Patient Goal - TO GET HELP Goal Provider Goal - A PLAN OF CARE WILL BE ESTABLISHED THAT MEETS PATIENT'S LONG TERM NEEDS AND INCLUDES PATIENT GOAL FOR HOME HEALTH. Goal Provider Goal - ALTERED MENTAL/BEHAVIORAL STATUS WILL BE IDENTIFIED PROMPTLY AND INTERVENTION INITIATED QUICKLY TO MINIMIZE ASSOCIATED RISKS THROUGHOUT CERTIFICATION PERIOD. Goal Provider Goal - PATIENT WILL BE ABLE TO PERFORM DAILY FUNCTIONS AND HAVE OPTIMAL IMPROVEMENT IN MOOD STABILITY THROUGHOUT CERTIFICATION PERIOD. Goal Provider Goal - CHANGE IN GENERAL HEALTH STATUS WILL BE IDENTIFIED AND REPORTED TO PHYSICIAN FOR PROMPT INTERVENTION TO MINIMIZE ASSOCIATED RISKS THROUGHOUT CERTIFICATION PERIOD. Goal Provider Goal - PATIENT WILL COMPLY WITH MEDICATION WHEN SKILLED NURSE ADMINISTERS AND PRE-POURS MEDICATION THROUGHOUT CERTIFICATION PERIOD. Goal Provider Goal - PATIENT/CAREGIVER WILL VERBALIZE/DEMONSTRATE EFFECTIVE HOME SAFETY AND FALL PREVENTION STRATEGIES THROUGHOUT CERTIFICATION PERIOD. Goal Provider Goal - PATIENT/CAREGIVER WILL DEMONSTRATE UNDERSTANDING OF PHARMACOLOGIC AND NONPHARMACOLOGIC PAIN CONTROL MEASURES AND PATIENT WILL HAVE IMPROVEMENT IN PAIN INTERFERING WITH ACTIVITY EVIDENCED BY PAIN CONTROLLED AT LEVEL OF 7 OR LESS BY END OF CERTIFICATION PERIOD. Goal Provider Goal - PSYCHOSOCIAL NEEDS WILL BE IDENTIFIED AND PLAN IMPLEMENTED TO MINIMIZE RISK THROUGHOUT CERTIFICATION PERIOD. Goal Provider Goal - PATIENT WILL REMAIN SAFE IN THE COMMUNITY AND WILL BE FREE OF DANGER TO SELF AND OTHERS THROUGHOUT THE CERTIFICATION PERIOD. Progress Notes Progress Notes <paragraph>[Visit Date: 2024 by BETHEL ESQUIVEL RN]:</paragraph><paragraph>I</paragraph> <paragraph>[Visit Date: 2024 by BETHEL ESQUIVEL RN]:</paragraph><paragraph>ALERT AND FORGETFUL. SHE IS UNKEPT AND APPEARS UNBATHED. SHE STATES SHE WENT TO URGENT CARE TWO DAYS AGO BECAUSE I DON'T FEEL GOOD . SHE IS VAGUE WITH ANSWERS DURING ASSESMENT AND EDUCATION PROCESS. SHE REPORTS SHE HAS A VIRAL INFECTION AND UTI. SHE HAS NEW SCRIPT FOR MACRODANTIN AND ZOFRAN. SN EDUCATED HER ON NEW MEDS AND WHEN TO TAKE PRN ZOFRAN. SHE WAS EDUCATED ON IMPORTANCE OF COMPLIANCE WITH ANTIBIOTIC FOR EFFECTIVENESS. SHE VERBALIZED PARTIAL UNDERSTANDING OF TEACHING. MEDICATIONS PP PER NOV AND SHE IS COMPLIANT PER MED CARGO WORKER. LOCKBOX SECURED.</paragraph> Encounters Start Date/Time End Date/Time Encounter Type Admission Type Attending Clinicians Care Facility Care Department Encounter ID Discharge Date Discharge Status Discharge Condition Discharge Reason Percent Goals Met 2024-09-06 00:00:00 2024-11-04 00:00:00 Outpatient BETHEL [facility] [id number] 72.00
--- NOTE | 2024-10-02 23:29 | PC.NURSE ---
Addendum entered by Yamilka Vieranacion 10/02/24 23:44: Jenni reports she picked pt up around 4pm, and was able to speak to her on the phone around 10pm Original Note: PT called back several of times, no answer. Spoke with daughter Ayla and she states she has not spoken with Iveth since dropping her off this afternoon. She states she does not have a relationship with Iveth but saw her today at her grandmothers home, and found her to be incoherent and grunting, she was concerned that pt OD'd which pt has a history of. Radha reports that Jenni, Iveth's mother has not heard from PT either. TW made several of calls to pt and pt's mother but no answer until 11:25pm and 11:35pm. at 11:25pm, Jenni states she picked up Iveth from the ED and brought her home. She spoke with Iveth about an hour ago over the phone. After repeated calls, PT answered TW phone call at 11:35pm. Her speech was clear and not slurred over the phone. She did not answer questions to orientation but appeared to comprehend and respond appropriately to the conversation without any overt signs of confusion or distress. PT confirmed she is home and asked for us to stop calling her stating I am fine
--- NOTE | 2024-10-02 23:33 | PC.NURSE ---
Pt called from waiting room at 1839, 2014, and 2255, and pt called on home phone number with no answer. Yamilka ANDRADE spoke to daughter and mother. Mother Jenni picked up phone stating that she picked up pt from waiting room and brought her home. Pt admitted to using substances but was alert and oriented, walking ok. Jenni last spoke to Iveth and hour ago and did not feel she needed medical attention at this time. Clinical coordinator aware, Yamilka ANDRADE attempting to call pt again.
== END 2024-10-02 20:35 | disposition left against medical advice (07) ==
PROVIDERS: Registered Nurse Emergency; Emergency Provider Emergency Medicine
DX: R07.9 Chest pain, unspecified (principal); Z03.818 Encounter for observation for suspected exposure to other biological agents ruled out; F31.81 Bipolar II disorder; F19.10 Other psychoactive substance abuse, uncomplicated
CPT/HCPCS: 0241U; 36415; 80053; 80143; 80179; 80307; 84484; 85025; 85610; 93005; 99283

== ENCOUNTER → 2024-10-02 13:36 | Outpatient (BNV) | payer MEDICARE, MEDICAID, SELFPAY | PROVIDERS: Emergency Provider Emergency Medicine; Visit Provider Internal Medicine Cardiovascular Disease | DX: R94.31 Abnormal electrocardiogram [ECG] [EKG] (principal) | CPT/HCPCS: 93010 ==